=== PATIENT | female | born 1965 | race Caucasian/White ===

== ENCOUNTER 2025-05-15 01:13 | Inpatient (IN) | payer OTHER, SELFPAY ==
--- OUTSIDE RECORDS SUMMARY | 2025-04-23 12:20 | XMS_ITS | Encounter Summary ---
Author Organization [facility] Address [address] [place] [address] [place], [place] [id number] Care Team Providers Care Otologist Name Role Phone Porfirio Nicolas Md Primary Care Provider [phone] Reason for Referral * Specialty (Priority - w/in a Month) - Closed Specialty Diagnoses / Procedures Referred By Brynn hinton Referred To Contact Internal Medicine Diagnoses Smoker Porfirio Nicolas MD [address] [place] [address] Phone: tel: fax: Referral ID Status Reason Start Date Expiration Date V isits Requested Visits Authorized Closed Service not locally available 04/23/2025 04/23/2026 3 3 Scheduling Instructions This referral has been pre-approved for services outside of [facility] as there is no internal expertise. * Imaging (Non Urgent - w/in 3 months) - Auth Not Needed Specialty Diagnoses / Procedures Referred By Brynn hinton Referred To Contact Diagnoses Encounter for screening mammogram for malignant neoplasm of breast Procedures MAMMOGRAM SCREENING BILAT BRIAN BUNDLE Porfirio Nicolas MD [address] [place] [address] Phone: tel: fax: Unspecified Location Referral ID Status Reason Start Date Expiration Date Visits Requested Visits Authorized Auth Not Needed Service not locally available 10/21/2026 1 1 Reason for Visit * Reason Comments New Patient Complete Physical Exam Wears eye glasses for near & farSees eye doctor yearly - [facility] [place] Encounter Details Date Type Department Care Team (Latest Contact Info) Description 04/23/2025 1:20 PM EDT Office Visit [facility] [address] [place] [phone] Porfirio Nicolas MD [address] [place] [phone] Annual physical exam (Primary Dx); Colon cancer screening; Encounter for screening mammogram for malignant neoplasm of breast; Need for COVID-19 vaccine; Need for influenza vaccination; Need for shingles vaccine; Smoker; Type 1 diabetes mellitus with hyperglycemia ([facility]); Seizure disorder ([facility]); Class 2 severe obesity due to excess calories with serious comorbidity and body mass index (BMI) of 35.0 to 35.9 in adult; Bipolar disorder, in partial remission, most recent episode depressed ([facility]); Cervical cancer screening; Bilateral hearing loss, unspecified hearing loss type Social History Tobacco Use Types Packs/Day Years Used Date Smoking Tobacco: Every Day Cigarettes 0.5 5 Passive Smoke Exposure: Never Smokeless Tobacco: Never Alcohol Use Standard Drinks/Week Comments Yes 1 (1 standard drink = 0.6 oz pur e alcohol) One glass of wine at [facility] Vital Sign Answer Date Recorded Worried About [...] What is your housing situation today? Has nanyc coon 04/23/2025 Are you worried about losing [...] 12:56 PM EDT documented in this encounter Ordered Prescriptions Prescription Sig Dispense Quantity Refills Last Filled Start Date End Date nicotine 14 mg/24 hr Patch 24 hrIndications:Smoke r Apply 1 patch daily for 6 weeks; then step down to 7mg patch 42 patch SHINGRIX (PF) 50 MCG/0.5 ML INTRAMUSCULAR SUSPENSION [...] Patient CONSENTS to be recorded by the [employer] system. Subjective Lisa Rosas is a 59 year old patient who presents for a periodic health review. History of Present Illness The patient is a female who presents for a checkup. Physical Examination and Blood Work - Her last physical examination and blood work were nearly a year ago at [facility] in [facility]. - She has not undergone a Pap smear since her hysterectomy in 2010 due to ovarian cancer. - Both ovaries and the uterus were removed, leaving only the cervix intact. Blood Sugar Levels - She experiences fluctuations in her blood sugar levels, generally stable. - She uses a Dexcom monitor and is under regular care of an car sales consultant. - She is on an insulin pump [...] - She is scheduled to see an hand molder soon. Glaucoma - She has glaucoma and [...] Alcohol: Drinks 1 glass of wine on [place]. Tobacco: Smokes about half a pack of [...] vaccine Orders: COVID-19 (PFIZER) VACCINE, 12YRS+, 30MCG/0.3ML ([id number]) Need for influenza vaccination Orders: INFLUENZA VACCINE, 36MOS+, SPLIT VIRUS, SINGLE DOSE SYRINGE (AFLURIA) Need for shingles vaccine Smoker Orders: nicotine 14 mg/24 hr Patch 24 hr; Apply 1 patch daily for 6 weeks; then step down to 7mg patch REFERRAL TO [facility] SMOKING CESSATION PROGRAM Type 1 diabetes mellitus with hyperglycemia ([facility]) Seizure disorder ([facility]) Class 2 severe obesity due to excess calories with serious comorbidity and body mass index (BMI) of35.0 to 35.9 in adult Bipolar disorder, in partial remission, most recent episode depressed ([facility]) Cervical cancer screening Orders: PAP VIAL TESTING; [...] should be continued, and follow-up with the car sales consultant is recommended. 3. Seizure Disorder: There have [...] 2025. The patient is advised to start frkf-gth-wbkobkf baby aspirin daily unless contraindicated due to a history of bleeding ulcers. 5. Hearing Loss: The patient has complete hearing loss in the left ear and partial hearing loss in the right ear. This is managed with hearing aids, and the patient is due to see an hand molder soon. 6. Glaucoma: The patient follows up with the eye doctor annually. No diabetic retinopathy has been reported. 7. History of Bleeding Ulcers: The patient had a bleeding ulcer in 2019, which was treated with surgery. It is [...] step down to 7mg patch REFERRAL TO [facility] SMOKING CESSATION PROGRAM * Assessment & Plan Note - Porfirio Nicolas MD - 04/23/2025 1:20 PM EDTAssociated Problem(s): Type 1 diabetes mellitus with hyperglycemia ([facility]) * Assessment & Plan Note - Porfirio Nicolas MD - 04/23/2025 1:20 PM EDTAssociated Problem(s): Seizure disorder ([facility]) * Assessment & Plan Note - Porfirio Nicolas MD - 04/23/2025 1:20 PM EDTAssociated Problem(s): Class 2 severe obesity due to excess calories with serious comorbidity and body mass index (BMI) of 35.0 to 35.9 in adult * Assessment & Plan Note - Porfirio Nicolas MD - 04/23/2025 1:20 PM EDTAssociated Problem(s): Bipolar disorder, in partial remission, most recent episode depressed ([facility]) * Assessment & Plan Note - Porfirio Nicolas MD - 04/23/2025 1:20 PM EDTAssociated Problem(s): Bilateral hearing loss documented in this encounter Plan of Treatment Upcoming Encounters Date Type Department Care Team (Late st Contact Info) Description 04/28/2026 1:00 PM EDT Office Visit [facility] [address] [place] [phone] Porfirio Nicolas MD [address] [place] [phone] Scheduled Orders Name Type Priority Associated Diagnoses Orde r Schedule COLOGUARD LAB Routine Colon cancer screening Expected: 04/23/2025, Expires: 04/23/2026 MAMMOGRAM SCREENING BILAT BRIAN BUNDLE IMAGING Routine Encounter for screening mammogram for malignant neoplasm of breast Ordered: 04/23/2025 Scheduled Referrals Name Type Priority Associated Diagnoses Orde r Schedule REFERRAL TO [facility] SMOKING CESSATION PROGRAM REFERRAL/FUTURE Routine Smoker Ordered: 04/23/2025 documented as of this encounter Results * PAP VIAL TESTING (04/23/2025 5:10 PM EDT) Interpretation NEGATIVE FOR INTRAEPITHELIAL LESION OR MALIGNANCY 04/29/2025 9:48 AM EDT [facility] DEPARTMENT OF PATHOLOGY AND LAB MEDICINE at 0948 EDT Specimen Adequacy Satisfactory for evaluation. Transformation zone component absent. 04/29/2025 9:48 AM EDT [facility] DEPARTMENT OF PATHOLOGY AND LAB MEDICINE HPV High Risk Negative 04/29/2025 9:48 AM EDT [facility] DEPARTMENT OF PATHOLOGY AND LAB MEDICINE Source Cervical 04/29/2025 9:48 AM EDT [facility] DEPARTMENT OF PATHOLOGY AND LAB MEDICINE Macroscopic Description Vial contains 20cc of colorless fluid. 04/29/2025 9:48 AM EDT [facility] DEPARTMENT OF PATHOLOGY AND LAB MEDICINE Additional Information For further information about terminology found in your pathology report, please visit the My Pathology Report website (not compatible with Internet Explorer). If after speaking to your provider you would like more information about your pathology result, you may message the pathology department directly. 04/29/2025 9:48 AM EDT [facility] DEPARTMENT OF PATHOLOGY AND LAB MEDICINE [...] of this sample. 04/29/2025 9:48 AM EDT [facility] DEPARTMENT OF PATHOLOGY AND LAB MEDICINE Specimen Information Gynecologic Cytology Case: [id number] Collected: 04/23/2025 5:10 PM Received: 04/23/2025 9:40 PM Authorizing Provider: PORFIRIO NICOLAS MD Ordering Location: [facility] Result interpreted by: JALYN JACKSON Result signed on: 04/29/2025 9:48 AM 04/29/2025 9:48 AM EDT [facility] DEPARTMENT OF PATHOLOGY AND LAB MEDICINE PAP Vial (Cervical) Non-blood collection / Unknown 04/23/2025 5:10 PM EDT 04/23/2025 5:10 PM EDT us Porfirio Nicolas LAB PATHOLOGY ORDERABLES Final R esult [facility] DEPARTMENT OF PATHOLOGY AND LAB MEDICINE [address] [place] [address] documented in this encounter Visit Diagnoses Diagnosis [...] disorder Type 1 diabetes mellitus with hyperglycemia ([facility]) Type I (juvenile type) diabetes mellitus without mention of complication, not stated as uncontrolled Seizure disorder ([facility]) Unspecified epilepsy without mention of intractable epilepsy Class 2 severe obesity due to excess calories with serious comorbidity and body mass index (BMI) of 35.0 to 35.9 in adult Bipolar disorder, in partial remission, most recent episode depressed ([facility]) Bipolar I disorder, most recent episode (or [...] Sliding scale: 70-150=0units 151-200=2units 201-250=4units 251-300=6units 301-350=8units(call ) 351-400=10units(call MD) >400=12units(call MD) Dose Adjustment 04/23/2025 [...] Date COVID-19 (PFIZER) VACCINE, 1 2YRS+, 30MCG/0.3ML ([id number]) 1 04/23/2025 INFLUENZA VACCINE, 36MOS+, S PLIT VIRUS, SINGLE DOSE SYRINGE (AFLURIA) 1 04/23/2025 documented in this encounter Care Teams Otologist Relationship Specialty Start Date End Date Porfirio Nicolas MD [address] [place] [phone] PCP - General Internal Medicine 03/31/25 documented as of this encounter
--- OUTSIDE RECORDS SUMMARY | 2025-04-23 12:20 | XMS_ITS | Encounter Summary ---
Author Organization [facility] Address [address] [place] [address] [place], [place] [id number] Care Team Providers Care Net C Developer Name Role Phone Porfirio Nicolas Md Primary Care Provider [phone] Reason for Referral * Specialty (Priority - w/in a Month) - Closed Specialty Diagnoses / Procedures Referred By Brynn hinton Referred To Contact Internal Medicine Diagnoses Smoker Porfirio Nicolas MD [address] [place] [address] Phone: tel: fax: Referral ID Status Reason Start Date Expiration Date V isits Requested Visits Authorized Closed Service not locally available 04/23/2025 04/23/2026 3 3 Scheduling Instructions This referral has been pre-approved for services outside of [facility] as there is no internal expertise. * Imaging (Non Urgent - w/in 3 months) - Auth Not Needed Specialty Diagnoses / Procedures Referred By Brynn hinton Referred To Contact Diagnoses Encounter for screening mammogram for malignant neoplasm of breast Procedures MAMMOGRAM SCREENING BILAT BRIAN BUNDLE Porfirio Nicolas MD [address] [place] [phone] Phone: tel: fax: Unspecified Location Referral ID Status Reason Start Date Expiration Date Visits Requested Visits Authorized Auth Not Needed Service not locally available 10/21/2026 1 1 Reason for Visit * Reason Comments New Patient Complete Physical Exam Wears eye glasses for near & farSees eye doctor yearly - [facility] [place] Encounter Details Date Type Department Care Team (Latest Contact Info) Description 04/23/2025 1:20 PM EDT Office Visit [place] [facility] [address] [place] [phone] Porfirio Nicolas MD [address] [place] [phone] Annual physical exam (Primary Dx); Colon cancer screening; Encounter for screening mammogram for malignant neoplasm of breast; Need for COVID-19 vaccine; Need for influenza vaccination; Need for shingles vaccine; Smoker; Type 1 diabetes mellitus with hyperglycemia ([facility]); Seizure disorder ([facility]); Class 2 severe obesity due to excess calories with serious comorbidity and body mass index (BMI) of 35.0 to 35.9 in adult; Bipolar disorder, in partial remission, most recent episode depressed ([facility]); Cervical cancer screening; Bilateral hearing loss, unspecified hearing loss type Social History Tobacco Use Types Packs/Day Years Used Date Smoking Tobacco: Every Day Cigarettes 0.5 5 Passive Smoke Exposure: Never Smokeless Tobacco: Never Alcohol Use Standard Drinks/Week Comments Yes 1 (1 standard drink = 0.6 oz pur e alcohol) One glass of wine at [facility] Vital Sign Answer Date Recorded Worried About [...] Patient CONSENTS to be recorded by the [facility] system. Subjective Lisa Rosas is a 59 year old patient who presents for a periodic health review. History of Present Illness The patient is a female who presents for a checkup. Physical Examination and Blood Work - Her last physical examination and blood work were nearly a year ago at [facility] in [facility]. - She has not undergone a Pap smear since her hysterectomy in 2010 due to ovarian cancer. - Both ovaries and the uterus were removed, leaving only the cervix intact. Blood Sugar Levels - She experiences fluctuations in her blood sugar levels, generally stable. - She uses a Dexcom monitor and is under regular care of an electronics utility worker. - She is on an insulin pump [...] - She is scheduled to see an locomotive crane engineer soon. Glaucoma - She has glaucoma and [...] vaccine Orders: COVID-19 (PFIZER) VACCINE, 12YRS+, 30MCG/0.3ML ([id number]) Need for influenza vaccination Orders: INFLUENZA VACCINE, 36MOS+, SPLIT VIRUS, SINGLE DOSE SYRINGE (AFLURIA) Need for shingles vaccine Smoker Orders: nicotine 14 mg/24 hr Patch 24 hr; Apply 1 patch daily for 6 weeks; then step down to 7mg patch REFERRAL TO [facility] SMOKING CESSATION PROGRAM Type 1 diabetes mellitus with hyperglycemia ([facility]) Seizure disorder ([facility]) Class 2 severe obesity due to excess calories with serious comorbidity and body mass index (BMI) of35.0 to 35.9 in adult Bipolar disorder, in partial remission, most recent episode depressed ([facility]) Cervical cancer screening Orders: PAP VIAL TESTING; [...] should be continued, and follow-up with the electronics utility worker is recommended. 3. Seizure Disorder: There have [...] 2025. The patient is advised to start [id number]-[id number]-[id number] baby aspirin daily unless contraindicated due to a history of bleeding ulcers. 5. Hearing Loss: The patient has complete hearing loss in the left ear and partial hearing loss in the right ear. This is managed with hearing aids, and the patient is due to see an locomotive crane engineer soon. 6. Glaucoma: The patient follows up [...] Problem(s): Type 1 diabetes mellitus with hyperglycemia ([facility]) * Assessment & Plan Note - Porfirio Nicolas MD - 04/23/2025 1:20 PM EDTAssociated Problem(s): Seizure disorder ([facility]) * Assessment & Plan Note - Porfirio Nicolas MD - 04/23/2025 1:20 PM EDTAssociated Problem(s): Class 2 severe obesity due to excess calories with serious comorbidity and body mass index (BMI) of 35.0 to 35.9 in adult * Assessment & Plan Note - Porfirio Nicolas MD - 04/23/2025 1:20 PM EDTAssociated Problem(s): Bipolar disorder, in partial remission, most recent episode depressed ([facility]) * Assessment & Plan Note - Porfirio Nicolas MD - 04/23/2025 1:20 PM EDTAssociated Problem(s): Bilateral hearing loss documented in this encounter Plan of Treatment Upcoming Encounters Date Type Department Care Team (Late st Contact Info) Description 04/28/2026 1:00 PM EDT Office Visit [facility] [address] [place] [phone] Porfirio Nicolas MD [address] [place] [phone] Scheduled Orders Name Type Priority Associated Diagnoses Orde r Schedule [facility] LAB Routine Colon cancer screening Expected: 04/23/2025, Expires: 04/23/2026 MAMMOGRAM SCREENING BILAT BRIAN BUNDLE IMAGING Routine Encounter for screening mammogram for malignant neoplasm of breast Ordered: 04/23/2025 Scheduled Referrals Name Type Priority Associated Diagnoses Orde r Schedule REFERRAL TO [facility] SMOKING CESSATION PROGRAM REFERRAL/FUTURE Routine Smoker Ordered: 04/23/2025 documented as of this encounter Results * PAP VIAL TESTING (04/23/2025 5:10 PM EDT) Interpretation NEGATIVE FOR INTRAEPITHELIAL LESION OR MALIGNANCY 04/29/2025 9:48 AM EDT [facility] DEPARTMENT OF PATHOLOGY AND LAB MEDICINE at 0948 EDT Specimen Adequacy Satisfactory for evaluation. Transformation zone component absent. 04/29/2025 9:48 AM EDT [facility] DEPARTMENT OF PATHOLOGY AND LAB MEDICINE HPV High Risk Negative 04/29/2025 9:48 AM EDT [facility] DEPARTMENT OF PATHOLOGY AND LAB MEDICINE Source Cervical 04/29/2025 9:48 AM EDT [facility] DEPARTMENT OF PATHOLOGY AND LAB MEDICINE Macroscopic Description Vial contains 20cc of colorless fluid. 04/29/2025 9:48 AM EDT [facility] DEPARTMENT OF PATHOLOGY AND LAB MEDICINE Additional Information For further information about terminology found in your pathology report, please visit the My Pathology Report website (not compatible with Internet Explorer). If after speaking to your provider you would like more information about your pathology result, you may message the pathology department directly. 04/29/2025 9:48 AM EDT [facility] DEPARTMENT OF PATHOLOGY AND LAB MEDICINE Disclaimer [...] of this sample. 04/29/2025 9:48 AM EDT [facility] DEPARTMENT OF PATHOLOGY AND LAB MEDICINE Specimen Information Gynecologic Cytology Case: [id number] Collected: 04/23/2025 5:10 PM Received: 04/23/2025 9:40 PM Authorizing Provider: PORFIRIO NICOLAS MD Ordering Location: [facility] Result interpreted by: JALYN JACKSON Result signed on: 04/29/2025 9:48 AM 04/29/2025 9:48 AM EDT [facility] DEPARTMENT OF PATHOLOGY AND LAB MEDICINE PAP Vial (Cervical) Non-blood collection / Unknown 04/23/2025 5:10 PM EDT 04/23/2025 5:10 PM EDT us Porfirio Nicolas LAB PATHOLOGY ORDERABLES Final R esult [facility] DEPARTMENT OF PATHOLOGY AND LAB MEDICINE [address] [place] [phone] documented in this encounter Visit Diagnoses Diagnosis [...] disorder Type 1 diabetes mellitus with hyperglycemia ([facility]) Type I (juvenile type) diabetes mellitus without mention of complication, not stated as uncontrolled Seizure disorder ([facility]) Unspecified epilepsy without mention of intractable epilepsy Class 2 severe obesity due to excess calories with serious comorbidity and body mass index (BMI) of 35.0 to 35.9 in adult Bipolar disorder, in partial remission, most recent episode depressed ([facility]) Bipolar I disorder, most recent episode (or [...] Date COVID-19 (PFIZER) VACCINE, 1 2YRS+, 30MCG/0.3ML ([id number]) 1 04/23/2025 INFLUENZA VACCINE, 36MOS+, S PLIT VIRUS, SINGLE DOSE SYRINGE (AFLURIA) 1 04/23/2025 documented in this encounter Care Teams Net C Developer Relationship Specialty Start Date End Date Porfirio Nicolas MD [address] [place] [phone] PCP - General Internal Medicine 03/31/25 documented as of this encounter
--- OUTSIDE RECORDS SUMMARY | 2025-05-13 13:40 | XMS_ITS | Encounter Summary ---
Author Organization [facility] Address [address] [place] [address] Care Team Providers Care Maternal Child Nurse Name Role Phone Amy Mills MD Unavailable [phone] Porfirio Carrillo MD Primary Care Provider [phone] Reason for Visit * Reason Comments Behavioral Health * Auth/Cert (Routine) Specialty Diagnoses / Procedures Referred By Contac t Referred To Contact Diagnoses Encounter for behavioral health screening Procedures ED obsv Referral ID Status Reason Start Date Expiration Date Visits Re quested Visits Authorized [id number] 1 1 Encounter Details Date Type Department Care Team (Late st Contact Info) Description 05/13/2025 1:40 PM EST - 05/14/2025 9:47 PM EST Hospital Encounter [facility] Emergency Department [address] [place] [phone] Shiraz Valentine MD [address] [place] [phone] Linette Laughlin MD [address] [place] [address] [place] [address] Rayshawn Melton MD [address] [place] [address] [phone] David Lambert MD [address] [place] [phone] Serg Murphy MD [address] [place] [phone] Severe episode of recurrent major depressive disorder, without psychotic features ([facility]) (Primary Dx) Discharge Disposition: Transfer to Acute Care Hospital [...] any time in the past 12 m [facility], were you homeless or living in a residential (including now)? No 05/13/2025 [facility] Utilities Answer Date Recorded In the [...] No 12/23/2024 9:23 PM Luba Lopes * Are you blind or do you have serious difficulty seeing, even when wearing glasses? Answer Date of Assessment Author No 12/23/2024 9:23 PM Luba Lopes * Do you have serious difficulty walking or climbing stairs? Answer Date of Assessment Author No 12/23/2024 9:23 PM Luba Lopes * Do you have difficulty dressing or bathing? Answer Date of Assessment Author No 12/23/2024 9:23 PM Luba Lopes * Because of a physical, mental, or [...] this encounter Medications at Time of Discharge acetaminophen (TYLENOL) 500 MG tablet Take 2 tablets (1,000 mg total) by mouth every 6 hours as needed for pain. 09/12/2024 aspirin 81 MG EC tablet Take 1 tablet (81 mg total) by mouth daily. 11/11/2024 atorvaSTATin (LIPITOR) 10 MG tablet 10 MG PO DAILY 12/22/2021 benztropine (COGENTIN) 0.5 MG tablet Take 1 tablet (0.5 mg total) by mouth in the morning. At dinner time. benztropine (COGENTIN) 1 MG tablet Take 1 tablet (1 mg total) by mouth at bedtime. 02/13/2023 cloNIDine (CATAPRES) 0.1 MG tablet Take 1 [...] as needed for migraine. 05/07/2024 topiramate (TOPAMAX) 25 MG tablet Take 1 tablet (25 mg total) by mouth every morning. 08/05/2024 topiramate (TOPAMAX) 50 MG tablet 50 MG PO QHS 12/22/2021 documented as of this encounter Progress Notes * Celestino Shelton - 05/14/2025 7:26 PM EST Patient: Lisa Rosas Accepting Facility: [facility] Accepting Facility Address: [address] [place] [address] Accepting MD: Dr. Nam Arrival Time: tonight [...] I have reached out to the patient's vrt mechanic MD Hollis of [facility]. She is advising 14 units Lantus before bed, 3 units Humalog with every meal as well as a regular sliding scale. These orders were placed and the patient is currently being reviewed by [facility]. EKG pending. And out [...] consult outcome/psych medications: None Collateral Contact: Yes (Clincian spoke with Raul Larkin from [facility] ([phone])) Medical/Psychiatric/Substance/Social/Family History: Histories from previous consult note [...] mg/dL EKG: No studies were reviewed. C-SSRS: Armstrong Suicide Severity Rating Scale (C-SSRS) Since Last [...] High Risk (05/14/25 1537 : Radha Schneider) Armstrong Suicide Severity Rating Scale (C-SSRS) Discharge Screener 1) While you were here in the hospital/program, have you wished you were or wished you could go to sleep and not wake up?: Yes If yes, describe: SI with plan to suicide by photostatic copy maker 2) While you were here in the [...] with plan of dying by suicide by photostatic copy maker. Patient reports she has had a lot [...] Duration: Time Spent (min): 60 Case d/w: [facility] Nimesh Aj Signed by: Radha Schneider [...] Date Decline Time Reason If Decline Comment [facility] Accessible 05/13/25 7:37 PM EST [facility] 05/13/25 7:37 PM EST [facility] Accessible 05/13/25 7:38 PM EST [facility] 05/13/25 7:38 PM EST [facility] 05/13/25 7:38 PM EST [facility] 05/13/25 7:38 PM EST [facility] 05/13/25 7:38 PM EST [facility] 05/13/25 7:38 PM EST documented in [...] so that they can kill her. This scenario writer asked about which problem she was [...] history of Anxiety, Bipolar 1 disorder ([facility]), Cataract, Depression, Diabetes mellitus ([facility]), Glaucoma, High cholesterol, Migraines, JONATHAN (obstructive sleep apnea), Repeated falls, and Seizure ([facility]). has a past surgical history that includes Interventional radiology procedure (05/07/2019); Appendectomy; Eye surgery; and Hysterectomy. Psychiatric History: History of psychiatric illness?: Yes History of suicidal ideation?: Yes History of non-suicidal self injury?: No History of interpersonal aggression?: No History of past RADHA?: No Treatment History?: No Current Providers?: Yes Provider Type:: contract graphic designer, Therapist contract graphic designer Name:: Bettye Chaudhary ( [facility]) Therapist Name:: Carley ( [facility]) Collateral Contact: No Home Medications: Prescriptions [...] Social History: The patient lives alone in [place], [place] Socioeconomic History Marital status: Employment Status: Data Unavailable Type of Residence: Private residence Children?: Yes Number of Children: 3 Children's Age(s): Adult age. Education: Other (Comment) Legal Issues (*Add to Legal History Navigator): Other (Comment) History: History [place]cl[place] status: No Personal History: History of trauma/significant [...] 3.2 % Basophil 0.6 % Immature Granulocyte ([place], Myelo, Promyelocyte) 1.0 % Absolute Neutrophil Count 4.38 1.68 - 7.99 K/uL Absolute Immature Granulocyte ([place], Myelo, Promyelocyte) 0.07 0.00 - 0.09 K/uL [...] so that they can kill her. This scenario writer asked about which problem she was [...] Duration: Time Spent (min): 180 Discussed with Roll Up Operator: Yes, Roll Up Operator Name: Marcelle [facility] Discussed with Medical Team: Yes . Meme WHELAN Signed by: Gosia Gordon [1] (Not in a hospital admission) [2] [3] [4] No family history on file. documented in this encounter ED Notes * Saundra Coreas RN - 05/14/2025 9:42 PM EST Patient given most of her nighttime meds except melatonin and clonidine, Spoke with ALINA Moreno, receiving nurse, @ [facility], advised that patient left ED @ 2135 and received her medications @ 2130, also informed of the meds that patient did not receive. Patient's belongings placed on back [facility] to go with patient. Patient understood and [...] MAYTE Paez - 05/13/2025 1:40 PM EST [facility] EM[facility]GENCY DEPARTMENT ED Provider Note Arrival [...] 3.2 % Basophil 0.6 % Immature Granulocyte ([place], Myelo, Promyelocyte) 1.0 % Absolute Neutrophil Count 4.38 1.68 - 7.99 K/uL Absolute Immature Granulocyte ([place], Myelo, Promyelocyte) 0.07 0.00 - 0.09 K/uL [...] Procedure Abnormality Status --------- ------ CBC and Differential[[id number]] Abnormal Final result Please view results for these tests on the individual orders. RAINBOW DRAW Narrative: The following orders were created for panel order [place] Draw. Procedure Abnormality Status --------- ------ Blue Top[[id number]] In process Gold Top[[id number]] In process Please view results for these [...] 7:28 PM Patient has been accepted at [facility] excepted by Dr. Nam, will be sent by ambulance. Clinical Impression None Depression with suicidal ideation My final assessment includes Upon reevaluation, the patient???s condition has not improved and willbe escalated to psychiatric hospitalization. Discharge day management more than 30 minutes?: Yes Serg Murphy MD 05/14/251928 * ED Obs Note - AMYTE Paez - 05/14/2025 7:26 PM EST ED [...] is IP bedsearch. Due to insulin pump, [facility] is unable to accept. [facility] does not currently have beds available. Pt is under review at [facility] adult unit, pending Utox. * Attestation Note - Shiraz Valentine MD - 05/13/2025 1:40 PM EST [facility] EM[facility] ED Attestation Note I personally made/approved the management plan and take responsibility for the patient management. MD Shiraz Vera MD 05/13/25 2200 documented in this encounter Plan of Treatment Pending Results Name Type Priority Associated Diagnoses Date /Time ECG 12 lead, to be obtained, other indication ECG STAT 05/14 5:36 PM EST documented as of this encounter Procedures Procedure Name Priority Date/Time Associated Diagnosis Comments ECG 12-LEAD STAT 05/14/2025 5:36 PM EST Procedure Note - 05/14/2025 5:36 PM ESTThis note is in progress. SINUS RHYTHM BORDERLINE LEFT AXIS DEVIATION [QRS AXIS < -20] RIGHT BUNDLE BRANCH BLOCK [120+ ms QRS DURATION, UPRIGHT V1, 40+ ms S INI/aVL/V4/V5/V6] ABNORMAL ECG Reviewed by POCI GLUCOSE Routine 05/14/2025 11:46 AM EST [...] EST documented in this encounter Results * (ABNORMAL) POCT Glucose (05/14/2025 11:46 AM EST) Glucose, POC 156(H) 75 - 140 mg/dL 05/14/2025 11:48 AM EST [facility] Comment: @Serial Lnzruh=[id number] @General Duty Nurse YH=[id number] Blood 05/14/2025 11:4 6 AM EST 05/14/2025 11:48 AM EST us Rayshwan Melton MD POCT ORDERABLES - DEVICE Final Result Performing Organization Address [facility] Co de Phone Number [facility] [address] [place] [address] * (ABNORMAL) POCT Glucose (05/14/2025 8:36 AM EST) Glucose, POC 144(H) 75 - 140 mg/dL 05/14/2025 8:38 AM EST [facility] Comment: @Serial Bmucvy=[id number] @General Duty Nurse UQ=[id number] Blood 05/14/2025 8:36 AM EST 05/14/2025 8:38 AM EST us Linette Laughlin MD POCT ORDERABLES - DEVICE Final R esult Performing Organization Address [facility] Co de Phone Number [facility] [address] [place] [address] * (HCG), Urine (05/14/2025 6:00 AM EST) HCG, Urine Random Negative Negative 05/14/2025 6:15 AM EST [facility] Urine URINE SPECIMEN / Unknown Collection / Unknown 05/14/2025 6:00 AM EST 05/14/2025 6:03 AM EST us Donald Vargas MD URINE ORDERABLES Final Result [facility] [address] [place] [address], [place] * (ABNORMAL) Drug Screen, Urine (05/14/2025 6:00 AM EST) [facility] Signature Amphetamines Screen, Urine Negative Negative 05/14/2025 6:[address] [facility] Barbiturates Screen, Urine Negative Negative 05/14/2025 6:[address] [facility] Benzodiazepine Screen, Urine Positive(A) Negative 05/14/2025 6:[address] [facility] Buprenorphine Screen, Urine Negative Negative 05/14/2025 6:[address] [facility] Cannabinoids Screen, Urine Negative Negative 05/14/2025 6:[address] [facility] Cocaine Metabolite Screen, Urine Negative Negative 05/14/2025 6:[address] [facility] Fentanyl Screen, Urine Negative Negative 05/14/2025 6:[address] [facility] Methadone Screen, Urine Negative Negative 05/14/2025 6:[address] [facility] Opiates Screen, Urine Negative Negative 05/14/2025 6:[address] [facility] Oxycodone Screen, Urine Negative Negative 05/14/2025 6:[address] [facility] Propoxyphene Screen, Urine Negative Negative 05/14/2025 6:[address] [facility] Tricyclics Screen Negative Negative 025 6:[address] [facility] Comment 05/14/2025 6:[address] [facility] Comment: The cut-off concentration for [...] URINE ORDERABLES Final Result Performing Organization Address [facility] Phone Number [address] [address], [place] * (ABNORMAL) POCT Glucose (05/13/2025 6:13 PM EST) Glucose, POC 157(H) 75 - 140 mg/dL 05/13/2025 6:[address] [facility] Comment: @Serial Ichogv=[id number] @General Duty Nurse KX=[id number] Blood 05/13/2025 6:13 PM EST 05/13/2025 6:27 PM EST Shiraz Valentine MD POCT ORDERABLES - DEVICE Final R esult Performing Organization Address [facility] Phone [facility] [address] [place] [phone], [place] * Gold Top (05/13/2025 2:26 PM EST) Gold Top Tube Received 05/13/2025 4:01 PM EST [facility] Blood PERIPHERAL BLOOD SPECIMEN / Unknown Venipuncture / Unknown 05/13/2025 2:26 PM EST 05/13/2025 2:32 PM EST Donald Vargas MD LAB BLOOD ORDERABLES Final Res ult Performing Organization Address [facility] Phone Number [facility] [address] [place] [address], [place] * Blue Top (05/13/2025 2:26 PM EST) Blue Top Tube Received 05/13/2025 4:01 PM EST [facility] Blood PERIPHERAL BLOOD SPECIMEN / Unknown Venipuncture / Unknown 05/13/2025 2:26 PM EST 05/13/2025 2:32 PM EST us Donald Vargas MD LAB BLOOD ORDERABLES Final Res ult [facility] [address] [place] [address], [place] * (ABNORMAL) CBC and Differential (05/13/2025 2:26 PM EST) WBC 6.82 3.90 - 10.80 K/uL 05/13/2025 2:[address] [facility] RBC 4.49 3.93 - 5.29 M/uL 05/13/2025 2:[address] [facility] Hemoglobin 13.6 12.0 - 15.2 g/dL 05/13/2025 2:[address] [facility] Hematocrit 42.9 34.1 - 44.9 % 05/13/2025 2:[address] [facility] MCH 30.3 25.6 - 32.2 pg 05/13/2025 2:[address] [facility] MCHC 31.7(L) 32.0 - 36.0 g/dL 05/13/2025 2:[address] [facility] MCV 96 81 - 96 fL 05/13/2025 2:[address] [facility] RDW 13.4 11.5 - 14.0 % 05/13/2025 2:[address] [facility] Platelet Count 291 154 - 369 K/uL 05/13/2025 2:[address] [facility] Neutrophil 64.3 % 05/13/2025 2:[address] [facility] Lymphocyte 22.7 % 05/13/2025 2:[address] [facility] Monocyte 8.2 % 05/13/2025 2:[address] [facility] Eosinophil 3.2 % 05/13/2025 2:[address] [facility] Basophil 0.6 % 05/13/2025 2:[address] [facility] Immature Granulocyte ([place], Myelo, Promyelocyte) 1.0 % 05/13/2025 2:[address] [facility] Absolute Neutrophil Count 4.38 1.68 - 7.99 K/uL 05/13/2025 2:[address] [facility] Absolute Immature Granulocyte ([place], Myelo, Promyelocyte) 0.07 0.00 - 0.09 K/uL 05/13/2025 2:[address] [facility] Absolute Lymphocyte Count 1.55 0.66 - 4.75 K/uL 05/13/2025 2:[address] [facility] Absolute Monocyte Count 0.56 0.16 - 1.40 K/uL 05/13/2025 2:[address] [facility] Absolute Eosinophil Count 0.22 0.00 - 0.60 K/uL 05/13/2025 2:[address] [facility] Absolute Basophil Count 0.04 0.00 - 0.32 K/uL 05/13/2025 2:[address] [facility] Blood PERIPHERAL BLOOD SPECIMEN / Unknown Venipuncture / Unknown 05/13/2025 2:26 PM EST 05/13/2025 2:32 PM EST Donald Vargas MD LAB BLOOD ORDERABLES Final Res ult Performing Organization Address [facility] de Phone Number [facility] [address] [place] [address], [place] * (ABNORMAL) Plasma Toxicology Screen (05/13/2025 2:26 PM EST) Acetaminophen Result,Blood <5(L) 10 - 30 ug/mL 05/13/2025 4:[address] [facility] Alcohol <10 <10 mg/dL 05/13/2025 4:[address] [facility] Salicylate Level, Blood <1 <30 mg/dL 05/13/2025 4:[address] [facility] Blood PERIPHERAL BLOOD SPECIMEN / Unknown Venipuncture / Unknown 05/13/2025 2:26 PM EST 05/13/2025 2:32 PM EST us Donald Vargas MD LAB BLOOD ORDERABLES Final Res ult Performing Organization Address [facility] Co de Phone Number [facility] [address] [place] [address], [place] * (ABNORMAL) Basic Metabolic Panel (05/13/2025 2:26 PM EST) Sodium 139 135 - 146 mmol/L 05/13/2025 2:[address] [facility] Potassium 4.6 3.4 - 5.2 mmol/L 05/13/2025 2:[address] [facility] Chloride 101 98 - 110 mmol/L 05/13/2025 2:[address] [facility] Total CO2/Bicarbonat e 27 24 - 32 mmol/L 05/13/2025 2:[address] [facility] Anion Gap 11 2 - 15 mmol/L 05/13/2025 2:[address] [facility] BUN 12 7 - 24 mg/dL 05/13/2025 2:[address] [facility] Creatinine, Blood 1.00 0.50 - 1.10 mg/dL 05/13/2025 2:[address] [facility] Glucose, Blood 119(H) 50 - 100 mg/dL 05/13/2025 2:[address] [facility] Calcium 9.6 8.5 - 10.5 mg/dL 05/13/2025 2:[address] [facility] Estimated GFR(CKD-EPI) 66 mL/min/BSA 05/13/2025 2:[address] [facility] Blood PERIPHERAL BLOOD SPECIMEN / Unknown Venipuncture / Unknown 05/13/2025 2:26 PM EST 05/13/2025 2:32 PM EST us Donald Vargas MD LAB BLOOD ORDERABLES Final Res ult [facility] [address] [place] [address], documented in this encounter Visit Diagnoses Diagnosis Severe episode of recurrent major depressive disorder, without psychotic features (CMS-HCC)- Primary documented in this encounter Administered Medications Inactive Administered Medications - up to 3 most recent administrations Medication Order MAR Action Action Date Dose Rate Site atorvaSTATin (LIPITOR) tablet 10 mg 10 mg, Oral, Daily, First dose on Becca 05/14/25 at 0900, Until Discontinued Given 05/14/2025 8:51 [...] mg, Oral, Every morning, First dose on Becca 05/14/25 at 0900, Until Discontinued Given 05/14/2025 8:50 [...] (Given - Provid er: Yandel Martin RN) benztropine (COGENTIN) tablet 0.5 mg 0.5 mg, Oral, Daily, First dose on Becca 05/14/25 at 0900, Until Discontinued 0845 (Given - Provid er: Yandel Martin RN) benztropine (COGENTIN) tablet 1 mg 1 mg, Oral, At bedtime, First dose on Sun05/13/25 at 2100, Until Discontinued 2002 (Given - Provider: Michael Lan RN) 2122 (Given - Provider: Saundra Coreas RN) cloNIDine (CATAPRES) tablet 0.1 mg 0.1 mg, Oral, 3 times daily, First dose on Sun05/13/25 at 1843, Until Discontinued 2003 (Given - Provider: Michael Lan RN)2007 (Not Given - Provider: Michael Lan RN - Reason: Other - Indicate below - Comment: dose given from 2200) 0848 (Given - Provider: Yandel Martin RN)1800 (Given - Provider: Carrie Granados RN - Comment: [facility] care)2199 (Canceled Entry - Provider: Automatic Discharge Provider - Comment: Automatically canceled at discontinue of medication order) gabapentin (NEURONTIN) capsule 100 mg 100 mg, Oral, At bedtime, First dose on Sun05/13/25 at 2100, Until Discontinued 2003 (Given - Provider: Michael Lan RN) 2124 (Given - Provider: Saundra Coreas RN) insulin glargine 14 Units 14 Units, Subcutaneous, [...] dose on Sun05/14/25 at 1730, Until Discontinued 183 (Given - Provid er: Carrie Granados RN - Comment: scanner not available) lamoTRIgine (LaMICtal) tablet 100 mg 100 mg, Oral, Every morning, First dose on Sun05/14/25 at 0900, Until Discontinued 08 (Given - Provid er: Yandel Martin RN) [...] dose on Sun05/14/25 at 0900, Until Discontinued 0858 (Given - Provid er: Yandel Martin RN) [...] 2003 (Given - Provider: Michael Lan RN) 2123 (Given - Provider: Saundra Coreas RN) PRN Medication Order 05/12/2025 05/13/2025 05/14/2025 acetaminophen (TYLENOL) tablet 1,000 mg 1,000 mg, Oral, Every 6 hours PRN, Starting on Sun05/13/25 at 1840, Until Sun05/14/25 at 2348, mild (1-3) pain dextrose (GLUTOSE) [...] aspiration. documented in this encounter Care Teams Maternal Child Nurse Relationship Specialty Start Date End Date Porfirio Carrillo MD [address] [place] [address] PCP - General Family Practice 05/13/25 Amy Mills MD [address] [place] [address] 12/08/23 documented as of this encounter
--- OUTSIDE RECORDS SUMMARY | 2025-05-13 13:40 | XMS_ITS | Encounter Summary ---
Author Organization [facility] Address [address] [place] [address] Care Team Providers Care Local Az Truck Driver Name Role Phone Amy Mills MD Unavailable Porfirio Carrillo MD Primary Care Provider [phone] Reason for Visit * Reason Comments Behavioral Health * Auth/Cert (Routine) Specialty Diagnoses / Procedures Referred By Contac t Referred To Contact Diagnoses Encounter for behavioral health screening Procedures ED obsv Referral ID Status Reason Start Date Expiration Date Visits Re quested Visits Authorized [id number] 1 1 Encounter Details Date Type Department Care Team (Late st Contact Info) Description 05/13/2025 1:40 PM EST - 05/14/2025 9:47 PM EST Hospital Encounter [facility] Emergency Department [address] [place] [phone] Shiraz Valentine MD [address] [place] [phone] Linette Laughlin MD [address] [place] [address] [place] [address] Rayshawn Melton MD [address] [place] [address] [phone] David Lambert MD [address] [place] [phone] Serg Murphy MD [address] [place] [phone] Severe episode of recurrent major depressive disorder, without psychotic features ([facility]) (Primary Dx); Depression, unspecified depression type Discharge [...] any time in the past 12 m [facility], were you homeless or living in a assisted (including now)? No 05/13/2025 [facility] Utilities Answer Date Recorded In the [...] No 12/23/2024 9:23 PM EDLuba Gillette * Because of a physical, mental, or [...] PM EST Patient: Lisa Rosas Accepting Facility: [facility] Accepting Facility Address: [address] [place] [id number] Accepting MD: Dr. Nam Arrival Time: tonight [...] I have reached out to the patient's senior account director MD Hollis of [facility]. She is advising 14 units Lantus before bed, 3 units Humalog with every meal as well as a regular sliding scale. These orders were placed and the patient is currently being reviewed by [facility]. EKG pending. And out [...] Yes (Clinyoanan spoke with Raul Larkin from [facility] ([phone])) Medical/Psychiatric/Substance/Social/Family History: Histories from previous consult note [...] mg/dL EKG: No studies were reviewed. C-SSRS: Leigh Suicide Severity Rating Scale (C-SSRS) Since Last [...] High Risk (05/14/25 1537 : Radha Schneider) Leigh Suicide Severity Rating Scale (C-SSRS) Discharge Screener 1) While you were here in the hospital/program, have you wished you were or wished you could go to sleep and not wake up?: Yes If yes, describe: SI with plan to suicide by copy worker 2) While you were here in the [...] plan of dying by suicide by copy worker. Patient reports she has had a lot [...] Time Spent (min): 60 Case d/w: [facility] Nimesh Aj Signed by: Radha Schneider [1] [...] Date Decline Time Reason If Decline Comment [facility] Accessible 05/13/25 7:37 PM EST [facility] 05/13/25 7:37 PM EST [facility] Accessible 05/13/25 7:38 PM EST [facility] 05/13/25 7:38 PM EST [facility] 05/13/25 7:38 PM EST [facility] 05/13/25 7:38 PM EST [facility] 05/13/25 7:38 PM EST [facility]) 05/13/25 7:38 PM EST documented in [...] so that they can kill her. This poem writer asked about which problem she was [...] medical history of Anxiety, Bipolar 1 disorder ([facility]), Cataract, Depression, Diabetes mellitus ([facility]), Glaucoma, High cholesterol, Migraines, JONATHAN (obstructive sleep apnea), Repeated falls, and Seizure ([facility]). has a past surgical history that includes Interventional radiology procedure (05/07/2019); Appendectomy; Eye surgery; and Hysterectomy. Psychiatric History: History of psychiatric illness?: Yes History of suicidal ideation?: Yes History of non-suicidal self injury?: No History of interpersonal aggression?: No History of past RADHA?: No Treatment History?: No Current Providers?: Yes Provider Type:: fire tender, Therapist fire tender Name:: Bettye Chaudhary ( [facility]) Therapist Name:: Carley ( [facility]) Collateral Contact: No Home Medications: Prescriptions Prior [...] Social History: The patient lives alone in [place], [place] Socioeconomic History Marital status: Employment Status: [...] 3.2 % Basophil 0.6 % Immature Granulocyte ([place], Myelo, Promyelocyte) 1.0 % Absolute Neutrophil Count 4.38 1.68 - 7.99 K/uL Absolute Immature Granulocyte ([place], Myelo, Promyelocyte) 0.07 0.00 - 0.09 K/uL [...] so that they can kill her. This poem writer asked about which problem she was [...] Duration: Time Spent (min): 180 Discussed with Car Seat Upholsterer: Yes, Car Seat Upholsterer Name: Marcelle SISSY Discussed with Medical Team: Yes . Meme WHELAN Signed by: Gosia Gordon [1] (Not in a hospital admission) [2] [3] [4] No family history on file. documented in this encounter ED Notes * Saundra Coreas RN - 05/14/2025 9:42 PM EST Patient given most of her nighttime meds except melatonin and clonidine, Spoke with ALINA Moreno, receiving nurse, @ [facility], advised that patient left ED @ 2135 and received her medications @ 0, also informed of the meds that patient did not receive. Patient's belongings placed on back [facility] to go with patient. Patient understood and [...] MAYTE Paez - 05/13/2025 1:40 PM EST [facility] EMERGENCY DEPARTMENT ED Provider Note Arrival Date: [...] 3.2 % Basophil 0.6 % Immature Granulocyte ([place], Myelo, Promyelocyte) 1.0 % Absolute Neutrophil Count 4.38 1.68 - 7.99 K/uL Absolute Immature Granulocyte ([place], Myelo, Promyelocyte) 0.07 0.00 - 0.09 K/uL [...] Procedure Abnormality Status --------- ------ CBC and Differential[[id number]] Abnormal Final result Please view results for these tests on the individual orders. RAINBOW DRAW Narrative: The following orders were created for panel order [place] Draw. Procedure Abnormality Status --------- ------ Blue Top[[id number]] In process Gold Top[[id number]] In process Please view results for these [...] 7:28 PM Patient has been accepted at [facility] excepted by Dr. Nam, will be [...] is IP bedsearch. Due to insulin pump, [facility] is unable to accept. [facility] does not currently have beds available. Pt is under review at [facility], pending Utox. * Attestation Note - Shiraz Valentine MD - 05/13/2025 1:40 PM EST [facility] EMERGENCY DEPARTMENT ED Attestation Note I personally [...] V1, 40+ ms S INI/aVL/V4/V5/V6] ABNORMAL ECG POCI GLUCOSE Routine 05/14/2025 11:46 AM EST [...] - 140 mg/dL 05/14/2025 11:48 AM EST [facility] Comment: @Serial Tpifel=[id number] @Supervisor Force Adjustment [place]=[id number] Blood 05/14/2025 11:4 6 AM EST 05/14/2025 11:48 AM EST us Rayshawn Melton MD POCT ORDERABLES - DEVICE Final Result Performing Organization Address [facility] [place] [address], * (ABNORMAL) POCT Glucose (05/14/2025 8:36 AM EST) Glucose, POC 144(H) 75 - 140 mg/dL 05/14/2025 8:38 AM EST [facility] Comment: @Serial Invcox=[id number] @Supervisor Force Adjustment HA=[id number] Blood 05/14/2025 8:36 AM EST 05/14/2025 8:38 AM EST us Linette Laughlin MD POCT ORDERABLES - DEVICE Final R esult Performing Organization Address [facility] de Phone Number [facility] [address] [place] [address], [place] * (HCG), Urine (05/14/2025 6:00 AM EST) HCG, Urine Random Negative Negative 05/14/2025 6:15 AM EST [facility] Urine URINE SPECIMEN / Unknown Collection / Unknown 05/14/2025 6:00 AM EST 05/14/2025 6:03 AM EST us Donald Vargas MD URINE ORDERABLES Final Result Performing Organization Address [facility]/ZIP Co de Phone Number [facility] [address] [place] [address], [place] * (ABNORMAL) Drug Screen, Urine (05/14/2025 6:00 AM EST) [facility] Amphetamines Screen, Urine Negative Negative 05/14/2025 6:46 AM [facility] Barbiturates Screen, Urine Negative Negative 05/14/2025 6:46 AM [facility] Benzodiazepine Screen, Urine Positive(A) Negative 05/14/2025 6:46 AM [facility] Buprenorphine Screen, Urine Negative Negative 05/14/2025 6:46 AM [facility] Cannabinoids Screen, Urine Negative Negative 05/14/2025 6:46 AM [facility] Cocaine Metabolite Screen, Urine Negative Negative 05/14/2025 6:46 AM [facility] Fentanyl Screen, Urine Negative Negative 05/14/2025 6:46 AM [facility] Methadone Screen, Urine Negative Negative 05/14/2025 6:46 AM [facility] Opiates Screen, Urine Negative Negative 05/14/2025 6:46 AM [facility] Oxycodone Screen, Urine Negative Negative 05/14/2025 6:46 AM [facility] Propoxyphene Screen, Urine Negative Negative 05/14/2025 6:46 AM [facility] Tricyclics Screen Negative Negative 025 6:46 AM [facility] Comment 05/14/2025 6:46 AM [facility] Comment: The cut-off concentration for a [...] 6:00 AM EST 05/14/2025 6:03 AM EST Donald Vargas MD URINE ORDERABLES Final Result Performing Organization Address [facility] de Phone Number [facility] [address] [place] [address], [place] * (ABNORMAL) POCT Glucose (05/13/2025 6:13 PM EST) Glucose, POC 157(H) 75 - 140 mg/dL 05/13/2025 6:27 PM EST [facility] Comment: @Serial Wdvsqp=[id number] @Supervisor Force Adjustment LP=[id number] Blood 05/13/2025 6:13 PM EST 05/13/2025 6:27 PM EST us Shiraz Valentine MD POCT ORDERABLES - DEVICE Final R esult Performing Organization Address [facility] Phone Number [facility] [address] [place] [address], [place] * Gold Top (05/13/2025 2:26 PM EST) Gold Top Tube Received 05/13/2025 4:01 PM EST [facility] Blood PERIPHERAL BLOOD SPECIMEN / Unknown Venipuncture / Unknown 05/13/2025 2:26 PM EST 05/13/2025 2:32 PM EST Donald Vargas MD LAB BLOOD ORDERABLES Final Res ult Performing Organization Address [facility] de Phone Number [facility] [address] [place] [address], [place] * Blue Top (05/13/2025 2:26 PM EST) Blue Top Tube Received 05/13/2025 4:01 PM EST [facility] Blood PERIPHERAL BLOOD SPECIMEN / Unknown Venipuncture / Unknown 05/13/2025 2:26 PM EST 05/13/2025 2:32 PM EST Donald Vargas MD LAB BLOOD ORDERABLES Final Res ult [facility] [address] [place] [address], [place] * (ABNORMAL) CBC and Differential (05/13/2025 2:26 PM EST) WBC 6.82 3.90 - 10.80 K/uL 05/13/2025 2:35 PM [facility] RBC 4.49 3.93 - 5.29 M/uL 05/13/2025 2:35 PM [facility] Hemoglobin 13.6 12.0 - 15.2 g/dL 05/13/2025 2:35 PM [facility] Hematocrit 42.9 34.1 - 44.9 % 05/13/2025 2:35 PM [facility] MCH 30.3 25.6 - 32.2 pg 05/13/2025 2:35 PM [facility] MCHC 31.7(L) 32.0 - 36.0 g/dL 05/13/2025 2:35 PM [facility] MCV 96 81 - 96 fL 05/13/2025 2:35 PM [facility] RDW 13.4 11.5 - 14.0 % 05/13/2025 2:35 PM [facility] Platelet Count 291 154 - 369 K/uL 05/13/2025 2:35 PM [facility] Neutrophil 64.3 % 05/13/2025 2:35 PM [facility] Lymphocyte 22.7 % 05/13/2025 2:35 PM [facility] Monocyte 8.2 % 05/13/2025 2:35 PM [facility] Eosinophil 3.2 % 05/13/2025 2:35 PM [facility] Basophil 0.6 % 05/13/2025 2:35 PM [facility] Immature Granulocyte ([place], Myelo, Promyelocyte) 1.0 % 05/13/2025 2:35 PM [facility] Absolute Neutrophil Count 4.38 1.68 - 7.99 K/uL 05/13/2025 2:35 PM [facility] Absolute Immature Granulocyte ([place], Myelo, Promyelocyte) 0.07 0.00 - 0.09 K/uL 05/13/2025 2:35 PM [facility] Absolute Lymphocyte Count 1.55 0.66 - 4.75 K/uL 05/13/2025 2:35 PM [facility] Absolute Monocyte Count 0.56 0.16 - 1.40 K/uL 05/13/2025 2:35 PM [facility] Absolute Eosinophil Count 0.22 0.00 - 0.60 K/uL 05/13/2025 2:35 PM [facility] Absolute Basophil Count 0.04 0.00 - 0.32 K/uL 05/13/2025 2:35 PM [facility] Blood PERIPHERAL BLOOD SPECIMEN / Unknown Venipuncture / Unknown 05/13/2025 2:26 PM EST 05/13/2025 2:32 PM EST Donald Vargas MD LAB BLOOD ORDERABLES Final Res ult Performing Organization Address [facility] Co de Phone Number [facility] [address] [place] [address], [place] * (ABNORMAL) Plasma Toxicology Screen (05/13/2025 2:26 PM EST) [facility] Acetaminophen Result,Blood <5(L) 10 - 30 ug/mL 05/13/2025 4:07 PM [facility] Alcohol <10 <10 mg/dL 05/13/2025 4:07 PM [facility] Salicylate Level, Blood <1 <30 mg/dL 05/13/2025 4:07 PM [facility] Blood PERIPHERAL BLOOD SPECIMEN / Unknown Venipuncture / Unknown 05/13/2025 2:26 PM EST 05/13/2025 2:32 PM EST Donald Vargas MD LAB BLOOD ORDERABLES Final Res ult Performing Organization Address [facility]/ZIP Co de Phone Number [facility] [address] [place] [address], [place] * (ABNORMAL) Basic Metabolic Panel (05/13/2025 2:26 PM EST) [facility] Sodium 139 135 - 146 mmol/L 05/13/2025 2:55 PM [facility] Potassium 4.6 3.4 - 5.2 mmol/L 05/13/2025 2:55 PM [facility] Chloride 101 98 - 110 mmol/L 05/13/2025 2:55 PM [facility] Total CO2/Bicarbonat e 27 24 - 32 mmol/L 05/13/2025 2:55 PM [facility] Anion Gap 11 2 - 15 mmol/L 05/13/2025 2:55 PM [facility] BUN 12 7 - 24 mg/dL 05/13/2025 2:55 PM [facility] Creatinine, Blood 1.00 0.50 - 1.10 mg/dL 05/13/2025 2:55 PM [facility] Glucose, Blood 119(H) 50 - 100 mg/dL 05/13/2025 2:55 PM [facility] Calcium 9.6 8.5 - 10.5 mg/dL 05/13/2025 2:55 PM [facility] Estimated GFR(CKD-EPI) 66 mL/min/BSA 05/13/2025 2:55 PM [facility] Blood PERIPHERAL BLOOD SPECIMEN / Unknown Venipuncture / Unknown 05/13/2025 2:26 PM EST 05/13/2025 2:32 PM EST us Donald Vargas MD LAB BLOOD ORDERABLES Final Res ult Performing Organization Address City/State/[facility] Co de Phone Number [facility] [address] [place] [id number] documented in this encounter Visit Diagnoses Diagnosis [...] needed, Starting on Sun05/14/25 at 1627, Until Becca 05/14/25 at 2348, [...] 05/14/25 at 0900, Until Discontinued Given 05/14/2025 8:58 [...] on Becca 05/14/25 at 0900, Until Discontinued 0851 (Given - [...] - Provider: Carrie Granados RN - Comment: [facility])2200 (Canceled Entry - Provider: Automatic Discharge Provider - Comment: Automatically canceled at discontinue of medication order) gabapentin (NEURONTIN) capsule 100 mg 100 mg, Oral, At bedtime, First dose on Sun05/13/25 at 2100, Until Discontinued 2003 (Given - Provider: Michael Lan RN) 2124 (Given - Provider: Saundra Croeas RN) insulin glargine 14 Units 14 Units, [...] dose on Sun05/14/25 at 0900, Until Discontinued 850 (Given - Provid er: Yandel Martin RN) topiramate (TOPAMAX) tablet 25 mg 25 mg, Oral, Every morning, First dose on Sun05/14/25 at 0900, Until Discontinued 849 (Given - Provid er: Yandel Martin RN) [...] aspiration. documented in this encounter Care Teams Local Az Truck Driver Relationship Specialty Start Date End Date Porfirio Carrillo MD [address] [place], [place] [phone] PCP - General Family Practice 05/13/25 Amy Mills MD [address] [place] [phone] 12/08/23 documented as of this encounter
--- OUTSIDE RECORDS SUMMARY | 2025-05-15 00:01 | XMS_ITS | Clinical Summary ---
[facility] Organization [facility] Address [address] [place] [address] Phone Care Team Providers Care Sign Erector And Repairer Name Role Phone Aym Mills MD Primary Care Provider [phone] Allergies Active Allergy Reactions Criticality Noted Date Comments Bee Venom 03/10/2019 Hernandez 09/03/2018 Clindamycin 03/10/2019 Coconut (Cocos Nucifera) 02/19/2018 Anaphylaxis Iodinated Contrast Media 03/10/2019 Iodine Anaphylaxis High 08/26/2017 Penicillins Anaphylaxis High 08/25/2017 Oxycodone-Acetaminophen Anaphylaxis High 08/25/2017 OK to take Tylenol Fish Oil 02/19/2018 Anaphylaxis Shellfish Allergy 09/03/2018 Medications albuterol HFA (PROVENTIL HFA;VENTOLIN HFA) 108 (90 Base) MCG/ACT inhaler Inhale 2 puffs every 4 (four) hours as needed for wheezing or shortness of breath Active sertraline (ZOLOFT) 100 MG tablet Take 150 mg by mouth every morning Active prazosin (MINIPRESS) 1 MG capsule Take 2 mg by mouth nightly Active insulin lispro (HumaLOG) 100 UNIT/ML injection Inject under the skin 3 (three) times a day before meals Take 8 units in the morning, 6 units in the afternoon and 8 units at night Active insulin lispro (HumaLOG) 100 UNIT/ML injection Inject 0-12 Units under the skin as needed Per Sliding scale: 70-150=0units 151-200=2units 201-250=4units 251-300=6units 301-350=8units( dayne WHELAN) 351-400=10units (dayne WHELAN) >400=12units(loren schofield MD) Active Insulin Glargine (BASAGLAR) 100 UNIT/ML solution pen-injector Inject 22 Units under the skin nightly 9 Active fluticasone (FLONASE) 50 MCG/ACT nasal spray Administer 2 sprays into each nostril 2 (two) times a day 16 g 12 9 Active QUEtiapine (SEROquel) 100 MG tablet Take 100 mg by mouth nightly Active QUEtiapine (SEROquel) 25 MG tablet Take 25 mg by mouth every morning Active traZODone (DESYREL) 50 MG tablet Take 50 mg by mouth nightly Active lamoTRIgine (LaMICtal) 25 MG tablet Take 25 mg by mouth 2 (two) times a day Active multivitamin with minerals (THERA M PLUS) tablet Take 1 tablet by mouth daily Active OXcarbazepine (TRILEPTAL) 300 MG tablet Take 600 mg by mouth 2 (two) times a day Active famotidine (PEPCID) 20 MG tablet Take 1 tablet (20 mg total) by mouth 2 (two) times a day as needed for heartburn 20 tablet 9 Active Active Problems Problem Noted Date Diagnosed Date Acute cystitis without hematuria 09/04/2018 Assessment & Plan (09/05/2018 4:08 PM EST): Possible UTI given pyuria on UA but culture with contamination, no convincing signs/symptoms of true UTI and seizures are non-epileptic. At this point feel UTI RULED OUT. Stop Macrobid. Bipolar 1 disorder 09/04/2018 Assessment & Plan (09/05/2018 4:08 PM EST): Continue sertraline, Seroquel, trazodone, Lamictal and prazosin. Psychiatry consulted to consider medication adjustment in light of ongoing pseudoseizures. Seizure-like activity 09/03/2018 Hyponatremia 09/03/2018 Assessment & Plan (09/05/2018 4:07 PM EST): May be due to medications or polydipsia, sodium is improving with fluid restriction and now near normal. Will relax fluid restriction and continue to monitor sodium. 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 Acute cystitis without hematuria 08/04/2018 Episode of recurrent major depressive disorder 0 08/04/2018 Episodic paroxysmal hemicrania 04/03/2018 Assessment & Plan (04/03/2018 4:12 PM EDT): LP performed in ER, neg acute, neurology consulted await further recommendations Suicidal ideation 04/03/2018 Assessment & Plan (04/03/2018 3:00 PM EDT): Pt placed on suicidal precautions with 07/09 observation, follow and consult psychiatry for further recommendations as well Seizure 04/03/2018 Psychogenic nonepileptic seizure 02/19/2018 Assessment & Plan (09/05/2018 4:07 PM EST): There has been prior high suspicion for psychogenic non-epileptic seizures. She had a captured event while on video EEG monitoring yesterday without any epileptiform activity confirming that there are non-epileptic seizures. Had another episdode today with some warning, patient able to remain safe and avoid injury, no incontinence and fairly short lived without prolonged post ictal state. Patient states she has daily seizures and is well aware of her diagnosis of non-epileptic seizures. Will have psychiatry seen her but given the longstanding nature of this problem suspect she will need intensive outpatient therapy to make any substantial difference. Plan is for her to follow up with [facility] seizure disorder center in specific non-epileptic seizure program and has been referred to Dr. Omer Kelley a neuropsychiatrist who deals with this issue. Subclinical hypothyroidism 08/27/2017 Diarrhea of presumed infectious origin 8 Seizure disorder 08/26/2017 Overview (08/26/2017): Began when diabetes control became more challenging. Seizures tend to occur when hypoglycemic (last episode 02/2017) or markedly hyper glycemic. Assessment & Plan (04/03/2018 4:12 PM EDT): Pt presents with seizure and headache from [facility] evaluated in the ER, given presentation had LP as well for evaluation with no acute findings, neurology consulted and will offer further recs Admit to medicine Seizure precautions Neurology consultation requested appreciate additional recommendations Continue present seizure meds Assessment & Plan (02/22/2018 1:01 PM EDT): 02/19/2018 The pt has been off Keppra for approx 4 wks. Reports breakthrough seizures even while she was taking Keppra. Also has oxcarbazepine on med list, but has not been taking in recent month(s). Reported seizure triggers include hypo and hyperlgycemia. Also reports fever, which may have been a potential trigger. Has received Ativan and Keppra load in ED. - restart home dose of Keppra 750 mg BID - Ativan IV PRN for any breakthrough seizures for now - Neurology consult - Seizure precautions - Glucose control - Tylenol PRN for fevers - Fall precautions. 02/20/18 Per neuro: continuous EEG monitoring for 24 hours starting today.. - can be placed back on Keppra 750 twice daily or even Dilantin based on her financial situation. The lamotrigine may be an ideal option for her, compliance with the slow titration is highly questionable. -1 mg IV Ativan in case of any further breakthrough seizures. - IV thiamine as she may very well have deficiency because of poor nutrition. Also check B12, folic acid - follow-up with her outpatient neurologist regularly. -social work consultation for help with her financial situation and medications 02/21/18 No further seizure activity. Video EEG report pending. Continue supportive care. Will need support to obtain medications and glucometer. States cannot even afford $3 co-payment. Neuro recs: transitioning from Keppra to Trileptal as an outpatient for mood benefit and efficacy (reports a history of breakthrough seizures in the past while compliant with Keppra). Started Keppra 500 mg twice daily and Trileptal 150 mg twice daily today to begin the transition. 02/22/18 EEG consistent with mild bilateral cerebral dysfunction and possible reduced seizure threshold from the left temporal region. No definite clinical or electrographic seizures. Neuro plans to increase Trileptal to 300 BID tomorrow. (? Keppra contributing to anxiety) Type 1 diabetes mellitus with hyperglycemia 08/09 Overview (08/26/2017): Claims diagnosed as type 1 based on blood tests. Tried lantus. Changed to triseba due to inadequate control Assessment & Plan (09/04/2018 11:01 AM EST): Continue home insulin regimen. Monitor BG, utilize lispro sliding scale as needed, diabetic diet. Assessment & Plan (04/04/2018 10:01 AM EDT): Patient with Type 1 DM admitted with status epilepticus. She is on a dose of Lantus 20 units at hs at her [facility] care facility, and she received 8 units of Lantus last night. She is currently nop with good blood sugars. Her usual pranial doses are 6 units for carb coverage and a 2:50.150 coverage scale. Plan: 1. While npo, I would advise just using the coverage of q6 hour blood sugars 2. I will write for a one time NPH dose of 6 units for her basal insulin today(being reduced because of decreased insulin requirement from her seizures). Assessment & Plan (04/03/2018 4:22 PM EDT): Diabetic diet, ISS coverage, follow blood sugars closely poor baseline control with hemoglobin A1C > 10 ISS coverage Check hemoglobin A1C Consult endocrinology as needed Assessment & Plan (02/20/2018 12:50 PM EDT): - continue regimen: Lispro 4 units AC TID with meals, plus small sliding scale. Glargine 20 units hs. 02/20/18 Endocrinology recommendations requested, and needs outpt clerical investigator. Hyperglycemia 08/26/2017 Recurrent major depressive disorder Assessment & Plan (02/20/2018 7:05 AM EDT): - continue sertraline 100 daily. Family History * Patient is adopted Medical History Relation Comments Diabetes Father Coronary artery disease Mother Diabetes Mother Lung disease Mother Relation Status Comments Father Alive Mother Alive Social History Tobacco Use Types Packs/Day Years Used Date Smoking Tobacco: Former Cigarettes Q uit: 05/2017 Smokeless Tobacco: Never Alcohol Use Standard Drinks/Week Comments Never 0 (1 standard drink = 0.6 oz pur e alcohol) AUDIT-C Answer Date Recorded Frequency of Alcohol Consumption Never 09/03/2018 Average Number of Drinks Not on file 019 Frequency of Binge Drinking Not on file 08/10 Comments No Sex and Gender Information Value Date Recorded Sex Assigned at Not on file Legal Sex Female 3:41 PM EST Gender Identity Not on file Sexual Orientation Not on file Last Filed Vital Signs Vital Sign Reading Time Taken Comments Blood Pressure 172/103 03/10/2019 12:45 PM EDT RN aware Pulse 61 03/10/2019 12:45 PM EDT Temperature 36.3 C (97.4 F) 03/10/2019 12:45 PM EDT Respiratory Rate 18 03/10/2019 12:45 PM EDT Oxygen Saturation 98% 03/10/2019 12:45 PM EDT Inhaled Oxygen Concentration - - Weight 89.8 kg (198 lb) 03/10/2019 12:45 PM EDT Height 170.2 cm (5' 7 ) 03/10/2019 12:45 PM EDT Body Mass Index 31.01 03/10/2019 12:45 PM EDT Plan of Treatment Health Maintenance Due Date Last Done Comments [facility] TOPIC SIGMOIDOSCOPY 1967 [facility] Topic HIV Screening 1967 [facility] Topic Hepatitis C Screening 1967 [facility] Diabetic Ophthalmology Exam 1977 [facility] Topic Tdap Vaccine (1 - Tdap) 1986 [facility] TOPIC MAMMOGRAM 2007 [facility] TOPIC FOBT/FIT TEST 2012 [facility] Topic Cologuard 2012 [facility] Topic Colon Cancer Screening 2012 [facility] Topic Colonoscopy 2012 [facility] Topic Lung Cancer Screening 2017 [facility] Topic Pneumococcal Vaccine (HEDIS/Adult) (1 of 1 - PCV) 2017 [facility] Topic Shingrix (1 of 2) 2017 [facility] Topic A1C Diabetes 04/03/20192018, 08/20/2018, 02/21/2018, Additional history exists [facility] Topic Lipid Profile 08/19/2019 08/19/2018 [facility] Topic Microalbumin Urine 10/02/2019 10/01/2018 [facility] Topic Influenza (Flu) Seasonal (#1) 2025 [facility] AMB RSV (under 20 months) Aged Out No longer eligible based on patient's age to complete this topic [facility] Topic HIB Vaccines Aged Out No longer eligible based on patient's age to complete this topic [facility] Topic Pneumococcal/Prevnar Vaccine Aged Out No longer e ligible based on patient's age to complete this topic Procedures Procedure Name Priority Date/Time Associated Diagnosis Comments HEMOGLOBIN A1C Routine 02/21/2018 6:46 AM EDT from Last 3 Months or Most Recently Relevant to Health Maintenance Results * (ABNORMAL) Hemoglobin A1c (02/21/2018 6:46 AM EDT) Hemoglobin A1C 10.5(H) 0.0 - 5.9 % 02/21/2018 9:37 AM EDT [facility] Comment:ADA Diabetic Goal: < 7.0% Mean Plasma Glucose (calculated) 259.7 02/21/2018 9:37 AM EDT [facility] Blood Capillary blood specimen / Unknown Venipuncture / Unknown 02/21/2018 6:46 AM EDT 02/21/2018 6:57 AM EDT Pat Contreras MD LAB BLOOD ORDERABLES Final Re sult [facility] [address] [place] [address], from Last 3 Months or Most Recently Relevant to Health Maintenance Insurance [facility] MEDICARE ADVANTAGE Advance Directives For more information, please contact: [phone] Documents on File Type Date Recorded Patient Bias Machine Operator Expl anation Advance Directives and Living Will 09/04/2018 3:06 PM Health Care Proxy [email or web address] * Full Code (Latest Code Status on File) Date Activated Date Inactivated Comments 09/03/2018 4:39 PM 09/06/2018 4:50 PM * Full Code Date Activated Date Inactivated Comments 08/04/2018 1:33 AM 08/08/2018 12:42 AM * Full Code Date Activated Date Inactivated Comments 04/03/2018 4:54 PM 04/07/2018 3:33 AM * Full Code Date Activated Date Inactivated Comments 02/19/2018 3:44 PM 02/23/2018 8:04 PM * Full Code Date Activated Date Inactivated Comments 08/26/2017 2:35 AM 08/28/2017 11:27 PM Care Teams Sign Erector And Repairer Relationship Specialty Start Date End Date Amy Mills MD PCP - General Family Medicine 02/19/18
--- OUTSIDE RECORDS SUMMARY | 2025-05-15 00:01 | XMS_ITS | Clinical Summary ---
Author Organization [facility] Address [address] [place] [phone] Phone Care Team Providers Care Air Reduction Equipment Operator Name Role Phone Soto Armstrong Johana QUEVEDO Unavailable Kingston Ramirez MD Unavailable Darby Hernandez MD Primary Care Provider + Allergies Active Allergy Reactions Criticality Noted Date Comments Hernandez Anaphylaxis High 08/19/2018 Coconut Oil 02/19/2018 Anaphylaxis Fish Oil 02/19/2018 Anaphylaxis Iodinated Contrast Media Anaphylaxis High 05/03/2022 Iodine Anaphylaxis High 08/26/2017 Lactose Nausea and/or Vomiting 02/12/2020 Oxycodone-Acetaminophen Anaphylaxis High 08/25/2017 Red Dye Rash Low 08/19/2018 Venom-Honey Bee Anaphylaxis High 03/10/2019 Medications sertraline (ZOLOFT) 100 MG tablet Take 100 mg by mouth. tAKE 1 DAILY 08/29/19 18 Active lamoTRIgine (LAMICTAL) 200 MG IMMEDIATE release tablet Take 300 mg by mouth every morning. Active hydrOXYzine (VISTARIL) 50 MG capsule Take 50 mg by mouth as needed. 0 12/19/19 19 Active melatonin 3 mg Tab nightly at bedtime as needed. 0 12/19/19 19 Active prazosin (MINIPRESS) 2 MG capsule Take 2 mg by mouth nightly at bedtime. 09/18/19 20 Active fluticasone propionate (FLONASE) 50 mcg/actuation nasal sprayIndications :Health care maintenance SPRAY 2 SPRAY IN EACH NOSTRIL ONCE A DAY NEEDED 16 g 5 12/04/19 20 Active risperiDONE (RISPERDAL) 1 MG tablet Take 1 mg by mouth daily with breakfast. Active FREESTYLE LITE Strp stripsIndication s:Type 1 diabetes mellitus without complication Test 4-6 times daily dx code E10.9 200 strip 1 03/11/20 20 Active 8 HOUR PAIN RELIEVER 650 mg CR tabletIndication s:Health care maintenance TAKE 1 TABLET BY MOUTH EVERY 8 HOURS NEEDED FOR PAIN (VIALS) 84 tablet 5 03/23/20 21 Active DEXCOM G6 CONSULTING ANALYST MiscIndications: Type 1 diabetes mellitus without complication by Miscellaneous route daily. 1 each 05/19/20 21 Active blood-glucose transmitter (DEXCOM G6 TRANSMITTER) DeviIndications: Type 1 diabetes mellitus without complication 1 each by Miscellaneous route every 3 (three) months. 3 each 3 05/19/20 21 Active blood-glucose sensor (DEXCOM G6 SENSOR) DeviIndications: Type 1 diabetes mellitus without complication Change every 10 days 6 each 3 05/19/20 21 Active PROAIR HFA 90 mcg/actuation inhalerIndicatio ns:Health care maintenance INHALE 2 PUFFS BY MOUTH EVERY 6 HOURS NEEDED 54 g 3 10/01/19 22 Active cloNIDine HCL (CATAPRES) 0.1 MG tablet Take 0.1 mg by mouth daily as needed (anxiety). 03/26/20 22 Active LORazepam (ATIVAN) 0.5 MG tablet Take 1.5 mg by mouth nightly at bedtime. 09/14/19 23 Active EPINEPHrine 0.3 mg/0.3 mL auto-injectorInd ications:Health care maintenance INJECT 0.3ML INTRAMUSCULARLY NEEDED FOR ANAPHYLAXIS ^BULK 2 each 3 11/03/19 23 Active benztropine (COGENTIN) 1 MG tablet 02/14/20 23 Active lamoTRIgine (LAMICTAL) 100 MG IMMEDIATE release tablet Take 100 mg by mouth nightly at bedtime. 02/03/20 23 Active topiramate (TOPAMAX) 25 MG tablet Take 1 tablet (25 mg total) by mouth every morning AND 2 tablets (50 mg total) every evening. 270 tablet 3 11/07/19 24 Active multivit with min-folic acid 0.4 mg Tab Take 1 tablet by mouth daily. Active gabapentin (NEURONTIN) 100 MG capsule TAKE ONE CAPSULE BY MOUTH EVERY EVENING AT BEDTIME (VIAL) 43 capsule 11 05/16/20 24 Active risperiDONE (RISPERDAL) 0.5 MG tablet 0.5 mg. 05/05/20 24 Active LORazepam (ATIVAN) 1 MG tablet 1 mg. 05/05/20 24 Active triamcinolone acetonide 0.5 % cream APPLY TOPICALLY TWO TIMES A DAY (BULK) 30 g 1 07/17/19 25 Active latanoprost (XALATAN) 0.005 % ophthalmic solution Place 1 drop into each eye nightly at bedtime. 7.5 mL 3 08/14/19 25 Active insulin lispro (ADMELOG, HUMALOG) 100 unit/mL injection vialIndications: Type 1 diabetes mellitus without complication INJECT UP TO 50 UNITS via pump daily 60 mL 5 10/04/19 25 Active atorvastatin (LIPITOR) 40 MG tablet Take 40 mg by mouth daily. Active aspirin 81 MG EC tablet Take 81 mg by mouth daily. 11/12/19 25 Active SUMAtriptan (IMITREX) 5 mg/actuation nasal sprayIndications :Intractable migraine without aura and without status migrainosus USE 1 SPRAY BY NASAL ROUTE DAILY NEEDED FOR MIGRAINE (MAY REPEAT AFTER TWO HOURS ONE TIME, NO MORE THAN 2 DOSES IN 24 HOURS) (BULK) 6 each 5 12/19/19 25 Active metFORMIN (GLUCOPHAGE) 500 MG tabletIndication s:Type 1 diabetes mellitus without complication TAKE ONE TABLET BY MOUTH TWICE A DAY WITH MEALS ^1R1,1R3 56 tablet 02/27/20 25 Active Active Problems Patient Care Coordination No te Formatting of this note migh t be different from the original. This patient is enrolled and engaged in the [facility] Community Partners Program for support with health-related social needs (HRSN) and community-based care coordination. Care Plan received on 09/17/24, uploaded to the Media tab of the Chart. [facility] Charles Contact: Dmitri Villanueva Community Partner [facility] Community Partner Systems Consultant: Nata Beckman Community Partner Systems Consultant Contact Information: [phone] For additional information or questions regarding the Community Partners Program, please reach out to the [facility] Charles Contact or the [facility] Community Partners team, Problem Noted Date Diagnosed Date Transient ischemic attack (TIA) 11/26/2024 Malignant neoplasm of left ovary 05/01/2024 Overview (05/01/2024): S/p oopherectomy and hysterectomy in 2009. Cervix remains Tobacco use 05/01/2024 Medicare annual wellness visit, subsequent 10/02 Tremor of right hand 10/02/2022 Chronic diarrhea 10/02/2022 Loss of appetite 10/02/2022 Chronic midline low back pain with left-sided sc iatica 01/10/2022 Insulin pump fitting or adjustment 01/19/2020 Intractable migraine without aura and without status migrainosus 08/24/2019 Bipolar 1 disorder 09/04/2018 Overview (04/15/2024): Last Assessment & Plan: Continue sertraline, Seroquel, trazodone, Lamictal and prazosin. Psychiatry consulted to consider medication adjustment in light of ongoing pseudoseizures. Psychogenic nonepileptic seizure 08/04/2018 Suicidal ideation 04/03/2018 Overview (04/15/2024): Last Assessment & Plan: Pt placed on suicidal precautions with 07/09 observation, follow and consult psychiatry for further recommendations as well Posttraumatic stress disorder 02/28/2018 Overview (02/28/2018): Sees Ashley Henry, counselor Complex Social Issues 02/22/2018 Overview (02/22/2018): Pt has decreased vision and a seizure d/o. Lives with an acquaintance and unable to have some of the services that she would likely benefit from. Subclinical hypothyroidism 08/27/2017 Seizure disorder 08/26/2017 Overview (02/28/2018): Overview: Began when diabetes control became more challenging. Seizures tend to occur when hypoglycemic (last episode 02/2017) or markedly hyper glycemic. Last Assessment & Plan: 02/19/2018 The pt has been off Keppra [...] 1 diabetes mellitus with hyperglycemia 08/09 Overview (04/15/2024): Claims diagnosed as type 1 based on blood tests. Tried lantus. Changed to triseba due to inadequate control Last Assessment & Plan: Continue home insulin regimen. Monitor BG, utilize lispro sliding scale as needed, diabetic diet. 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 Has a therapist and prescriber in place. Encounters Date Type Department Care Team Description 05/14/2025 Telephone [facility] [address] [place] [phone] Lisa Bruce RN questions 04/24/2025 Telephone [facility] [address] [place] [phone] Leslie Hollis MD 04/10/2025 1:30 PM EDT Office Visit [facility] - Endocrinology [address] [place] [address] Leslie Hollis MD Type 1 diabetes mellitus with hyperglycemia (Primary Dx) 03/16/2025 Telephone [facility] [address] [place] [phone] Leslie Hollis MD insulin question 02/26/2025 Refill [facility] [address] [place] [address] Azul Chicas MD Medication Refill 02/16/2025 Telephone [facility] - Primary Care - [address] [place] [address] Darby Hernandez MD fax med list, problem list from Last 3 Months Immunizations Immunization Administration Dates Next Due COVID-19 (Pre-04/30) Pfizer Vaccine, mRNA, PF 10/21/2020,09/30/2020 INFLUENZA, SPLIT VIRUS, TRIVALENT PF 05/16/2019 Influenza Quadrivalent Preservative Free IM 05/10,05/17/2021,04/04/2017 Influenza Quadrivalent w/ Preservative IM 2018 Influenza Recombinant Trival ent Preservative Free IM 04/07/2024 Influenza, Unspecified Formulation 03/16/2020, Pneumococcal conjugate PCV20 10/02/2022 Tdap 05/13/2020,02/24/2019 Family History Medical History Relation Comments Bladder Cancer Father Cancer Father Cardiovascular disease Father Cataracts Father Colon polyps Father Diabetes Father Diabetes type I Father Cardiovascular disease Mother Diabetes type II Mother Glaucoma Mother Diabetes Paternal Aunt Epilepsy Paternal Grandfather Diabetes Paternal Uncle COPD Son 1 Breast cancer Neg Hx Colon cancer Neg Hx Hypertension Neg Hx Stroke Neg Hx Thyroid disease Neg Hx Relation Status Comments Brother 1 Brother 2 Alive Father Alive Mother Alive Paternal Aunt Paternal Grandfather Paternal Uncle Sister 1 Alive Sister 2 Alive Son 1 Alive Son 2 Alive Son 3 Alive Social History Tobacco Use Types Packs/Day Years Used Date Smoking Tobacco: Every Day Cigarettes 0.5 36.7 Started: 07/09/1982; Last attempted to quit: 04/08/2019 Smokeless Tobacco: Never Tobacco Cessation:Ready to Q uit: Not Asked; Counseling Given: Not Answered Alcohol Use Standard Drinks/Week Comments Not Currently 0 (1 standard drink = 0.6 oz pur e alcohol) Child or Family Care Answer Date Record ed Do you have problems with on e of the following making it difficult for you to work, study, or receive health care? No 08/22/2020 Education Answer Date Recorded Are you interested in more education? Not on akash e 11/03/2022 Are you concerned about learning? Not on file 11/03/2022 No 11/03/2022 No 11/03/2022 Food Answer Date Recorded Within the past 6 months we worried whether our food would run out before we got money to buy more. Sometimes True 021 Within the past 6 months the food we bought just didn't last and we didn't have enough money to get more. Sometimes True 08/09 Paying for Meds Answer Date Recorded Do you have trouble paying for medicines? No 08/22/2020 Paying Utility Bills Answer Date Record ed Do you have trouble paying your heating or elect ricity bill? No 08/22/2020 Transportation Answer Date Recorded Has the lack of transportati on kept you from medical appointments or from getting medications? No 08/22/2020 Digital Access Answer Date Recorded No 12/05/2022 No 12/05/2022 Reliable internet access at home? Not on file 12/05/2022 Device with a working camera? Not on file Intimate Partner Violence Answer Date R ecorded Are you denied basic needs s uch as food, clothing, or medical care? No 04/30/2024 In the past 12 months have y ou been in a relationship with a person who hurts, threatens, or tries to control you? No 04/30/2024 Are you denied basic needs s uch as food, clothing, or medical care? No 04/30/2024 In the past 12 months have y ou been in a relationship with a person who hurts, threatens, or tries to control you? No 04/30/2024 Comments No Sex and Gender Information Value Date Recorded Sex Assigned at Female 10/16/2020 9:28 AM EDT Legal Sex Female 3:13 PM EST Gender Identity Female 10/16/2020 9:28 AM EDT Sexual Orientation Asexual 06/05/2023 5: 52 PM EST Occupation Industry Job Start Date Job End Date Disabled Not on file Not on file Not on file Last Filed Vital Signs Vital Sign Reading Time Taken Comments Blood Pressure 136/78 04/10/2025 12:59 PM EDT Pulse 76 04/10/2025 12:59 PM EDT Temperature 36.7 C (98.1 F) 10/30/2023 4:51 PM EDT Respiratory Rate 20 06/06/2023 11:54 AM EST Oxygen Saturation 96% 04/10/2025 12:59 PM EDT Inhaled Oxygen Concentration - - Weight 92.2 kg (203 lb 4.8 oz) 04/10/2025 12:59 PM EDT Height 160 cm (5' 3 ) 05/01/2024 2:02 PM EDT Body Mass Index 36.01 05/01/2024 2:02 PM EDT Plan of Treatment Upcoming Encounters Date Type Department Care Team (Late st Contact Info) Description 11/26/2024 Procedure Pass [facility] [address] [place] [address] 06/16/2025 2:00 PM EST Appointment [facility] [address] [place] [address] Tammy Lau MD [address] [place] [address] [email or web address] 07/15/2025 1:00 PM EST Telemedicine [facility] [address] [place] [address] Carrie Lambert MD [address] [place] [phone] [email or web address] 10/23/2025 1:15 PM EDT Office Visit [facility] - [facility] [place] [address] [facility] [address] Leslie Hollis MD [address] [place] [address] [address] [place] [address] [email or web address] Health Maintenance Due Date Last Done Comments COLOGUARD 2012 FIT TEST 2012 FOBT 2012 SIGMOIDOSCOPY 2012 VIRTUAL COLONOSCOPY 2012 RSV VACCINE (1 - Risk 50-74 years 1-dose series) 2017 MAMMOGRAM 10/06/2022 10/06/2020, 08/19/2018 REPEAT PHQ 11/01/2024 10/01/2024, 10/01/2024 INFLUENZA VACCINE (#1) 2025 , 06/06/2023, 05/17/2021, Additional history exists CREATININE LEVEL 04/15/2025 04/15/2024, , 06/05/2023, Additional history exists URINE MICROALBUMIN/CREATININE RATIO 04/15/2025 04/15/2024, 08/24/2023, 10/13/2022, Additional history exists HEMOGLOBIN A1C 05/12/2025 11/09/2024, 05/0 10/2024, 09/09/2024, Additional history exists DIABETIC EYE EXAM 07/30/2025 07/30/2024, , 07/30/2024, Additional history exists DEPRESSION SCREENING 10/01/2025 10/01/2024, 10/02/19 25 BLOOD PRESSURE 10/09/2025 04/10/2025 SMOKING Hx and SMOKELESS TOBACCO SCREENING 04/10/2026 04/10/2025 COLONOSCOPY 08/19/2028 08/19/2018 COLORECTAL CANCER SCREENING 08/19/2028 Adult Td,Tdap Booster 05/13/2030 05/13/2020, 019 HIV ONE-TIME SCREENING (18-65 YEARS) Completed 08/22/2019 HEPATITIS C SCREENING Completed 08/25/2020 PNEUMOCOCCAL VACCINES (50+ years) Completed 10/02/2022 HEPATITIS A VACCINES Aged Out No long er eligible based on patient's age to complete this topic HIB VACCINES Aged Out No longer eligi ble based on patient's age to complete this topic IPV VACCINES Aged Out No longer eligi ble based on patient's age to complete this topic MENINGOCOCCAL VACCINES (ACWY) Aged Out No longer eligible based on patient's age to complete this topic MENINGOCOCCAL VACCINES (B) Aged Out N o longer eligible based on patient's age to complete this topic Goals Goal Patient Goal Type Associated Problems Recent Progress Patient-Stated? Author Explores Community and Social Support Lifestyle No Luba Corbett LICSW Note: Numerous supports that pt may benefit from. Will discuss further w pt once she returns home from the hospital. Coordinate Care Lifestyle No Corbett, Luba Gemma, EQUIPMENT OPERATOR Note: Assist with coordination of services. Medical Devices Not on file Procedures Procedure Name Priority Date/Time Associated Diagnosis Comments MICROALBUMIN/CREATINI NE RATIO, RANDOM URINE Routine 04/15/2024 3:01 PM EDT Type 1 diabetes mellitus without complication HEMOGLOBIN A1C Routine 04/15/2024 3:01 PM EDT Type 1 diabetes mellitus without complication BASIC METABOLIC PANEL (BMP) Routine 04/15/2024 3:01 PM EDT Type 1 diabetes mellitus without complication BI MAMMOGRAM SCREENING WITH TOMOSYNTHESIS WITH CAD (BILATERAL) Routine 10/06/2020 9:48 AM EDT Health care maintenance HEPATITIS C ANTIBODY, QUALITATIVE Routine 08/25/2020 1:59 PM EST Health care maintenance DIABETES EYE EXAM FOR RESULT ENTRY ONLY Routine 08/09/2019 COLONOSCOPY FOR RESULT ENTRY ONLY Routine 08/19/2018 from Last 3 Months or Most Recently Relevant to Health Maintenance Results * Microalbumin/creatinine ratio, random urine (04/15/2024 3:01 PM EDT) UR CREATININE 132.0 29 - 266 mg/dL [facility] [address] [facility] [address] Comment: MALB/CRE UNABLE TO CALCULATE 0.0 - 30.0 mg/Alb/g Cre [facility] URINE MICROALBUMIN <1.2 0.0 - 2.0 mg/dL [facility] Comment: Urine (Urine) 04/15/2024 3:0 1 PM EDT 04/15/2024 3:14 PM EDT us Leslie Hollis MD LAB URINE ORDERABLES Final Re sult [facility] [address] [place] [address], [facility] [address] [place], [place] [address] [phone] * (ABNORMAL) Hemoglobin A1c (04/15/2024 3:01 PM EDT) Pathologist [facility] HEMOGLOBIN A1C 7.2(H) 4.2 - 5.6 % [facility] [place] [address] Comment:HbA1c levels 5.7-6.4 % represent pre-diabetes, indicating impaired glucose control and an increased risk of developing diabetes. The diagnostic HbA1c level for diabetes is 6.5% or greater. HbA1c levels <4.2% may indicate a hemoglobinopathy or anemia, and an alternative method is recommended to monitor glucose control. CALC MEAN BLD GLUC 162(H) 60 - 121 mg/dL [facility] [place] [address] Comment: The Calculated Mean Blood Glucose (CMBG) represents the estimated average glucose calculated from the measured hemoglobin A1c (HbA1c). There is no established normal range for the CMBG, however a 5.6% HbA1c (upper limit of normal) represents a CMBG of 114 mg/dL. Blood 04/15/2024 3:01 PM EDT 04/15/2024 3:08 PM EDT us Leslie Hollis MD LAB BLOOD BKR ORDERABLES Julieth espinoza Result [facility] [place] [address], [facility] [address] [place], [place] [address] [phone] * (ABNORMAL) Basic metabolic panel (04/15/2024 3:01 PM EDT) Pathologist [facility] SODIUM 143 136 - 145 mmol/L [facility] [place] [address] Comment: POTASSIUM 4.3 3.4 - 5.1 mmol/L [facility] [place] [address] Comment: CHLORIDE 105 98 - 107 mmol/L [facility] Comment: CO2 27 22 - 31 mmol/L [facility] Comment: BUN 8 6 - 23 mg/dL [facility] [place] [address] Comment: CREATININE 0.93 0.50 - 1.20 mg/dL [facility] [place] [address] GLUCOSE 113(H) 70 - 100 mg/dL [facility] [place] [address] Comment: CALCIUM 9.4 8.8 - 10.7 mg/dL [facility] [place] [address] Comment: EGFR 72 >59 mL/min/1.7 3m2 [facility] [place] [address] Comment: Estimated glomerular filtration rate calculated using the CKD-EPI refit equation. ANION GAP 11 7 - 17 mmol/L [facility] [place] [address] Comment: Blood 04/15/2024 3:01 PM EDT 04/15/2024 3:08 PM EDT us Leslie Hollis MD LAB BLOOD BKR ORDERABLES Julieth espinoza Result [facility] [place] [address], [facility] [address] [phone] * BI MAMMOGRAM SCREENING WITH TOMOSYNTHESIS WITH CAD (BILATERAL) (10/06/2020 9:48 AM EDT) Anatomical Region Laterality Modality Breast Left, Breast Right, Breast Bilateral Bila teral Mammography 10/06/2020 10:1 7 AM EDT Impressions 10/06/2020 10:22 AM EDT No mammographic evidence of malignancy. Recommend routine screening. The patient was sent a letter with the results of the exam and follow-up recommendation. OVERALL ASSESSMENT -- BI-RADS 1 NEGATIVE Narrative 10/06/2020 10:22 AM EDT Reason for exam: Screening. No new breast complaints. TECHNIQUE: Digital Mammography and tomosynthesis were used to obtain images. Computer Aided Detection was used to aid in interpretation and volumetric breast density assessment may have been used as an aid in evaluating breast density. COMPARISON: No prior mammograms are available for comparison at the time of dictation. Breast Composition: heterogeneously dense which may obscure small masses. FINDINGS: Bilateral Breasts: No significant masses, suspicious calcifications, or other abnormalities are seen. Procedure Note Pato Marie MD - 10/06/2020 Reason for exam: Screening. No new breast complaints. TECHNIQUE: Digital Mammography and tomosynthesis were used to obtain images. ComputerAided Detection was used to aid in interpretation and volumetric breastdensity assessment may have been used as an aid in evaluating breastdensity. COMPARISON: No prior mammograms are available for comparison at the time of dictation. Breast Composition: heterogeneously dense which may obscure small masses. FINDINGS: Bilateral Breasts: No significant masses, suspicious calcifications, or other abnormalitiesare seen. IMPRESSION: No mammographic evidence of malignancy. Recommend routine screening. The patient was sent a letter with the results of the exam and follow-uprecommendation. OVERALL ASSESSMENT -- BI-RADS 1 NEGATIVE Amy Mills MD IMG MG EXAMS Final Result * Hepatitis C antibody, qualitative (08/25/2020 1:59 PM EST) Hepatitis C (HCV) Antibody(832 0) Nonreactive Nonreactive U/ml [facility] Blood 08/25/2020 1:59 PM EST 08/25/2020 2:07 PM EST Amy Mills MD LAB BLOOD BKR ORDERABLES Final Result Performing Organization Address City/State/[facility] Co de Phone Number [facility] [place] [address], [facility] [phone] * DIABETES EYE EXAM FOR RESULT ENTRY ONLY (08/09/2019) EYE EXAM 08/09/2019 Historical Provider HEALTH MAINTENANCE Final Result * COLONOSCOPY FOR RESULT ENTRY ONLY (08/19/2018) Colonoscopy 08/19/2018 Historical Provider HEALTH MAINTENANCE Final Result from Last 3 Months or Most Recently Relevant to Health Maintenance Insurance MEDICARE PART A & B [facility] MEDICARE REPLACEMENT MEDICARE PART A & B [facility] ONE CARE MEDICARE REPLACEMENT MEDICARE PART A & B MEDICARE PART A & B MEDICARE PART A & B ONE CARE MEDICARE REPLACEMENT [facility] MEDICARE PART A & B MEDICARE PART A & B [facility] ONE CARE MEDICARE REPLACEMENT MEDICARE PART A & B [facility] CARE MEDICARE REPLACEMENT MEDICARE PART A & B [facility] ONE CARE MEDICARE REPLACEMENT MEDICARE PART A & B Advance Directives For more information, please contact: [phone] (9AM - 5PM Zina/[facility], Sunday-Sunday) Documents on File Type Date Recorded Patient Pump Room Operator Expl anation Healthcare Proxy 09/16/2018 1:40 PM * Full Code (Latest Code Status on File) Date Activated Date Inactivated Comments 06/05/2023 4:38 PM Question Answer Comments Code Status Confirmed With: Patient Code Status Communicated To: Other (specify belo w) Code Discussion Comments: LIONEL Care Teams Air Reduction Equipment Operator Relationship Specialty Start Date End Date Darby Hernandez MD [address] [place] [id number] [email or web address] PCP - General Family Medicine 05/27/23 Soto Armstrong OD Referring Physician Optometry 02/18/18 Kingston Ramirez MD [address] [place] [address], [address] [place] [address] [email or web address] Ophthalmology 02/18/18 Additional Source Comments The information contained in this document represents components of the legal health record. It is not the complete legal health record.Formerly [facility]
--- OUTSIDE RECORDS SUMMARY | 2025-05-15 00:01 | XMS_ITS | Clinical Summary ---
Author Organization [facility] Address [address] [place] [id number] Care Team Providers Care Color Blender Name Role Phone Amy Mills MD Unavailable [phone] Porfirio Carrillo MD Primary Care Provider [phone] Allergies Active Allergy Reactions Criticality Noted Date Comments Bee Venom Protein (Honey Bee) Anaphylaxis High 03/10/2019 Clindamycin Unknown 03/10/2019 Coconut Oil Anaphylaxis High 02/19/2018 Anaphylaxis Fish Oil Unknown 02/19/2018 Anaphylaxis Iodinated Contrast Media Other (See Comments) Additional Information: Confirmed with patient; Other Reaction(s): Lightheadedness; Anxiety, shortness of breath without wheezing or throat closing Iodine Anaphylaxis,Itching, U nknown High 03/14/2017 Lactose GI Intolerance 02/12/2020 Morphine Anaphylaxis Oxycodone Shortness of Breath High 04/14/2024 Identified As: From Percocet Oxycodone-Acetaminophe n Anaphylaxis Penicillins Anaphylaxis,Itching High 03/14/2017 Red Dye Rash Low 08/19/2018 Shellfish Containing Products Unknown 09/03/2018 Shellfish Derived Anaphylaxis High 04/14/2024 Medications topiramate (TOPAMAX) 50 MG tablet 50 MG PO QHS 2 Active atorvaSTATin (LIPITOR) 10 MG tablet 10 MG PO DAILY 2 Active melatonin 5 mg Tab 5 MG PO HS 2 Active latanoprost (XALATAN) 0.005 % ophthalmic solution 1 DRP EYE-BOTH QHS 2 Active metFORMIN (GLUCOPHAGE) 500 MG tablet 500 MG PO BID 9 Active prazosin (MINIPRESS) 2 MG capsule 2 MG PO QHS 2 Active benztropine (COGENTIN) 1 MG tablet Take 1 tablet (1 mg total) by mouth at bedtime. 3 Active benztropine (COGENTIN) 0.5 MG tablet Take 1 tablet (0.5 mg total) by mouth in the morning. At dinner time. Active cloNIDine (CATAPRES) 0.1 MG tablet Take 1 tablet (0.1 mg total) by mouth in the morning and 1 tablet (0.1 mg total) in the evening and 1 tablet (0.1 mg total) before bedtime. 2 Active SUMAtriptan (IMITREX) 5 mg/actuation nasal spray 1 spray (5 mg total) into each nostril daily as needed for migraine. 4 Active risperiDONE (RisperDAL) 0.5 MG tablet Take 1 tablet (0.5 mg total) by mouth at bedtime. (Take with HS dose of 1mg for total dose 1.5mg QHS) 5 Active sertraline (ZOLOFT) 25 MG tablet Take 1 tablet (25 mg total) by mouth every morning. (Take with 200mg for total dose 225mg QAM) 5 Active topiramate (TOPAMAX) 25 MG tablet Take 1 tablet (25 mg total) by mouth every morning. 5 Active lamoTRIgine (LaMICtal) 100 MG tablet Take 1 tablet (100 mg total) by mouth every morning. 5 Active risperiDONE (RisperDAL) 1 MG tablet Take 1 tablet (1 mg total) by mouth in the morning and 1 tablet (1 mg total) before bedtime. 5 Active sertraline (ZOLOFT) 100 MG tablet Take 2 tablets (200 mg total) by mouth every morning. (Take with 25mg for total dose 225mg) 5 Active lamoTRIgine (LaMICtal) 100 MG tablet Take 2 tablets (200 mg total) by mouth at bedtime. Active acetaminophen (TYLENOL) 500 MG tablet Take 2 tablets (1,000 mg total) by mouth every 6 hours as needed for pain. 5 Active insulin lispro (HUMALOG) 100 unit/mL injection Use via pump 5 Active aspirin 81 MG EC tablet Take 1 tablet (81 mg total) by mouth daily. 5 Active Additional Information Patient not taking.Reported on 05/13/2025 gabapentin (NEURONTIN) 100 MG capsule Take 1 capsule (100 mg total) by mouth at bedtime for 6 days. 6 capsule Active LORazepam (ATIVAN) 1 MG tablet Take 1 tablet (1 mg total) by mouth at bedtime. (Take with 0.5mg for total dose 1.5mg QHS) 30 tablet 5 Active LORazepam (ATIVAN) 0.5 MG tablet Take 1 tablet (0.5 mg total) by mouth at bedtime. (Take with 1mg for total dose 1.5mg QHS) 30 tablet 5 Active Active Problems Problem Noted Date Diagnosed Date Avulsion fracture of right ankle, sequela 2024 Assessment & Plan (11/23/2024 12:22 PM EDT): She sustained this in a prior fall and remains in surgical boot. She is WBAT. She will need outpatient follow up with ortho. Assessment & Plan (11/18/2024 5:12 PM EDT): She sustained this in a prior fall and remains in surgical boot. She is WBAT. She will need outpatient follow up with ortho. Assessment & Plan (11/18/2024 3:20 PM EDT): She sustained this in a prior fall and remains in surgical boot. She is WBAT. She will need outpatient follow up with ortho. Fall at home, initial encounter 11/09/2024 Acute kidney injury superimposed on chronic kidn ey disease 11/08/2024 Assessment & Plan (11/23/2024 12:22 PM EDT): She had some mild GILES in ED that was treated with IVF. Discharge Cr 1.23. She was 1.2 on admission, and this is baseline. Assessment & Plan (11/18/2024 5:13 PM EDT): She had some mild GILES in ED that was treated with IVF. Discharge Cr 1.23. She was 1.2 on admission, and this is baseline. Assessment & Plan (11/18/2024 3:21 PM EDT): She had some mild GILES in ED that was treated with IVF. Discharge Cr 1.23. She was 1.2 on admission, and this is baseline. We will monitor lytes and renal function, encourage POs. TIA (transient ischemic attack) 11/08/2024 Assessment & Plan (11/23/2024 12:21 PM EDT): The patient had an episode of left-sided weakness and arm spasm that resolved without intervention. Workup was negative. She was diagnosed with TIA and started on ASA and increased dose of lipitor. We monitored for any new or worseniong neurologic s/s, and she had no new sx. She will follow up with Neurology as an outpatient. Assessment & Plan (11/18/2024 5:10 PM EDT): The patient had an episode of left-sided weakness and arm spasm that resolved without intervention. Workup was negative. She was diagnosed with TIA and started on ASA and increased dose of lipitor. We monitored for any new or worseniong neurologic s/s, and she had no new sx. She will follow up with Neurology as an outpatient. Assessment & Plan (11/18/2024 3:18 PM EDT): The patient had an episode of left-sided weakness and arm spasm that resolved without intervention. Workup was negative. She was diagnosed with TIA and started on ASA and increased dose of lipitor. She will follow up with Neurology as an outpatient. We will monitor for any new or worseniong neurologic s/s. HTN (hypertension) 10/02/2024 Assessment & Plan (11/23/2024 12:22 PM EDT): Blood pressures were low on admission, but have been creeping up and will need to be monitored after discharge. April continues clonidine and prazosin. She will see her primary MD for further management. Assessment & Plan (11/18/2024 5:12 PM EDT): Blood pressures were low on admission, but have been creeping up and will need to be monitored after discharge. April continues clonidine and prazosin. She will see her primary MD for further management. Assessment & Plan (11/18/2024 3:19 PM EDT): This is chronic and stable and the patient continues clonidine and prazosin. We will monitor BP, adjust regimen as needed. Assessment & Plan (10/02/2024 4:10 PM EDT): This is chronic and stable and the patient continues clonidine and prazosin. We monitored BPs, and they were well-controlled. Assessment & Plan (10/02/2024 3:53 PM EDT): This is chronic and stable and the patient continues clonidine and prazosin. We will mpnitor Bps, adjust regimen as needed. History of psychogenic nonepileptic seizure 09/07 Assessment & Plan (10/02/2024 4:13 PM EDT): This is chronic and stable and the patient continues lamotrigine Assessment & Plan (10/02/2024 3:54 PM EDT): This is chronic and stable and the patient continues lamotrigine Glaucoma 10/02/2024 Assessment & Plan (10/02/2024 4:11 PM EDT): This is chronic and stable and the patient continues home regimen of drops. Assessment & Plan (10/02/2024 3:57 PM EDT): This is chronic and stable and the patient continues home regimen of drops. Type 2 diabetes mellitus, wi th long-term current use of insulin 09/18/2024 Assessment & Plan (11/23/2024 12:21 PM EDT): She has insulin pump in place and is on metformin. We monitored sugars and they were well-controlled overall. No s/s of hypo/hyperglycemia. Assessment & Plan (11/18/2024 5:11 PM EDT): She has insulin pump in place and is on metformin. We monitored sugars and they were well-controlled overall. No s/s of hypo/hyperglycemia. Assessment & Plan (11/18/2024 3:16 PM EDT): She has insulin pump in place and is on metformin. We will monitor sugars, monitor for s/s of hypo/hyperglycemia. HCC diet. Assessment & Plan (10/02/2024 4:09 PM EDT): She has an implanted insulin pump, but this was empty on admission, and we managed her with SSI and home metformin. Sugars were well-controlled. . She has a new cartridge at home that she will use upon discharge. Assessment & Plan (10/02/2024 3:53 PM EDT): She has an implanted insulin pump, but this is empty. She has a new cartridge at home, but for now, we will use SSI. [facility] diet. We will monitor sugars, adjust regimen as needed. She continues metformin at home dose. Assessment & Plan (09/18/2024 1:01 PM EDT): reviously Using insulin pump. Apparently it ran out 3/3 AM BG in 100s Ct lantus 12 units and lispro ISS - Continue metformin Needs insulin pumb refill Migraine 09/18/2024 Assessment & Plan (09/18/2024 12:59 PM EDT): Stable Ct Topamax for prophylaxis and sumatriptan for treatment. Mixed hyperlipidemia 09/18/2024 Assessment & Plan (11/18/2024 5:14 PM EDT): She continues lipitor for this, and dose was increased to 40mg given TIA. She will need to follow up with Cardiology as an outpatient for ?high-dose statin or rosuvastatin. Assessment & Plan (11/18/2024 3:22 PM EDT): She continues lipitor for this, and dose was increased to 40mg given TIA. She will need to follow up with Cardiology as an outpatient for ?high-dose statin or rsuvastatin. Assessment & Plan (09/18/2024 1:00 PM EDT): Chronic and stable, Ct statin Right ankle sprain 09/07/2024 Assessment & Plan (11/23/2024 12:22 PM EDT): She is WBAT in a walking boot. Pain is controlled with tylenol. She completed course of PT/OT to strengthen, improve gait, safety, endurance, ROM, balance and ADLs. She made good gains and is near functional baseline. Assessment & Plan (10/02/2024 4:11 PM EDT): She is WBAT in a walking boot. Pain is controlled with tylenol. She completed course of PT/OT to strengthen, improve gait, safety, endurance, ROM, balance and ADLs. She made good gains and is near functional baseline. Assessment & Plan (10/02/2024 3:53 PM EDT): She is WBAT in a walking boot. Pain is controlled with tylenol. The patient will have PT/OT to strengthen, improve gait, safety, endurance, ROM, balance and ADLs. Assessment & Plan (09/18/2024 12:40 PM EDT): Unsteady gait, recurrent falls sustained R ankle sprain Wt bearing with boot for comfort Ct pt/ot for gait training, strengthening exercise to improve ADLs Fall precaution Influenza A 09/07/2024 Assessment & Plan (11/23/2024 12:21 PM EDT): This is resolved with supportive care. No s/s of recurrent or superinfection. Assessment & Plan (10/02/2024 4:09 PM EDT): This is resolved with supportive care. No s/s of recurrent or superinfection. Assessment & Plan (10/02/2024 3:52 PM EDT): This is resolving with supportive care. She has some mild residual congestion, but feels well otherwise. Will monitor for s/s of recurrent or superinfection. Assessment & Plan (09/18/2024 12:37 PM EDT): Out of time for tamiflu Resolving Symptoms Monitor for secondary infection Recurrent falls 09/07/2024 Assessment & Plan (11/23/2024 12:23 PM EDT): She has had recurrent falls and The patient completed a course of PT/OT to strengthen, improve gait, safety, endurance, ROM, balance and ADLs,a nd has made functional gains. Assessment & Plan (11/18/2024 5:14 PM EDT): She has had recurrent falls and The patient completed a course of PT/OT to strengthen, improve gait, safety, endurance, ROM, balance and ADLs,a nd has made functional gains. Assessment & Plan (11/18/2024 3:21 PM EDT): She has had recurrent falls and The patient will have PT/OT to strengthen, improve gait, safety, endurance, ROM, balance and ADLs. Assessment & Plan (10/02/2024 3:54 PM EDT): She has had recurrent falls, and these are likely multi-factorial. The patient will have PT/OT to strengthen, improve gait, safety, endurance, ROM, balance and ADLs. 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 We had Psych follow with us for med management. No new or worsening s/s. We did not make any changes in regimen. Assessment & Plan (11/18/2024 5:15 PM EDT): She is on extensive regimen for this including sertraline, lamotrigine, risperidone and benztropine. We had Psych follow with us for med management. No new or worsening s/s. We did not make any changes in regimen. Assessment & Plan (11/18/2024 3:24 PM EDT): She is on extensive regimen for this including sertraline, lamotrigine, risperidone and benztropine. We will have Psych follow with us for med management. Monitor for new or worsening s/s. Assessment & Plan (10/02/2024 4:12 PM EDT): The patient has been more depressed recently due to the loss of her therapy dog. She continues home regimen of lamotrigine, lorazepam, sertraline, gabapentin and risperidone. We monitored for new or worsening s/s, and she was seen by Psych with no new recommendations. She continues benztropine for TD. Assessment & Plan (10/02/2024 3:56 PM EDT): The patient has been more depressed recently due to the loss of her therapy dog. She continues home regimen of lamotrigine, lorazepam, sertraline, gabapentin and risperidone. We will monitor for new or worsening s/s. Psych to follow for med management. She continues benztropine for TD. Assessment & Plan (09/18/2024 12:52 PM EDT): Stable, Euthymic, Ct Sertraline, Risperidone Ct gabapentin, benztropine, lamotrigine, prazosin, Ct ativan at HS Unspecified convulsions 11/29/2018 Anxiety Assessment & Plan (11/18/2024 5:16 PM EDT): She has been on lorazepam at night, and this is being tapered to off. She was admitted on 1.5mg x 6 doses, and has tapered to 1mg. She will decrease to 0.5mg on 11/21 and continue this x 6 doses before discontinuing. She will be discharged with 8 tablets of lorazepam 0.5mg for this taper. Follow up with her primary MD. Resolved Problems Problem Noted Date Diagnosed Date Resolved Date CVA (cerebral vascular accident) 11/08/2024 11/08/2024 Encounters Date Type Department Care Team Description 05/13/2025 1:40 PM EST - 05/14/2025 9:47 PM EST Hospital Encounter [facility] Emergency Department [address] [place] [id number] Shiraz Valentine MD Kim, Claudia, MD Stonely, Wesley, MD Trecartin, Kyle, MD Fairfield, Scott, MD Severe episode of recurrent major depressive disorder, without psychotic features ([facility]) (Primary Dx) Discharge Disposition: Transfer to Acute Care Hospital 05/13/2025 Travel 04/24/2025 Results Follow-Up [facility] Emergency Department [address] [place] [id number] Marleny Byrne RN XR Ribs Left W PA Chest 3 Vws+ 04/23/2025 6:54 PM EDT - 04/23/2025 11:24 PM EDT Emergency [facility] Emergency Department [address] [place] [phone] Tejas Avila MD Schaub, Charles, MD Chest wall pain (Primary Dx); Fall, initial encounter Discharge Disposition: Home or Self Care 04/23/2025 Travel from Last 3 Months Immunizations Immunization Administration Dates Next Due Influenza Vaccine - STANDARD - PF (FLUZONE/FLUARIX/FLULAVAL/AFLURIA) 05/16/2019 Social History Tobacco Use Types Packs/Day Years Used Date Smoking Tobacco: Every Day Cigarettes Smokeless Tobacco: Never Tobacco Cessation:Ready to Q [...] any time in the past [address] [facility], were you homeless or living in a intermediate (including now)? No 05/13/2025 [facility] Utilities Answer Date Recorded In the past 12 months has th e [employer], gas, oil, or water company threatened to [...] AM EST Sexual Orientation Not on file Last Filed [...] Mass Index 34.49 05/14/2025 9:16 AM EST Plan of Treatment Health Maintenance Due Date Last Done Comments Depression Screening 1971 Diabetic Eye Exam 1985 Hepatitis C Screening 1985 CT Colonography 2012 Colonoscopy 2012 Colorectal Cancer Screening 2012 FIT 2012 FOBT 2012 Multitarget Stool DNA (Cologuard) 2012 Sigmoidoscopy 2012 Breast Cancer Screening 10/06/2022 10/06/2020, 10/06 Urine Microalbumin 04/15/2025 04/15/2024 Hemoglobin A1c 05/12/2025 11/09/2024, 0310/2024, 09/07/2024, Additional history exists Zoster Vaccine (2 of 2) 06/18/2025 04/23/2025 Lipid Panel 11/09/2025 11/09/2024, 1002/2024, 08/24/2023, Additional history exists Blood Pressure 05/14/2026 05/14/2025 Pap Smear 04/23/2028 04/23/2025, 04/23/2025 Cervical Cancer Screening 04/23/2030 HPV/Cotest 04/23/2030 04/23/2025 DTaP,Tdap,and Td Vaccines (3 - Td or Tdap) 05/13/2030 05/13/2020, 02/24/2019 Pneumococcal Vaccine: 50+ Years Completed 10/02/2022 COVID-19 Vaccine Completed 04/23/2025, , 09/30/2020 Influenza Vaccine Completed 04/23/2025, , 06/06/2023, Additional history exists Meningococcal B Vaccines Aged Out No longer eligible based on patient's age to complete this topic Meningococcal Vaccines Aged Out No lo nger eligible based on patient's age to complete [...] POCI GLUCOSE Routine 05/14/2025 8:36 AM EST , URINE STAT 05/14/2025 6:00 AM EST DRUG SCREEN, URINE STAT 05/14/2025 6: 00 AM EST POCI GLUCOSE Routine 05/13/2025 6:13 PM EST RAINBOW DRAW STAT 05/13/2025 2:26 PM EST CBC AND DIFFERENTIAL STAT 05/13/2025 2:26 PM EST YELLOW TOP STAT 05/13/2025 2:26 PM EST LIGHT BLUE TOP STAT 05/13/2025 2:26 PM EST CBC AND DIFFERENTIAL STAT 05/13/2025 2:26 PM EST TOXICOLOGY SCREEN, BLOOD STAT 05/13/2025 2:26 PM EST BASIC METABOLIC PANEL STAT 05/13/2025 2:26 PM EST XR RIBS LEFT W PA CHEST 3 VWS+ STAT 04/23/2025 8:15 PM EDT HEMOGLOBIN A1C Routine 11/09/2024 11:24 AM EDT LIPID PANEL Routine 11/09/2024 11:24 AM EDT from Last 3 Months or Most Recently Relevant to Health Maintenance Results * (ABNORMAL) POCT Glucose (05/14/2025 11:46 AM EST) Only the most recent of3 resultswithin the time period is included. Glucose, POC 156(H) 75 - 140 mg/dL 05/14/2025 11:48 AM EST [facility] Comment: @Serial Tazpzs=[id number] @Industrial Health Engineer EK=[id number] Blood 05/14/2025 11:4 6 AM EST 05/14/2025 11:48 AM EST us Rayshawn Melton MD POCT ORDERABLES - DEVICE Final Result [facility] [address] [place] [address], [place] * (ABNORMAL) Drug Screen, Urine (05/14/2025 6:00 AM EST) [facility] Signature Amphetamines Screen, Urine Negative Negative 05/14/2025 6:46 AM [facility] Barbiturates Screen, Urine Negative Negative 05/14/2025 6:46 AM [facility] Benzodiazepine Screen, Urine Positive(A) Negative 05/14/2025 6:46 AM [facility] Buprenorphine Screen, Urine Negative Negative 05/14/2025 6:46 AM [facility] Cannabinoids Screen, Urine Negative Negative 05/14/2025 6:46 AM [facility] Cocaine Metabolite Screen, Urine Negative Negative 05/14/2025 6:46 AM [facility] Fentanyl Screen, Urine Negative Negative 05/14/2025 6:46 AM [facility] Methadone Screen, Urine Negative Negative 05/14/2025 6:46 AM [facility] Opiates Screen, Urine Negative Negative 05/14/2025 6:46 AM [facility] Oxycodone Screen, Urine Negative Negative 05/14/2025 6:46 AM [facility] Propoxyphene Screen, Urine Negative Negative 05/14/2025 6:46 AM [facility] Tricyclics Screen Negative Negative 6:46 AM [facility] Comment 05/14/2025 6:46 AM [facility] Comment: The cut-off concentration [...] Donald Vargas MD URINE ORDERABLES Final Result [facility] [address] [place] [address], [place] * (HCG), Urine (05/14/2025 6:00 AM EST) HCG, Urine Random Negative Negative 05/14/2025 6:15 AM [facility] Urine URINE SPECIMEN / Unknown Collection / Unknown 05/14/2025 6:00 AM EST 05/14/2025 6:03 AM EST Donald Vargas MD URINE ORDERABLES Final Result Performing Organization Address [facility] Co de Phone Number [facility] [address] [place] [id number], [place] * (ABNORMAL) CBC and Differential (05/13/2025 2:26 PM EST) WBC 6.82 3.90 - 10.80 K/uL 05/13/2025 2:35 PM [facility] RBC 4.49 3.93 - 5.29 M/uL 05/13/2025 2:35 PM [facility] Hemoglobin 13.6 12.0 - 15.2 g/dL 05/13/2025 2:35 PM [facility] Hematocrit 42.9 34.1 - 44.9 % 05/13/2025 2:35 PM [facility] MCH 30.3 25.6 - 32.2 pg 05/13/2025 2:35 PM [facility] MCHC 31.7(L) 32.0 - 36.0 g/dL 05/13/2025 2:35 PM [facility] MCV 96 81 - 96 fL 05/13/2025 2:35 PM [facility] RDW 13.4 11.5 - 14.0 % 05/13/2025 2:35 PM [facility] Platelet Count 291 154 - 369 K/uL 05/13/2025 2:35 PM [facility] Neutrophil 64.3 % 05/13/2025 2:35 PM [facility] Lymphocyte 22.7 % 05/13/2025 2:35 PM [facility] Monocyte 8.2 % 05/13/2025 2:35 PM [facility] Eosinophil 3.2 % 05/13/2025 2:35 PM [facility] Basophil 0.6 % 05/13/2025 2:35 PM [facility] Immature Granulocyte ([place], Myelo, Promyelocyte) 1.0 % 05/13/2025 2:35 PM [facility] Absolute Neutrophil Count 4.38 1.68 - 7.99 K/uL 05/13/2025 2:35 PM [facility] Absolute Immature Granulocyte ([place], Myelo, Promyelocyte) 0.07 0.00 - 0.09 K/uL 05/13/2025 2:35 PM [facility] Absolute Lymphocyte Count 1.55 0.66 - 4.75 K/uL 05/13/2025 2:35 PM [facility] Absolute Monocyte Count 0.56 0.16 - 1.40 K/uL 05/13/2025 2:35 PM [facility] Absolute Eosinophil Count 0.22 0.00 - 0.60 K/uL 05/13/2025 2:35 PM [facility] Absolute Basophil Count 0.04 0.00 - 0.32 K/uL 05/13/2025 2:35 PM [facility] Blood PERIPHERAL BLOOD SPECIMEN / Unknown Venipuncture / Unknown 05/13/2025 2:26 PM EST 05/13/2025 2:32 PM EST us Donald Vargas MD LAB BLOOD ORDERABLES Final Res ult [facility] [address] [place] [phone], * (ABNORMAL) Plasma Toxicology Screen (05/13/2025 2:26 PM EST) Acetaminophen Result,Blood <5(L) 10 - 30 ug/mL 05/13/2025 4:07 PM [facility] Alcohol <10 <10 mg/dL 05/13/2025 4:07 PM EST [facility] Salicylate Level, Blood <1 <30 mg/dL 05/13/2025 4:07 PM EST [facility] Blood PERIPHERAL BLOOD SPECIMEN / Unknown Venipuncture / Unknown 05/13/2025 2:26 PM EST 05/13/2025 2:32 PM EST Donald Vargas MD LAB BLOOD ORDERABLES Final Res ult Performing Organization Address City/[facility]/ZIP Co de Phone Number [facility] [address] [place] [id number], [place] * Gold Top (05/13/2025 2:26 PM EST) Gold Top Tube Received 05/13/2025 4:01 PM EST [facility] Blood PERIPHERAL BLOOD SPECIMEN / Unknown Venipuncture / Unknown 05/13/2025 2:26 PM EST 05/13/2025 2:32 PM EST Donald Vargas MD LAB BLOOD ORDERABLES Final Res ult Performing Organization Address [facility] Co de Phone Number [facility] [address] [place] [address], [place] * Blue Top (05/13/2025 2:26 PM EST) Blue Top Tube Received 05/13/2025 4:01 PM EST [facility] Blood PERIPHERAL BLOOD SPECIMEN / Unknown Venipuncture / Unknown 05/13/2025 2:26 PM EST 05/13/2025 2:32 PM EST Donald Vargas MD LAB BLOOD ORDERABLES Final Res ult Performing Organization Address [facility] Co de Phone Number [facility] [address] [place] [address], [place] * (ABNORMAL) Basic Metabolic Panel (05/13/2025 2:26 PM EST) Sodium 139 135 - 146 mmol/L 05/13/2025 2:55 PM [facility] Potassium 4.6 3.4 - 5.2 mmol/L 05/13/2025 2:55 PM [facility] Chloride 101 98 - 110 mmol/L 05/13/2025 2:55 PM [facility] Total CO2/Bicarbonat e 27 24 - 32 mmol/L 05/13/2025 2:55 PM [facility] Anion Gap 11 2 - 15 mmol/L 05/13/2025 2:55 PM [facility] BUN 12 7 - 24 mg/dL 05/13/2025 2:55 PM [facility] Creatinine, Blood 1.00 0.50 - 1.10 mg/dL 05/13/2025 2:55 PM [facility] Glucose, Blood 119(H) 50 - 100 mg/dL 05/13/2025 2:55 PM [facility] Calcium 9.6 8.5 - 10.5 mg/dL 05/13/2025 2:55 PM [facility] Estimated GFR(CKD-EPI) 66 mL/min/BSA 05/13/2025 2:55 PM [facility] Blood PERIPHERAL BLOOD SPECIMEN / Unknown Venipuncture / Unknown 05/13/2025 2:26 PM EST 05/13/2025 2:32 PM EST us Donald Vargas MD LAB BLOOD ORDERABLES Final Res ult [facility] [address] [place] [address], [place] * XR Ribs Left W PA Chest 3 Vws+ (04/23/2025 8:15 PM EDT) Anatomical Region Laterality Modality Chest Left Digital Radiogra phy 04/24/2025 10:0 0 AM EDT Impressions 04/24/2025 10:02 AM EDT 1. No displaced rib fracture. 2. Streaky linear opacities in the right lung base may reflect atelectasis, however developing pneumonia cannot be excluded. Signed By: Raymond Meyers on 04/24/2025 10:02 AM on VERNA Narrative 04/24/2025 10:02 AM EDT LEFT RIBS WITH SINGLE VIEW CHEST HISTORY: left anterior lower rib pain s/p fall VIEWS: 5 of the LEFT ribs and a PA view of the chest. COMPARISON: Chest radiograph dated 11/26/2018.. FINDINGS: RIBS: Unremarkable Pleura: No pleural effusion or pneumothorax. Lungs: Tiny opacities in the right lung base may reflect atelectasis, however developing pneumonia cannot be entirely excluded. Left lung is clear. No pulmonary edema.. Heart and Mediastinum: The cardiac and mediastinal contours are normal. ADDITIONAL FINDINGS: None. Procedure Note Raymond Meyers MD - 04/24/2025 LEFT RIBS WITH SINGLE VIEW CHEST HISTORY: left anterior lower rib pain s/p fall VIEWS: 5 of the LEFT ribs and a PA view of the chest. COMPARISON: Chest radiograph dated 11/26/2018.. FINDINGS: RIBS: Unremarkable Pleura: No pleural effusion or pneumothorax. Lungs: Tiny opacities in the right lung base may reflect atelectasis, however developing pneumonia cannot be entirely excluded. Left lung is clear. No pulmonary edema.. Heart and Mediastinum: The cardiac and mediastinal contours are normal. ADDITIONAL FINDINGS: None. IMPRESSION: 1.No displaced rib fracture. 2.Streaky linear opacities in the right lung base may reflect atelectasis, however developing pneumonia cannot be excluded. Signed By: Raymond Meyers on 04/24/2025 10:02 AM on [id number] us Tejas Avila MD IMG DIAGNOSTIC IMAGING ORDERABLE S Final Result * (ABNORMAL) Hemoglobin A1C (11/09/2024 11:24 AM EDT) Hemoglobin A1C 7.4(H) 4.2 - 5.8 % 11/10/2024 7:34 AM EDT [facility] Estimated Average Glucose 166 mg/dL 11/10/2024 7:34 AM EDT [facility] Blood PERIPHERAL BLOOD SPECIMEN / Unknown Venipuncture / Unknown 11/09/2024 11:24 AM EDT 11/09/2024 11:57 AM EDT us Mike Rodrigez MD LAB BLOOD ORDERABLES Julieth l Result [facility] [address] [place] [address], * (ABNORMAL) Lipid Panel (11/09/2024 11:24 AM EDT) Cholesterol 214(H) <=200 mg/dL 11/09/2024 12:43 PM EDT [facility] Triglycerides 71 <150 mg/dL 11/09/2024 12:43 PM EDT [facility] HDL Cholesterol 68(H) 40 - 60 mg/dL 11/09/2024 12:43 PM EDT [facility] Comment: HDL Cardiovascular Risk <40 mg/dL High Risk >60 mg/dL Low Risk LDL Cholesterol 132(H) <=130 mg/dL 11/09/2024 12:43 PM [facility] Comment: Reference Range for > 20 years of age: Acceptable: <130 mg/dL Borderline: 130-159 mg/dL High: >159 mg/dL National Cholesterol Education Program Guidelines Blood PERIPHERAL BLOOD SPECIMEN / Unknown Venipuncture / Unknown 11/09/2024 11:24 AM EDT 11/09/2024 11:57 AM EDT us Mike Rodrigez MD LAB BLOOD ORDERABLES Julieth l Result Performing Organization Address [facility] Co de Phone Number [facility] [address] [place], [place] [address] from Last 3 Months or Most Recently Relevant to Health Maintenance Insurance [facility] SENIOR [facility] SENIOR SENIOR [facility] SENIOR ALLIANCE SENIOR [facility] SENIOR Advance Directives Documents on File Type Date Recorded 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 Expl anatcommunity health Health Care Proxy 03/21/2024 10:14 AM [facility] Care Proxy * Full Code (Latest Code Status on File) Date Activated Date Inactivated Comments 11/08/2024 10:18 PM 11/23/2024 12:26 AM Question Answer Comments Discussed with/per: Patient * Full Code Date Activated Date Inactivated Comments 09/12/2024 12:40 PM 10/16/2024 4:37 PM Question Answer Comments Discussed with/per: Patient Care Teams Color Blender Relationship Specialty Start Date End Date Porfirio Carrillo MD [address] [place] [address] PCP - General Family Practice 05/13/25 Amy Mills MD [address] [place] [address] 12/08/23
--- OUTSIDE RECORDS SUMMARY | 2025-05-15 00:01 | XMS_ITS | Encounter Summary ---
Author Organization [facility] Address [address] [facility] [address] [place] [address] Phone Care Team Providers Care Masonry Contractor Administrator Name Role Phone ArmstrongSoto Johana QUEVEDO Unavailable [phone] Kingston Ramirez MD Unavailable Darby Hernandez MD Primary Care Provider + Reason for Visit * Reason Onset Date Comments questions 05/14/2025 Encounter Details Date Type Department Care Team (Late st Contact Info) Description 05/14/2025 Telephone [facility] Medical Endocrine [address] [address] Lisa Bruce RN [address] [place] [address] [email or web address], [email or web address] questions Social History Tobacco Use Types Packs/Day Years Used Date Smoking Tobacco: Every Day Cigarettes 0.5 36.7 Started: 07/09/1982; Last attempted to quit: 04/08/2019 Smokeless Tobacco: Never Alcohol Use Standard Drinks/Week [...] file Not on file Not on file documented as of this encounter Progress Notes * Lisa Bruce RN - 05/14/2025 4:26 PM EST Images from the original note were not included. Spoke to Clara HU at [facility] and advised if pt off insulin pump insulin orders = Leslie Hollis MD You If not on pump Lantus 14 units Humalog 3 units TID with meals + HISS (150-200 1 units, 201-250 2 units, 251-300 3 units etc) * Lisa Bruce, RN - 05/14/2025 3:28 PM EST Spoke to [facility] Pt needs to go to [facility] and will be off pump asking for your recommended insulin orders While off pump She was seen 04/10 adjust settings as below 6AM 0.55/45/8 * Lisa Bruce, RN - 05/14/2025 12:46 PM EST Msg from call center pt at [facility] ER Dr has questions for [phone] Called back, Dr grajeda will call back documented in this encounter Plan of Treatment Upcoming Encounters Date Type Department Care Team (Late st Contact Info) Description 11/26/2024 Procedure Pass [facility] Cardiology [address] [place] [address] 06/16/2025 2:00 PM EST Appointment [facility] [address] [place] [address] Tammy Lau MD [address] [place], [place] [address] [place] [address] [email or web address] 07/15/2025 1:00 PM EST Telemedicine [facility] [address] [place] [address] Carrie Lambert MD [address] [place] [address] [email or web address] 10/23/2025 1:15 PM EDT Office Visit [facility] - Endocrinology - [address] [place] [address] Leslie Hollis MD [address] [place] [address] [email or web address] documented as of this encounter Goals Goal Patient Goal Type Associated Problems Recent Progress Patient-Stated? Author Explores Community and Social Support Lifestyle No Luba Corbett LICSW Note: Numerous supports that pt may benefit from. Will discuss further w pt once she returns home from the hospital. Coordinate Care Lifestyle No Luba Corbett LICSW Note: Assist with coordination of services. documented as of this encounter Visit Diagnoses Not on filedocumented in this encounter Additional Health Concerns Assessment Noted Time PHQ-9 Depression Total Score: 22 025 1:38 PM EDT PHQ-2 Depression Total Score: 5 10/02/19 25 1:38 PM EDT documented as of this encounter Care Teams Masonry Contractor Administrator Relationship Specialty Start Date End Date Darby Hernandez MD [address] [place] [address] [email or web address] PCP - General Family Medicine 05/27/23 Soto Armstrong OD Referring Physician Optometry 02/18/18 Kingston Ramirez MD [address] [place] [address], [address] [place] [address] Ophthalmology 02/18/18 documented as of this encounter Additional Source Comments The information contained in this document represents components of the legal health record. It is not the complete legal health record.[facility]
--- OUTSIDE RECORDS SUMMARY | 2025-05-15 00:01 | XMS_ITS | Encounter Summary ---
Author Organization [facility] Address [address] [facility] [address] [place] [address] Phone Care Team Providers Care Church Organist Name Role Phone Amy Mills MD Primary Care Provider Soto Armstrong OD Unavailable [phone] Kingston Ramirez MD Unavailable Darby Hernandez MD Primary Care Provider + Encounter Details Date Type Department Care Team (Late st Contact Info) Description 03/14/2023 Procedure Pass [facility] Medical Endoscopy [address] Floor [place], [place] [id number] Social History Tobacco Use Types Packs/Day Years Used Date Smoking Tobacco: Some Days Cigarettes 0.5 36.7 Started: 07/09/1982; Last attempted to quit: 04/08/2019 Smokeless Tobacco: Never Child or Family Care Answer Date Record [...] with a working camera? Not on file Comments No Sex and Gender Information Value Date Recorded Sex Assigned at Female 10/16/2020 9:28 AM EDT Legal Sex Female 3:13 PM EST Gender Identity Female 10/16/2020 9:28 AM EDT Sexual Orientation Asexual 06/05/2023 5: 52 PM EST Occupation Industry Job Start Date Job End Date Disabled Not on file Not on file Not on file documented as of this encounter Plan of Treatment Upcoming Encounters Date Type Department Care Team (Late st Contact Info) Description 11/26/2024 Procedure Pass [facility] Cardiology [address] [address] 06/16/2025 2:00 PM EST Appointment [facility]iology [address] [facility] [address] [place] [address] Tammy Lau MD [address] [place] [address] [email or web address] 07/15/2025 1:00 PM EST Telemedicine [facility] [address] [facility] [address] [place] [address] Carrie Lambert MD [address] [place] [address] [email or web address] 10/23/2025 1:15 PM EDT Office Visit [facility] - Endocrinology - [place] [address] [facility] [address] [place] [address] Leslie Hollis MD [address] [place] [address] [email or web address] documented as of this encounter Goals [...] filedocumented in this encounter Additional Health Concerns Infection Onset Date Last Indicated Resolved Time COVID-19 06/28/2024 06/28/2024 07/19/2024 1:21 AM EST Assessment Noted Time PHQ-9 Depression Total Score: 13 019 2:36 PM EDT PHQ-2 Depression Total Score: 0 10/03/19 23 11:17 AM EDT documented as of this encounter Care Teams Church Organist Relationship Specialty Start Date End Date Amy Mills MD Diane [facility] [place] [address] [email or web address] PCP - General Family Medicine 02/07/18 3 Darby Hernandez MD [address] [place] [address] [place] [address] [email or web address] PCP - General Family Medicine 05/27/23 Soto Armstrong OD [address] [place] [address] Referring Physician Optometry 02/18/18 Kingston Ramirez MD [address] [place] [address], [address] [place] [address] [email or web address] Ophthalmology 02/18/18 documented as of this encounter Additional Source Comments The information contained in this document represents components of the legal health record. It is not the complete legal health record.[facility]
--- OUTSIDE RECORDS SUMMARY | 2025-05-15 00:01 | XMS_ITS | Encounter Summary ---
Author Organization [facility] Address [address] [address] Phone Care Team Providers Care Acetylene Operator Name Role Phone Nathaniel Soto Johana QUEVEDO Unavailable Kingston Ramirez MD Unavailable Darby Hernandez MD Primary Care Provider + Encounter Details Date Type Department Care Team (Late st Contact Info) Description 04/24/2025 Telephone [facility] Medical Endocrine [address] [facility] [address] [place] [address] Leslie Hollis MD [address] [facility] [address] [place] [address] [email or web address] Social History Tobacco Use Types Packs/Day Years [...] st Contact Info) Description 11/26/2024 Procedure Pass [facility] Medical Cardiology [address] [place] [address] 06/16/2025 2:00 PM EST Appointment [facility] Medical Cardiology [address] [place] [address] Tammy Lau MD [address] [place] [address] [email or web address] 07/15/2025 1:00 PM EST Telemedicine [facility] [address] [place] [address] Carrie Lambert MD [address] [place] [address] [email or web address] 10/23/2025 1:15 PM EDT Office Visit [facility] - Endocrinology - [address] [place] [address] Leslie Hollis MD [address] [facility] [address] [place] [address] [email or web address] documented as of this encounter Goals Goal Patient Goal Type Associated Problems Recent Progress Patient-Stated? Author Explores Community and Social Support Lifestyle No Luba Corbett LICSW Note: Numerous supports that pt may benefit from. Will discuss further w pt once she returns home from the hospital. Coordinate Care Lifestyle Luba Dolan LICSW Note: Assist with coordination of services. documented as of this encounter Visit Diagnoses Not on filedocumented in this encounter Additional Health Concerns Assessment Noted Time PHQ-9 Depression Total Score: 22 025 1:38 PM EDT PHQ-2 Depression Total Score: 5 10/02/19 25 1:38 PM EDT documented as of this encounter Care Teams Acetylene Operator Relationship Specialty Start Date End Date Darby Hernandez MD [address] [place] [address] [email or web address] PCP - General Family Medicine 05/27/23 Soto Armstrong OD Referring Physician Optometry 02/18/18 Kingston Ramirez MD [address] [place] [address], [address] [place] [address] [email or web address] Ophthalmology 02/18/18 documented as of this encounter Additional Source Comments The information contained in this document represents components of the legal health record. It is not the complete legal health record.[facility]
--- OUTSIDE RECORDS SUMMARY | 2025-05-15 00:01 | XMS_ITS | Encounter Summary ---
Author Organization [facility] Address [address] [place] [address] Care Team Providers Care Battery Tester And Repairer Name Role Phone Amy Mills MD Unavailable [phone] Porfirio Carrillo MD Primary Care Provider [phone] Encounter Details Date Type Department Care Team (Latest Contact Info) Description 05/13/2025 Travel Social History Tobacco Use Types Packs/Day Years [...] any time in the past 12 m [facility], were you homeless or living in a [facility] (including now)? No 05/13/2025 [facility] Utilities Answer Date Recorded In the past [...] on file documented as of this encounter Functional Status * Are you deaf or do you have serious difficulty hearing? Answer Date of Assessment Author No 12/23/2024 9:23 PM EDT Luba Allen * Are you blind or do you have serious difficulty seeing, even when wearing glasses? Answer Date of Assessment Author No 12/23/2024 9:23 PM EDT Luba Allen * Do you have serious difficulty walking or climbing stairs? Answer Date of Assessment Author No 12/23/2024 9:23 PM EDT Luba Allen * Do you have difficulty dressing or [...] PM Luba Lopes documented in this encounter Plan of Treatment Not on file documented as of this encounter Visit Diagnoses Not on filedocumented in this encounter Care Teams Battery Tester And Repairer Relationship Specialty Start Date End Date Porfirio Carrillo MD [address] [place] [address] PCP - General Family Practice 05/13/25 Amy Mills MD [address] [place] [address] 12/08/23 documented as of this encounter
--- OUTSIDE RECORDS SUMMARY | 2025-05-15 00:01 | XMS_ITS | Encounter Summary ---
Author Organization [facility] Address [address] [place] [address] Phone Care Team Providers Care Predictive Maintenance Specialist Name Role Phone Amy Mills MD Primary Care Provider [phone] Encounter Details Date Type Department Care Team ([facility] st Contact Info) Description 12/23/2024 Scanned Document [facility] - Health Information Department [address] [place] [address] Scan, No Provider Available [address] [place] [address] [place] [address] <No scans attached> Social History Tobacco Use Types Packs/Day Years [...] on file Sexual Orientation Not on file documented as of this encounter Plan of Treatment Not on file documented as of this encounter Visit Diagnoses Not on filedocumented in this encounter Care Teams Predictive Maintenance Specialist Relationship Specialty Start Date End Date Amy Mills MD PCP - General Family Medicine 02/19/18 documented as of this encounter
--- OUTSIDE RECORDS SUMMARY | 2025-05-15 00:01 | XMS_ITS | Encounter Summary ---
Author Organization [facility] Address [address] [place] [address] Phone Care Team Providers Care Highway Painter Helper Name Role Phone Amy Mills MD Primary Care Provider [phone] Encounter Details Date Type Department Care Team ([facility] st Contact Info) Description 11/10/2024 Scanned Document [facility] - Health Information Department [address] [place] [address] Scan, No Provider Available [address] [place] [address] [facility] [place] [address] <No scans attached> Social History Tobacco Use [...] on filedocumented in this encounter Care Teams Highway Painter Helper Relationship Specialty Start Date End Date Amy Mills MD PCP - General Family Medicine 02/19/18 documented as of this encounter
--- OUTSIDE RECORDS SUMMARY | 2025-05-15 00:01 | XMS_ITS | Encounter Summary ---
Author Organization [facility] Address [address] [place] [address] Care Team Providers Care Manager Community Development Name Role Phone Amy Mills MD Unavailable [phone] Darby Hernandez MD Primary Care Provider + Porfirio Carrillo MD Primary Care Provider [phone] Encounter Details Date Type Department Care Team ([facility] st Contact Info) Description 04/24/2025 Results Follow-Up [facility] Emergency Department [address] [place] [address] Marleny Byrne, ALINA XR Ribs Left W PA Chest 3 Vws+ Social History Tobacco Use Types Packs/Day Years Used Date Smoking Tobacco: Every Day Cigarettes Smokeless Tobacco: Never Alcohol Use Standard Drinks/Week Comments Not Currently 0 (1 standard drink = 0.6 oz pur e alcohol) [facility] Utilities Answer Date Recorded In the past 12 months has e [employer] gas, oil, or water Curbside threatened to shut off services in your home? No 11/09/2024 Humiliation, Afraid, Rape, and Kick questionnair e Answer Date Recorded Within the last year, have y ou been afraid of your partner or ex-partner? No 11/09/2024 Emotionally Abused Not on file 11/09/2024 Physically Abused Not on file 11/09/2024 Sexually Abused Not on file 11/09/2024 Overall Financial Resource Strain (CARDIA) Answe r Date Recorded How hard is it for you to pa y for the very basics like food, housing, medical care, and heating? Not hard at all 11/09/2024 Hunger Vital Sign Answer Date Recorded Within the past 12 months, y ou worried that your food would run out before you got the money to buy more. Never true 11/10/19 25 Ran Out of Food in the Last Year Not on file 11/09/2024 PRAPARE - Transportation Answer Date Re corded In the past 12 months, has l ack of transportation kept you from medical appointments or from getting medications? No 10/2024 In the past 12 months, has l ack of transportation kept you from meetings, work, or from getting things needed for daily living? No 11/09/2024 Housing Stability Vital Sign Answer Kaerem e Recorded In the last 12 months, was t here a time when you were not able to pay the mortgage or rent on time? No 11/09/2024 Number of Times Moved in the Last Year Not on fi le 11/09/2024 At any time in the past 12 [facility], were you homeless or living in a correction (including now)? No 11/09/2024 Food Insecurity Answer Date Recorded Within the past 12 months, y ou worried that your food would run out before you got the money to buy more. Never true 11/10/19 25 Ran Out of Food in the Last Year Not on file 11/09/2024 Intimate Partner Violence Answer Date R ecorded Emotionally Abused Not on file 11/09/2024 Within the last year, have y ou been afraid of your partner or ex-partner? No 11/09/2024 Physically Abused Not on file 11/09/2024 Sexually Abused Not on file 11/09/2024 Housing Stability Answer Date Recorded Unstable Housing in the Last Year Not on file 11/09/2024 In the last 12 months, was t here a time when you were not able to pay the mortgage or rent on time? No 11/09/2024 [address] Lived in the Last Year Not on f ile 11/09/2024 AUDIT C Answer Date Recorded How often [...] Author No 12/23/2024 9:23 PM EDLuba Gillette documented as of this encounter Mental Status * Because of a physical, mental, or emotional condition, do you have serious difficulty concentrating, remembering, or making decisions? Answer Entry Date Author No 12/23/2024 9:23 PM Luba Lopes documented in this encounter Plan of Treatment Not on file documented as of this encounter Visit Diagnoses Not on filedocumented in this encounter Care Teams Manager Community Development Relationship Specialty Start Date End Date Darby Hernandez MD [address] [place] [address] PCP - General Family Practice 09/05/24 05/12/25 Porfirio Carrillo MD [address] [place] [address] PCP - General Family Practice 05/13/25 Amy Mills MD [address] [place] [address] 12/08/23 documented as of this encounter
--- OUTSIDE RECORDS SUMMARY | 2025-05-15 00:02 | XMS_ITS | Encounter Summary ---
Author Organization [facility] Address [address] [place] [address] [place], [place] [id number] Care Team Providers Care Venetian Blind Mechanic Name Role Phone Porfirio Carrillo Md Primary Care Provider [phone] Encounter Details Date Type Department Care Team ([facility] Contact Info) Description 04/15/2025 Email Encounter [facility] Campaign, Provider USED CAMPAIGNS FOR SYSTEM DEFINITIONS NON-PROVIDERS NON-PROVIDERS Schedule your annual Well Visit Social History Tobacco Use Types Packs/Day Years Used Date Smoking Tobacco: Never Assessed Comments Unknown Sex and Gender Information Value Date Recorded Sex Assigned at Female 01/15/2025 1:21 PM EDT Legal Sex Female 1:18 PM EDT Gender Identity Female 01/15/2025 1:21 PM EDT Sexual Orientation A Sexual 04/23/2025 7: 42 AM EDT documented as of this encounter Plan of Treatment Upcoming Encounters Date Type Department Care Team ([facility] Contact Info) Description 04/28/2026 1:00 PM EDT Office Visit [facility] [address] [place] [phone] Porfirio Carrillo MD [address] [place] [address] documented as of this encounter Visit Diagnoses Not on filedocumented in this encounter Care Teams Venetian Blind Mechanic Relationship Specialty Start Date End Date Porfirio Carrillo MD [address] [place] [address] PCP - General Internal Medicine 03/31/25 documented as of this encounter
--- OUTSIDE RECORDS SUMMARY | 2025-05-15 00:02 | XMS_ITS | Encounter Summary ---
Author Organization [facility] Address [address] [place] [address] Phone Care Team Providers Care Appellate Court Clerk Name Role Phone Amy Mills MD Primary Care Provider [phone] Encounter Details Date Type Department Care Team ([facility] st Contact Info) Description 07/27/2023 Procedure Pass [facility]oscopy [address] [place] [address] Social History Tobacco Use Types Packs/Day Years [...] on filedocumented in this encounter Care Teams Appellate Court Clerk Relationship Specialty Start Date End Date Aym Mills MD PCP - General Family Medicine 02/19/18 documented as of this encounter
--- OUTSIDE RECORDS SUMMARY | 2025-05-15 00:02 | XMS_ITS | Encounter Summary ---
Author Organization [facility] Address [address] [place] [address] [place] [address] Care Team Providers Care Patient Care Manager Name Role Phone Porfirio Carrillo Md Primary Care Provider [phone] Encounter Details Date Type Department Care Team ([facility] Contact Info) Description 05/06/2025 Results Follow-Up [facility] [address] [place] [phone] Porfirio Carrillo MD [address] [place] [address] PAP VIAL TESTING, HPV HIGH RISK PCR MRNA THINPREP VIAL Social History Tobacco Use Types Packs/Day Years [...] is your housing situation today? Has nancy cono 04/23/2025 Are you worried about losing your [...] 04/23/2025 Urgent Assistance Needed Not on file 025 Social Isolation Answer Date Recorded How often [...] AM EDT documented as of this encounter Miscellaneous Notes * Result Encounter Note - Marcelle Wong - 05/06/2025 1:57 PM EDT Patient advised documented in this encounter Plan of Treatment Upcoming Encounters Date Type Department Care Team (Late st Contact Info) Description 04/28/2026 1:00 PM EDT Office Visit [facility] [address] [place] [phone] Porfirio Carrillo MD [address] [place] [address] documented as of this encounter Visit Diagnoses Not on filedocumented in this encounter Care Teams Patient Care Manager Relationship Specialty Start Date End Date Porfirio Carrillo MD [address] [place] [address] PCP - General Internal Medicine 03/31/25 documented as of this encounter
--- OUTSIDE RECORDS SUMMARY | 2025-05-15 00:02 | XMS_ITS | Encounter Summary ---
Author Organization [facility] Address [address] [place] [address] Phone Care Team Providers Care Credit Checker Name Role Phone Amy Mills MD Primary Care Provider [phone] Encounter Details Date Type Department Care Team ([facility] st Contact Info) Description 09/12/2024 Scanned Document [facility] - Health Information Department [address] [place] [address] Scan, No Provider Available [address] [place] [address] [place] [address] <No scans attached> Social History Tobacco Use [...] on filedocumented in this encounter Care Teams Credit Checker Relationship Specialty Start Date End Date Amy Mills MD PCP - General Family Medicine 02/19/18 documented as of this encounter
--- OUTSIDE RECORDS SUMMARY | 2025-05-15 00:02 | XMS_ITS | Encounter Summary ---
Author Organization [facility] Address [address] [place] [address] Phone Care Team Providers Care Account Executive Trainee Name Role Phone Amy Mills MD Primary Care Provider [phone] Reason for Referral * Neurology - Closed Specialty Diagnoses / Procedures Referred By Contac t Referred To Contact Neurology Diagnoses Seizures ([facility]) Procedures Ambulatory EEG Mahendra Fitzpatrick MD Phone: tel: fax: Referral ID Status Reason Start Date Expiration Date Visits Re quested Visits Authorized [id number] Closed 01/04/2018 01/05/2019 1 1 Encounter Details Date Type Department Care Team ([facility] Contact Info) Description 01/04/2018 Ancillary Orders [facility] - Neuro Diagnostics [address] [place] [address] Mahendra Fitzpatrick MD [address] [place] [address] Seizures ([facility]/HCC) Social History Tobacco Use Types Packs/Day Years Used Date Smoking Tobacco: Some Days Cigarettes Smokeless Tobacco: Never Alcohol Use Standard Drinks/Week Comments Yes 0 (1 standard drink = 0.6 oz pur e alcohol) Rarely Comments No Sex and Gender Information Value Date Recorded Sex Assigned at Not on file Legal Sex Female 3:41 PM EST Gender Identity Not on file Sexual Orientation Not on file documented as of this encounter Plan of Treatment Scheduled Orders Name Type Priority Associated Diagnoses Orde r Schedule Ambulatory EEG Neurology Routine Seizures (CMS/HCC) 1 Occurrences starting 01/04/2018 until 01/04/2019 documented as of this encounter Visit Diagnoses Diagnosis Seizures (CMS/HCC) Other convulsions documented in this encounter Care Teams Account Executive Trainee Relationship Specialty Start Date End Date Amy Mills MD PCP - General Family Medicine 02/19/18 documented as of this encounter
--- OUTSIDE RECORDS SUMMARY | 2025-05-15 00:02 | XMS_ITS | Encounter Summary ---
Author Organization [facility] Address [address] [facility] [address] [place] [address] Phone Care Team Providers Care Design Coordinator Name Role Phone Amy Mills MD Primary Care Provider Soto Armstrong OD Unavailable [phone] Kingston Ramirez MD Unavailable Amy Mills MD Unavailable [phone] Darby Hernandez MD Primary Care Provider + Encounter Details Date Type Department Care Team (Late st Contact Info) Description 03/01/[address] [facility] [address] [facility] Cancer Center [address] [facility] [address] [place] [address] Social History Tobacco Use Types Packs/Day Years Used Date Smoking Tobacco: Former Cigarettes 0.5 36.7 0 07/09/1982 - 04/08/2019 Smokeless Tobacco: Never Child or Family Care Answer Date Record ed Do you have problems with on e of the following making it difficult for you to work, study, or receive health care? No 08/22/2019 Education Answer Date Recorded Are you interested in help w ith more adult education (for example, completing high school, GED, job training, learning the Sami language, technical skills, or developing parenting skills)? Yes 08/22/2019 Are you concerned about learning? Not on file 08/22/2019 Not on file 08/22/2019 Not on file 08/22/2019 Food Answer Date Recorded Within the past 6 months we worried whether our food would run out before we got money to buy more. Sometimes True 020 Within the past 6 months the food we bought just didn't last and we didn't have enough money to get more. Sometimes True 08/09 Paying for Meds Answer Date Recorded Do you have trouble paying for medicines? Yes 08/22/2019 Paying Utility Bills Answer Date Record ed Do you have trouble paying your heating or elect ricity bill? Yes 08/22/2019 Transportation Answer Date Recorded Has the lack of transportati on kept you from medical appointments or from getting medications? Yes 08/22/2019 Comments Unknown Sex and Gender Information Value [...] 11/26/2024 Procedure Pass [facility] [address] [facility] [address] [place] [address] 06/16/2025 2:00 PM EST Appointment [facility] [address] [facility] [address] [place] [address] Tammy Lau MD [address] [place] [address] [email or web address] 07/15/2025 1:00 PM EST Telemedicine [facility] [address] [facility] [address] [place] [address] Carrie Lambert MD [address] [place] [address] [email or web address] 10/23/2025 1:15 PM EDT Office Visit [facility] - Endocrinology - [place] [address] [place] [address] Leslie [place] MD [address] [place] [address] [email or web address] documented as of this encounter Goals Goal [...] PM EDT PHQ-2 Depression Total Score: 0 08/22/19 20 3:06 PM EST documented as of this encounter Care Teams Design Coordinator Relationship Specialty Start Date End Date Amy Mills MD Diane [facility] [place] [email or web address] PCP - General Family Medicine 02/07/18 05/26/23 Darby Hernandez MD [address] [place] [address] [place] [address] [email or web address] PCP - General Family Medicine 05/27/23 Soto Armstrong OD [address] [place] [address] [place] [address] Referring Physician Optometry 02/18/18 Kingston Ramirez MD [address] [place] [address], [address] [place] [address] [email or web address] Ophthalmology 02/18/18 Amy Mills MD [address] [place] [address] [email or web address] Insurance Assigned Provider 04/13/18 07/17/20 documented as of this encounter Additional Source Comments The information contained in this document represents components of the legal health record. It is not the complete legal health record.[facility]
--- OUTSIDE RECORDS SUMMARY | 2025-05-15 00:02 | XMS_ITS | Encounter Summary ---
Author Organization [facility] Address [address] [place] [address] Phone Care Team Providers Care Coal Pipeline Operator Name Role Phone Amy Mills MD Primary Care Provider [phone] Encounter Details Date Type Department Care Team ([facility] st Contact Info) Description 10/16/2024 Scanned Document [facility] - Health Information Department [address] [place] [address] Scan, No Provider Available [address] [place] [address] [facility] [place] [address] <No scans attached> Social History Tobacco Use [...] on filedocumented in this encounter Care Teams Coal Pipeline Operator Relationship Specialty Start Date End Date Amy Mills MD PCP - General Family Medicine 02/19/18 documented as of this encounter
--- OUTSIDE RECORDS SUMMARY | 2025-05-15 00:02 | XMS_ITS | Encounter Summary ---
Author Organization [facility] Address [address] [facility] [address] [place] [address] Phone Care Team Providers Care Logistics Project Manager Name Role Phone Soto Armstrong OD Unavailable [phone] Kingston Ramirez MD Unavailable Darby Hernandez MD Primary Care Provider + Encounter Details Date Type Department Care Team (Late st Contact Info) Description 10/01/2024 Procedure Pass [facility] [address] [facility] [address] [place] [address] Social History Tobacco Use Types Packs/Day Years [...] st Contact Info) Description 11/26/2024 Procedure Pass [facility] [address] [facility] [address] [place] [address] 06/16/2025 2:00 PM EST Appointment [facility] [address] [facility] [address] [place] [address] Tammy Lau MD [address] [place] [address] [email or web address] 07/15/2025 1:00 PM EST Telemedicine [facility] [address] [facility] [address] [place] [address] Carrie Lambert MD [address] [place] [address] [email or web address] 10/23/2025 1:15 PM EDT Office Visit [facility] - Endocrinology - [address] [place] [address] Leslie [place] MD [address] [facility] [address] [place] [address] [email or web address] documented as of this encounter Goals Goal [...] documented as of this encounter Care Teams Logistics Project Manager Relationship Specialty Start Date End Date Darby Hernandez MD [address] [place] [address] [email or web address] PCP - General Family Medicine 05/27/23 Soto Armstrong OD Referring Physician Optometry 02/18/18 Kingston Ramirez MD [address] [place] [address], [address] [place] [phone] [email or web address] Ophthalmology 02/18/18 documented as of this encounter Additional Source Comments The information contained in this document represents components of the legal health record. It is not the complete legal health record.[facility]
--- OUTSIDE RECORDS SUMMARY | 2025-05-15 00:02 | XMS_ITS | Encounter Summary ---
Author Organization [facility] Address [address] [place] [address] Phone Care Team Providers Care News Specialist Name Role Phone Amy Mills MD Primary Care Provider [phone] Encounter Details Date Type Department Care Team ([facility] st Contact Info) Description 09/06/2024 Scanned Document [facility] - Health Information Department [address] [place] [address] Scan, No Provider Available [address] [place] [address] [facility] [place] [address] <No scans attached> Social History Tobacco Use [...] on filedocumented in this encounter Care Teams News Specialist Relationship Specialty Start Date End Date Amy Mills MD PCP - General Family Medicine 02/19/18 documented as of this encounter
--- OUTSIDE RECORDS SUMMARY | 2025-05-15 00:02 | XMS_ITS | Encounter Summary ---
Author Organization [facility] Address [address] [place] [address] Phone Care Team Providers Care Diorama Model Maker Name Role Phone Amy Mills MD Primary Care Provider [phone] Encounter Details Date Type Department Care Team ([facility] Contact Info) Description 04/16/2024 Orders Only [facility] - Health Information Department [address] [place] [address] Scan, No Provider Available [address] [place] [address] [place] [address] Social History Tobacco Use Types Packs/Day Years [...] Priority Date/Time Associated Diagnosis Comments ECG 12-LEAD Today 04/14/2024 3:35 PM EDT documented in this encounter Results * ECG (04/14/2024 3:35 PM EDT) us No Provider Available Scan ECG ORDERABLES Final Result documented in this encounter Visit Diagnoses Not on filedocumented in this encounter Care Teams Diorama Model Maker Relationship Specialty Start Date End Date Amy Mills MD PCP - General Family Medicine 02/19/18 documented as of this encounter
--- OUTSIDE RECORDS SUMMARY | 2025-05-15 00:02 | XMS_ITS | Encounter Summary ---
Author Organization [facility] Address [address] [place] [address] Phone Care Team Providers Care Portfolio Management Marketing Name Role Phone Amy Mills MD Primary Care Provider [phone] Encounter Details Date Type Department Care Team ([facility] [place] st Contact Info) Description 04/14/2024 Scanned Document [facility] - Health Information Department [address] [place] [address] Scan, No Provider Available [address] [place] [address] [facility] [place] [address] <No scans attached> Social History Tobacco Use [...] on filedocumented in this encounter Care Teams Portfolio Management Marketing Relationship Specialty Start Date End Date Amy Mills MD PCP - General Family Medicine 02/19/18 documented as of this encounter
--- OUTSIDE RECORDS SUMMARY | 2025-05-15 00:02 | XMS_ITS | Encounter Summary ---
Author Organization [facility] Address [address] [place] [address] Phone Care Team Providers Care Boom Operator Name Role Phone Amy Mills MD Primary Care Provider [phone] Encounter Details Date Type Department Care Team ([facility] st Contact Info) Description 11/08/2024 Scanned Document [facility] - Health Information Department [address] [place] [address] Scan, No Provider Available [address] [place] [address] [place] [address] <No scans attached> Social History Tobacco Use [...] on filedocumented in this encounter Care Teams Boom Operator Relationship Specialty Start Date End Date Amy Mills MD PCP - General Family Medicine 02/19/18 documented as of this encounter
--- OUTSIDE RECORDS SUMMARY | 2025-05-15 00:02 | XMS_ITS | Encounter Summary ---
Author Organization [facility] Address [address] [facility] [place] [address] Phone Care Team Providers Care Applications Packager Name Role Phone Amy Mills MD Primary Care Provider [phone] Encounter Details Date Type Department Care Team ([facility] st Contact Info) Description 04/15/2024 Orders Only [facility] - Health Information Department [address] [place] [address] Scan, No Provider Available [address] [place] [address] [place] [address] Social History Tobacco Use Types Packs/Day Years [...] Procedure Name Priority Date/Time Associated Diagnosis Comments MR EDNA DE LA TORRE Routine 04/14/2024 1:[address] CERVICAL SPINE WO CONTRAST Routine 04/14/2024 12:[address] HEAD WO CONTRAST Routine 04/14/2024 12:09 PM EDT documented in this encounter Results * MR Edna de la torre (04/14/2024 1:14 PM EDT) us No Provider Available Scan LAB BLOOD ORDERABLES Final Result * CT cervical spine without contrast (04/14/2024 12:14 PM EDT) Anatomical Region Laterality Modality Spine, C-spine Computed Tomogra phy us No Provider Available Scan IMG CT PROCEDURES Fin al Result * CT head without contrast (04/14/2024 12:09 PM EDT) Anatomical Region Laterality Modality Head and Neck Computed Tomogra phy us No Provider Available Scan IMG CT PROCEDURES Fin al Result documented in this encounter Visit Diagnoses Not on filedocumented in this encounter Care Teams Applications Packager Relationship Specialty Start Date End Date Amy Mills MD PCP - General Family Medicine 02/19/18 documented as of this encounter
--- OUTSIDE RECORDS SUMMARY | 2025-05-15 00:02 | XMS_ITS | Encounter Summary ---
Author Organization [facility]stem Address [address] [place] [address] Phone Care Team Providers Care Secondary Social Studies Teacher Name Role Phone Amy Mills MD Primary Care Provider [phone] Encounter Details Date Type Department Care Team ([facility] st Contact Info) Description 04/03/2018 Procedure Pass [facility] - MR Imaging [address] [place] [address] Social History Tobacco Use Types Packs/Day Years Used Date Smoking Tobacco: Former Cigarettes Smokeless Tobacco: Never Comments:Quit in 05/2017 Alcohol Use Standard Drinks/Week Comments Yes 0 (1 standard drink = 0.6 oz pure alcohol) 1 glass of wine per month on average Comments No Sex and Gender Information Value Date Recorded Sex Assigned at Not on file Legal Sex Female 3:41 PM EST Gender Identity Not on file Sexual Orientation Not on file documented as of this encounter Functional Status * How often do you have a drink containing alcohol? Answer Date of Assessment Author 0 04/03/2018 7:38 PM EDT Lissette Rosen i, RN * How many standard drinks containing alcohol do you have on a typical day? Answer Date of Assessment Author 0 04/03/2018 7:38 PM Lissette Mancia i, RN * How often do you have six or more drinks on one occasion? Answer Date of Assessment Author 0 04/03/2018 7:38 PM EDT Lissette Rosen i, RN * Audit-C Score Answer Date of Assessment Author 0 04/03/2018 7:38 PM EDT Lissette Rosen i, RN documented as of this encounter Plan of Treatment Not on file documented as of this encounter Visit Diagnoses Not on filedocumented in this encounter Care Teams Secondary Social Studies Teacher Relationship Specialty Start Date End Date Amy Mills MD PCP - General Family Medicine 02/19/18 documented as of this encounter
--- OUTSIDE RECORDS SUMMARY | 2025-05-15 00:02 | XMS_ITS | Encounter Summary ---
Author Organization [facility] Address [address] [place] [address] Phone Care Team Providers Care Corrugator Name Role Phone Amy Mills MD Primary Care Provider [phone] Encounter Details Date Type Department Care Team ([facility] st Contact Info) Description 09/11/2018 Procedure Pass [facility] [address] [place] [address] Social History Tobacco Use Types [...] on filedocumented in this encounter Care Teams Corrugator Relationship Specialty Start Date End Date Amy Mills MD PCP - General Family Medicine 02/19/18 documented as of this encounter
--- OUTSIDE RECORDS SUMMARY | 2025-05-15 00:02 | XMS_ITS | Encounter Summary ---
Author Organization [facility] Address [address] [facility] [address] [place] [id number] Phone Care Team Providers Care Grants Analyst Name Role Phone Soto Armstrong OD Unavailable [phone] Kingston Ramirez MD Unavailable Darby Hernandez MD Primary Care Provider + Encounter Details Date Type Department Care Team (Late st Contact Info) Description 11/26/2024 Procedure Pass [facility] [address] [facility] [facility] [address] [place] [address] Social History Tobacco Use Types Packs/Day Years [...] st Contact Info) Description 11/26/2024 Procedure Pass [facility] [address] [facility] [address] [place] [address] 06/16/2025 2:00 PM EST Appointment [facility] Cardiology [address] [facility] [address] [place] [address] Tammy Lau MD [address] [place] [phone] [email or web address] 07/15/2025 1:00 PM EST Telemedicine [facility] [address] [facility] [address] [place] [address] Carrie Lambert MD [address] [place] [phone] [email or web address] 10/23/2025 1:15 PM EDT Office Visit [facility] - Endocrinology - [address] [place] [address] Leslie Hollis MD [address] [facility] [address] [place] [address] [email or web address] documented as of this encounter Goals [...] documented as of this encounter Care Teams Grants Analyst Relationship Specialty Start Date End Date Darby Hernandez MD [address] [place] [phone] [email or web address] PCP - General Family Medicine 05/27/23 Soto Armstrong OD Referring Physician Optometry 02/18/18 Kingston Ramirez MD [address] [place] [address], [address] [place] [id number] [email or web address] Ophthalmology 02/18/18 documented as of this encounter Additional Source Comments The information contained in this document represents components of the legal health record. It is not the complete legal health record.[facility]
--- OUTSIDE RECORDS SUMMARY | 2025-05-15 00:02 | XMS_ITS | Clinical Summary ---
Author Organization [facility] Address [address] [place] [address] [place] [address] Care Team Providers Care Lead Technical Architect Name Role Phone Shara Nicolas Md Primary Care Provider [phone] Allergies Active Allergy Reactions Criticality Noted Date Comments Bee Venom Protein (Honey Bee) Anaphylaxis High 03/10/2019 Hernandez Anaphylaxis High 08/19/2018 Clindamycin 03/10/2019 Other Reaction(s): Unknown Coconut Oil Anaphylaxis High 02/19/2018 Anaphylaxis Fish Oil 02/19/2018 Other Reaction(s): Unknown Anaphylaxis Iodine Anaphylaxis,Itching High 03/14/2017 Other Reaction(s): Unknown Iv Dye, Iodine Containing Contrast Media Anaphylaxis High 05/03/2022 Lactose GI Intolerance 02/12/2020 Morphine Anaphylaxis High 04/01/2025 Oxycodone-Acetaminophen Anaphylaxis,Itching High 12/2016 OK to take Tylenol Penicillins Anaphylaxis,Itching High 03/14/2017 Red Dye Rash Low 08/19/2018 Shellfish Anaphylaxis High 09/03/2018 Other Reaction(s): Unknown Medications acetaminophen 500 mg tablet Take 1,000 mg by mouth every 6 hours as needed for pain 025 Active albuterol HFA 90 mcg/actuation HFA Aerosol Inhaler Inhale 2 puffs every 4 hours as needed for wheezing or shortness of breath Active aspirin 81 mg tablet,delayed release (DR/EC) Take 81 mg by mouth daily 025 Active atorvastatin 40 mg tablet Take 40 mg by mouth daily Active benztropine 1 mg tablet 025 Active benztropine 0.5 mg tablet Take 0.5 mg by mouth Active carBAMazepine 100 mg tablet extended release 12 hr SR 12 Hr Take 300 mg by mouth Active carBAMazepine 200 mg tablet extended release 12 hr SR 12 Hr Take 600 mg by mouth Active cloNIDine 0.1 mg tablet Take 0.1 mg by mouth once daily as needed Active gabapentin 100 mg capsule TAKE ONE CAPSULE BY MOUTH EVERY EVENING AT BEDTIME (VIAL) Active lamoTRIgine 100 mg tablet Take 100 mg by mouth every morning Active lamoTRIgine 200 mg tablet Take 200 mg by mouth every evening Active insulin lispro 100 unit/mL Solution INJECT UP TO 50 UNITS via pump daily Active latanoprost 0.005 % Drops Instill 1 drop in both eyes at bedtime Active LORazepam 0.5 mg tablet Take 0.5 mg by mouth fredy 1 tablet (0.5 mg total) by mouth at bedtime. (Take with 1mg for total dose 1.5mg QHS) Active metFORMIN 500 mg tablet TAKE ONE TABLET BY MOUTH TWICE A DAY WITH MEALS ^1R1,1R3 Active OXcarbazepine 300 mg tablet Take 600 mg by mouth twice daily Active prazosin 2 mg capsule Take 2 mg by mouth at bedtime Active QUEtiapine (SEROQUEL) 100 mg tablet Take 100 mg by mouth Active QUEtiapine (SEROQUEL) 25 mg tablet Take 25 mg by mouth Active sertraline 100 mg tablet Take 200 mg by mouth Active sertraline 25 mg tablet Take 25 mg by mouth Active SUMAtriptan 5 mg/actuation Only, Non-Aerosol Use 1 spray in each nostril once daily as needed for migraine May repeat in 2 hours if needed, max 2 sprays in 24 hours Active topiramate 25 mg tablet Take 25 mg by mouth daily Active traZODone 50 mg tablet Take 50 mg by mouth Active triamcinolone 0.5 % Cream APPLY TOPICALLY TWO TIMES A DAY (BULK) Active fluticasone propionate (FLONASE ALLERGY RELIEF NASL) Apply 50 mcg in each nostril twice daily Active famotidine (PEPCID) 20 mg tablet Take 20 mg by mouth twice daily Active hydrOXYzine 50 mg capsule Take 50 mg by mouth once daily as needed (unknown) Active melatonin (MELATIN ORAL) Take 3 mg by mouth at bedtime Active risperiDONE 1 mg tablet,disintegr ating Take 1 mg by mouth daily With breakfast Active EPINEPHrine 0.3 mg/0.3 mL Auto-Injector 2-Pack Inject 0.3 mg intramuscularly as needed for anaphylaxis Active Blood-Glucose Meter,Continuous (DEXCOM G7 CONSUMER SAFETY OFFICER) Misc 1 Units by Miscellaneous_ route daily Active multivit-min/elenita vance fumarate (MULTI VITAMIN ORAL) Take by mouth daily Active nicotine 14 mg/24 hr Patch 24 hrIndications:Sm darnell Apply 1 patch daily for 6 weeks; then step down to 7mg patch 42 patch Active INSULIN LISPRO SUBQ Administer 0-12 Units subcutaneously Inject 0-12 Units under the skin as needed Per Sliding scale: 70-150=0units 151-200=2units 201-250=4units 251-300=6units 301-350=8units(ca ll MD) 351-400=10units(c all MD) >400=12units(call MD) 2024 Discontinued( Dose Adjustment) lamoTRIgine 25 mg tablet Take 25 mg by mouth 2024 Discontinued( Dose Adjustment) LORazepam 1 mg tablet 1 mg 2024 Discontinued( Medication No Longer Necessary) Vit B Comp & C-Vit E-FA-Kristen-Zn 0.4 mg tablet Take 1 tablet by mouth daily 2024 Discontinued( Medication No Longer Necessary) prazosin 1 mg capsule Take 2 mg by mouth 2024 Discontinued( Dose Adjustment) risperiDONE 0.5 mg tablet 0.5 mg 024 2024 Discontinued( Dose Adjustment) risperiDONE 1 mg tablet Take 1 mg by mouth 025 2024 Discontinued( Dose Adjustment) insulin glargine,hum.rec .anlog (INSULIN GLARGINE SUBQ) Administer 100 Units/mL subcutaneously at bedtime Inject 22units under the skin nightly 2024 Discontinued( Change to Alternate Therapy) FREESTYLE LITE STRIPS Strip 4 strips by Miscellaneous_ route daily 2024 Discontinued( Medication No Longer Necessary) varicella-zoster gE-AS01B, PF, (SHINGRIX, PF,) 50 mcg/0.5 mL Suspension for Reconstitution Inject 0.5 mL intramuscularly once for 1 dose today; second dose to be given in 2-6 months 1 each 1 025 2024 Discontinued SHINGRIX (PF) 50 MCG/0.5 ML INTRAMUSCULAR SUSPENSION (VARICELLA-ZOSTE R GE/AS01B/PF) Inject 0.5 mL intramuscularly once for 1 dose today; second dose to be given in 2-6 months 1 each 1 025 2024 Active Problems Problem Noted Date Diagnosed Date Bilateral hearing loss 05/13/2025 Assessment & Plan (05/13/2025 6:42 AM EST): Class 2 severe obesity due t o excess calories with serious comorbidity and body mass index (BMI) of 35.0 to 35.9 in adult 05/13/2025 Assessment & Plan (05/13/2025 6:42 AM EST): Smoker 04/23/2025 Assessment & Plan (05/13/2025 6:42 AM EST): Orders: nicotine 14 mg/24 hr Patch 24 hr; Apply 1 patch daily for 6 weeks; then step down to 7mg patch REFERRAL TO [employer]ITWORKS SMOKING CESSATION PROGRAM Anxiety 04/01/2025 Transient ischemic attack 11/08/2024 HTN (hypertension) 10/02/2024 Glaucoma 10/02/2024 Migraine 09/18/2024 Mixed hyperlipidemia 09/18/2024 Recurrent falls 09/07/2024 Chronic diarrhea 10/02/2022 Tremor of right hand 10/02/2022 Chronic midline low back pain with left-sided sc iatica 01/10/2022 Bipolar disorder, in partial remission, most recent episode depressed 09/04/2018 Overview (04/01/2025): Last Assessment & Plan: Continue sertraline, Seroquel, trazodone, Lamictal and prazosin. Psychiatry consulted to consider medication adjustment in light of ongoing pseudoseizures. Assessment & Plan (05/13/2025 6:42 AM EST): Psychogenic nonepileptic seizure 08/04/2018 Overview (04/01/2025): Replacing inactive diagnoses from 10/07/22 update. Episodic paroxysmal hemicrania 04/03/2018 Post-traumatic stress disorder, unspecified 02/07 Overview (04/01/2025): Sees Ashley Henry, counselor Conversion disorder with seizures or convulsions 02/19/2018 Subclinical hypothyroidism 08/27/2017 Seizure disorder 08/26/2017 Overview (04/01/2025): Began when diabetes control became more challenging. [...] BID tomorrow. (? Keppra contributing to anxiety) Assessment & Plan (05/13/2025 6:42 AM EST): Type 1 diabetes mellitus with hyperglycemia 08/09 Overview (04/01/2025): Claims diagnosed as type 1 based on blood tests. Tried lantus. Changed to triseba due to inadequate control Last Assessment & Plan: Continue home insulin regimen. Monitor BG, utilize lispro sliding scale as needed, diabetic diet. Assessment & Plan (05/13/2025 6:42 AM EST): Resolved Problems Problem Noted Date Diagnosed Date Resolved Date Avulsion fracture of right ankle, sequela 11/18/2024 04/23/2025 Fall at home, initial encounter 11/09/2024 04/23/2025 Acute kidney injury superimp osed on chronic kidney disease ([facility]) 11/08/2024 04/23/2025 Influenza A 09/07/2024 04/23/2025 Right ankle sprain 09/07/2024 Malignant neoplasm of left ovary 05/01/2024 04/23/2025 Overview (04/01/2025): S/p oopherectomy and hysterectomy in 2009. Cervix remains Loss of appetite 10/02/2022 04/23/2025 Intractable migraine without aura and without status migrainosus 08/24/2019 04/23/2025 Seizure-like activity 09/03/20182024 Hyponatremia 09/03/2018 04/23/2025 Acute cystitis without hematuria 08/04/2018 04/23/2025 Episode of recurrent major d epressive disorder 08/04/2018 04/23/2025 Suicidal ideation 04/03/2018 04/23/2025 Overview (04/01/2025): Last Assessment & Plan: Pt placed on suicidal precautions with 07/09 observation, follow and consult psychiatry for further recommendations as well Diarrhea of presumed infectious origin 08/27/2017 04/23/2025 Encounters Date Type Department Care Team Description 05/06/2025 Results Follow-Up [facility] [address] [place] [phone] Shara Nicolas MD PAP VIAL TESTING, HPV HIGH RISK PCR MRNA THINPREP VIAL 04/28/2025 10:30 AM EDT Office Visit [place] [address] [address] [place] [phone] Michelle Aj PA Contusion of chest wall, unspecified laterality, initial encounter (Primary Dx); Type 1 diabetes mellitus with hyperglycemia (CMS-HCC); Obesity, class 3 (CMS-HCC); Body mass index (BMI) 35.0-35.9, adult; Mixed hyperlipidemia; Bipolar disorder, in partial remission, most recent episode depressed (CMS-HCC); Seizure disorder (CMS-HCC) 04/24/[address], [facility] [place] [address] [facility], / POST-ED DISCHARGE CALL 04/23/2025 1:20 PM EDT Office Visit [facility] [address] [place] [phone] Shara Nicolas MD Annual physical exam (Primary Dx); Colon cancer screening; Encounter for screening mammogram for malignant neoplasm of breast; Need for COVID-19 vaccine; Need for influenza vaccination; Need for shingles vaccine; Smoker; Type 1 diabetes mellitus with hyperglycemia (CMS-HCC); Seizure disorder (CMS-HCC); Class 2 severe obesity due to excess calories with serious comorbidity and body mass index (BMI) of 35.0 to 35.9 in adult; Bipolar disorder, in partial remission, most recent episode depressed (CMS-HCC); Cervical cancer screening; Bilateral hearing loss, unspecified hearing loss type 04/23/2025 Travel 04/15/2025 Letter (Out) [facility] [address] [place] [phone] Shara Nicolas MD 04/15/2025 Email Encounter [facility], Provider Schedule your annual Well Visit 04/01/2025 Patient Outreach [facility] [address] [place] [phone] Saarh Albright LPN Onboarding; New Patient 03/10/2025 Letter (Out) [facility] [address] [place] [address] Campaign, Provider from Last 3 Months Immunizations Immunization Administration Dates Next Due COVID-19 (PFIZER) Vaccine, 12YRS+, 30mcg/0.3mL 1 COVID-19 (PFIZER) Vaccine, 3 0mcg/0.3mL, 12YRS+, Diluent Reconstituted, IM 10/21/2020,09/30/2020 Influenza Vaccine (Unspecified Formulation) 02/2020,05/16/2019 Influenza Vaccine Recomb, Tr ivalent, Preserv & Egg Free, 0.5 mL, >/=18 YRS (FLUBLOK) 04/07/2024 Influenza Vaccine, 36MOS+, S plit Virus, Single Dose Syringe (AFLURIA) 04/23/2025 Pneumococcal Conjugate (PCV20) 10/02/2022 TdaP 05/13/2020,02/24/2019 Zoster Subunit (Shingles) Vaccine (HZ/Pedersen), Shing felix 04/23/2025 Surgical History Surgery Date Site/Laterality Comments HYSTERECTOMY - TOTAL ABDOMINAL LAPAROSCOPY - SALPINGECTOMY, BILAT APPENDECTOMY TONSILLECTOMY OTHER SURGICAL HISTORY strabismus CHOLECYSTECTOMY TYMPANOSTOMY (W/ V TUBE) ,GENERAL ANES SECT CLEANING HANDYMAN SECT CLEANING HANDYMAN Medical History Medical History Date Comments Seizure ([facility]) Type 1 diabetes mellitus PTSD (post-traumatic stress disorder) Depression Anxiety Ovarian cancer ([facility]) Memory impairment Bipolar 1 disorder ([facility]) Chronic bronchitis ([facility]) Hearing loss Asthma TIA (transient ischemic attack) Tremor of right hand Tobacco use Intractable migraine Suicidal ideation Subclinical hypothyroidism High cholesterol Depression, unspecified depr ession type Allergies Seizure disorder ([facility]) Diabetes mellitus Cancer ([facility]) Hypertension Malignant neoplasm of left o vary ([facility]) 05/01/2024 S/p oopherectomy and hystere ctomy in 2009. Cervix remains Acute kidney injury superimp osed on chronic kidney disease ([facility]) ([facility]) 11/08/2024 Acute cystitis without hematuria 08/04/2018 Seizure-like activity ([facility]) 09/03/2018 Hyponatremia 09/03/2018 Episode of recurrent major d epressive disorder ([facility]) 08/04/2018 Fall at home, initial encounter 11/09/2024 Influenza A 09/07/2024 Intractable migraine without aura and without status migrainosus 08/24/2019 Loss of appetite 10/02/2022 Avulsion fracture of right a nkle, sequela 11/18/2024 Right ankle sprain 09/07/2024 Family History Medical History Relation Comments CAD/PVD Father Colon polyp Father Diabetes - type I Father both legs ampu tated bladder cancer Father cataract Father CAD/PVD Mother Diabetes - type II Mother Glaucoma Mother Stroke Mother CAD/PVD Son 1 CAD/PVD Son 2 CAD/PVD Son 3 Relation Status Comments Father Mother Alive Son 1 Alive Son 2 Alive Son 3 Alive Social History Tobacco Use Types Packs/Day Years Used Date Smoking Tobacco: Every Day Cigarettes 0.5 5 Passive Smoke Exposure: Never Smokeless Tobacco: Never Tobacco Cessation:Ready to Q uit: Not Asked; Counseling Given: Not Answered Alcohol Use Standard Drinks/Week Comments Yes 1 (1 standard drink = 0.6 oz pur e alcohol) One glass of wine at [facility] Vital Sign Answer Date Recorded Worried About [...] A Sexual 04/23/2025 7: 42 AM EDT Obstetrics History Last Filed Vital Signs Vital Sign Reading Time Taken Comments Blood Pressure 124/88 04/28/2025 10:02 AM EDT Pulse 67 04/28/2025 10:02 AM EDT Temperature 36.2 C (97.1 F) 04/28/2025 10:02 AM EDT Respiratory Rate 16 04/28/2025 10:02 AM EDT Oxygen Saturation 97% 04/28/2025 10:02 AM EDT Inhaled Oxygen Concentration - - Weight 95.3 kg (210 lb) 04/28/2025 10:02 AM EDT Height 163.8 cm (5' 4.5 ) 04/23/2025 12:56 PM ED T Body Mass Index 35.49 04/23/2025 12:56 PM EDT Plan of Treatment Upcoming Encounters Date Type Department Care Team (Late st Contact Info) Description 04/28/2026 1:00 PM EDT Office Visit [facility] [address] [place] [phone] Shara Nicolas MD [address] [place] [phone] Health Maintenance Due Date Last Done Comments * DIABETIC EYE EXAM 1983 * LIPID PROFILE 1983 HEP B INITIAL SCREENING 1985 HIV SCREENING 1985 HEPATITIS B VACCINE (1 of 3 - 19+ 3-dose series) 1986 HEP C SCREENING 2003 BONE DENSITY 2007 MAMMOGRAPHY: 1 YR 2007 COLORECTAL SCREENING: COLOGUARD 2012 * MICROALBUMIN 04/15/2025 04/15/2024, 08/09, 10/13/2022, Additional history exists * HEMOGLOBIN A1C (DM) 05/12/2025 11/09/2024 , 09/09/2024, 09/07/2024, Additional history exists ZOSTER VACCINE (2 of 2) 06/18/2025 04/23/2025 * KIDNEY DISEASE SCREEN-(CREATININE) 12/23/2025 05/13/2025, 12/23/2024, 11/10/2024, Additional history exists PERIODIC HEALTH REVIEW 04/23/2026 04/23/2025 HPV SCREENIN YR 04/23/2030 04/23/2025 PAP LOW RISK: 5 YR 04/23/2030 04/23/2025 DTAP/TDAP/TD VACCINE (3 - Td or Tdap) 05/13/2030 05/13/2020, 02/24/2019 PNEUMOCOCCAL VACCINE(S) 50+ Completed 10/02/2022 COVID-19 Vaccine Completed 04/23/2025, 08/2020, 10/21/2020, Additional history exists FLU SEASONAL Completed 04/23/2025, 03/11, 06/06/2023, Additional history exists HAEMOPHILUS INFLUENZA VACCINE Aged Out No longer eligible based on patient's age to complete this topic HEPATITIS A VACCINE Aged Out No longe r eligible based on patient's age to complete this topic POLIO VACCINE Aged Out No longer elig ible based on patient's age to complete this topic RSV Vaccine Infant//toddler Aged Out No longer eligible based on patient's age to complete this topic Procedures Procedure Name Priority Date/Time Associated Diagnosis Comments PAP VIAL TESTING Routine 04/23/2025 5:10 PM EDT Cervical cancer screening HPV HIGH RISK PCR MRNA THINPREP VIAL Routine 04/23/2025 5:10 PM EDT Cervical cancer screening from Last 3 Months Results * PAP VIAL TESTING (04/23/2025 5:10 PM EDT) Interpretation NEGATIVE FOR INTRAEPITHELIAL LESION OR MALIGNANCY 04/29/2025 9:48 AM EDT [facility] DEPARTMENT OF PATHOLOGY AND LAB MEDICINE at 0948 EDT Specimen Adequacy Satisfactory for evaluation. Transformation zone component absent. 04/29/2025 9:48 AM EDT [facility] DEPARTMENT OF PATHOLOGY AND LAB MEDICINE HPV High Risk Negative 04/29/2025 9:48 AM EDT [facility] DEPARTMENT OF PATHOLOGY AND LAB MEDICINE Source Cervical 04/29/2025 9:48 AM EDT [facility] DEPARTMENT OF PATHOLOGY AND LAB MEDICINE Macroscopic Description Vial contains 20cc of colorless fluid. 04/29/2025 9:48 AM EDT [facility] DEPARTMENT OF PATHOLOGY AND LAB MEDICINE Additional Information For further information about terminology found in your pathology report, please visit the My Pathology Report website (not compatible with Internet Explorer). If after speaking to your provider you would like more information about your pathology result, you may message the pathology department directly. 04/29/2025 9:48 AM EDT [facility] DEPARTMENT OF PATHOLOGY AND LAB [...] of this sample. 04/29/2025 9:48 AM EDT [facility] DEPARTMENT OF PATHOLOGY AND LAB MEDICINE Specimen Information Gynecologic Cytology Case: [id number] Collected: 04/23/2025 5:10 PM Received: 04/23/2025 9:40 PM Authorizing Provider: SHARA NICOLAS MD Ordering Location: [facility] Result interpreted by: JALYN JACKSON Result signed on: 04/29/2025 9:48 AM 04/29/2025 9:48 AM EDT [facility] DEPARTMENT OF PATHOLOGY AND LAB MEDICINE PAP Vial (Cervical) Non-blood collection / Unknown 04/23/2025 5:10 PM EDT 04/23/2025 5:10 PM EDT us Shara Nicolas LAB PATHOLOGY ORDERABLES Final R esult Performing Organization Address City/[facility]/ZIP Co de Phone Number [facility] OF PATHOLOGY AND LAB MEDICINE [address] [place] [address] * HPV HIGH RISK PCR MRNA THINPREP VIAL (04/23/2025 5:10 PM EDT) HPV HIGH RISK mRNA Negative Negative 04/29/2025 9:48 AM EDT [facility] DEPARTMENT OF PATHOLOGY AND LAB MEDICINE SOURCE Cervical 04/29/2025 9:48 AM EDT [facility] DEPARTMENT OF PATHOLOGY AND LAB MEDICINE PAP Vial (Cervical) Non-blood collection / Unknown 04/23/2025 5:10 PM EDT 04/23/2025 9:40 PM EDT us Shara Nicolas MICROBIOLOGY LAB Final Result Performing Organization Address City/[facility]/ZIP Co de Phone Number [facility] OF PATHOLOGY AND LAB MEDICINE [address] [place] [address] from Last 3 Months Insurance [employer] Care Teams Lead Technical Architect Relationship Specialty Start Date End Date Shara Nicolas MD [address] [place] [phone] PCP - General Internal Medicine 03/31/25
--- OUTSIDE RECORDS SUMMARY | 2025-05-15 00:02 | XMS_ITS | Encounter Summary ---
Author Organization [facility] Address [address] [facility] [place] [address] Phone Care Team Providers Care Metal Bed Assembler Name Role Phone Amy Mills MD Primary Care Provider Soto Armstrong OD Unavailable [phone] Kingston Ramirez MD Unavailable Luba Corbett OIL AND GAS SUPERINTENDENT Unavailable micha Amy Mills MD Unavailable [phone] Darby Hernandez MD Primary Care Provider + Encounter Details Date Type Department Care Team (Late st Contact Info) Description 09/11/2018 Procedure Pass [facility] [address] [address] Social History Tobacco Use Types Packs/Day Years Used Date Smoking Tobacco: Former Cigarettes Q uit: 05/09/2017 Smokeless Tobacco: Never Comments Unknown Sex and Gender Information Value [...] [facility] [address] [place] [address] 06/16/2025 2:00 PM EST Appointment [facility] [address] [place] [address] Tammy Lau MD [address] [place] [address] [email or web address] 07/15/2025 1:00 PM EST Telemedicine [facility] [address] [place] [address] Carrie Lambert MD [address] [place] [phone] [email or web address] 10/23/2025 1:15 PM EDT Office Visit [facility] [place] [address] [facility] [place] [address] Leslie Hollis MD [address] [place] [address] [email or web address] documented as of this encounter [...] Assessment Noted Time PHQ-9 Depression Total Score: 018 11:22 AM EDT PHQ-2 Depression Total Score: 02/23/20 18 11:31 AM EDT documented as of this encounter Care Teams Metal Bed Assembler Relationship Specialty Start Date End Date Amy Mills MD [address] [place] [address] [email or web address] PCP - General Family Medicine 02/07/18 05/26/23 Darby Hernandez MD [address] [place] [address] [email or web address] PCP - General Family Medicine 05/27/23 Soto Armstrong OD [address] [place] [address] Referring Physician Optometry 02/18/18 Kingston Ramirez MD [address] [place] [address], [address] [address] Ophthalmology 02/18/18 Luba Corbett LICSW [address] [place] [address], [address] [address] [email or web address] Writer 02/25/18 07/29/19 Amy Mills MD [address] [place] [address] [email or web address] Insurance Assigned Provider 04/13/18 07/17/20 documented as of this encounter Additional Source Comments The information contained in this document represents components of the legal health record. It is not the complete legal health record.[facility]
--- OUTSIDE RECORDS SUMMARY | 2025-05-15 00:02 | XMS_ITS | Encounter Summary ---
Author Organization [facility] Address [address] [place] [address] Phone Care Team Providers Care Psychologist Research Assistant Name Role Phone Amy Mills MD Primary Care Provider [phone] Encounter Details Date Type Department Care Team ([facility] st Contact Info) Description 11/23/2024 Scanned Document [facility] - Health Information Department [address] [place] [address] Scan, No Provider Available [address] [place] [address] [place] [address] <No scans attached> Social History Tobacco Use [...] on filedocumented in this encounter Care Teams Psychologist Research Assistant Relationship Specialty Start Date End Date Amy Mills MD PCP - General Family Medicine 02/19/18 documented as of this encounter
--- OUTSIDE RECORDS SUMMARY | 2025-05-15 00:02 | XMS_ITS | Encounter Summary ---
Author Organization [facility] ystem Address [address] [place] [address] Phone Care Team Providers Care Degreaser Operator Name Role Phone Amy Mills MD Primary Care Provider [phone] Encounter Details Date Type Department Care Team ([facility] Contact Info) Description 04/03/2018 Procedure Pass [facility] - MR Imaging [address] [place] [address] Social History Tobacco Use Types [...] Sign Reading Time Taken Comments Blood Pressure - - Pulse - - Temperature - - Respiratory Rate - - Oxygen Saturation - - Inhaled Oxygen Concentration - - Weight 86.2 kg (190 lb) 04/04/2018 5:08 AM EDT Height 165.1 cm (5' 5 ) 04/04/2018 5:08 AM EDT Body Mass Index 31.62 04/04/2018 5:08 AM EDT documented in this encounter Functional Status * How often do you have a drink containing alcohol? Answer Date of Assessment Author 0 04/03/2018 7:38 PM EDT Lissette Rosen i, RN * How many standard drinks containing alcohol do you have on a typical day? Answer Date of Assessment Author 0 04/03/2018 7:38 PM EDT Lissette Rosen i, RN * How often do you [...] on filedocumented in this encounter Care Teams Degreaser Operator Relationship Specialty Start Date End Date Amy Mills MD PCP - General Family Medicine 02/19/18 documented as of this encounter
--- OUTSIDE RECORDS SUMMARY | 2025-05-15 00:02 | XMS_ITS | Encounter Summary ---
Author Organization [facility] Address [address] [facility] [address] [place] [address] Phone Care Team Providers Care Spice Fumigator Name Role Phone Amy Mills MD Primary Care Provider [phone] Soto Armstrong OD Unavailable Kingston Ramirez MD Unavailable Darby Hernandez MD Primary Care Provider + Encounter Details Date Type Department Care Team (Late st Contact Info) Description 08/25/2020 Procedure Pass [facility], [address] [place] [address] Social History Tobacco Use Types Packs/Day Years [...] high school, GED, job training, learning the [place] language, technical skills, or developing parenting skills)? No 08/22/2020 Are you concerned about learning? Not on file 08/22/2020 Not on file 08/22/2020 Not on file 08/22/2020 Food Answer Date Recorded Within the past [...] appointments or from getting medications? No 08/22/2020 Comments No Sex and Gender Information Value [...] st Contact Info) Description 11/26/2024 Procedure Pass [facility] Cardiology [address] [facility] [address] [place] [address] 06/16/2025 2:00 PM EST Appointment [facility] Cardiology [address] [facility] [address] [place] [address] Tammy Lau MD [address] [place] [address] [email or web address] 07/15/2025 1:00 PM EST Telemedicine [facility] [address] [facility] [address] [place] [address] Carrie Lambert MD [address] [place] [id number] [email or web address] 10/23/2025 1:15 PM EDT Office Visit [facility] - Endocrinology - [place] [address] [facility] [address] [place] [address] Leslie Hollis MD [address] [place] [address] [email or web address] documented as of this encounter [...] 2:36 PM EDT PHQ-2 Depression Total Score: 2 08/22/19 21 10:23 AM EST documented as of this encounter Care Teams Spice Fumigator Relationship Specialty Start Date End Date Amy Mills MD [facility] [place] [address] @[email or web address] PCP - General Family Medicine 02/07/18 3 Darby Hernandez MD [address] [place] [address] [place] [address] [email or web address] PCP - General Family Medicine 05/27/23 Soto Armstrong OD [address] [place] [address] Referring Physician Optometry 02/18/18 Kingston Ramirez MD [address] [place] [address], [address] [place] [address] [email or web address] Ophthalmology 02/18/18 documented as of this encounter Additional Source Comments The information contained in this document represents components of the legal health record. It is not the complete legal health record.[facility]
--- OUTSIDE RECORDS SUMMARY | 2025-05-15 00:02 | XMS_ITS | Encounter Summary ---
Author Organization [facility] ystem Address [address] [place] [address] Phone Care Team Providers Care Nurse Informatics Educator Name Role Phone Amy Mills MD Primary Care Provider [phone] Encounter Details Date Type Department Care Team ([facility] st Contact Info) Description 04/03/2018 Procedure Pass [facility] - MR Imaging [address] [place] [address] Social History Tobacco Use Types [...] on filedocumented in this encounter Care Teams Nurse Informatics Educator Relationship Specialty Start Date End Date Amy Mills MD PCP - General Family Medicine 02/19/18 documented as of this encounter
--- OUTSIDE RECORDS SUMMARY | 2025-05-15 00:03 | XMS_ITS | Encounter Summary ---
Author Organization [facility] Address [address] [facility] [address] [place] [address] Phone Care Team Providers Care Refinery Superintendent Name Role Phone Amy Mills MD Primary Care Provider Soto Armstrong OD Unavailable Kingston Ramirez MD Unavailable [phone] Darby Hernandez MD Primary Care Provider + Encounter Details Date Type Department Care Team (Late st Contact Info) Description 03/16/2022 Procedure Pass [facility] Medical Radiology [address] [facility] [address] [place] [address] Social History Tobacco Use Types Packs/Day Years [...] high school, GED, job training, learning the Brazilian language, technical skills, or developing parenting skills)? [...] st Contact Info) Description 11/26/2024 Procedure Pass [facility] Cardiology [address] [facility] [address] [place] [address] 06/16/2025 2:00 PM EST Appointment [facility] Cardiology [address] [place] [address] Tammy Lau MD [address] [place] [address] [email or web address] 07/15/2025 1:00 PM EST Telemedicine [facility] [address] [place] [address] Carrie Lambert MD [address] [place] [address] [email or web address] 10/23/2025 1:15 PM EDT Office Visit [facility] - Endocrinology - [place] [address] [facility] [place] [address] Leslie Hollis MD [address] [place] [address] [email or web address] documented as of this encounter Goals Goal Patient Goal Type Associated Problems Recent Progress Patient-Stated? Author Explores Community and Social Support Lifestyle Luba Dolan LICSW Note: Numerous supports that pt may [...] PM EDT PHQ-2 Depression Total Score: 0 09/29/19 22 10:27 AM EDT documented as of this encounter Care Teams Refinery Superintendent Relationship Specialty Start Date End Date Amy Mills MD [address] [facility] [place] [address] [email or web address] PCP - General Family Medicine 02/07/18 3 Darby Hernandez MD [address] [place] [address] [email or web address] PCP - General Family Medicine 05/27/23 Soto Armstrong OD [address] [place] [address] Referring Physician Optometry 02/18/18 Kingston Ramirez MD [address] [place] [address], [address] [place] [address] [email or web address] Ophthalmology 02/18/18 documented as of this encounter Additional Source Comments The information contained in this document represents components of the legal health record. It is not the complete legal health record.[facility]
[2025-05-15 00:28] VITALS: BP 117/64; PULSE 77; RESP 16; TEMP 36.4; O2SAT 93
[2025-05-15 00:59] VITALS: BMI 32.8
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
[2025-05-15 07:56] LABS: Glucose, Whole Blood 223 mg/dL (60-115)
[2025-05-15 08:00] VITALS: BP 138/69; PULSE 68; RESP 16; TEMP 36.2; O2SAT 93
--- NOTE | 2025-05-15 08:12 | HO.PM.IMCN ---
History of Present Illness Data of Consult Service Date: 05/15/25 Primary Care Provider: Unknown Physician HPI Reason for consult: Medical consult 59-year-old female with past medical history of bipolar 1 disorder, anxiety, PTSD, CKD, depression, Type 1 diabetes, glaucoma, hyperlipidemia, migraines, JONATHAN, seizure and a history of repeated falls presented to [facility] emergency department with increased depression and suicidal ideation. Her initial workup revealed no electrolyte imbalances, no evidence of kidney or renal disease, no alcohol, no anemia or leukocytosis. On exam she has no medical complaints. Review of Systems Review of Systems: Denies any shortness of breath, chest pain, headaches, dysuria, abdominal pain or discomfort, nausea, vomiting or diarrhea. Denies fever or chills. PMFSH Social History Household Members: None Housing: Apartment Do you presently have visiting nurse or other home services: No Patient Tobacco Use Status: Current everyday Tobacco user Tobacco use type: Cigarette Cigarette Packs Per Day: 0.5 Cigarettes Per Day: 10.0 Smoked in Last 30 Days: Yes e-Cigarette/Vaping Use: Never Used Patient Interested in Nicotine Replacement: Yes Patient Given Instructions on How to Stop Smoking: Yes Date Education Initiated: 05/15/25 Second Hand Smoke Exposure: No Have you been hit, kicked, punched, or otherwise hurt by someone within the past year? If so, by whom?: No Do you feel safe in your current relationship?: No Current Relationship Is there a partner from a previous relationship who is making you feel unsafe now?: No Are you made to feel afraid or neglected: No Advance Directives: No Advance Directives Information Provided: Yes Do you have a plan to hurt others: No Plan Recently lost weight without trying: No How much weight loss: Not applicable Eating poorly because of decreased appetite: No Nutrition screen score: 0 Nutrition Risks: No Nutritional Risk Patient : No : No service: No Sexual orientation: Straight/Heterosexual Meds Allergies Allergy/AdvReac Type Severity Reaction Status Date / Time mccarthy (cherries) Allergy Severe Anaphylaxis Verified 05/15/25 01:42 coconut Allergy Severe Anaphylaxis Verified 05/15/25 01:44 iodine Allergy Severe Anaphylaxis Verified 05/15/25 01:44 morphine Allergy Severe Anaphylaxis Verified 05/15/25 01:46 oxycodone Allergy Severe Anaphylaxis Verified 05/15/25 01:46 Penicillins Allergy Severe Anaphylaxis Verified 05/15/25 01:46 red dye Allergy Severe Swelling Verified 05/15/25 01:46 bee pollen (bees) Allergy Intermediate Hives Verified 05/15/25 01:47 clindamycin Allergy Intermediate Rash Verified 05/15/25 01:43 shellfish derived (shellfish) Allergy Unknown Verified 05/15/25 00:06 Active Medications: Current Medications Acetaminophen (Acetaminophen 325 Mg Tablet) 650 mg PO Q6H PRN PRN Reason: Headache/Pain, Scale 1-10 Al Hydroxide/Mg Hydroxide (Magnesium Hydrox/Alum Hydrox 30 Ml Oral.Susp) 30 ml PO Q6H PRN PRN Reason: Heartburn/Nausea Atorvastatin Calcium (Atorvastatin Calcium 40 Mg Tablet) 40 mg PO DAILY [facility] Benztropine Mesylate (Benztropine Mesylate 1 Mg Tablet) 1 mg PO DAILY [facility] Gabapentin (Gabapentin 100 Mg Capsule) 100 mg PO DAILY [facility] Hydroxyzine HCl (Hydroxyzine Hcl 25 Mg Tablet) 25 mg PO Q6H PRN PRN Reason: mild anxiety Insulin Glargine (Insulin Glargine,Hum.Rec.Anlog 100 Unit/Ml 10 Ml Vial) 14 unit SUBCUT BEDTIME [facility] Insulin Human Lispro (Insulin Lispro 100 Unit/Ml 3 Ml Vial) 3 unit SUBCUT TIDAC [facility] Insulin Human Lispro (Insulin Lispro 100 Unit/Ml 3 Ml Vial) 0 unit SUBCUT QIDACHS [facility]; Protocol Lamotrigine (Lamotrigine 100 Mg Tablet) 400 mg PO DIRECTED [facility] Latanoprost (Latanoprost 0.005 % Ophth Linda 2.5 Ml Drops) 1 drop EYE-BOTH BEDTIME [facility] Lorazepam (Lorazepam 0.5 Mg Tablet) 0.5 mg PO DAILY [facility] Magnesium Hydroxide (Milk Of Magnesia 30 Ml Oral.Susp) 30 ml PO DAILY PRN PRN Reason: Constipation Melatonin (Melatonin 3 Mg Tablet) 6 mg PO BEDTIME [facility] Metformin HCl (Metformin Hcl 500 Mg Tablet) 500 mg PO BID [facility] Nicotine Polacrilex (Nicotine Polacrilex 2 Mg Gum) 2 mg BUCCAL Q2H PRN PRN Reason: Nicotine Cravings Non-Formulary Medication (Sumatriptan) 5 mg NOSTRIL-B DIRECTED PRN PRN Reason: Migraine Headache Prazosin HCl (Prazosin Hcl 1 Mg Capsule) 2 mg PO BEDTIME [facility]; Protocol Risperidone (Risperidone 1 Mg Tablet) 1 mg PO BID [facility] Sertraline HCl (Sertraline Hcl 100 Mg Tablet) 100 mg PO BID [facility] Trazodone HCl (Trazodone Hcl 50 Mg Tablet) 50 mg PO BEDTIME MRX1 PRN PRN Reason: Insomnia Home Medications ?Medication ?Instructions ?Recorded ?Confirmed ?Last Taken ?Type atorvastatin 40 mg tablet 40 mg PO DAILY 05/15/25 05/15/25 Unknown History benztropine 1 mg tablet 1 mg PO DAILY 05/15/25 05/15/25 Unknown History clonidine HCl 0.1 mg tablet 0.1 mg PO TID 05/15/25 05/15/25 Unknown History gabapentin 100 mg capsule 100 mg PO DAILY 05/15/25 05/15/25 Unknown History lamotrigine 100 mg tablet 100 mg PO DAILY 05/15/25 05/15/25 Unknown History lamotrigine 100 mg tablet 200 mg PO BEDTIME 05/15/25 05/15/25 Unknown History latanoprost 0.005 % eye drops 1 drp ophthalmic (eye) BEDTIME 05/15/25 05/15/25 Unknown History lorazepam 0.5 mg tablet 0.5 mg PO DAILY 05/15/25 05/15/25 Unknown History melatonin 5 mg tablet 5 mg PO BEDTIME 05/15/25 05/15/25 Unknown History metformin 500 mg tablet 500 mg PO BID 05/15/25 05/15/25 Unknown History prazosin 2 mg capsule 2 mg PO BEDTIME 05/15/25 05/15/25 Unknown History risperidone 1 mg tablet 1 mg PO BID 05/15/25 05/15/25 Unknown History sertraline 100 mg tablet 100 mg PO BID 05/15/25 05/15/25 Unknown History sumatriptan 5 mg/actuation nasal 5 mg intranasal DIRECTED PRN 05/15/25 05/15/25 Unknown History spray Migraine Headache Physical Exam Vital Signs and Narrative: Vital Signs: Last Vital Signs Temp 97.1 F 05/15/25 08:00 Pulse 68 05/15/25 08:00 Resp 16 05/15/25 08:00 BP 138/69 05/15/25 08:00 Pulse Ox 93 05/15/25 08:00 O2 Del Method Room Air 05/15/25 08:00 BMI result Body Mass Index 32.8 Alert and oriented X3, calm and cooperative. Answers questions. Neuro: CN II-X11 intact, no deficits, visual acuity intact EYES: PERRLA, EOM intact ENT: Hearing intact, MMM Cardiac: S1 S2 RRR, No ectopy Pulmonary: lungs clear to auscultation, No increased WOB. Abdominal: BS active in all 4 quadrants, no guarding or tenderness MSK: Strength 5/5 upper and lower extremities : Deferred Extremities: No edema in lower extremities Psych: Mood stable, Quiet and cooperative. Skin: Warm and dry, Intact Results Labs 05/15/25 07:57 Labs: Laboratory Results - last 24 hr 05/15/25 07:49 POC Glucose 223 H Assessment and Plan (1) Type 1 diabetes: Status: Acute Plan 59-year-old female with a past medical history listed below presented to the emergency room for reports of increased depression with suicidal ideation. She is now admitted here for further stabilization in the inpatient psychiatric unit. Bipolar 1 disorder/anxiety/PTSD/depression Treatment per psychiatric team Type 1 diabetes with diabetic nephropathy-3a Previously were an insulin pump Orders for 14 units of Lantus, 3 units of preprandial insulin with a sliding scale. Continue metformin Oyster Preparer is Dr. 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 Will follow with you, please notify medical provider with any changes in condition or concerns.
--- NOTE | 2025-05-15 08:24 | HE.PHANOTE ---
RE: LAMOTRIGINE HOME DOSE Per nurse Del...patient told him she takes lamotrigine 100 mg in the morning and 200 mg at night.
[2025-05-15 08:27] LABS: Creatinine Clr Calc Pharmacy 59.0; Estimated Glomerular Filt Rate 50
--- OUTSIDE RECORDS SUMMARY | 2025-05-15 08:30 | XMS_ITS | Clinical Summary ---
Author Organization [facility] Address [address] [place] [address] Phone Care Team Providers Care Java Security Engineer Name Role Phone Amy Mills MD Primary Care Provider [phone] Allergies Active Allergy Reactions Criticality Noted Date [...] is for her to follow up with [facility] seizure disorder center in specific non-epileptic [...] Pt presents with seizure and headache from [facility] evaluated in the ER, given presentation [...] Lantus 20 units at hs at [facility], and she received 8 units [...] 02/20/18 Endocrinology recommendations requested, and needs outpt physical plant manager. Hyperglycemia 08/26/2017 Recurrent major depressive disorder Assessment [...] Health Maintenance Due Date Last Done Comments [facility] TOPIC SIGMOIDOSCOPY 1967 [facility] Topic HIV Screening 1967 [facility] Topic Hepatitis C Screening 1967 [facility] Diabetic Ophthalmology Exam 1977 [facility] Topic Tdap Vaccine (1 - Tdap) 1986 [facility] TOPIC MAMMOGRAM 2007 [facility] TOPIC FOBT/FIT TEST 2012 [facility] Topic Cologuard 2012 [facility] Topic Colon Cancer Screening 2012 [facility] Topic Colonoscopy 2012 [facility] Topic Lung Cancer Screening 2017 [facility] Topic Pneumococcal Vaccine (HEDIS/Adult) (1 of 1 - PCV) 2017 [facility] Topic Shingrix (1 of 2) 2017 [facility] Topic A1C Diabetes 04/03/20192018, 08/20/2018, 02/21/2018, Additional history exists [facility] Topic Lipid Profile 08/19/2019 08/19/2018 [facility] Topic Microalbumin Urine 10/02/2019 10/01/2018 [facility] Topic Influenza (Flu) Seasonal (#1) 2025 [facility] AMB RSV (under 20 months) Aged Out No longer eligible based on patient's age to complete this topic [facility] Topic HIB Vaccines Aged Out No longer eligible based on patient's age to complete this topic [facility] Topic Pneumococcal/Prevnar Vaccine Aged Out No longer e ligible based on patient's age to complete this topic Procedures Procedure Name Priority Date/Time Associated Diagnosis Comments HEMOGLOBIN A1C Routine 02/21/2018 6:46 AM EDT from Last 3 Months or Most Recently Relevant to Health Maintenance Results * (ABNORMAL) Hemoglobin A1c (02/21/2018 6:46 AM EDT) Hemoglobin A1C 10.5(H) 0.0 - 5.9 % 02/21/2018 9:37 AM EDT [facility] Comment:ADA Diabetic Goal: < 7.0% Mean Plasma Glucose (calculated) 259.7 02/21/2018 9:37 AM EDT [facility] Blood Capillary blood specimen / Unknown Venipuncture / Unknown 02/21/2018 6:46 AM EDT 02/21/2018 6:57 AM EDT Pat Contreras MD LAB BLOOD ORDERABLES Final Re sult [facility] [address] [place] [address], from Last 3 Months or Most Recently Relevant to Health Maintenance Insurance [facility] MEDICARE ADVANTAGE Advance Directives For more information, please contact: [phone] Documents on File Type Date Recorded Patient Television Engineering Teacher Expl anation Advance Directives and Living Will [...] 2:35 AM 08/28/2017 11:27 PM Care Teams Java Security Engineer Relationship Specialty Start Date End Date Amy Mills MD PCP - General Family Medicine 02/19/18
--- OUTSIDE RECORDS SUMMARY | 2025-05-15 08:30 | XMS_ITS | Clinical Summary ---
Author Organization [facility] Address [address] [place] [address] Care Team Providers Care Cow Rider Name Role Phone Amy Mills MD Unavailable [phone] Porfirio Carrillo MD Primary Care Provider [phone] Allergies Active Allergy Reactions Criticality Noted Date [...] but for now, we will use SSI. [facility] diet. We will monitor sugars, adjust regimen [...] - 05/14/2025 9:47 PM EST Hospital Encounter [facility] [address] [place] [phone] Shiraz Valentine MD Kim, Claudia, MD Stonely, Wesley, MD Trecartin, Kyle, MD Fairfield, Scott, MD Severe episode of recurrent major depressive disorder, without psychotic features ([facility]) (Primary Dx); Depression, unspecified depression type Discharge Disposition: Transfer to Acute Care Hospital 05/13/2025 Travel 04/24/2025 Results Follow-Up [facility] [address] [place] [address] Marleny Byrne, ALINA XR Ribs Left W PA Chest 3 Vws+ 04/23/2025 6:54 PM EDT - 04/23/2025 11:24 PM EDT Emergency [facility] [address] [place] [address] Tejas Avila MD Schaub, Charles, MD Chest [...] any time in the past [address] [facility], were you homeless or living in a assisted (including now)? No 05/13/2025 [facility] Utilities Answer Date Recorded In the past 12 months has th e [employer], gas, oil, or water [employer] threatened to shut off services in your [...] Microalbumin 04/15/2025 04/15/2024 Hemoglobin A1c 05/12/2025 11/09/2024, 030 10/2024, 09/07/2024, Additional history exists Zoster Vaccine (2 [...] of3 resultswithin the time period is included. [facility] Signature Glucose, POC 156(H) 75 - 140 mg/dL 05/14/2025 11:48 AM EST [facility] Comment: @Serial Yxlagi=[id number] @[employer] [id number] Blood 05/14/2025 11:4 6 AM EST 05/14/2025 11:48 AM EST us Rayshawn Melton MD POCT ORDERABLES - DEVICE Final Result [facility] [address] [place] [phone], * (ABNORMAL) Drug Screen, Urine (05/14/2025 6:00 AM [facility] Amphetamines Screen, Urine Negative Negative 05/14/2025 6:46 AM [facility] Barbiturates Screen, Urine Negative Negative 05/14/2025 6:46 AM [facility] Benzodiazepine Screen, Urine Positive(A) Negative 05/14/2025 6:46 AM [facility] Buprenorphine Screen, Urine Negative Negative 05/14/2025 6:46 AM [facility] Cannabinoids Screen, Urine Negative Negative 05/14/2025 6:46 AM [facility] Cocaine Metabolite Screen, Urine Negative Negative 05/14/2025 6:46 AM [facility] Fentanyl Screen, Urine Negative Negative 05/14/2025 6:46 AM [facility] Methadone Screen, Urine Negative Negative 05/14/2025 6:46 AM [facility] Opiates Screen, Urine Negative Negative 05/14/2025 6:46 AM [facility] Oxycodone Screen, Urine Negative Negative 05/14/2025 6:46 AM [facility] Propoxyphene Screen, Urine Negative Negative 05/14/2025 6:46 AM [facility] Tricyclics Screen Negative Negative 025 6:46 AM [facility] Comment 05/14/2025 6:46 AM [facility] Comment: The cut-off concentration for a [...] Donald Vargas MD URINE ORDERABLES Final Result [facility] [address] [place] [address], [place] * (HCG), Urine (05/14/2025 6:00 AM EST) HCG, Urine Random Negative Negative 05/14/2025 6:15 AM [facility] Urine URINE SPECIMEN / Unknown Collection / Unknown 05/14/2025 6:00 AM EST 05/14/2025 6:03 AM EST Donald Vargas MD URINE ORDERABLES Final Result Performing Organization Address City/[facility]/ZIP Co de Phone Number [facility] [address] [place] [phone], [place] * (ABNORMAL) CBC and Differential (05/13/2025 2:26 PM EST) WBC 6.82 3.90 - 10.80 K/uL 05/13/2025 2:35 PM [facility] RBC 4.49 3.93 - 5.29 M/uL 05/13/2025 2:35 PM [facility] Hemoglobin 13.6 12.0 - 15.2 g/dL 05/13/2025 2:35 PM [facility] Hematocrit 42.9 34.1 - 44.9 % 05/13/2025 2:35 PM [facility] MCH 30.3 25.6 - 32.2 pg 05/13/2025 2:35 PM [facility] MCHC 31.7(L) 32.0 - 36.0 g/dL 05/13/2025 2:35 PM [facility] MCV 96 81 - 96 fL 05/13/2025 2:35 PM [facility] RDW 13.4 11.5 - 14.0 % 05/13/2025 2:35 PM [facility] Platelet Count 291 154 - 369 K/uL 05/13/2025 2:35 PM [facility] Neutrophil 64.3 % 05/13/2025 2:35 PM [facility] Lymphocyte 22.7 % 05/13/2025 2:35 PM [facility] Monocyte 8.2 % 05/13/2025 2:35 PM [facility] Eosinophil 3.2 % 05/13/2025 2:35 PM [facility] Basophil 0.6 % 05/13/2025 2:35 PM [facility] Immature Granulocyte (Phoenix, Myelo, Promyelocyte) 1.0 % 05/13/2025 2:35 PM [facility] Absolute Neutrophil Count 4.38 1.68 - 7.99 K/uL 05/13/2025 2:35 PM [facility] Absolute Immature Granulocyte (Phoenix, Myelo, Promyelocyte) 0.07 0.00 - 0.09 K/uL 05/13/2025 2:35 PM [facility] Absolute Lymphocyte Count 1.55 0.66 - 4.75 K/uL 05/13/2025 2:35 PM [facility] Absolute Monocyte Count 0.56 0.16 - 1.40 K/uL 05/13/2025 2:35 PM [facility] Absolute Eosinophil Count 0.22 0.00 - 0.60 K/uL 05/13/2025 2:35 PM [facility] Absolute Basophil Count 0.04 0.00 - 0.32 K/uL 05/13/2025 2:35 PM [facility] Blood PERIPHERAL BLOOD SPECIMEN / Unknown Venipuncture / Unknown 05/13/2025 2:26 PM EST 05/13/2025 2:32 PM EST us Donald Vargas MD LAB BLOOD ORDERABLES Final Res ult [facility] [address] [place] [address], * (ABNORMAL) Plasma Toxicology Screen (05/13/2025 2:26 PM EST) Acetaminophen Result,Blood <5(L) 10 - 30 ug/mL 05/13/2025 4:07 PM [facility] Alcohol <10 <10 mg/dL 05/13/2025 4:07 PM [facility] Salicylate Level, Blood <1 <30 mg/dL 05/13/2025 4:07 PM [facility] Blood PERIPHERAL BLOOD SPECIMEN / Unknown Venipuncture / Unknown 05/13/2025 2:26 PM EST 05/13/2025 2:32 PM EST Donald Vargas MD LAB BLOOD ORDERABLES Final Res ult Performing Organization Address City/[facility]/ZIP Co de Phone Number [facility] [address] [place] [phone], [place] * Gold Top (05/13/2025 2:26 PM EST) Gold Top Tube Received 05/13/2025 4:01 PM [facility] Blood PERIPHERAL BLOOD SPECIMEN / Unknown Venipuncture / Unknown 05/13/2025 2:26 PM EST 05/13/2025 2:32 PM EST Donald Vargas MD LAB BLOOD ORDERABLES Final Res ult Performing Organization Address [facility] Co de Phone Number [facility] [address] [place] [phone], [place] * Blue Top (05/13/2025 2:26 PM EST) Blue Top Tube Received 05/13/2025 4:01 PM [facility] Blood PERIPHERAL BLOOD SPECIMEN / Unknown Venipuncture / Unknown 05/13/2025 2:26 PM EST 05/13/2025 2:32 PM EST Donald Vargas MD LAB BLOOD ORDERABLES Final Res ult Performing Organization Address City/[facility] Co de Phone Number [facility] [address] [place] [address], [place] * (ABNORMAL) Basic Metabolic Panel (05/13/2025 2:26 PM EST) Sodium 139 135 - 146 mmol/L 05/13/2025 2:55 PM [facility] Potassium 4.6 3.4 - 5.2 mmol/L 05/13/2025 2:55 PM [facility] Chloride 101 98 - 110 mmol/L 05/13/2025 2:55 PM [facility] Total CO2/Bicarbonat e 27 24 - 32 mmol/L 05/13/2025 2:55 PM [facility] Anion Gap 11 2 - 15 mmol/L 05/13/2025 2:55 PM [facility] BUN 12 7 - 24 mg/dL 05/13/2025 2:55 PM [facility] Creatinine, Blood 1.00 0.50 - 1.10 mg/dL 05/13/2025 2:55 PM [facility] Glucose, Blood 119(H) 50 - 100 mg/dL 05/13/2025 2:55 PM [facility] Calcium 9.6 8.5 - 10.5 mg/dL 05/13/2025 2:55 PM [facility] Estimated GFR(CKD-EPI) 66 mL/min/BSA 05/13/2025 2:55 PM [facility] Blood PERIPHERAL BLOOD SPECIMEN / Unknown Venipuncture / Unknown 05/13/2025 2:26 PM EST 05/13/2025 2:32 PM EST us Donald Vargas MD LAB BLOOD ORDERABLES Final Res ult [facility] [address] [place] [phone], [place] * XR Ribs Left W PA [...] Raymond Meyers on 04/24/2025 10:02 AM on [id number] Narrative 04/24/2025 10:02 AM EDT LEFT RIBS [...] Raymond Meyers on 04/24/2025 10:02 AM on [id number] us Tejas Avila MD [facility] ORDERABLE S Final Result * (ABNORMAL) Hemoglobin A1C (11/09/2024 11:24 AM EDT) Hemoglobin A1C 7.4(H) 4.2 - 5.8 % 11/10/2024 7:34 AM EDT [facility] Estimated Average Glucose 166 mg/dL 11/10/2024 7:34 AM EDT [facility] Blood PERIPHERAL BLOOD SPECIMEN / Unknown Venipuncture / Unknown 11/09/2024 11:24 AM EDT 11/09/2024 11:57 AM EDT us Mike Rodrigez MD LAB BLOOD ORDERABLES Julieth l Result Performing Organization Address [facility] Co de Phone Number [facility] [address] [place] [address], * (ABNORMAL) Lipid Panel (11/09/2024 11:24 AM EDT) Cholesterol 214(H) <=200 mg/dL 11/09/2024 12:43 PM EDT [facility] Triglycerides 71 <150 mg/dL 11/09/2024 12:43 PM EDT [facility] HDL Cholesterol 68(H) 40 - 60 mg/dL 11/09/2024 12:43 PM EDT [facility] Comment: HDL Cardiovascular Risk <40 mg/dL High Risk >60 mg/dL Low Risk LDL Cholesterol 132(H) <=130 mg/dL 11/09/2024 12:43 PM T [facility] Comment: Reference Range for > 20 years of age: Acceptable: <130 mg/dL Borderline: 130-159 mg/dL High: >159 mg/dL National Cholesterol Education Program Guidelines Blood PERIPHERAL BLOOD SPECIMEN / Unknown Venipuncture / Unknown 11/09/2024 11:24 AM EDT 11/09/2024 11:57 AM EDT us Mike Rodrigez MD LAB BLOOD ORDERABLES Julieth l Result Performing Organization Address [facility] de Phone Number [facility] [address] [place] [address] from Last 3 Months or Most Recently Relevant to Health Maintenance Insurance [employer] [id number] [facility] SENIOR [facility] SENIOR [facility] SENIOR [facility] SENIOR Advance Directives Documents on File Type Date Recorded 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 [email or web address] Proxy 03/21/2024 10:14 AM [facility] Care Proxy * Full Code (Latest Code Status on File) Date Activated Date Inactivated Comments 11/08/2024 10:18 PM 11/23/2024 12:26 AM Question Answer Comments Discussed with/per: Patient * Full Code Date Activated Date Inactivated Comments 09/12/2024 12:40 PM 10/16/2024 4:37 PM Question Answer Comments Discussed with/per: Patient Care Teams Cow Rider Relationship Specialty Start Date End Date Porfirio Carrillo MD [address] [place] [address] PCP - General Family Practice 05/13/25 Amy Mills MD [address] [place] [address] 12/08/23
--- OUTSIDE RECORDS SUMMARY | 2025-05-15 08:30 | XMS_ITS | Encounter Summary ---
Author Organization [facility] Address [address] [facility] [address] [place] [phone] Phone Care Team Providers Care Community Service Officer Name Role Phone Amy Mills MD Primary Care Provider [phone] Soto Armstrong OD Unavailable [phone] Kingston Ramirez MD Unavailable Darby Hernandez MD Primary Care Provider + Encounter Details Date Type Department Care Team (Late st Contact Info) Description 03/14/2023 Procedure Pass [facility] Medical Endoscopy [address] Floor [place], [place] [id number] Social History Tobacco Use Types Packs/Day Years [...] st Contact Info) Description 11/26/2024 Procedure Pass [facility] Cardiology [address] [address] 06/16/2025 2:00 PM EST Appointment [facility] Cardiology [address] [facility] [address] [place] [address] Tammy Lau MD [address] [place] [id number] [email or web address] 07/15/2025 1:00 PM EST Telemedicine [facility] [address] [facility] [address] [place] [address] Carrie Lambert MD [address] [place] [id number] [email or web address] 10/23/2025 1:15 PM EDT Office Visit [facility] - Endocrinology - Moe [address] [facility] [address] [place] [address] Leslie Hollis MD [address] [place] [phone] [email or web address] documented as of this encounter Goals [...] documented as of this encounter Care Teams Community Service Officer Relationship Specialty Start Date End Date Amy Mills MD [facility] [address] [email or web address] PCP - General Family Medicine 02/07/18 3 Darby Hernandez MD [address] [place] [address] [place] [address] [email or web address] PCP - General Family Medicine 05/27/23 Soto Armstrong OD [address] [place] [address] Referring Physician Optometry 02/18/18 Kingston Ramirez MD [address] [place] [address], [address] [place] [address] [email or web address] Ophthalmology 02/18/18 documented as of this encounter Additional Source Comments The information contained in this document represents components of the legal health record. It is not the complete legal health record.[facility]
--- OUTSIDE RECORDS SUMMARY | 2025-05-15 08:30 | XMS_ITS | Clinical Summary ---
Author Organization [facility] Address [address] [place] [address] Phone Care Team Providers Care Air Crew Member Name Role Phone Soto Armstrong Johana QUEVEDO Unavailable [phone] Kingston Ramirez MD Unavailable Darby Hernandez [...] tablet 5 03/23/20 21 Active DEXCOM G6 PUBLIC HEALTH POLICY ANALYST MiscIndications: Type 1 diabetes mellitus without [...] patient is enrolled and engaged in the [employer] Medicaid [facility] Community Partners Program for support with health-related social needs (HRSN) and community-based care coordination. Care Plan received on 09/17/24, uploaded to the Media tab of the Chart. [facility] Contact: Dmitri Villanueva Community Partner Agency: [facility] Community Partner Yarn Preparation Supervisor: Nata Beckman Community Partner Yarn Preparation Supervisor Contact Information: [phone] For additional information or questions regarding the Community Partners Program, please reach out to the [facility] Contact or the [facility] Community Partners team, Problem Noted Date [...] Type Department Care Team Description 05/14/2025 Telephone [facility] Endocrine [address] [place] [address] Lisa Bruce RN questions 04/24/2025 Telephone [facility] Endocrine [address] [place] [address] Leslie Hollis MD 04/10/2025 1:30 PM EDT Office Visit [facility] - Endocrinology [address] [place] [address] Leslie Hollis MD Type 1 diabetes mellitus with hyperglycemia (Primary Dx) 03/16/2025 Telephone [facility] Endocrine [address] [place] [address] Leslie Hollis MD insulin question 02/26/2025 Refill [facility] Endocrine [address] [place] [address] Azul Chicas MD Medication Refill 02/16/2025 Telephone [facility] - Primary Care - [address] [place] [address] Darby Hernandez MD fax med list, problem [...] st Contact Info) Description 11/26/2024 Procedure Pass [facility] Cardiology [address] [place] [address] 06/16/2025 2:00 PM EST Appointment [facility] Cardiology [address] [place] [address] Tammy Lau MD [address] [place] [address] [email or web address] 07/15/2025 1:00 PM EST Telemedicine [facility] [address] [place] [address] Carrie Lambert MD [address] [place] [address] [email or web address] 10/23/2025 1:15 PM EDT Office Visit [facility] - Endocrinology - [place] [address] [facility] [place] [address] Leslie Hollis MD [address] [place] [address] 210 [place] [address] [email or web address] Health Maintenance Due Date Last Done Comments [...] Coordinate Care Lifestyle No Corbett, Luba Gemma, INSOLVENCY CONSULTANT Note: Assist with coordination of services. Medical [...] - 266 mg/dL [facility] [facility] Comment: MALB/CRE UNABLE TO CALCULATE 0.0 - 30.0 mg/Alb/g Cre [facility] URINE MICROALBUMIN <1.2 0.0 - 2.0 mg/dL [facility] Comment: Urine (Urine) 04/15/2024 3:0 1 PM EDT 04/15/2024 3:14 PM EDT us Leslie Hollis MD LAB URINE ORDERABLES Final Re sult [facility] [facility] [address] [place] [address], [facility] [address] [place], [place] [address] [phone] * (ABNORMAL) Hemoglobin A1c (04/15/2024 3:01 PM EDT) Pathologist [facility] HEMOGLOBIN A1C 7.2(H) 4.2 - 5.6 % [facility] [place] [address] Comment:HbA1c levels 5.7-6.4 % represent pre-diabetes, indicating impaired glucose control and an increased risk of developing diabetes. The diagnostic HbA1c level for diabetes is 6.5% or greater. HbA1c levels <4.2% may indicate a hemoglobinopathy or anemia, and an alternative method is recommended to monitor glucose control. CALC MEAN BLD GLUC 162(H) 60 - 121 mg/dL [facility] [place] [address] Comment: The Calculated Mean Blood Glucose (CMBG) represents the estimated average glucose calculated from the measured hemoglobin A1c (HbA1c). There is no established normal range for the CMBG, however a 5.6% HbA1c (upper limit of normal) represents a CMBG of 114 mg/dL. Blood 04/15/2024 3:0 1 PM EDT 04/15/2024 3:08 PM EDT us Leslie Hollis MD LAB BLOOD BKR ORDERABLES Julieth espinoza Result [facility] [place] [address], [facility] [address] [place], [place] [address] [phone] * (ABNORMAL) Basic metabolic panel (04/15/2024 3:01 PM EDT) [facility] SODIUM 143 136 - 145 mmol/L [facility] Comment: POTASSIUM 4.3 3.4 - 5.1 mmol/L [facility] [place] [address] Comment: CHLORIDE 105 98 - 107 mmol/L [facility] Comment: CO2 27 22 - 31 mmol/L [facility] Comment: BUN 8 6 - 23 mg/dL [facility] [place] [address] Comment: CREATININE 0.93 0.50 - 1.20 mg/dL [facility] [place] [address] GLUCOSE 113(H) 70 - 100 mg/dL [facility] [place] [address] Comment: CALCIUM 9.4 8.8 - 10.7 mg/dL [facility] [place] [address] Comment: EGFR 72 >59 mL/min/1.7 3m2 [facility] [place] [address] Comment: Estimated glomerular filtration rate calculated using the CKD-EPI refit equation. ANION GAP 11 7 - 17 mmol/L [facility] [place] [address] Comment: Blood 04/15/2024 3:01 PM EDT 04/15/2024 3:08 PM EDT us Leslie Hollis MD LAB BLOOD BKR ORDERABLES Julieth espinoza Result [facility] [place] [address], [facility] [address] [phone] * BI MAMMOGRAM SCREENING WITH TOMOSYNTHESIS WITH [...] Nonreactive Nonreactive U/ml [facility]54 [address] [facility] Blood 08/25/2020 1:59 PM EST 08/25/2020 2:07 PM EST Amy Mills MD LAB BLOOD BKR ORDERABLES Final Result [facility]-[address] [place] [address], [facility] [phone] * DIABETES EYE EXAM FOR RESULT ENTRY ONLY (08/09/2019) EYE EXAM 08/09/2019 Historical Provider HEALTH MAINTENANCE Final Result * COLONOSCOPY FOR RESULT ENTRY ONLY (08/19/2018) Colonoscopy 08/19/2018 Historical Provider HEALTH MAINTENANCE Final Result from Last 3 Months or Most Recently Relevant to Health Maintenance Insurance MEDICARE PART A & B [facility] ONE CARE MEDICARE REPLACEMENT Oct 07 [place] [address] MEDICARE PART A & B [facility] ONE CARE MEDICARE REPLACEMENT MEDICARE PART A & B MEDICARE PART A & B MEDICARE PART A & [place] [address] [place] [address] ONE CARE MEDICARE REPLACEMENT [facility] MEDICARE PART A & B MEDICARE PART A & B [facility] ONE CARE MEDICARE REPLACEMENT MEDICARE PART A & B 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 Healthcare Proxy 09/16/2018 1:40 PM * Full Code (Latest Code Status on File) Date Activated Date Inactivated Comments 06/05/2023 4:38 PM Question Answer Comments Code Status Confirmed With: Patient Code Status Communicated To: Other (specify belo w) Code Discussion Comments: LIONEL Care Teams Air Crew Member Relationship Specialty Start Date End Date Darby Hernandez MD [address] [place] [address] [email or web address] PCP - General Family Medicine 05/27/23 Soto Armstrong OD Referring Physician Optometry 02/18/18 Kingston Ramirez MD [address] [place] [address], [address] [place] [address] [email or web address] Ophthalmology 02/18/18 Additional Source Comments The information contained in this document represents components of the legal health record. It is not the complete legal health record.[facility]
--- OUTSIDE RECORDS SUMMARY | 2025-05-15 08:30 | XMS_ITS | Encounter Summary ---
Author Organization [facility] Address [address] [facility] [address] [place] [address] Phone Care Team Providers Care Textile Coating Machine Operator Name Role Phone ArmstrongSoto Johana QUEVEDO Unavailable [phone] Kingston Ramirez MD Unavailable Darby Hernandez MD Primary Care Provider + Reason for Visit * Reason Onset Date Comments questions 05/14/2025 Encounter Details Date Type Department Care Team (Late st Contact Info) Description 05/14/2025 Telephone [facility] [address] [address] Lisa Bruce RN 541 [place] [address] [email or web address] questions Social History Tobacco Use Types Packs/Day [...] not included. Spoke to Clara HU at [facility] and advised if pt off insulin pump insulin orders = Leslie Hollis MD You If not on pump Lantus 14 units Humalog 3 units TID with meals + HISS (150-200 1 units, 201-250 2 units, 251-300 3 units etc) * Lisa Bruce, RN - 05/14/2025 3:28 PM EST Spoke to [facility] Pt [facility] and will be off pump asking for your recommended insulin orders While off pump She was seen 04/10 adjust settings as below 6AM 0.55/45/8 * Lisa Bruce, RN - 05/14/2025 12:46 PM EST Msg from call center pt at [facility] ER Dr has questions for [phone] Called back, Dr grajeda will call back documented in this encounter Plan of Treatment Upcoming Encounters Date Type Department Care Team (Late st Contact Info) Description 11/26/2024 Procedure Pass [facility] Cardiology [address] [place] [address] 06/16/2025 2:00 PM EST Appointment [facility] [address] [place] [address] Tammy Lau MD [address] [place], [place] [address] [address] [email or web address] 07/15/2025 1:00 PM EST Telemedicine [facility] [address] [place] [address] Carrie Lambert MD [address] [place] [address] [email or web address] 10/23/2025 1:15 PM EDT Office [facility]ology - [address] [place] [address] Leslie Hollis MD [address] [place] [address] [email or web address] as of this encounter Goals [...] documented as of this encounter Care Teams Textile Coating Machine Operator Relationship Specialty Start Date End Date Darby Hernandez MD [address] [place] [address] [email or web address] PCP - General Family Medicine 05/27/23 Soto Armstrong OD Referring Physician Optometry 02/18/18 Kingston Ramirez MD [address] [place] [address], [address] [place] [address] Ophthalmology 02/18/18 documented as of this encounter Additional Source Comments The information contained in this document represents components of the legal health record. It is not the complete legal health record.[facility]
--- OUTSIDE RECORDS SUMMARY | 2025-05-15 08:30 | XMS_ITS | Encounter Summary ---
Author Organization [facility] ystem Address [address] [place] [address] Phone Care Team Providers Care Farm Operations Technical Director Name Role Phone Amy Mills MD Primary Care Provider [phone] Encounter Details Date Type Department Care Team ([facility] st Contact Info) Description 12/23/2024 Scanned Document [facility] - Health Information Department [address] [place] [address] Scan, No Provider Available [address] [place] [address] [place] [address] <No scans attached> Social History Tobacco Use [...] on filedocumented in this encounter Care Teams Farm Operations Technical Director Relationship Specialty Start Date End Date Amy Mills MD PCP - General Family Medicine 02/19/18 documented as of this encounter
--- OUTSIDE RECORDS SUMMARY | 2025-05-15 08:30 | XMS_ITS | Encounter Summary ---
Author Organization [facility] Address [address] [place] [address] Care Team Providers Care Certified Cytotechnologist Name Role Phone Amy Mills MD Unavailable [phone] Porfirio Carrillo MD Primary Care Provider [phone] Encounter Details Date Type Department Care Team [...] any time in the past 12 m [facility], were you homeless or living in a usp (including now)? No 05/13/2025 [facility] Utilities Answer Date Recorded In the [...] on filedocumented in this encounter Care Teams Certified Cytotechnologist Relationship Specialty Start Date End Date Porfirio Carrillo MD [address] [place] [address] PCP - General Family Practice 05/13/25 Amy Mills MD [address] [place] [address] 12/08/23 documented as of this encounter
--- OUTSIDE RECORDS SUMMARY | 2025-05-15 08:30 | XMS_ITS | Encounter Summary ---
Author Organization [facility] Address [address] [place] [address] Care Team Providers Care Trackmobile Operator Name Role Phone Amy Mills MD Unavailable [phone] Darby Hernandez MD Primary Care Provider + Porfirio Carrillo MD Primary Care Provider [phone] Encounter Details Date Type Department Care Team ([facility] st Contact Info) Description 04/24/2025 Results Follow-Up [facility] Emergency Department [address] [place] [address] Marleny Byrne, ALINA XR Ribs Left W PA Chest 3 Vws+ Social History Tobacco Use Types Packs/Day Years Used Date Smoking Tobacco: Every Day Cigarettes Smokeless Tobacco: Never Alcohol Use Standard Drinks/Week Comments Not Currently 0 (1 standard drink = 0.6 oz pur e alcohol) [facility] Utilities Answer Date Recorded In the past 12 months has e [employer], gas, oil, or water [employer] threatened to shut off services in your [...] No 11/09/2024 Housing Stability Vital Sign Answer Kareem e Recorded In the last 12 months, was t here a time when you were not able to pay the mortgage or rent on time? No 11/09/2024 Number of Times Moved in the Last Year Not on fi le 11/09/2024 At any time in the past 12 m [facility], were you homeless or living in a snf (including now)? No 11/09/2024 Food Insecurity Answer [...] on filedocumented in this encounter Care Teams Trackmobile Operator Relationship Specialty Start Date End Date Darby Hernandez MD [address] [place] [address] PCP - General Family Practice 09/05/24 05/12/25 Porfirio Carrillo MD [address] [place] [address] PCP - General Family Practice 05/13/25 Amy Mills MD [address] [place] [address] 12/08/23 documented as of this encounter
--- OUTSIDE RECORDS SUMMARY | 2025-05-15 08:30 | XMS_ITS | Encounter Summary ---
Author Organization [facility] Address [address] [address] Phone Care Team Providers Care Applications Manager Name Role Phone Nathaniel Soto Johana QUEVEDO Unavailable Kingston Ramirez MD Unavailable [phone] Darby Hernandez MD Primary Care Provider + Encounter Details Date Type Department Care Team (Late st Contact Info) Description 04/24/2025 Telephone [facility] [address] [facility] [address] [place] [address] Leslie Hollis MD [address] [facility] [address] [place] [address] [email or web address] Social History Tobacco Use Types Packs/Day [...] st Contact Info) Description 11/26/2024 Procedure Pass [facility] [address] [place] [address] 06/16/2025 2:00 PM EST Appointment [facility] [address] [place] [address] Tammy Lau MD [address] [place] [address] [email or web address] 07/15/2025 1:00 PM EST Telemedicine [facility] [address] [place] [address] Carrie Lambert MD [address] [place] [address] [email or web address] 10/23/2025 1:15 PM EDT Office Visit [facility] - Endocrinology - [address] [place] [address] Leslie Hollis MD [address] [facility] [address] [place] [address] [email or web address] documented as of this encounter Goals [...] documented as of this encounter Care Teams Applications Manager Relationship Specialty Start Date End Date Darby Hernandez MD [address] [place] [address] [email or web address] PCP - General Family Medicine 05/27/23 Soto Armstrong OD Referring Physician Optometry 02/18/18 Kingston Ramirez MD [address] [place] [address], [address] [place] [address] [email or web address] Ophthalmology 02/18/18 documented as of this encounter Additional Source Comments The information contained in this document represents components of the legal health record. It is not the complete legal health record.[facility]
--- OUTSIDE RECORDS SUMMARY | 2025-05-15 08:31 | XMS_ITS | Encounter Summary ---
Author Organization [facility] ystem Address [address] [place] [address] Phone Care Team Providers Care Bisque Tile Burner Name Role Phone Amy Mills MD Primary Care Provider [phone] Encounter Details Date Type Department Care Team ([facility] st Contact Info) Description 09/12/[address] [facility] - Health Information Department [address] [place] [address] Scan, No Provider Available [address] [place] [address] [place] [address] <No scans attached> Social History Tobacco Use [...] on filedocumented in this encounter Care Teams Bisque Tile Burner Relationship Specialty Start Date End Date Amy Mills MD PCP - General Family Medicine 02/19/18 documented as of this encounter
--- OUTSIDE RECORDS SUMMARY | 2025-05-15 08:31 | XMS_ITS | Encounter Summary ---
Author Organization [facility] ystem Address [address] [place] [address] Phone Care Team Providers Care Lease Administration Supervisor Name Role Phone Amy Mills MD Primary Care Provider [phone] Encounter Details Date Type Department Care Team ([facility] st Contact Info) Description 10/16/2024 Scanned Document [facility] - Health Information Department [address] [place] [address] Scan, No Provider Available [address] [place] [address] [place] [address] <No scans attached> Social History Tobacco Use [...] on filedocumented in this encounter Care Teams Lease Administration Supervisor Relationship Specialty Start Date End Date Amy Mills MD PCP - General Family Medicine 02/19/18 documented as of this encounter
--- OUTSIDE RECORDS SUMMARY | 2025-05-15 08:31 | XMS_ITS | Encounter Summary ---
Author Organization [facility]stem Address [address] [place] [address] Phone Care Team Providers Care Technical Solution Architect Name Role Phone Amy Mills MD Primary Care Provider [phone] Encounter Details Date Type Department Care Team ([facility] st Contact Info) Description 11/08/2024 Scanned Document [facility] - Health Information Department [address] [place] [address] Scan, No Provider Available [address] [place] [address] [place] [address] <No scans attached> Social History Tobacco Use [...] on filedocumented in this encounter Care Teams Technical Solution Architect Relationship Specialty Start Date End Date Amy Mills MD PCP - General Family Medicine 02/19/18 documented as of this encounter
--- OUTSIDE RECORDS SUMMARY | 2025-05-15 08:31 | XMS_ITS | Encounter Summary ---
Author Organization [facility] ystem Address [address] [place] [address] Phone Care Team Providers Care Manager Of Photography Name Role Phone Amy Mills MD Primary Care Provider [phone] Encounter Details Date Type Department Care Team ([facility] st Contact Info) Description 04/14/2024 Scanned Document [facility] - Health Information Department [address] [place] [address] Scan, No Provider Available [address] [place] [address] [facility] [place] [place] [address] <No scans attached> Social History Tobacco Use [...] filedocumented in this encounter Care Teams Manager Of Photography Relationship Specialty Start Date End Date Amy Mills MD PCP - General Family Medicine 02/19/18 documented as of this encounter
--- OUTSIDE RECORDS SUMMARY | 2025-05-15 08:31 | XMS_ITS | Encounter Summary ---
Author Organization [facility] ystem Address [address] [place] [address] Phone Care Team Providers Care Master Sheet Clerk Name Role Phone Amy Mills MD Primary Care Provider [phone] Encounter Details Date Type Department Care Team ([facility] st Contact Info) Description 11/23/2024 Scanned Document [facility] - Health Information Department [address] [place] [address] Scan, No Provider Available [address] [place] [address] [place] [address] <No scans attached> Social History Tobacco Use [...] on filedocumented in this encounter Care Teams Master Sheet Clerk Relationship Specialty Start Date End Date Amy Mills MD PCP - General Family Medicine 02/19/18 documented as of this encounter
--- OUTSIDE RECORDS SUMMARY | 2025-05-15 08:31 | XMS_ITS | Encounter Summary ---
Author Organization [facility] ystem Address [address] [place] [address] Phone Care Team Providers Care Polisher Sand Name Role Phone Amy Mills MD Primary Care Provider [phone] Encounter Details Date Type Department Care Team ([facility] st Contact Info) Description 09/06/2024 Scanned Document [facility] - Health Information Department [address] [place] [address] Scan, No Provider Available [address] [place] [address] [facility] [address] <No scans attached> Social History Tobacco Use [...] on filedocumented in this encounter Care Teams Polisher Sand Relationship Specialty Start Date End Date Amy Mills MD PCP - General Family Medicine 02/19/18 documented as of this encounter
--- OUTSIDE RECORDS SUMMARY | 2025-05-15 08:31 | XMS_ITS | Encounter Summary ---
Author Organization [facility] ystem Address [address] [place] [address] Phone Care Team Providers Care Drafting Detailer Name Role Phone Amy Mills MD Primary Care Provider [phone] Encounter Details Date Type Department Care Team ([facility] Contact Info) Description 04/16/2024 Orders Only [facility] - Health Information Department [address] [place] [address] Scan, No Provider Available [address] [place] [address] [facility] [place] [address] Social History Tobacco Use Types Packs/Day Years [...] on filedocumented in this encounter Care Teams Drafting Detailer Relationship Specialty Start Date End Date Amy Mills MD PCP - General Family Medicine 02/19/18 documented as of this encounter
--- OUTSIDE RECORDS SUMMARY | 2025-05-15 08:31 | XMS_ITS | Encounter Summary ---
Author Organization [facility] ystem Address [address] [place] [address] Phone Care Team Providers Care Loan Coordinator Name Role Phone Amy Mills MD Primary Care Provider [phone] Encounter Details Date Type Department Care Team ([facility] st Contact Info) Description 11/10/2024 Scanned Document [facility] - Health Information Department [address] [place] [address] Scan, No Provider Available [address] [place] [address] [facility] [place] [address] <No scans attached> Social History Tobacco Use [...] on filedocumented in this encounter Care Teams Loan Coordinator Relationship Specialty Start Date End Date Amy Mills MD PCP - General Family Medicine 02/19/18 documented as of this encounter
--- OUTSIDE RECORDS SUMMARY | 2025-05-15 08:31 | XMS_ITS | Encounter Summary ---
Author Organization [facility] ystem Address [address] [place] [address] Phone Care Team Providers Care Key Bed Installer Name Role Phone Amy Mills MD Primary Care Provider [phone] Encounter Details Date Type Department Care Team ([facility] st Contact Info) Description 04/15/2024 Orders Only [facility] - Health Information Department [address] [place] [address] Scan, No Provider Available [address] [place] [address] [place] [address] Social History Tobacco Use Types Packs/Day Years [...] on filedocumented in this encounter Care Teams Key Bed Installer Relationship Specialty Start Date End Date Amy Mills MD PCP - General Family Medicine 02/19/18 documented as of this encounter
--- OUTSIDE RECORDS SUMMARY | 2025-05-15 08:32 | XMS_ITS | Encounter Summary ---
Author Organization [facility] ystem Address [address] [place] [address] Phone Care Team Providers Care Rotating Equipment Engineer Name Role Phone Amy Mills MD Primary Care Provider [phone] Encounter Details Date Type Department Care Team ([facility] st Contact Info) Description 09/11/2018 Procedure Pass [facility] Endoscopy [address] [place] [address] Social History Tobacco Use Types [...] on filedocumented in this encounter Care Teams Rotating Equipment Engineer Relationship Specialty Start Date End Date Amy Mills MD PCP - General Family Medicine 02/19/18 documented as of this encounter
--- OUTSIDE RECORDS SUMMARY | 2025-05-15 08:32 | XMS_ITS | Encounter Summary ---
Author Organization [facility] ystem Address [address] [place] [address] Phone Care Team Providers Care Chiropractor Sole Practitioner Name Role Phone Amy Mills MD Primary Care Provider [phone] Encounter Details Date Type Department Care Team ([facility] st Contact Info) Description 07/27/2023 Procedure Pass [facility] Endoscopy [address] [place] [address] Social History Tobacco Use Types [...] on filedocumented in this encounter Care Teams Chiropractor Sole Practitioner Relationship Specialty Start Date End Date Amy Mills MD PCP - General Family Medicine 02/19/18 documented as of this encounter
--- OUTSIDE RECORDS SUMMARY | 2025-05-15 08:32 | XMS_ITS | Encounter Summary ---
Author Organization [facility] ystem Address [address] [place] [address] Phone Care Team Providers Care Operating Room Surgical Technologist Name Role Phone Amy Mills MD Primary Care Provider [phone] Encounter Details Date Type Department Care Team ([facility] Contact Info) Description 04/03/2018 Procedure Pass [facility] - MR Imaging [address] [place] [address] Social History Tobacco Use Types [...] on filedocumented in this encounter Care Teams Operating Room Surgical Technologist Relationship Specialty Start Date End Date Amy Mills MD PCP - General Family Medicine 02/19/18 documented as of this encounter
--- OUTSIDE RECORDS SUMMARY | 2025-05-15 08:32 | XMS_ITS | Encounter Summary ---
Author Organization [facility] ystem Address [address] [place] [address] Phone Care Team Providers Care Gasket Inspector Name Role Phone Amy Mills MD Primary Care Provider [phone] Encounter Details Date Type Department Care Team ([facility] Contact Info) Description 04/03/2018 Procedure Pass [facility] - MR Imaging [address] [place] [address] Social History Tobacco Use Types [...] on filedocumented in this encounter Care Teams Gasket Inspector Relationship Specialty Start Date End Date Amy Mills MD PCP - General Family Medicine 02/19/18 documented as of this encounter
--- OUTSIDE RECORDS SUMMARY | 2025-05-15 08:32 | XMS_ITS | Encounter Summary ---
Author Organization [facility] Address [address] [facility] [address] [place] [address] Phone Care Team Providers Care Environmental Remediation Engineer Name Role Phone Amy Mills MD Primary Care Provider Soto Armstrong OD Unavailable [place] Ramirez MD Unavailable Darby Hernandez MD Primary Care Provider + Encounter Details Date Type Department Care Team (Late st Contact Info) Description 08/25/2020 Procedure Pass [facility], [address] [place] [address] Social History Tobacco Use Types Packs/Day [...] st Contact Info) Description 11/26/2024 Procedure Pass [facility] Cardiology [address] [facility] [address] [place] [address] 06/16/2025 2:00 PM EST Appointment [facility] Cardiology [address] [facility] [address] [place] [address] Tammy Lau MD [address] [place] [address] [email or web address] 07/15/2025 1:00 PM EST Telemedicine [facility] [address] [facility] 11 [place] [address] Carrie Lambert MD [address] [place] [address] [email or web address] 10/23/2025 1:15 PM EDT Office Visit [facility] - Endocrinology - [place] [address] [facility] [address] [place] [address] Leslie Hollis MD [address] [place] [address] [email or web address] documented as of this encounter [...] documented as of this encounter Care Teams Environmental Remediation Engineer Relationship Specialty Start Date End Date Amy [place] MD 15 [facility] [place] [address] @[email or web address] PCP - General Family Medicine 02/07/18 3 Darby Hernandez MD [address] [place] [address] [place] [address] [email or web address] PCP - General Family Medicine 05/27/23 Soto Armstrong OD [address] [facility] [place] [address] Referring Physician Optometry 02/18/18 [place] Ramirez MD [address] [place] [address], [address] [place] [address] [email or web address] Ophthalmology 02/18/18 documented as of this encounter Additional Source Comments The information contained in this document represents components of the legal health record. It is not the complete legal health record.[facility]
--- OUTSIDE RECORDS SUMMARY | 2025-05-15 08:32 | XMS_ITS | Encounter Summary ---
Author Organization [facility] ystem Address [address] [place] [address] Phone Care Team Providers Care Otr Flatbed Driver Name Role Phone Amy Mills MD Primary Care Provider [phone] Reason for Referral * Neurology - Closed Specialty Diagnoses / Procedures Referred By Contac t Referred To Contact Neurology Diagnoses Seizures ([facility]) Procedures Ambulatory EEG Mahendra Fitzpatrick MD Phone: tel: fax: Referral ID Status Reason Start Date Expiration Date Visits Re quested Visits Authorized [id number] Closed 01/04/2018 01/05/2019 1 1 Encounter Details Date Type Department Care Team ([facility] Contact Info) Description 01/04/2018 Ancillary Orders [facility] - Neuro Diagnostics [address] [place] [address] Mahendra Fitzpatrick MD [address] [place] [address] Seizures ([facility]) Social History Tobacco Use Types Packs/Day Years [...] convulsions documented in this encounter Care Teams Otr Flatbed Driver Relationship Specialty Start Date End Date Amy Mills MD PCP - General Family Medicine 02/19/18 documented as of this encounter
--- OUTSIDE RECORDS SUMMARY | 2025-05-15 08:32 | XMS_ITS | Encounter Summary ---
Author Organization [facility] ystem Address [address] [place] [address] Phone Care Team Providers Care Laborer Yard Name Role Phone Amy Mills MD Primary Care Provider [phone] Encounter Details Date Type Department Care Team ([facility] st Contact Info) Description 04/03/2018 Procedure Pass [facility] - MR Imaging [address] [place] [address] Social History Tobacco Use Types [...] on filedocumented in this encounter Care Teams Laborer Yard Relationship Specialty Start Date End Date Amy Mills MD PCP - General Family Medicine 02/19/18 documented as of this encounter
--- OUTSIDE RECORDS SUMMARY | 2025-05-15 08:33 | XMS_ITS | Encounter Summary ---
Author Organization [facility] Address [address] [facility] [address] [place] [address] Phone Care Team Providers Care Blueprint Trimmer Name Role Phone Amy Mills MD Primary Care Provider Soto Armstrong OD Unavailable [place] Ramirez MD Unavailable Darby Hernandez MD Primary Care Provider + Encounter Details Date Type Department Care Team (Late st Contact Info) Description 03/16/2022 Procedure Pass [facility] [address] [facility] [address] [place] [address] Social History Tobacco Use Types Packs/Day Years [...] high school, GED, job training, learning the [place] language, technical skills, or developing parenting skills)? [...] st Contact Info) Description 11/26/2024 Procedure Pass [facility] Cardiology [address] [facility] 410 [place] [address] 06/16/2025 2:00 PM EST Appointment [facility] Cardiology [address] [place] [address] Tammy Lau MD [address] [place] [address] [email or web address] 07/15/2025 1:00 PM EST Telemedicine [facility] [address] [place] [address] Carrie Lambert MD [address] [place] [address] [email or web address] 10/23/2025 1:15 PM EDT Office Visit [facility] - Endocrinology - [place] [address] [facility] [place] [address] Leslie Hollis MD [address] [place] [address] [email or web address] documented as of this encounter Goals [...] documented as of this encounter Care Teams Blueprint Trimmer Relationship Specialty Start Date End Date Amy [place] MD [address] [place] [address] [email or web address] PCP - General Family Medicine 02/07/18 3 Darby Hernandez MD 15 [place] [address] [email or web address] PCP - General Family Medicine 05/27/23 Soto Armstrong OD 15 [place] [address] Referring Physician Optometry 02/18/18 [place] Ramirez MD [address] [place] [address], [address] [place] [address] [email or web address] Ophthalmology 02/18/18 documented as of this encounter Additional Source Comments The information contained in this document represents components of the legal health record. It is not the complete legal health record.[facility]
--- OUTSIDE RECORDS SUMMARY | 2025-05-15 08:33 | XMS_ITS | Encounter Summary ---
Author Organization [facility] Address [address] [facility] [address] [place] [address] Phone Care Team Providers Care Marine Service Operator Name Role Phone Amy Mills MD Primary Care Provider [phone] Soto Armstrong OD Unavailable [phone] [place] Ramirez MD Unavailable Luba Corbett WHEEL PRESS OPERATOR Unavailable micha Amy Mills MD Unavailable [phone] Darby Hernandez MD Primary Care Provider + Encounter Details Date Type Department Care Team (Late st Contact Info) Description 09/11/2018 Procedure Pass [facility] [address] [address] Social History Tobacco Use Types Packs/Day Years [...] st Contact Info) Description 11/26/2024 Procedure Pass [facility] Cardiology [address] [place] [address] 06/16/2025 2:00 PM EST Appointment [facility]iology [address] [place] [address] Tammy Lau MD 15 [place] [address] [email or web address] 07/15/2025 1:00 PM EST Telemedicine [facility] [address] [place] [address] Carrie Lambert MD [address] [place] [address] [email or web address] 10/23/2025 1:15 PM EDT Office Visit [facility] - Endocrinology - [place] 15 [facility] [place] [address] Leslie Hollis MD [address] [facility] [address] [place] [address] [email or web address] documented as of this encounter Goals [...] documented as of this encounter Care Teams Marine Service Operator Relationship Specialty Start Date End Date Amy [place] MD 15 [place] [address] [email or web address] PCP - General Family Medicine 02/07/18 05/26/23 Darby Hernandez MD 15 [place] [address] [email or web address] PCP - General Family Medicine 05/27/23 Soto Armstrong OD [address] [place] [address] Referring Physician Optometry 02/18/18 [place] Ramirez MD [address] [place] [address], [address] [address] Ophthalmology 02/18/18 Luba Corbett LICSW [address] [place] [address], [address] [address] [email or web address] PHCM Water Resources Technical Officer 02/25/18 07/29/19 Amy [place] MD 15 [place] [address] [email or web address] Insurance Assigned Provider 04/13/18 07/17/20 documented as of this encounter Additional Source Comments The information contained in this document represents components of the legal health record. It is not the complete legal health record.[facility]
--- OUTSIDE RECORDS SUMMARY | 2025-05-15 08:33 | XMS_ITS | Encounter Summary ---
Author Organization [facility] Address [address] [facility] [address] [place] [address] Phone Care Team Providers Care Mechanical Spreader Operator Name Role Phone Soto Armstrong OD Unavailable [place] Ramirez MD Unavailable Darby Hernandez MD Primary Care Provider + Encounter Details Date Type Department Care Team (Late st Contact Info) Description 10/01/2024 Procedure Pass [facility] Medical Radiology [address] [facility] [address] [place] [address] Social History Tobacco Use Types Packs/Day Years [...] Info) Description 11/26/2024 Procedure Pass [facility] Cardiology 541 [facility] 410 [place] [address] 06/16/2025 2:00 PM EST Appointment [facility] Cardiology [address] [facility] 410 [place] [address] Tammy Lau MD [address] [place] [address] [email or web address] 07/15/2025 1:00 PM EST Telemedicine [facility] [address] [facility] [address] [place] [address] Carrie Lambert MD [address] [place] [address] [email or web address] 10/23/2025 1:15 PM EDT Office Visit [facility] - Endocrinology - [address] [place] [address] Leslie Hollis MD 541 [facility] 210 [place] [address] [email or web address] documented as of this encounter Goals [...] documented as of this encounter Care Teams Mechanical Spreader Operator Relationship Specialty Start Date End Date Darby Hernandez MD [address] [place] [address] [email or web address] PCP - General Family Medicine 05/27/23 Soto Armstrong OD Referring Physician Optometry 02/18/18 [place] Ramirez MD [address] [place] [address], [address] [place] [id number] [email or web address] Ophthalmology 02/18/18 documented as of this encounter Additional Source Comments The information contained in this document represents components of the legal health record. It is not the complete legal health record.[facility]
--- OUTSIDE RECORDS SUMMARY | 2025-05-15 08:33 | XMS_ITS | Encounter Summary ---
Author Organization [facility] Address [address] [place] [address] [place], [place] [address] Care Team Providers Care Lawn Mower Mechanic Name Role Phone Porfirio Carrillo Md Primary Care Provider [phone] Encounter Details Date Type Department Care Team ([facility] Contact Info) Description 04/15/2025 Email Encounter [...] Upcoming Encounters Date Type Department Care Team ([facility] Contact Info) Description 04/28/2026 1:00 PM EDT Office Visit [facility] [address] [place] [phone] Porfirio Carrillo MD [address] [place] [address] documented as of this encounter Visit Diagnoses Not on filedocumented in this encounter Care Teams Lawn Mower Mechanic Relationship Specialty Start Date End Date Porfirio Carrillo MD [address] [place] [address] PCP - General Internal Medicine 03/31/25 documented as of this encounter
--- OUTSIDE RECORDS SUMMARY | 2025-05-15 08:33 | XMS_ITS | Encounter Summary ---
Author Organization [facility] Address [address] [facility] [address] [place] [address] Phone Care Team Providers Care Administrative Office Specialist Name Role Phone Soto Armstrong OD Unavailable [place] Ramirez MD Unavailable Darby Hernandez MD Primary Care Provider + Encounter Details Date Type Department Care Team (Late st Contact Info) Description 11/26/2024 Procedure Pass [facility] Medical Cardiology [address] [facility] [address] [place] [address] Social History Tobacco Use Types Packs/Day Years [...] st Contact Info) Description 11/26/2024 Procedure Pass [facility] Cardiology 541 [facility] 410 [place] [address] 06/16/2025 2:00 PM EST Appointment [facility] Cardiology 541 [facility] 410 [place] [address] Tammy Lau MD [address] [place] [address] [email or web address] 07/15/2025 1:00 PM EST Telemedicine [facility] [address] [facility] [address] [place] [address] Carrie Lambert MD [address] [place] [address] [email or web address] 10/23/2025 1:15 PM EDT [facility] - Endocrinology - [address] [place] [address] Leslie Hollis MD 541 [facility] 210 [place] [address] [email or web address] documented as of this encounter [...] documented as of this encounter Care Teams Administrative Office Specialist Relationship Specialty Start Date End Date Darby Hernandez MD [address] [place] [address] [email or web address] PCP - General Family Medicine 05/27/23 Soto Armstrong OD Referring Physician Optometry 02/18/18 [place] Ramirez MD [address] [place] [address], [address] [place] [phone] [email or web address] Ophthalmology 02/18/18 documented as of this encounter Additional Source Comments The information contained in this document represents components of the legal health record. It is not the complete legal health record.[facility]
--- OUTSIDE RECORDS SUMMARY | 2025-05-15 08:33 | XMS_ITS | Encounter Summary ---
Author Organization [facility] Address [address] [place] [address] [place] [address] Care Team Providers Care Telecommunications Administrator Name Role Phone Porfirio Carrillo Md Primary Care Provider [phone] Encounter Details Date Type Department Care Team ([facility] Contact Info) Description 05/06/2025 Results Follow-Up [facility] [address] [place] [phone] Porfirio Carrillo MD [address] [place] [address] PAP VIAL TESTING, HPV HIGH RISK PCR MRNA THINPREP VIAL Social History Tobacco Use Types Packs/Day Years Used Date Smoking Tobacco: Every Day Cigarettes 0.5 5 Passive Smoke Exposure: Never Smokeless Tobacco: Never Alcohol Use Standard Drinks/Week Comments Yes 1 (1 standard drink = 0.6 oz pur e alcohol) One glass of wine at [facility] Vital Sign Answer Date Recorded Worried About [...] Description 04/28/2026 1:00 PM EDT Office Visit [facility] [address] [place] [phone] Porfirio Carrillo MD [address] [place] [address] documented as of this encounter Visit Diagnoses Not on filedocumented in this encounter Care Teams Telecommunications Administrator Relationship Specialty Start Date End Date Porfirio Carrillo MD [address] [place] [address] PCP - General Internal Medicine 03/31/25 documented as of this encounter
--- OUTSIDE RECORDS SUMMARY | 2025-05-15 08:33 | XMS_ITS | Encounter Summary ---
Author Organization [facility] Address [address] [place] [address] Phone Care Team Providers Care Hospital Food Service Worker Name Role Phone Amy Mills MD Primary Care Provider Soto Armstrong OD Unavailable [phone] Kingston Ramirez MD Unavailable [phone] Amy Mills MD Unavailable [phone] Darby Hernandez MD Primary Care Provider + Encounter Details Date Type Department Care Team (Late st Contact Info) Description 03/01/2020 [facility] [address] [place] [address] Social History Tobacco Use Types [...] high school, GED, job training, learning the Urdu language, technical skills, or developing parenting skills)? [...] st Contact Info) Description 11/26/2024 Procedure Pass [facility]iology [address] [place] [address] 06/16/2025 2:00 PM EST Appointment [facility] Cardiology [address] [place] [address] Tammy Lau MD [address] [place] [address] [email or web address] 07/15/2025 1:00 PM EST Telemedicine [facility] [address] [place] [address] Carrie Lambert MD [address] [place] [phone] [email or web address] 10/23/2025 1:15 PM EDT Office Visit [facility] - Endocrinology - [place] [address] [place] [address] Leslie Hollis MD [address] [place] [phone] [email or web address] documented as of this encounter Goals Goal [...] documented as of this encounter Care Teams Hospital Food Service Worker Relationship Specialty Start Date End Date Amy Mills MD [facility] [place] [address] [email or web address] PCP - General Family Medicine 02/07/18 05/26/23 Darby Hernandez MD [address] [place] [address] [place] [address] [email or web address] PCP - General Family Medicine 05/27/23 Soto Armstrong OD [address] [place] [address] [place] [address] Referring Physician Optometry 02/18/18 Kingstno Ramirez MD [address] [place] [address], [address] [place] [address] [email or web address] Ophthalmology 02/18/18 Amy Mills MD [address] [place] [id number] [email or web address] Insurance Assigned Provider 04/13/18 07/17/20 documented as of this encounter Additional Source Comments The information contained in this document represents components of the legal health record. It is not the complete legal health record.[facility]
--- OUTSIDE RECORDS SUMMARY | 2025-05-15 08:33 | XMS_ITS | Clinical Summary ---
Author Organization [facility] Address [address] [place] [address] [place] [address] Care Team Providers Care Garbage Collector Supervisor Name Role Phone Shara Nicolas Md Primary Care Provider Allergies Active Allergy Reactions Criticality Noted Date [...] mg by mouth Active SUMAtriptan 5 mg/actuation [place], Non-Aerosol Use 1 spray in each nostril [...] for anaphylaxis Active Blood-Glucose Meter,Continuous (DEXCOM G7 ANIMAL PATHOLOGIST) Misc 1 Units by Miscellaneous_ route daily [...] injury superimp osed on chronic kidney disease ([facility]) 11/08/2024 04/23/2025 Influenza A 09/07/2024 04/23/2025 [...] Department Care Team Description 05/06/2025 Results Follow-Up [facility] [address] [place] [phone] Shara Nicolas MD PAP VIAL TESTING, HPV HIGH RISK PCR MRNA THINPREP VIAL 04/28/2025 10:30 AM EDT Office Visit [place] [address] [address] [place] [phone] Michelle Aj PA Contusion of chest wall, unspecified laterality, initial encounter (Primary Dx); Type 1 diabetes mellitus with hyperglycemia (CMS-HCC); Obesity, class 3 (CMS-HCC); Body mass index (BMI) 35.0-35.9, adult; Mixed hyperlipidemia; Bipolar disorder, in partial remission, most recent episode depressed (CMS-HCC); Seizure disorder (CMS-HCC) 04/24/[address], [facility] [place] [address] [facility], / POST-ED DISCHARGE CALL 04/23/2025 1:20 PM EDT Office Visit [facility] [address] [place] [phone] Shara Nicolas MD Annual physical exam (Primary [...] type 04/23/2025 Travel 04/15/2025 Letter (Out) [facility] [address] [place] [phone] Shara Nicolas MD 04/15/2025 Email Encounter [facility], Provider Schedule your annual Well Visit 04/01/2025 Patient Outreach [facility] [address] [place] [phone] Sarah Albright LPN Onboarding; New Patient 03/10/2025 Letter (Out) [employer] [place] [facility] [employer] [address] [place] [address] Campaign, Provider from Last 3 [...] TYMPANOSTOMY (W/ V TUBE) ,GENERAL ANES SECT HYDROMETEOROLOGIST SECT HYDROMETEOROLOGIST Medical History Medical History Date Comments Seizure ([facility]) Type 1 diabetes mellitus PTSD (post-traumatic stress disorder) Depression Anxiety Ovarian cancer ([facility]) Memory impairment Bipolar 1 disorder ([facility]) Chronic bronchitis ([facility]) Hearing loss Asthma TIA (transient ischemic attack) Tremor of right hand Tobacco use Intractable migraine Suicidal ideation Subclinical hypothyroidism High cholesterol Depression, unspecified depr ession type Allergies Seizure disorder ([facility]) Diabetes mellitus Cancer ([facility]) Hypertension Malignant neoplasm of left o vary ([facility]) 05/01/2024 S/p oopherectomy and hystere ctomy in 2009. Cervix remains Acute kidney injury superimp osed on chronic kidney disease ([facility]) ([facility]) 11/08/2024 Acute cystitis without hematuria 08/04/2018 Seizure-like activity ([facility]) 09/03/2018 Hyponatremia 09/03/2018 Episode of recurrent major d epressive disorder ([facility]) 08/04/2018 Fall at home, initial encounter 11/09/2024 [...] Description 04/28/2026 1:00 PM EDT Office Visit [facility] [address] [place] [phone] Shara Nicolas MD [address] [place] [phone] Health Maintenance Due Date Last Done Comments [...] ZOSTER VACCINE (2 of 2) 06/18/2025 04/23/2025 PERIODIC HEALTH REVIEW 04/23/2026 04/23/2025 * KIDNEY DISEASE SCREEN-(CREATININE) 05/13/2026 05/13/2025, 12/23/2024, 11/10/2024, Additional history exists HPV SCREENIN YR 04/23/2030 04/23/2025 PAP LOW [...] LESION OR MALIGNANCY 04/29/2025 9:[address] [facility] DEPARTMENT OF PATHOLOGY AND LAB MEDICINE at 0948 EDT Specimen Adequacy Satisfactory for evaluation. Transformation zone component absent. 04/29/2025 9:[address] [facility] DEPARTMENT OF PATHOLOGY AND LAB MEDICINE HPV High Risk Negative 04/29/2025 9:[address] [facility] DEPARTMENT OF PATHOLOGY AND LAB MEDICINE Source Cervical 04/29/2025 9:[address] [facility] DEPARTMENT OF PATHOLOGY AND LAB MEDICINE Macroscopic Description Vial contains 20cc of colorless fluid. 04/29/2025 9:[address] [facility] DEPARTMENT OF PATHOLOGY AND LAB MEDICINE Additional Information For further information about terminology found in your pathology report, please visit the My Pathology Report website (not compatible with Internet Explorer). If after speaking to your provider you would like more information about your pathology result, you may message the pathology department directly. 04/29/2025 9:[address] [facility] DEPARTMENT OF PATHOLOGY AND [...] of this sample. 04/29/2025 9:[address] [facility] DEPARTMENT OF PATHOLOGY AND LAB MEDICINE Specimen Information Gynecologic Cytology Case: [id number] Collected: 04/23/2025 5:10 PM Received: 04/23/2025 9:40 PM Authorizing Provider: SHARA NICOLAS MD Ordering Location: [facility] Result interpreted by: JALYN JACKSON Result signed on: 04/29/2025 9:48 AM 04/29/2025 9:[address] [facility] DEPARTMENT OF PATHOLOGY AND LAB MEDICINE PAP Vial (Cervical) Non-blood collection / Unknown 04/23/2025 5:10 PM EDT 04/23/2025 5:10 PM EDT us Shara Nicolas LAB PATHOLOGY ORDERABLES Final R esult Performing Organization Address City/[facility]/ZIP Co de Phone Number [facility] OF PATHOLOGY AND LAB MEDICINE [address] [place] [address] * HPV HIGH RISK PCR MRNA THINPREP VIAL (04/23/2025 5:10 PM EDT) HPV HIGH RISK mRNA Negative Negative 04/29/2025 9:[address] [facility] DEPARTMENT OF PATHOLOGY AND LAB MEDICINE SOURCE Cervical 04/29/2025 9:[address] [facility] DEPARTMENT OF PATHOLOGY AND LAB MEDICINE PAP Vial (Cervical) Non-blood collection / Unknown 04/23/2025 5:10 PM EDT 04/23/2025 9:40 PM EDT us Shara Nicolas MICROBIOLOGY LAB Final Result Performing Organization Address City/[facility]/ZIP Co de Phone Number [facility] OF PATHOLOGY AND LAB MEDICINE [address] [place] [address] from Last 3 Months Insurance [employer] Care Teams Garbage Collector Supervisor Relationship Specialty Start Date End Date Shara Nicolas MD [address] [place] [phone] PCP - General Internal Medicine 03/31/25
--- NOTE | 2025-05-15 09:26 | HO.PSYADMNOT ---
HPI Date of Service: 05/15/25 Chief Complaint: unspecified depression Sources of Information: patient interviewed, chart reviewed and crisis/core team assessment reviewed HPI Subjective Notes: Conditional Voluntary Narrative: Ms. Rosas is a 59 yo F with h/o bipolar I d/o, PTSD, anxiety, type I DM (uses insulin pump at home), seizures, h/o falls 2/2 weak knees and migraines who was BIBA to the [facility] ED due to SI with a plan. She was transferred to [facility] for tx of depression and SI. Pt had been asleep in her room but was easily rousable and met with t/w, SW and SHEET [employer] S[employer] student in the sensory room. She endorses a chronic h/o depression, which starts to get worse in the summer and has been exacerbated by the approaching 8 yr anniversary of her 's , upcoming holidays, the of her service dog (who was trained to wake her up w/ low blood sugar) and missing her 3 adult children who live out of state. She recently moved to an apartment in [place], which she thought would be good for her mood since she can walk downtown; however it makes her more. She endorses decreased pleasure/motivation, poor sleep x 1 wk, chronic issues with low self esteem, and SI x 2 wks. She reports that she considered getting a gun to blow my brains out or suicide by copyman . She denies having access to weapons. She uses an insulin pump at home (removed on the unit) but her blood sugar has been more labile x past 2 wks. She feels more depressed w/ the highs and she's had multiple readings in the 400s. She denied any plan to overdose on her insulin Psychiatric ROS: Nahomy- Pt reports that she's gotten 'super hyped , cleaning the whole house and rearranging furniture, feeling grandiose and starting new projects without finishing them. She wonders if bipolar d/o is an accurate dx and states that her son is dx'd with ADHD and has similar sx. ADHD- endorses chronic issues w/ focus, task completion. Needs to work at her own pace. She left at age 18 but advocated to be placed in special education classes and graduated w/ honors after she returned. She is an only child and was under a lot of pressure from her parents to 'strive for perfection'. Denies h/o psychosis Denies h/o violence or violent ideation Dx'd with PTSD- did not screen today Past Psychiatric History: Outpatient psychiatrist: Dr. Chatman at [facility] Outpatient therapist: Yris at [facility] h/o ~25 inpatient psychiatric admissions since childhood. Most recently at [facility] ~3 mos ago after a suicide attempt by overdosing on some pills . She informed her therapeutic case manager. h/o multiple suicide attempts Past reports trying multiple meds in the past but can't recall what they were. Only recalls lithium since it required blood monitoring. Medical Evaluation Reviewed: Hospitalist Allyal Pending [facility] Medical History (Updated 05/16/25 @ 08:25 by La Nam MD) Tremor of right hand (10/02/22) Subclinical hypothyroidism (08/27/17) Smoker (04/23/25) Seizure-like activity (09/03/18) Right ankle sprain (09/07/24) Intractable migraine without aura and without status migrainosus (08/24/19) Influenza A (09/07/24) Hyperglycemia (08/26/17) Hyperglycemia (08/26/17) Transient ischemic attack (TIA) (11/26/24) Malignant neoplasm of left ovary (05/01/24) Hyponatremia (09/03/18) Acute kidney injury superimposed on chronic kidney disease (11/08/24) Acute cystitis without hematuria (08/04/18) Family History: Son has ADHD Cousins- h/o depression/anxiety Social History: Lives alone . Has 3 adult children (2 in [place], 1 in [place]) Only child. 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 Did not discuss trauma hx today Diagnostics Vital Signs (24Hr): Vital Signs - 24 hr 05/15/25 00:28 05/15/25 08:00 Temperature 97.5 F 97.1 F Pulse Rate 77 68 Respiratory Rate 16 16 Blood Pressure 117/64 138/69 Pulse Oximetry 93 93 Oxygen Delivery Method Room Air Room Air BMI result Body Mass Index 32.8 Labs 05/15/25 07:57 Labs: Laboratory Results - last 48 hr 05/15/25 05/15/25 07:49 07:57 Creatinine 1.12 Estim Creat Clear Calc 59.0 Estimated GFR 50 POC Glucose 223 H Meds/Allergies Meds Home Medications ?Medication ?Instructions ?Recorded ?Confirmed ?Type atorvastatin 40 mg tablet 40 mg PO DAILY 05/15/25 05/15/25 History benztropine 1 mg tablet 1 mg PO DAILY 05/15/25 05/15/25 History clonidine HCl 0.1 mg tablet 0.1 mg PO TID 05/15/25 05/15/25 History gabapentin 100 mg capsule 100 mg PO DAILY 05/15/25 05/15/25 History lamotrigine 100 mg tablet 100 mg PO DAILY 05/15/25 05/15/25 History lamotrigine 100 mg tablet 200 mg PO BEDTIME 05/15/25 05/15/25 History latanoprost 0.005 % eye drops 1 drp ophthalmic (eye) BEDTIME 05/15/25 05/15/25 History lorazepam 0.5 mg tablet 0.5 mg PO DAILY 05/15/25 05/15/25 History melatonin 5 mg tablet 5 mg PO BEDTIME 05/15/25 05/15/25 History metformin 500 mg tablet 500 mg PO BID 05/15/25 05/15/25 History prazosin 2 mg capsule 2 mg PO BEDTIME 05/15/25 05/15/25 History risperidone 1 mg tablet 1 mg PO BID 05/15/25 05/15/25 History sertraline 100 mg tablet 100 mg PO BID 05/15/25 05/15/25 History sumatriptan 5 mg/actuation nasal 5 mg intranasal DIRECTED PRN 05/15/25 05/15/25 History spray Migraine Headache Allergies Allergies Allergy/AdvReac Type Severity Reaction Status Date / Time mccarthy (cherries) Allergy Severe Anaphylaxis Verified 05/15/25 01:42 coconut Allergy Severe Anaphylaxis Verified 05/15/25 01:44 iodine Allergy Severe Anaphylaxis Verified 05/15/25 01:44 morphine Allergy Severe Anaphylaxis Verified 05/15/25 01:46 oxycodone Allergy Severe Anaphylaxis Verified 05/15/25 01:46 Penicillins Allergy Severe Anaphylaxis Verified 05/15/25 01:46 red dye Allergy Severe Swelling Verified 05/15/25 01:46 bee pollen (bees) Allergy Intermediate Hives Verified 05/15/25 01:47 clindamycin Allergy Intermediate Rash Verified 05/15/25 01:43 shellfish derived (shellfish) Allergy Unknown Verified 05/15/25 00:06 Mental Status Exam Mental Status Exam Narrative: Appearance: Dressed in hospital jameel, somewhat disheveled. missing some lower teeth. Good eye contact Attitude:Cooperative Speech: Fluent and wnl in regard to volume, tone, prosody Motor activity: Calm. Steady gait Mood: depressed and anxious Affect: appropriate, reactive, tearful at times. brightens up appropriately Thought process: circumstantial, logical Thought content: endorses SI. Denies violent ideation. Anxious ruminations, excessive feelings of guilt Perception: Denies AH/VH and does not appear to respond to internal stimuli Alert/oriented in all spheres Cognition grossly intact Insight: intact Judgment: intact Assessment & Plan Assessment & Plan (1) Other bipolar disorder: Status: Acute Code(s): F31.89 - Other bipolar disorder (2) Posttraumatic stress disorder: Status: Acute Code(s): F43.10 - Post-traumatic stress disorder, unspecified (3) Type 1 diabetes mellitus with hyperglycemia: Status: Acute Code(s): E10.65 - Type 1 diabetes mellitus with hyperglycemia Plan Ms. Rosas is a 59 yo F with h/o bipolar I d/o, PTSD, anxiety, type I DM (uses insulin pump at home), functional neuro d/o, h/o falls 2/2 weak knees and migraines who was BIBA to the [facility] ED due to SI with a plan. She was transferred [place] [facility] for tx of depression and SI. Will keep bipolar dx for now but presentation could be more c/w PTSD, ADHD + MDD. Will assess further next wk and try to obtain collateral from her outpatient provider. Pt denies current plan to harm herself on the unit. Her insulin pump was removed and her line ordering clinician provided instructions for her insulin regimen. Plan: Admitted to for safety and stabilization Legal status- CV 15 min safety checks Milieu therapy Vital signs per unit standard Continue home psychotropic med regimen for now: Lamotrigine 100 mg qam/200 mg qhs lorazepam 0.5 mg qd melatonin 5 mg qhs prazosin 2 mg qhs risperidone 1 mg bid sertraline 100 mg bid (unclear why it's rx'd bid) Medical admission H&P completed by hospitalist and reviewed by t/w. Input appreciated Type 1 diabetes with diabetic nephropathy-3a Previously were an insulin pump Orders for 14 units of Lantus, 3 units of preprandial insulin with a sliding scale. Continue metformin Psychologist [employer] is Dr. 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 No changes have occurred unless specified. If the History and Physical was not performed prior to admission, the Hospitalist's service will be consulted for completing the admission physical. Time Spent With Patient Time: Total time managing care of this patient today _60___ minutes.
[2025-05-15 11:43] LABS: Glucose, Whole Blood 178 mg/dL (60-115)
[2025-05-15 16:36] LABS: Glucose, Whole Blood 147 mg/dL (60-115)
[2025-05-15 20:18] VITALS: PULSE 14; RESP 140; TEMP 36.3; O2SAT 93
[2025-05-15 21:34] LABS: Glucose, Whole Blood 201 mg/dL (60-115)
[2025-05-15] MEDS: Insulin Glargine,Hum.rec.anlog 100 UNIT/ML 10 ML VIAL 14 UNIT SUBCUT (21:51)
[2025-05-15] MEDS: Latanoprost 0.005 % Ophth Sol 2.5 ML DROPS 1 DROP EYE-BOTH (21:52)
[2025-05-15 21:55] VITALS: BP 144/70
[2025-05-16 08:12] LABS: Glucose, Whole Blood 167 mg/dL (60-115)
[2025-05-16 08:20] VITALS: BP 142/73; PULSE 81; RESP 16; TEMP 36.7; O2SAT 96
[2025-05-16 09:14] VITALS: BP 111/67; PULSE 80; RESP 16; TEMP 36.1; O2SAT 97
[2025-05-16 09:15] LABS: Glucose, Whole Blood 202 mg/dL (60-115)
[2025-05-16 09:35] VITALS: BP 111/67; PULSE 80
[2025-05-16 09:36] LABS: Hematocrit 42.1 % (37.0-47.0); Hemoglobin 13.7 g/dl (12.0-16.0); Mean Corpuscular HGB Conc 32.5 g/dl (31.0-35.0); Mean Corpuscular Hemoglobin 30.1 pg (27.0-33.0); Mean Corpuscular Volume 92.5 fL (80.0-98.0); NRBC Abs Auto 0.000 X10*3/uL (0.0-0.012); NRBC Pct Auto 0.0 /100WBC (0.0-0.2); Platelet Count 246 X10*3/uL (160-400); Red Blood Count 4.55 X10*6/uL (4.20-5.50); White Blood Count 6.5 X10*3/uL (4.8-10.8)
[2025-05-16 09:38] LABS: Alanine Aminotransferase 25 U/L (0-31); Albumin Level 4.4 g/dL (3.5-5.0); Alkaline Phosphatase 185 U/L (39-117); Anion Gap 17 (12-20); Aspartate Amino Transferase 23 U/L (5-31); Blood Urea Nitrogen 22 mg/dL (9-16); Calcium 9.7 mg/dL (8.4-10.2); Carbon Dioxide 27 mmol/L (22-29); Chloride 103 mmol/L (96-108); Cholesterol 282 mg/dL (<200); Creatinine Clr Calc Pharmacy 55.1; Estimated Glomerular Filt Rate 46; HDL Cholesterol 51 mg/dL (>40); Potassium 4.7 mmol/L (3.3-5.1); Sodium 142 mmol/L (135-145); Total Protein 6.8 g/dL (6.5-8.0); Triglycerides 189 mg/dL (<150)
--- NOTE | 2025-05-16 09:46 | PM.EVENT ---
Event Note Date of Service: 05/16/25 Event Note: Rapid response called for pt who had an episode of unresponsiveness while in the common area. Vital signs were stable BP mildly elevated at 150 2/69, heart rate 92, satting at 98% on RA. POC 2 O2. Patient's soon revived without any apparent postictal state. 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 Will obtain EKG and check lactic acid, CPK, CBC, and orthostatics. Continue lamotrigine. Currently no indication to bring pt to the medical floor. Will follow up with lab results. Time Spent With Patient Time: Total time managing care of this patient today ____ minutes.
[2025-05-16 09:54] LABS: Thyroid Stimulating Hormone 2.40 uIU/mL (0.32-4.0)
[2025-05-16 10:05] LABS: Hemoglobin A1C 124.2978 umol/L; Total Hemoglobin (HGBA1C) 2448.0489 umol/L
[2025-05-16 10:07] LABS: Folate 4.1 ng/mL (> or = 4.0); Vitamin B12 375 pg/mL (200-900)
[2025-05-16] MEDS: Lactated Ringers 1,000 ML 100 ML IVCONT (11:08)
[2025-05-16 11:31] LABS: Reflex Lactate? Lactic Acid Added
[2025-05-16 11:51] LABS: Glucose, Whole Blood 119 mg/dL (60-115)
[2025-05-16 12:10] LABS: ~Lactic Acid-LAB USE ONLY 1.5 mmol/L (0.5-2.0)
[2025-05-16 16:57] LABS: Glucose, Whole Blood 158 mg/dL (60-115)
--- NOTE | 2025-05-16 17:28 | PC.NURSE ---
0905 Staff alerted to community kitchen area by a male pt yelling for help for this pt. This pt found lying in community kitchen chair with full body tremors, eyes closed, unresponsive. Nurse supported pt in position and attempted to engage with verbal/tactile stimulation. No respiratory distress noted. Rapid response called. Tremors lasted approximately 1 minute. Eyes open, responding to staff prior to Rapid Response team arriving. Transferred to stretcher, POC 202, initial VS 152/69 P 92, O2 sat 98% rm air. Labs drawn: CBCD, CPK, Lactic Acid. Repeat VS 97.0-80/16 O2 Sat 97% rm air. Transferred to room via stretcher at 0935. Orthostatic VS done per order. VS right arm lyin.0-80-16 111/67 O2 sat 97% rm air right arm sitting pulse 87, BP 146/80 O2 sat 95% room air, right arm standin/74, pulse 93, O2 sat 96% room air. Reported she has Dx; Functional Neurological Disorder. Stated last seizure was 3 months ago. Reported headache #10 on scale 1-10(10 worse). Received Tylenol 650 mg po at 0955 with report of pain decreasing to #5 when reassessed. Reported stiffness bilateral arms and legs. Critical lactic acid level received at 0959, 3.3. Hospitalists: Dr Ness, Dr Street, Carmelina Parkinson notified of critical lab result and orthostatic VS. IV Lactated Ringers ordered, nursing tracer bullet section supervisor notified. IV access obtained by Akbar Lincoln EXCHANGE OPERATOR with 22 gauge in right anterior forearm. Lactated Ringers 1000ml 100ml/hr IV started at 1108. Placed on 1:1 observation for safety. Repeat Lactic acid drawn, result 1.5. Hospitalist, Baljit Parkinson, on unit to evaluate pt at 1325. IV rate changed to bolus, completed at 1415. Tolerated all procedures/fluids well. Safety checks changed to 5 min unlocked bathroom.
[2025-05-16 20:07] VITALS: BP 164/74; PULSE 79; RESP 18; TEMP 36.1; O2SAT 96
[2025-05-16 20:25] LABS: Glucose, Whole Blood 187 mg/dL (60-115)
[2025-05-16] MEDS: Latanoprost 0.005 % Ophth Sol 2.5 ML DROPS 1 DROP EYE-BOTH (20:55)
[2025-05-16] MEDS: Insulin Glargine,Hum.rec.anlog 100 UNIT/ML 10 ML VIAL 14 UNIT SUBCUT (20:56)
--- NOTE | 2025-05-16 23:28 | P.PNPSI_ITS ---
Subjective Subjective Date of Service: 05/16/25 Reason For Visit: unspecified depression Subjective Notes: Conditional Voluntary Healthcare Proxy: No Guardianship: No Medical Problems Affecting Mental Status: Yes Interim History: Medical record and nursing notes reviewed; case discussed during rounds with team/nursing staff, and met with patient for supportive therapy/psychoeducation, as well as medication management. Per Hospitalist note regarding event that happended this morning Rapid response called for pt who had an episode of unresponsiveness while in the common area. Vital signs were stable BP mildly elevated at 150 2/69, heart rate 92, satting at 98% on RA. POC 2 O2. Patient's soon revived without any apparent postictal state. 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 Will obtain EKG and check lactic acid, CPK, CBC, and orthostatics. Continue lamotrigine. Currently no indication to bring pt to the medical floor. Will follow up with lab results . CBC unremarkable, but lactic acid elevated at 3.3, likely in the setting of pseudo-seizure. Acute lactic acidosis resolved to 1.5 after 1L IVF. CPK WNL. Pt was seen and evaluated where she was resting comfortably in bed and had no acute medical complaints. Pt likely experienced pseudo-seizure, and would benefit most from continued psychiatric care on M3 Patient is knowledgeable about pseudoseizures episode that happened this morning. Reported that she was feeling so anxious this morning as a little boy who was banging, kicking noise, and came in to her room trying to do something with the IV pole. At first this provider thing is was one of the peers on the unit got irritable agitated this morning that scared her. However, it is reports by her that boy is not a real person. Patient experience hallucination, and reported that she also saw the same little boy when her about 7-8years ago. Denies pain. Denies SI/SIB/HI but report AVH. Very pleasant, and cooperative upon approach. Patient was placed on want to want during the IV running. Currently on 5 minute checks for safety. Medication Compliance: Yes Side effects from medications: No Attending Groups: No Review of Systems Acute medical concerns: No Medical Review of Systems: unchanged Review of Systems Review of Systems Denies any shortness of breath, chest pain, headaches, dysuria, abdominal pain or discomfort, nausea, vomiting or diarrhea. Denies fever or chills. Yes all other systems are reviewed and are negative Mental Status Exam Mental Status Exam Narrative: Appearance: Dressed in hospital jameel, somewhat disheveled. missing some lower teeth. Good eye contact Attitude:Cooperative Speech: Fluent and wnl in regard to volume, tone, prosody Motor activity: Calm. Steady gait Mood: depressed and anxious Affect: appropriate, reactive, tearful at times. brightens up appropriately Thought process: circumstantial, logical Thought content: endorses SI. Denies violent ideation. Anxious ruminations, excessive feelings of guilt Perception: Report seeing a little boy who making noise that Scared her this morning. Alert/oriented in all spheres Cognition grossly intact Insight: intact Judgment: intact Diagnostics Vital Signs (24Hr): Vital Signs - 24 hr 05/16/25 08:20 05/16/25 09:14 05/16/25 09:35 Temperature 98.1 F 97.0 F Pulse Rate 81 80 80 Respiratory Rate 16 16 Blood Pressure 142/73 H 111/67 111/67 Pulse Oximetry 96 97 Oxygen Delivery Method Room Air Room Air 05/16/25 20:07 Temperature 97.0 F Pulse Rate 79 Respiratory Rate 18 Blood Pressure 164/74 H Pulse Oximetry 96 Oxygen Delivery Method Room Air BMI result Body Mass Index 32.8 Labs 05/16/25 09:28 05/16/25 08:09 Labs: Laboratory Results - last 48 hr 05/15/25 05/15/25 05/15/25 07:49 07:57 11:35 WBC RBC Hgb Hct MCV MCH MCHC RDW Plt Count MPV Absolute Nucleated RBC Nucleated RBC % (auto) Sodium Potassium Chloride Carbon Dioxide Anion Gap BUN Creatinine 1.12 Estim Creat Clear Calc 59.0 Estimated GFR 50 POC Glucose 223 H 178 H Random Glucose Estimat Average Glucose Hemoglobin A1c % Lactic Acid Lactic Acid F/U @ 2Hr Calcium Total Bilirubin AST ALT Alkaline Phosphatase Total Creatine Kinase Total Protein Albumin Triglycerides Cholesterol LDL Cholesterol, Calc HDL Cholesterol Vitamin B12 Folate TSH 05/15/25 05/15/25 05/16/25 16:29 21:16 08:01 WBC RBC Hgb Hct MCV MCH MCHC RDW Plt Count MPV Absolute Nucleated RBC Nucleated RBC % (auto) Sodium Potassium Chloride Carbon Dioxide Anion Gap BUN Creatinine Estim Creat Clear Calc Estimated GFR POC Glucose 147 H 201 H 167 H Random Glucose Estimat Average Glucose Hemoglobin A1c % Lactic Acid Lactic Acid F/U @ 2Hr Calcium Total Bilirubin AST ALT Alkaline Phosphatase Total Creatine Kinase Total Protein Albumin Triglycerides Cholesterol LDL Cholesterol, Calc HDL Cholesterol Vitamin B12 Folate TSH 05/16/25 05/16/25 05/16/25 08:09 09:10 09:28 WBC 6.5 RBC 4.55 Hgb 13.7 Hct 42.1 MCV 92.5 MCH 30.1 MCHC 32.5 RDW 13.2 Plt Count 246 MPV 9.2 L Absolute Nucleated RBC 0.000 Nucleated RBC % (auto) 0.0 Sodium 142 Potassium 4.7 Chloride 103 Carbon Dioxide 27 Anion Gap 17 BUN 22 H Creatinine 1.20 Estim Creat Clear Calc 55.1 Estimated GFR 46 POC Glucose 202 H Random Glucose 148 H Estimat Average Glucose 148 Hemoglobin A1c % 6.8 H Lactic Acid 3.3 H* Lactic Acid F/U @ 2Hr Calcium 9.7 Total Bilirubin 0.3 AST 23 ALT 25 Alkaline Phosphatase 185 H Total Creatine Kinase 125 Total Protein 6.8 Albumin 4.4 Triglycerides 189 H Cholesterol 282 H LDL Cholesterol, Calc 194 H HDL Cholesterol 51 Vitamin B12 375 Folate 4.1 TSH 2.40 05/16/25 05/16/25 05/16/25 11:44 11:46 16:49 WBC RBC Hgb Hct MCV MCH MCHC RDW Plt Count MPV Absolute Nucleated RBC Nucleated RBC % (auto) Sodium Potassium Chloride Carbon Dioxide Anion Gap BUN Creatinine Estim Creat Clear Calc Estimated GFR POC Glucose 119 H 158 H Random Glucose Estimat Average Glucose Hemoglobin A1c % Lactic Acid Lactic Acid F/U @ 2Hr 1.5 Calcium Total Bilirubin AST ALT Alkaline Phosphatase Total Creatine Kinase Total Protein Albumin Triglycerides Cholesterol LDL Cholesterol, Calc HDL Cholesterol Vitamin B12 Folate TSH 05/16/25 20:15 WBC RBC Hgb Hct MCV MCH MCHC RDW Plt Count MPV Absolute Nucleated RBC Nucleated RBC % (auto) Sodium Potassium Chloride Carbon Dioxide Anion Gap BUN Creatinine Estim Creat Clear Calc Estimated GFR POC Glucose 187 H Random Glucose Estimat Average Glucose Hemoglobin A1c % Lactic Acid Lactic Acid F/U @ 2Hr Calcium Total Bilirubin AST ALT Alkaline Phosphatase Total Creatine Kinase Total Protein Albumin Triglycerides Cholesterol LDL Cholesterol, Calc HDL Cholesterol Vitamin B12 Folate TSH Medications Medications Current Medications Acetaminophen (Acetaminophen 325 Mg Tablet) 650 mg PO Q6H PRN PRN Reason: Headache/Pain, Scale 1-10 Last Admin: 05/16/25 09:55 Dose: 650 mg Al Hydroxide/Mg Hydroxide (Magnesium Hydrox/Alum Hydrox 30 Ml Oral.Susp) 30 ml PO Q6H PRN PRN Reason: Heartburn/Nausea Atorvastatin Calcium (Atorvastatin Calcium 40 Mg Tablet) 40 mg PO DAILY [facility] Last Admin: 05/16/25 08:26 Dose: 40 mg Benztropine Mesylate (Benztropine Mesylate 1 Mg Tablet) 1 mg PO DAILY [facility] Last Admin: 05/16/25 08:26 Dose: 1 mg Gabapentin (Gabapentin 100 Mg Capsule) 100 mg PO DAILY [facility] Last Admin: 05/16/25 08:24 Dose: 100 mg Hydroxyzine HCl (Hydroxyzine Hcl 25 Mg Tablet) 25 mg PO Q6H PRN PRN Reason: mild anxiety Insulin Glargine (Insulin Glargine,Hum.Rec.Anlog 100 Unit/Ml 10 Ml Vial) 14 unit SUBCUT BEDTIME [facility] Last Admin: 05/16/25 20:56 Dose: 14 unit Insulin Human Lispro (Insulin Lispro 100 Unit/Ml 3 Ml Vial) 3 unit SUBCUT TIDAC [facility] Last Admin: 05/16/25 22:19 Dose: 3 unit Insulin Human Lispro (Insulin Lispro 100 Unit/Ml 3 Ml Vial) 0 unit SUBCUT QIDACHS [facility]; Protocol Last Admin: 05/16/25 22:48 Dose: 2 unit Lamotrigine (Lamotrigine 100 Mg Tablet) 100 mg PO DAILY [facility] Last Admin: 05/16/25 08:25 Dose: 100 mg Lamotrigine (Lamotrigine 100 Mg Tablet) 200 mg PO BEDTIME [facility] Last Admin: 05/16/25 20:58 Dose: 200 mg Latanoprost (Latanoprost 0.005 % Ophth Linda 2.5 Ml Drops) 1 drop EYE-BOTH BEDTIME [facility] Last Admin: 05/16/25 20:55 Dose: 1 drop Lorazepam (Lorazepam 0.5 Mg Tablet) 0.5 mg PO DAILY [facility] Last Admin: 05/16/25 08:25 Dose: 0.5 mg Magnesium Hydroxide (Milk Of Magnesia 30 Ml Oral.Susp) 30 ml PO DAILY PRN PRN Reason: Constipation Melatonin (Melatonin 3 Mg Tablet) 6 mg PO BEDTIME [facility] Last Admin: 05/16/25 20:58 Dose: 6 mg Metformin HCl (Metformin Hcl 500 Mg Tablet) 500 mg PO BID [facility] Last Admin: 05/16/25 20:57 Dose: 500 mg Nicotine Polacrilex (Nicotine Polacrilex 2 Mg Gum) 2 mg BUCCAL Q2H PRN PRN Reason: Nicotine Cravings Prazosin HCl (Prazosin Hcl 1 Mg Capsule) 2 mg PO BEDTIME [facility]; Protocol Last Admin: 05/16/25 20:57 Dose: 2 mg Risperidone (Risperidone 1 Mg Tablet) 1 mg PO BID [facility] Last Admin: 05/16/25 20:57 Dose: 1 mg Sertraline HCl (Sertraline Hcl 100 Mg Tablet) 100 mg PO BID [facility] Last Admin: 05/16/25 20:58 Dose: 100 mg Sumatriptan Succinate (Sumatriptan Succinate 25 Mg Tablet) 25 mg PO DAILY MRX1 PRN PRN Reason: Migraine Headache Trazodone HCl (Trazodone Hcl 50 Mg Tablet) 50 mg PO BEDTIME MRX1 PRN PRN Reason: Insomnia Allergies Allergies Allergy/AdvReac Type Severity Reaction Status Date / Time mccarthy (cherries) Allergy Severe Anaphylaxis Verified 05/15/25 01:42 coconut Allergy Severe Anaphylaxis Verified 05/15/25 01:44 iodine Allergy Severe Anaphylaxis Verified 05/15/25 01:44 morphine Allergy Severe Anaphylaxis Verified 05/15/25 01:46 oxycodone Allergy Severe Anaphylaxis Verified 05/15/25 01:46 Penicillins Allergy Severe Anaphylaxis Verified 05/15/25 01:46 red dye Allergy Severe Swelling Verified 05/15/25 01:46 bee pollen (bees) Allergy Intermediate Hives Verified 05/15/25 01:47 clindamycin Allergy Intermediate Rash Verified 05/15/25 01:43 shellfish derived (shellfish) Allergy Unknown Verified 05/15/25 00:06 Assessment & Plan Assessment & Plan (1) Other bipolar disorder: Status: Acute Code(s): F31.89 - Other bipolar disorder (2) Posttraumatic stress disorder: Status: Acute Code(s): F43.10 - Post-traumatic stress disorder, unspecified (3) Type 1 diabetes mellitus with hyperglycemia: Status: Acute Code(s): E10.65 - Type 1 diabetes mellitus with hyperglycemia Plan Ms. Rosas is a 59 yo F with h/o bipolar I d/o, PTSD, anxiety, type I DM (uses insulin pump at home), functional neuro d/o, h/o falls 2/2 weak knees and migraines who was BIBA to the [facility] ED due to SI with a plan. She was transferred to [facility]3 for tx of depression and SI. Will keep bipolar dx for now but presentation could be more c/w PTSD, ADHD + MDD. Will assess further next wk and try to obtain collateral from her outpatient provider. Pt denies current plan to harm herself on the unit. Her insulin pump was removed and her generation technologist provided instructions for her insulin regimen. Hospital course: 05/16/25: Per Hospitalist note regarding event that happened this morning Rapid response called for pt who had an episode of unresponsiveness while in the common area. Vital signs were stable BP mildly elevated at 150 2/69, heart rate 92, satting at 98% on RA. POC 2 O2. Patient's soon revived without any apparent postictal state. 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 Will obtain EKG and check lactic acid, CPK, CBC, and orthostatics. Continue lamotrigine. Currently no indication to bring pt to the medical floor. Will follow up with lab results . CBC unremarkable, but lactic acid elevated at 3.3, likely in the setting of pseudo-seizure. Acute lactic acidosis resolved to 1.5 after 1L IVF. CPK WNL. Pt was seen and evaluated where she was resting comfortably in bed and had no acute medical complaints. Pt likely experienced pseudo-seizure, and would benefit most from continued psychiatric care on M3 Patient is knowledgeable about pseudoseizures episode that happened this morning. Reported that she was feeling so anxious this morning as a little boy who was banging, kicking noise, and came in to her room trying to do something with the IV pole. At first this provider thing is was one of the peers on the unit got irritable agitated this morning that scared her. However, it is reports by her that boy is not a real person. Patient experience hallucination, and reported that she also saw the same little boy when her about 7-8years ago. Denies pain. Denies SI/SIB/HI but report AVH. Very pleasant, and cooperative upon approach. Patient was placed on want to want during the IV running. Currently on 5 minute checks for safety. Plan: Admitted to for safety and stabilization Legal status- CV 5 min safety checks Milieu therapy Vital signs per unit standard Continue home psychotropic med regimen for now: Lamotrigine 100 mg qam/200 mg qhs lorazepam 0.5 mg qd melatonin 5 mg qhs prazosin 2 mg qhs risperidone 1 mg bid sertraline 100 mg bid (unclear why it's rx'd bid) Medical admission H&P completed by hospitalist and reviewed by t/w. Input appreciated Type 1 diabetes with diabetic nephropathy-3a Previously were an insulin pump Orders for 14 units of Lantus, 3 units of preprandial insulin with a sliding scale. 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
[2025-05-17 07:30] VITALS: BP 156/70; PULSE 80; RESP 14; TEMP 36.3; O2SAT 96
[2025-05-17 08:00] VITALS: BP 156/70; PULSE 80; RESP 14; TEMP 36.3; O2SAT 96
[2025-05-17 08:02] LABS: Glucose, Whole Blood 185 mg/dL (60-115)
[2025-05-17 09:18] LABS: Glucose, Whole Blood 198 mg/dL (60-115)
[2025-05-17] MEDS: diazePAM 10 MG/2 ML CARTRIDGE 5 MG IM (09:23)
--- NOTE | 2025-05-17 09:53 | PC.NURSE ---
Patient was seen around the unit walking to put her tray back after eating breakfast at 09:07 Am today, called the nurse to explained how sad she is, his kids did not care about her anymore and she wants to kill herself but did not have a plan yet , while talking to the nurse, she said I am not feeling good and hold the nurse , fell on the floor. Patient started seizing at 09:09 AM, stopped at 09:11, restarted again at 09:13 to 09:14. Rapid response was called at that time, blood sugar was 198, B/P 181/64, Pls:84, O2: 96. After evaluation of the rapid response team, 5 mg Valium IM was given and patient was transferred to the medical floor for better management and follow up.
--- NOTE | 2025-05-17 10:39 | PM.PSYDC ---
DS: Providers Provider Date of Service: 05/17/25 Date of admission: 05/15/25 01:13 Date of discharge: 05/17/25 Primary care physician: Unknown Physician Attending physician on admission: La Nam Consults: 05/15/25 01:13 Consult to Hospitalist Routine Comment: Consulting Provider: [facility] Hospitalists Reason For Exam: admission physical Attending physician on discharge: Sugar Frias DS: Diagnosis Discharge Diagnosis (1) Other bipolar disorder: Status: Acute (2) Posttraumatic stress disorder: Status: Acute (3) Type 1 diabetes mellitus with hyperglycemia: Status: Acute DS: Medications Discharge Medications Home Medications: Home Medications ?Medication ?Instructions ?Recorded ?Confirmed atorvastatin 40 mg tablet 40 mg PO DAILY 05/15/25 05/15/25 benztropine 1 mg tablet 1 mg PO DAILY 05/15/25 05/15/25 clonidine HCl 0.1 mg tablet 0.1 mg PO TID 05/15/25 05/15/25 gabapentin 100 mg capsule 100 mg PO DAILY 05/15/25 05/15/25 lamotrigine 100 mg tablet 100 mg PO DAILY 05/15/25 05/15/25 lamotrigine 100 mg tablet 200 mg PO BEDTIME 05/15/25 05/15/25 latanoprost 0.005 % eye drops 1 drp ophthalmic (eye) BEDTIME 05/15/25 05/15/25 lorazepam 0.5 mg tablet 0.5 mg PO DAILY 05/15/25 05/15/25 melatonin 5 mg tablet 5 mg PO BEDTIME 05/15/25 05/15/25 metformin 500 mg tablet 500 mg PO BID 05/15/25 05/15/25 prazosin 2 mg capsule 2 mg PO BEDTIME 05/15/25 05/15/25 risperidone 1 mg tablet 1 mg PO BID 05/15/25 05/15/25 sertraline 100 mg tablet 100 mg PO BID 05/15/25 05/15/25 sumatriptan 5 mg/actuation nasal 5 mg intranasal DIRECTED PRN 05/15/25 05/15/25 spray Migraine Headache Mental Status Exam Mental Status Exam Narrative: Patient had two seizure episodes, Was assessed by hospitalist and discharged to medical floor [place] [address] for further workup. Data Data Completed and Pending Completed studies during hospitalization [Text1]: 05/15/25 05/15/25 05/15/25 07:49 07:57 11:35 WBC RBC Hgb Hct MCV MCH MCHC RDW Plt Count MPV Absolute Nucleated RBC Nucleated RBC % (auto) Sodium Potassium Chloride Carbon Dioxide Anion Gap BUN Creatinine 1.12 Estim Creat Clear Calc 59.0 Estimated GFR 50 POC Glucose 223 H 178 H Random Glucose Estimat Average Glucose Hemoglobin A1c % Lactic Acid Lactic Acid F/U @ 2Hr Calcium Total Bilirubin AST ALT Alkaline Phosphatase Total Creatine Kinase Total Protein Albumin Triglycerides Cholesterol LDL Cholesterol, Calc HDL Cholesterol Vitamin B12 Folate [facility] 05/15/25 05/15/25 05/16/25 16:29 21:16 08:01 WBC RBC Hgb Hct MCV MCH MCHC RDW Plt Count MPV Absolute Nucleated RBC Nucleated RBC % (auto) Sodium Potassium Chloride Carbon Dioxide Anion Gap BUN Creatinine Estim Creat Clear Calc Estimated GFR POC Glucose 147 H 201 H 167 H Random Glucose Estimat Average Glucose Hemoglobin A1c % Lactic Acid Lactic Acid F/U @ 2Hr Calcium Total Bilirubin AST ALT Alkaline Phosphatase Total Creatine Kinase Total Protein Albumin Triglycerides Cholesterol LDL Cholesterol, Calc HDL Cholesterol Vitamin B12 Folate [facility] 05/16/25 05/16/25 05/16/25 08:09 09:10 09:28 WBC 6.5 RBC 4.55 Hgb 13.7 Hct 42.1 MCV 92.5 MCH 30.1 MCHC 32.5 RDW 13.2 Plt Count 246 MPV 9.2 L Absolute Nucleated RBC 0.000 Nucleated RBC % (auto) 0.0 Sodium 142 Potassium 4.7 Chloride 103 Carbon Dioxide 27 Anion Gap 17 BUN 22 H Creatinine 1.20 Estim Creat Clear Calc 55.1 Estimated GFR 46 POC Glucose 202 H Random Glucose 148 H Estimat Average Glucose 148 Hemoglobin A1c % 6.8 H Lactic Acid 3.3 H* Lactic Acid F/U @ 2Hr Calcium 9.7 Total Bilirubin 0.3 AST 23 ALT 25 Alkaline Phosphatase 185 H Total Creatine Kinase 125 Total Protein 6.8 Albumin 4.4 Triglycerides 189 H Cholesterol 282 H LDL Cholesterol, Calc 194 H HDL Cholesterol 51 Vitamin B12 375 Folate 4.1 TSH 2.40 05/16/25 05/16/25 05/16/25 11:44 11:46 16:49 WBC RBC Hgb Hct MCV MCH MCHC RDW Plt Count MPV Absolute Nucleated RBC Nucleated RBC % (auto) Sodium Potassium Chloride Carbon Dioxide Anion Gap BUN Creatinine Estim Creat Clear Calc Estimated GFR POC Glucose 119 H 158 H Random Glucose Estimat Average Glucose Hemoglobin A1c % Lactic Acid Lactic Acid F/U @ 2Hr 1.5 Calcium Total Bilirubin AST ALT Alkaline Phosphatase Total Creatine Kinase Total Protein Albumin Triglycerides Cholesterol LDL Cholesterol, Calc HDL Cholesterol Vitamin B12 Folate TSH 05/16/25 05/17/25 05/17/25 20:15 07:57 09:13 WBC RBC Hgb Hct MCV MCH MCHC RDW Plt Count MPV Absolute Nucleated RBC Nucleated RBC % (auto) Sodium Potassium Chloride Carbon Dioxide Anion Gap BUN Creatinine Estim Creat Clear Calc Estimated GFR POC Glucose 187 H 185 H 198 H Random Glucose Estimat Average Glucose Hemoglobin A1c % Lactic Acid Lactic Acid F/U @ 2Hr Calcium Total Bilirubin AST ALT Alkaline Phosphatase Total Creatine Kinase Total Protein Albumin Triglycerides Cholesterol LDL Cholesterol, Calc HDL Cholesterol Vitamin B12 Folate TSH DS: Summary Hospital Course Hospital Course: HPI: Ms. Rosas is a 59 yo F with h/o bipolar I d/o, PTSD, anxiety, type I DM (uses insulin pump at home), functional neuro d/o, h/o falls 2/2 weak knees and migraines who was BIBA to the [facility] ED due to SI with a plan. She was transferred to [facility] M3 for tx of depression and SI. Will keep bipolar dx for now but presentation could be more c/w PTSD, ADHD + MDD. Will assess further next week and try to obtain collateral from her outpatient provider. Pt denies current plan to harm herself on the unit. Her insulin pump was removed and her extension service agent provided instructions for her insulin regimen. Hospital course: 05/16/25: Per Hospitalist note regarding event that happened this morning Rapid response called for pt who had an episode of unresponsiveness while in the common area. Vital signs were stable BP mildly elevated at 150 2/69, heart rate 92, satting at 98% on RA. POC 2 O2. Patient's soon revived without any apparent postictal state. 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 Will obtain EKG and check lactic acid, CPK, CBC, and orthostatics. Continue lamotrigine. Currently no indication to bring pt to the medical floor. Will follow up with lab results . CBC unremarkable, but lactic acid elevated at 3.3, likely in the setting of pseudo-seizure. Acute lactic acidosis resolved to 1.5 after 1L IVF. CPK WNL. Pt was seen and evaluated where she was resting comfortably in bed and had no acute medical complaints. Pt likely experienced pseudo-seizure, and would benefit most from continued psychiatric care on M3 Patient is knowledgeable about pseudoseizures episode that happened this morning. Reported that she was feeling so anxious this morning as a little boy who was banging, kicking noise, and came in to her room trying to do something with the IV pole. At first this provider thing is was one of the peers on the unit got irritable agitated this morning that scared her. However, it is reports by her that boy is not a real person. Patient experience hallucination, and reported that she also saw the same little boy when her about 7-8years ago. Denies pain. Denies SI/SIB/HI but report AVH. Very pleasant, and cooperative upon approach. Patient was placed on 1-1 during the IV running. Currently on 5 minute checks for safety. 05/17/25: Per nursing note this morning Patient was seen around the unit walking to put her tray back after eating breakfast at 09:07 Am today, called the nurse to explained how sad she is, his kids did not care about her anymore and she wants to kill herself but did not have a plan yet , while talking to the nurse, she said I am not feeling good and hold the nurse , fell on the floor. Patient started seizing at 09:09 AM, stopped at 09:11, restarted again at 09:13 to 09:14. Rapid response was called at that time, blood sugar was 198, B/P 181/64, Pls:84, O2: 96. After evaluation of the rapid response team, 5 mg Valium IM was given and patient was transferred to the medical floor for better management and follow up . Patient was discharged to [place] [address] before this provider started the day. Therefore, not able to assess patient. Patient to continues taking medication as prescribed. Plan: Admitted to [place] [address] for better managemetn and FLU regarding seizure episodes. Should patient continue with home meds. Lamotrigine 100 mg qam/200 mg qhs lorazepam 0.5 mg qd melatonin 5 mg qhs prazosin 2 mg qhs risperidone 1 mg bid sertraline 100 mg bid (unclear why it's rx'd bid) Medical admission H&P completed by hospitalist and reviewed by t/w. Input appreciated Type 1 diabetes with diabetic nephropathy-3a Previously were an insulin pump Orders for 14 units of Lantus, 3 units of preprandial insulin with a sliding scale. Continue metformin [employer] is Dr. 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 Patient was discharged to [place] [address]. ) Status at Discharge Cognitive/behavioral status at discharge: Patient was discharged to [place] [address] for medical workup regarding seizure episodes that has been happened yesterday and today. Functional status at discharge: independent ambulation Overall status at discharge: patient is not back to baseline Time Spent with Patient Time attestation: Total time managing care of this patient today ____ minutes. Time spent: Greater than 30 minutes Discharge Plan Discharge Anticipated Discharge Date/Time: 05/17/25 10:09 Patient Disposition: Critical Access Hospital Hospital Discharge Diagnosis: Diabetes I, PTSD, bipolar Referrals: Physician,Unknown J [Primary Care Provider, Medical] - 1 Week Discharge Medications: Continued latanoprost 0.005 % drops 1 drp ophthalmic (eye) BEDTIME Rx Instructions: 1 DROP PER EYE AT HS. atorvastatin 40 mg tablet 40 mg PO DAILY Rx Instructions: Take 40 mg by mouth daily metformin 500 mg tablet 500 mg PO BID clonidine HCl 0.1 mg tablet 0.1 mg PO TID sertraline 100 mg tablet 100 mg PO BID lorazepam 0.5 mg tablet 0.5 mg PO DAILY benztropine 1 mg tablet 1 mg PO DAILY gabapentin 100 mg capsule 100 mg PO DAILY risperidone 1 mg tablet 1 mg PO BID lamotrigine 100 mg tablet 100 mg PO DAILY prazosin 2 mg capsule 2 mg PO BEDTIME melatonin 5 mg tablet 5 mg PO BEDTIME sumatriptan 5 mg/actuation spray,non-aerosol 5 mg INTRANASAL DIRECTED PRN (Reason: Migraine Headache) Rx Instructions: 1 spray (5 mg total) into each nostril daily as needed for migraine. lamotrigine 100 mg Tablet 200 mg PO BEDTIME Discharge Orders: Discharge Order (Routine); Ordered 05/17/25 Ordered By: Baljit Parkinosn Activity on Discharge: As tolerated Stand Alone Forms: Patient Portal Discharge page, Community Support Print Language: Czech Care Plan Goals: Patient admitted to medical floor for further work up due to seizure. Health Concerns: Patient admitted to medical floor for further work up due to seizure. Plan of Treatment: Follow up with your PCP, psychiatric provider and other outpatient providers regarding above concerns Take medications as prescribed Assessment: Patient admitted to medical floor for further work up due to seizure. Discharge Date/Time: 05/17/25 09:40
== END 2025-05-17 09:40 | disposition short-term general hospital (02) | DRG 885 ==
PROVIDERS: Social Worker; Student in an Organized Health Care Education/Training Program; Admitting Provider Psychiatry & Neurology Psychiatry; Visit Provider Psychiatry & Neurology Psychiatry
DX: F31.9 Bipolar disorder, unspecified (principal); E87.21 Acute metabolic acidosis; E10.65 Type 1 diabetes mellitus with hyperglycemia; F43.10 Post-traumatic stress disorder, unspecified; R56.9 Unspecified convulsions; E78.5 Hyperlipidemia, unspecified; G47.33 Obstructive sleep apnea (adult) (pediatric); R55 Syncope and collapse; N18.31 Chronic kidney disease, stage 3a; E10.22 Type 1 diabetes mellitus with diabetic chronic kidney disease; H40.9 Unspecified glaucoma; Z79.84 Long term (current) use of oral hypoglycemic drugs; Z79.899 Other long term (current) drug therapy
CPT/HCPCS: 36415; 80053; 80061; 82550; 82565; 82607; 82746; 82947; 83036; 83605; 84443; 85027; J3360; J7120

== ENCOUNTER → 2025-05-15 01:13 | Outpatient (BNV) | payer OTHER, SELFPAY | PROVIDERS: Admitting Provider Psychiatry & Neurology Psychiatry; Visit Provider Psychiatry & Neurology Psychiatry | DX: F31.89 Other bipolar disorder (principal); F43.10 Post-traumatic stress disorder, unspecified; E10.65 Type 1 diabetes mellitus with hyperglycemia | CPT/HCPCS: 99232 ==

== ENCOUNTER → 2025-05-15 01:13 | Outpatient (BNV) | payer OTHER, SELFPAY | PROVIDERS: Admitting Provider Psychiatry & Neurology Psychiatry; Visit Provider Nurse Practitioner Family | DX: E10.9 Type 1 diabetes mellitus without complications (principal) | CPT/HCPCS: 99221; 99499 ==

== ENCOUNTER 2025-05-17 10:48 | Inpatient (IN) | payer OTHER, SELFPAY ==
--- OUTSIDE RECORDS SUMMARY | 2025-04-23 12:20 | XMS_ITS | Encounter Summary ---
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 Role Phone Porfirio Nicolas Md Primary Care Provider [phone] Reason for Referral * Specialty (Priority - w/in a Month) - Closed Specialty Diagnoses / Procedures Referred By Brynn hinton Referred To Contact Internal Medicine Diagnoses Smoker Porfirio Nicolas MD [address] [place] [address] Phone: tel: fax: Referral ID Status Reason Start Date Expiration Date V isits Requested Visits Authorized Closed Service not locally available 04/23/2025 04/23/2026 3 3 Scheduling Instructions This referral has been pre-approved for services outside of [facility] as there is no internal expertise. * Imaging (Non Urgent - w/in 3 months) - Auth Not Needed Specialty Diagnoses / Procedures Referred By Brynn hinton Referred To Contact Diagnoses Encounter for screening mammogram for malignant neoplasm of breast Procedures MAMMOGRAM SCREENING BILAT BRIAN BUNDLE Porfirio Nicolas MD [address] [place] [id number] Phone: tel: fax: Unspecified Location Referral ID Status Reason Start Date Expiration Date Visits Requested Visits Authorized Auth Not Needed Service not locally available 10/21/2026 1 1 Reason for Visit * Reason Comments New Patient Complete Physical Exam Wears eye glasses for near & farSees eye doctor yearly - [facility] [place] Encounter Details Date Type Department Care Team (Latest Contact Info) Description 04/23/2025 1:20 PM EDT Office Visit [place] [facility] [address] [place] [phone] Porfirio Nicolas MD [address] [place] [phone] Annual physical exam (Primary Dx); Colon cancer screening; Encounter for screening mammogram for malignant neoplasm of breast; Need for COVID-19 vaccine; Need for influenza vaccination; Need for shingles vaccine; Smoker; Type 1 diabetes mellitus with hyperglycemia ([facility]); Seizure disorder ([facility]); Class 2 severe obesity due to excess calories with serious comorbidity and body mass index (BMI) of 35.0 to 35.9 in adult; Bipolar disorder, in partial remission, most recent episode depressed ([facility]); Cervical cancer screening; Bilateral hearing loss, unspecified hearing loss type Social History Tobacco Use Types Packs/Day Years Used Date Smoking Tobacco: Every Day Cigarettes 0.5 5 Passive Smoke Exposure: Never Smokeless Tobacco: Never Alcohol Use Standard Drinks/Week Comments Yes 1 (1 standard drink = 0.6 oz pur e alcohol) One glass of wine at [facility] [place] Vital Sign Answer Date Recorded Worried About Running Out of Food in the Last Ye ar Not on file 04/23/2025 Within the past 12 months, t he food you bought just didn't last and you didn't have money to get more. Never true 04/23/2025 PRAPARE - Transportation Answer Date Re corded In the past 12 months, has l ack of transportation kept you from medical appointments or from getting medications? No 04/23/2025 Lack of Transportation (Non-Medical) Not on file 04/23/2025 Depression Answer Date Recorded Last PHQ-2 2 04/23/2025 Last PHQ-9 10 04/23/2025 Suicidal Ideation/Self Harm Risk 0 - not at all 04/23/2025 Housing Stability Answer Date Recorded What is your housing situation today? Has nancy coon 04/23/2025 Are you worried about losing your housing? No 04/23/[address] you li ve. Do you have problem with any of the following? (Choose all that apply) None of the Above Request Assistance Answer Date Recorded Would you like to discuss an y of the needs you identified in this survey with a member of your care team? Not applicable 04/23/2025 Urgent Assistance Needed Not on file Social Isolation Answer Date Recorded How often do you feel lonely or isolated from th ose around you? Rarely 04/23/2025 Family Needs Answer Date Recorded In the past year, have you o r any family members that you live with been unable to get resources (utilities such as power, water, or phone service; clothing; childcare; medicine or other healthcare; employment; etc) when they were really needed? No needs 04/23/2025 Other Needs Not on file 04/23/2025 Safety Answer Date Recorded Do you feel physically and e motionally safe where you currently live? Yes 04/23/2025 Self-Management Confidence Answer Date Recorded How confident are you that y ou can control and manage most of your health problems? Please provide numerical response between 0 -10. 0 = Not at all confident, 10= Completely confident. 5 04/23/2025 Comments No Sex and Gender Information Value Date Recorded Sex Assigned at Female 01/15/2025 1:21 PM EDT Legal Sex Female 1:18 PM EDT Gender Identity Female 01/15/2025 1:21 PM EDT Sexual Orientation A Sexual 04/23/2025 7: 42 AM EDT documented as of this encounter Last Filed Vital Signs Vital Sign Reading Time Taken Comments Blood Pressure 128/72 04/23/2025 12:56 PM EDT Pulse 62 04/23/2025 12:56 PM EDT Temperature - - Respiratory Rate - - Oxygen Saturation 97% 04/23/2025 12:56 PM EDT Inhaled Oxygen Concentration - - Weight 94.8 kg (209 lb) 04/23/2025 12:56 PM EDT Height 163.8 cm (5' 4.5 ) 04/23/2025 12:56 PM ED T Body Mass Index 35.32 04/23/2025 12:56 PM EDT documented in this encounter Functional Status * BP Answer Date of Assessment Author 124/88 04/28/2025 10:02 AM EDT Nascimen to, Airam * Temp Answer Date of Assessment Author 97.1 04/28/2025 10:02 AM EDT Nascimen to, Airam * Temp src Answer Date of Assessment Author Temporal Artery 04/28/2025 10:02 AM EDT Nascimen to, Airam * Pulse Answer Date of Assessment Author 67 04/28/2025 10:02 AM EDT Nascimen to, Airam * Resp Answer Date of Assessment Author 16 04/28/2025 10:02 AM EDT Nascimen to, Airam * SpO2 Answer Date of Assessment Author 97 04/28/2025 10:02 AM EDT Nascimen to, Airam documented as of this encounter Ordered Prescriptions Prescription Sig Dispense Quantity Refills Last Filled Start Date End Date nicotine 14 mg/24 hr Patch 24 hrIndications:Smoke r Apply 1 patch daily for 6 weeks; then step down to 7mg patch 42 patch 5 SHINGRIX (PF) 50 MCG/0.5 ML INTRAMUSCULAR SUSPENSION (VARICELLA-ZOSTER GE/AS01B/PF) Inject 0.5 mL intramuscularly once for 1 dose today; second dose to be given in 2-6 months 1 each 1 5 04/23/20 25 varicella-zoster gE-AS01B, PF, (SHINGRIX, PF,) 50 mcg/0.5 mL Suspension for Reconstitution Inject 0.5 mL intramuscularly once for 1 dose today; second dose to be given in 2-6 months 1 each 1 5 04/23/20 25 documented in this encounter Progress Notes * Porfirio Nicolas MD - 04/23/2025 1:20 PM EDT AI Scribe Use Patient Consent: Patient CONSENTS to be recorded by the [employer] system. Subjective Lisa Rosas is a 59 year old patient who presents for a periodic health review. History of Present Illness The patient is a female who presents for a checkup. Physical Examination and Blood Work - Her last physical examination and blood work were nearly a year ago at [facility]. - She has not undergone a Pap smear since her hysterectomy in 2010 due to ovarian cancer. - Both ovaries and the uterus were removed, leaving only the cervix intact. Blood Sugar Levels - She experiences fluctuations in her blood sugar levels, generally stable. - She uses a Dexcom monitor and is under regular care of an rehabilitation psychologist. - She is on an insulin pump with lispro for bolus based on carbohydrate counting at meals and takesmetformin twice daily. Seizures - She has been seizure-free for 4 months and continues her medication regimen without recent changes. - She is on lamotrigine 200 mg in the evening and 100 mg in the morning. Transient Ischemic Attack (TIA) - She experienced a transient ischemic attack (TIA) a few months ago, resulting in left-sided weakness for several days. - She was hospitalized and then transferred to a rehabilitation facility, where she made a good recovery. - She has an appointment with her neurologist scheduled for 07/2025. - Her TIA was likely due to hypertension. - She does not take baby aspirin daily. Hearing Loss - She has hearing loss in her left ear due to a pyrotechnics incident causing a ruptured eardrum. - Despite surgical intervention, she continues to experience hearing loss. - She also has some hearing loss in her right ear and uses hearing aids, although not consistently due to a lack of batteries. - She is scheduled to see an high school computer science teacher soon. Glaucoma - She has glaucoma and undergoes annual eye examinations. - She does not believe she has diabetic retinopathy. - Her ophthalmologists are Dr. Ramirez and another physician whose name she cannot recall. Bleeding Ulcers - She has a history of bleeding ulcers, surgically treated in 2019. - She was taking Motrin at that time and believes another medication given in the hospital may havecaused the ulcer to bleed. - She is unsure if she was treated for H. pylori. Anxiety Attacks - She takes clonidine as needed for anxiety attacks. - She no longer takes lorazepam. - She is on prazosin 2 mg nightly and risperidone 1 mg, which is being gradually reduced due to tardive dyskinesia. Migraines - Her migraines have improved since starting topiramate 25 mg once daily. - She takes sumatriptan as needed. Sinus Infection - She recently recovered from a sinus infection. Alcohol: Drinks 1 glass of wine on [place]. Tobacco: Smokes about half a pack of cigarettes a day. Recreational Drugs: No use of marijuana or other drugs. PAST SURGICAL HISTORY: - Hysterectomy in 2010 due to ovarian cancer - Surgical intervention for ruptured eardrum - Surgical treatment for bleeding ulcers in 2019 FAMILY HISTORY - Both parents had heart attacks and underwent bypass surgery The problem list, medication list, social history and family history were reviewed and updated as appropriate. Objective BP 128/72 (Site: Right Arm, Positioning: Sitting, Cuff Size: Regular) Pulse 62 Ht 5' 4.5 (1.638 m) Wt 209 lb (94.8 kg) SpO2 97% BMI 35.32 kg/m?? Physical Exam Ears: Left ear with hearing loss, history of tympanic membrane rupture and repair. Right ear with partial hearing loss, uses hearing aids. Mouth/Throat: Oropharynx examined, no abnormalities. Respiratory: Clear to auscultation, no wheezing, rales, or rhonchi. Cardiovascular: Regular rate and rhythm, no murmurs, rubs, or gallops. Gastrointestinal: Soft, no tenderness, distention, or masses. Results Assessment & Plan Annual physical exam Reviewed healthy diet and exercise recommendations. Colon cancer screening Orders: COLOGUARD; Future Encounter for screening mammogram for malignant neoplasm of breast Orders: MAMMOGRAM SCREENING BILAT BRIAN BUNDLE Need for COVID-19 vaccine Orders: COVID-19 (PFIZER) VACCINE, 12YRS+, 30MCG/0.3ML ([id number]) Need for influenza vaccination Orders: INFLUENZA VACCINE, 36MOS+, SPLIT VIRUS, SINGLE DOSE SYRINGE (AFLURIA) Need for shingles vaccine Smoker Orders: nicotine 14 mg/24 hr Patch 24 hr; Apply 1 patch daily for 6 weeks; then step down to 7mg patch [facility]FERRAL TO [facility] SMOKING CESSATION PROGRAM Type 1 diabetes mellitus with hyperglycemia [place]) Seizure disorder [place]) Class 2 severe obesity due to excess calories with serious comorbidity and body mass index (BMI) of35.0 to 35.9 in adult Bipolar disorder, in partial remission, most recent episode depressed ([facility]) Cervical cancer screening Orders: PAP VIAL TESTING; Future Bilateral hearing loss, unspecified hearing loss type 1. Health maintenance: Pap smear was done today. The patient is advised to schedule a mammogram. Shingles, influenza, and COVID-19 vaccines were administered today. A Cologuard test was ordered as an alternative to colonoscopy. 2. Diabetes Mellitus: Blood sugar levels are generally steady with occasional highs and lows. The patient uses a Dexcom monitor and an insulin pump with lispro. The current regimen should be continued, and follow-up with the rehabilitation psychologist is recommended. 3. Seizure Disorder: There have been no changes since the last seizure 4 months ago. The patient is on lamotrigine 200 mg in the evenings and 100 mg in the mornings. 4. Transient Ischemic Attack (TIA): The patient experienced a TIA a few months ago, which was managed with hospitalization and rehab. There is an upcoming neurologist appointment in July 2025. The patient is advised to start mkbb-sxg-[id number] baby aspirin daily unless contraindicated due to a history of bleeding ulcers. 5. Hearing Loss: The patient has complete hearing loss in the left ear and partial hearing loss in the right ear. This is managed with hearing aids, and the patient is due to see an high school computer science teacher soon. 6. Glaucoma: The patient follows up with the eye doctor annually. No diabetic retinopathy has been reported. 7. History of Bleeding Ulcers: The patient had a bleeding ulcer in 2018, which was treated with surgery. It is important to monitor for signs of gastrointestinal bleeding, especially if starting baby aspirin. 8. Anxiety: The patient takes clonidine as needed for anxiety attacks and is being weaned off risperidone due to tardive dyskinesia. 9. Migraines: Migraines have improved with topiramate 25 mg once a day. The patient should continue the medication and use sumatriptan as needed for acute attacks. 10. Smoking Cessation: The patient smokes about half a pack a day. It is recommended to use a 14 mg nicotine patch. The patient is advised to pick a quit date and start using the patch on that day. FOLLOW UP: Next Family Practice Visit with PORFIRIO NICOLAS MD: 04/28/2026 at 1:00 PM documented in this encounter Nursing Notes * Flor Chapa LPN - 04/23/2025 1:20 PM EDT Patient Name: Lisa Rosas : 1965 Verified by Flor Chapa LPN 04/23/2025 2:27 PM See imm record to view details of Administration. Reviewed indications and side effects with patient, VIS given documented in this encounter Miscellaneous Notes * Assessment & Plan Note - Porfirio Nicolsa MD - 04/23/2025 1:20 PM EDTAssociated Problem(s): Smoker Orders: nicotine 14 mg/24 hr Patch 24 hr; Apply 1 patch daily for 6 weeks; then step down to 7mg patch REFERRAL TO [facility] SMOKING CESSATION PROGRAM * Assessment & Plan Note - Porfirio Nicolas MD - 04/23/2025 1:20 PM EDTAssociated Problem(s): Type 1 diabetes mellitus with hyperglycemia ([facility]) * Assessment & Plan Note - Porfirio Nicolas MD - 04/23/2025 1:20 PM EDTAssociated Problem(s): Seizure disorder ([facility]) * Assessment & Plan Note - Porfirio Nicolas MD - 04/23/2025 1:20 PM EDTAssociated Problem(s): Class 2 severe obesity due to excess calories with serious comorbidity and body mass index (BMI) of 35.0 to 35.9 in adult * Assessment & Plan Note - Porfirio Nicolas MD - 04/23/2025 1:20 PM EDTAssociated Problem(s): Bipolar disorder, in partial remission, most recent episode depressed ([facility]) * Assessment & Plan Note - Porfirio Nicolas MD - 04/23/2025 1:20 PM EDTAssociated Problem(s): Bilateral hearing loss documented in this encounter Plan of Treatment Upcoming Encounters Date Type Department Care Team (Late st Contact Info) Description 04/28/2026 1:00 PM EDT Office Visit [facility] [address] [place] [phone] Porfirio Nicolas MD [address] [place] [phone] Scheduled Orders Name Type Priority Associated Diagnoses Orde r Schedule COLOGUARD LAB Routine Colon cancer screening Expected: 04/23/2025, Expires: 04/23/2026 MAMMOGRAM SCREENING BILAT BRIAN BUNDLE IMAGING Routine Encounter for screening mammogram for malignant neoplasm of breast Ordered: 04/23/2025 Scheduled Referrals Name Type Priority Associated Diagnoses Orde r Schedule REFERRAL TO [place] SMOKING CESSATION PROGRAM REFERRAL/FUTURE Routine Smoker Ordered: 04/23/2025 documented as of this encounter Results * PAP VIAL TESTING (04/23/2025 5:10 PM EDT) Interpretation NEGATIVE FOR INTRAEPITHELIAL LESION OR MALIGNANCY 04/29/2025 9:48 AM EDT [facility] DEPARTMENT OF PATHOLOGY AND LAB MEDICINE at 0948 EDT Specimen Adequacy Satisfactory for evaluation. Transformation zone component absent. 04/29/2025 9:48 AM EDT [facility] DEPARTMENT OF PATHOLOGY AND LAB MEDICINE HPV High Risk Negative 04/29/2025 9:48 AM EDT [facility] DEPARTMENT OF PATHOLOGY AND LAB MEDICINE Source Cervical 04/29/2025 9:48 AM EDT [facility] DEPARTMENT OF PATHOLOGY AND LAB MEDICINE Macroscopic Description Vial contains 20cc of colorless fluid. 04/29/2025 9:48 AM EDT [facility] DEPARTMENT OF PATHOLOGY AND LAB MEDICINE Additional Information For further information about terminology found in your pathology report, please visit the My Pathology Report website (not compatible with Internet Explorer). If after speaking to your provider you would like more information about your pathology result, you may message the pathology department directly. 04/29/2025 9:48 AM EDT [facility] DEPARTMENT OF PATHOLOGY AND LAB MEDICINE Disclaimer The Pap test is not a diagnostic procedure and should not be used as the sole means to detect cervical cancer. It is only a screening procedure to aid in the detection of cervical cancer and its precursors. Both false negative and false positive results have been experienced. An automated screening device was used to aid in the review of this sample. 04/29/2025 9:48 AM EDT [facility] DEPARTMENT OF PATHOLOGY AND LAB MEDICINE Specimen Information Gynecologic Cytology Case: [id number] Collected: 04/23/2025 5:10 PM Received: 04/23/2025 9:40 PM Authorizing Provider: PORFIRIO NICOLAS MD Ordering Location: [facility] Result interpreted by: JALYN JACKSON Result signed on: 04/29/2025 9:48 AM 04/29/2025 9:48 AM EDT [facility] DEPARTMENT OF PATHOLOGY AND LAB MEDICINE PAP Vial (Cervical) Non-blood collection / Unknown 04/23/2025 5:10 PM EDT 04/23/2025 5:10 PM EDT us Porfirio Nicolas LAB PATHOLOGY ORDERABLES Final R esult [facility] DEPARTMENT OF PATHOLOGY AND LAB MEDICINE [address] [place] [phone] documented in this encounter Visit Diagnoses Diagnosis Annual physical exam- Primary Routine general medical examination at a health care facility Colon cancer screening Special screening for malignant neoplasms, colon Encounter for screening mammogram for malignant neoplasm of breast Other screening mammogram Need for COVID-19 vaccine Need for influenza vaccination Need for prophylactic vaccination and inoculation against influenza Need for shingles vaccine Need for prophylactic vaccination and inoculation against other viral diseases Smoker Tobacco use disorder Type 1 diabetes mellitus with hyperglycemia ([facility]) Type I (juvenile type) diabetes mellitus without mention of complication, not stated as uncontrolled Seizure disorder ([facility]) Unspecified epilepsy without mention of intractable epilepsy Class 2 severe obesity due to excess calories with serious comorbidity and body mass index (BMI) of 35.0 to 35.9 in adult Bipolar disorder, in partial remission, most recent episode depressed ([facility]) Bipolar I disorder, most recent episode (or current) depressed, in partial or unspecified remission Cervical cancer screening Screening for malignant neoplasm of the cervix Bilateral hearing loss, unspecified hearing loss type documented in this encounter Discontinued Medications Medication Sig Discontinue Reason Start Date End Da te FREESTYLE LITE STRIPS Strip 4 strips by Miscellaneous_ route daily Medication No Longer Necessary 04/23/2025 insulin glargine,hum.rec.anlog (INSULIN GLARGINE SUBQ) Administer 100 Units/mL subcutaneously at bedtime Inject 22units under the skin nightly Change to Alternate Therapy 04/23/2025 INSULIN LISPRO SUBQ Administer 0-12 Units subcutaneously Inject 0-12 Units under the skin as needed Per Sliding scale: 70-150=0units 151-200=2units 201-250=4units 251-300=6units 301-350=8units(call MD) 351-400=10units(call MD) >400=12units(call MD) Dose Adjustment 04/23/2025 lamoTRIgine 25 mg tablet Take 25 mg by mouth Dose Adjustment 04/23/2025 LORazepam 1 mg tablet 1 mg Medication No Longer Necessary 05/05/2024 04/23/2025 prazosin 1 mg capsule Take 2 mg by mouth Dose Adjustment 025 risperiDONE 1 mg tablet Take 1 mg by mouth Dose Adjustment 08/05/2024 04/23/2025 risperiDONE 0.5 mg tablet 0.5 mg Dose Adjustment 05/05/2024 04/23/2025 Vit B Comp & C-Vit E-FA-Kristen-Zn 0.4 mg tablet Take 1 tablet by mouth daily Medication No Longer Necessary 04/23/2025 varicella-zoster gE-AS01B, PF, (SHINGRIX, PF,) 50 mcg/0.5 mL Suspension for Reconstitution Inject 0.5 mL intramuscularly once for 1 dose today; second dose to be given in 2-6 months 04/23/2025 04/23/2025 documented as of this encounter Historical Medications * This list may reflect changes made after this encounter. multivit-min/jodi us fumarate (MULTI VITAMIN ORAL) Take by mouth daily added in this encounter Orders IMMUNIZATIONS/INJECTION Count Last Ordered Date First Ordered Date COVID-19 (PFIZER) VACCINE, 1 2YRS+, 30MCG/0.3ML ([id number]) 1 04/23/2025 INFLUENZA VACCINE, 36MOS+, S PLIT VIRUS, SINGLE DOSE SYRINGE (AFLURIA) 1 04/23/2025 documented in this encounter Care Teams Bead Worker Sewing Relationship Specialty Start Date End Date Porfirio Nicolas MD [address] [place] [phone] PCP - General Internal Medicine 03/31/25 documented as of this encounter
--- OUTSIDE RECORDS SUMMARY | 2025-05-13 13:40 | XMS_ITS | Encounter Summary ---
Author Organization [place] Dominick Geovany [facility] Address [address] [place] [address] Care Team Providers Care Early Childhood Services Coordinator Name Role Phone Amy Mills MD Unavailable [phone] Porfirio Carrillo MD Primary Care Provider [phone] Reason for Visit * Reason Comments Behavioral Health * Auth/Cert (Routine) Specialty Diagnoses / Procedures Referred By Contac t Referred To Contact Diagnoses Encounter for behavioral health screening Procedures ED obsv Referral ID Status Reason Start Date Expiration Date Visits Re quested Visits Authorized [id number] 1 1 Encounter Details Date Type Department Care Team (Late st Contact Info) Description 05/13/2025 1:40 PM EST - 05/14/2025 9:47 PM EST Hospital Encounter [facility] Emergency Department [address] [place] [phone] Shiraz Valentine MD [address] [place] [address] Linette Laughlin MD [address] [place] [address] [place] [address] Rayshawn Melton MD [address] [place] [address] [phone] David Lambert MD [address] [place] [phone] Serg Murphy MD [address] [place] [phone] Severe episode of recurrent major depressive disorder, without psychotic features ([facility] (Primary Dx); Depression, unspecified depression type Discharge [...] any time in the past 12 m [facility], were you homeless or living in a penitentiary (including now)? No 05/13/2025 [facility] Utilities Answer Date Recorded In the past [...] PM EST Patient: Lisa Rosas Accepting Facility: [facility] Accepting Facility Address: [address] [place] [address] Accepting MD: Dr. Nam Arrival Time: tonight [...] I have reached out to the patient's email operations manager MD Hollis of [facility]. She is advising 14 units Lantus before bed, 3 units Humalog with every meal as well as a regular sliding scale. These orders were placed and the patient is currently being reviewed by [facility]. EKG pending. And out [...] Yes (Clinyoanan spoke with Raul Larkin from [facility] ([phone])) Medical/Psychiatric/Substance/Social/Family History: Histories from previous consult note [...] mg/dL EKG: No studies were reviewed. C-SSRS: [place] Suicide Severity Rating Scale (C-SSRS) Since Last [...] High Risk (05/14/25 1537 : Radha Schneider) [place] Suicide Severity Rating Scale (C-SSRS) Discharge Screener 1) While you were here in the hospital/program, have you wished you were or wished you could go to sleep and not wake up?: Yes If yes, describe: SI with plan to suicide by copy editor 2) While you were here in the [...] plan of dying by suicide by copy editor. Patient reports she has had a lot [...] Time Spent (min): 60 Case d/w: [facility] Nimesh Aj Signed by: Radha Schneider [...] Date Decline Time Reason If Decline Comment [facility] Accessible 05/13/25 7:37 PM EST [facility] 05/13/25 7:37 PM EST [facility] Accessible 05/13/25 7:38 PM EST [facility] 05/13/25 7:38 PM EST [facility] 05/13/25 7:38 PM EST [facility] 05/13/25 7:38 PM EST [facility] 05/13/25 7:38 PM EST [facility] ([facility]) 05/13/25 7:38 PM [...] so that they can kill her. This filing writer asked about which problem she was thinking [...] medical history of Anxiety, Bipolar 1 disorder ([facility]), Cataract, Depression, Diabetes mellitus ([facility]), Glaucoma, High cholesterol, Migraines, JONATHAN (obstructive sleep apnea), Repeated falls, and Seizure ([facility]). has a past surgical history that includes Interventional radiology procedure (05/07/2019); Appendectomy; Eye surgery; and Hysterectomy. Psychiatric History: History of psychiatric illness?: Yes History of suicidal ideation?: Yes History of non-suicidal self injury?: No History of interpersonal aggression?: No History of past RADHA?: No Treatment History?: No Current Providers?: Yes Provider Type:: sourcing analyst, Therapist sourcing analyst Name:: Bettye Chaudhary ( [facility]) Therapist Name:: Carley ( [facility]) Collateral Contact: No Home Medications: Prescriptions Prior [...] Social History: The patient lives alone in [place], [place] Socioeconomic History Marital status: Employment Status: Data Unavailable Type of Residence: Private residence Children?: Yes Number of Children: 3 Children's Age(s): Adult age. Education: Other (Comment) Legal Issues (*Add to Legal History Navigator): Other (Comment) History: History status: No Personal History: History of trauma/significant [...] 3.2 % Basophil 0.6 % Immature Granulocyte (Elbert, Myelo, Promyelocyte) 1.0 % Absolute Neutrophil Count 4.38 1.68 - 7.99 K/uL Absolute Immature Granulocyte (Elbert, Myelo, Promyelocyte) 0.07 0.00 - 0.09 K/uL [...] so that they can kill her. This filing writer asked about which problem she was thinking [...] Duration: Time Spent (min): 180 Discussed with Outside Sales Inspector: Yes, Outside Sales Inspector Name: Marcelle SISSY Discussed with Medical Team: Yes . Meme WHELAN Signed by: Gosia Gordon [1] (Not in a hospital admission) [2] [3] [4] No family history on file. documented in this encounter ED Notes * Saundra Coreas RN - 05/14/2025 9:42 PM EST Patient given most of her nighttime meds except melatonin and clonidine, Spoke with ALINA Moreno, receiving nurse, @ [facility], advised that patient left ED @ 2135 and received her medications @ 0, also informed of the meds that patient did not receive. Patient's belongings placed on back [facility] to go with patient. Patient understood [...] MAYTE Paez - 05/13/2025 1:40 PM EST [facility] ED Provider Note Arrival [...] 3.2 % Basophil 0.6 % Immature Granulocyte (Elbert, Myelo, Promyelocyte) 1.0 % Absolute Neutrophil Count 4.38 1.68 - 7.99 K/uL Absolute Immature Granulocyte (Elbert, Myelo, Promyelocyte) 0.07 0.00 - 0.09 K/uL [...] Procedure Abnormality Status --------- ------ CBC and Differential[[id number]] Abnormal Final result Please view results for these tests on the individual orders. RAINBOW DRAW Narrative: The following orders were created for panel order Nixon Draw. Procedure Abnormality Status --------- ------ Blue Top[[id number]] In process Gold Top[[id number]] In process Please view results for these [...] 7:28 PM Patient has been accepted at [facility] excepted by Dr. Nam, will be [...] IP bedsearch. Due to insulin pump, [facility] is unable to accept. [facility] does not currently have beds available. Pt is under review at [facility], pending Utox. * Attestation Note - Shiraz Valentine MD - 05/13/2025 1:40 PM EST [facility] ED Attestation Note I [...] Heart Rate 74 BPM EKG BUR MUSE OK Interval 195 ms EKG B[facility] MUSE QRSD Interval 126 ms EKG BUR MUSE QT Interval 416 ms EKG B[facility] MUSE QTC Interval 462 ms EKG B[facility] MUSE P Sterling 19 degrees EKG BUR MUSE R Sterling -22 degrees EKG BUR MUSE T Wave Sterling 13 degrees EKG BUR MUSE 05/14/2025 5:34 [...] on 05/16/2025 9:23:43 PM us Rut Palmer SPORTS MEDICINE MASSEUR ECG ORDERABLES Final Result Performing Organization Address City/[facility]/ZIP Co de Phone Number EKG BUR MUSE [address] [place] [address] * (ABNORMAL) POCT Glucose (05/14/2025 11:46 AM EST) [facility] Signature Glucose, POC 156(H) 75 - 140 mg/dL 05/14/2025 11:48 AM EST [facility] Comment: @Serial [id number]=[id number] @Tab Card Press Operator [id number] Blood 05/14/2025 11:4 6 AM EST 05/14/2025 11:48 AM EST Rayshawn Melton MD POCT ORDERABLES - DEVICE Final Result [facility] [address] [place] [address], * (ABNORMAL) POCT Glucose (05/14/2025 8:36 AM EST) [facility] Glucose, POC 144(H) 75 - 140 mg/dL 05/14/2025 8:38 AM [facility] Comment: @Serial Iqhoxm=[id number] @Tab Card Press Operator [id number] Blood 05/14/2025 8:36 AM EST 05/14/2025 8:38 AM EST us Linette Laughlin MD POCT ORDERABLES - DEVICE Final R esult Performing Organization Address City/[facility]/[place] [address], [place] * (HCG), Urine (05/14/2025 6:00 AM EST) [facility] HCG, Urine Random Negative Negative 05/14/2025 6:15 AM [facility] Urine URINE SPECIMEN / Unknown Collection / Unknown 05/14/2025 6:00 AM EST 05/14/2025 6:03 AM EST us Donald Vargas MD URINE ORDERABLES Final Result Performing Organization Address [facility] [place] [address], [place] * (ABNORMAL) Drug Screen, Urine (05/14/2025 6:00 AM EST) [facility] Amphetamines Screen, Urine Negative Negative 05/14/2025 6:46 AM [facility] Barbiturates Screen, Urine Negative Negative 05/14/2025 6:46 AM [facility] Benzodiazepine Screen, Urine Positive(A) Negative 05/14/2025 6:46 AM [facility] Buprenorphine Screen, Urine Negative Negative 05/14/2025 6:46 AM [facility] Cannabinoids Screen, Urine Negative Negative 05/14/2025 6:46 AM [facility] Cocaine Metabolite Screen, Urine Negative Negative 05/14/2025 6:46 AM [facility] Fentanyl Screen, Urine Negative Negative 05/14/2025 6:46 AM [facility] Methadone Screen, Urine Negative Negative 05/14/2025 6:46 AM [facility] Opiates Screen, Urine Negative Negative 05/14/2025 6:46 AM [facility] Oxycodone Screen, Urine Negative Negative 05/14/2025 6:46 AM [facility] Propoxyphene Screen, Urine Negative Negative 05/14/2025 6:46 AM [facility] Tricyclics Screen Negative Negative 025 6:46 AM [facility] Comment 05/14/2025 6:46 AM [facility] Comment: The cut-off concentration for a [...] URINE ORDERABLES Final Result Performing Organization Address [facility] [place] [address], * (ABNORMAL) POCT Glucose (05/13/2025 6:13 PM EST) Glucose, POC 157(H) 75 - 140 mg/dL 05/13/2025 6:27 PM [facility] Comment: @Serial Cipgzd=[id number] @Tab Card Press Operator [id number] Blood 05/13/2025 6:13 PM EST 05/13/2025 6:27 PM EST Shiraz Valentine MD POCT ORDERABLES - DEVICE Final R esult Performing Organization Address [facility] [place] [address], [place] * Gold Top (05/13/2025 2:26 PM EST) Gold Top Tube Received 05/13/2025 4:01 PM [facility] Blood PERIPHERAL BLOOD SPECIMEN / Unknown Venipuncture / Unknown 05/13/2025 2:26 PM EST 05/13/2025 2:32 PM EST Donald Vargas MD LAB BLOOD ORDERABLES Final Res ult [facility] [address] [place] [address], [place] * Blue Top (05/13/2025 2:26 PM EST) Blue Top Tube Received 05/13/2025 4:01 PM [facility] Blood PERIPHERAL BLOOD SPECIMEN / Unknown Venipuncture / Unknown 05/13/2025 2:26 PM EST 05/13/2025 2:32 PM EST Donald Vargas MD LAB BLOOD ORDERABLES Final Res ult [address] [address], [place] * (ABNORMAL) CBC and Differential (05/13/2025 2:26 PM EST) WBC 6.82 3.90 - 10.80 K/uL 05/13/2025 2:35 PM [facility] RBC 4.49 3.93 - 5.29 M/uL 05/13/2025 2:35 PM [facility] Hemoglobin 13.6 12.0 - 15.2 g/dL 05/13/2025 2:35 PM [facility] Hematocrit 42.9 34.1 - 44.9 % 05/13/2025 2:35 PM [facility] MCH 30.3 25.6 - 32.2 pg 05/13/2025 2:35 PM [facility] MCHC 31.7(L) 32.0 - 36.0 g/dL 05/13/2025 2:35 PM [facility] MCV 96 81 - 96 fL 05/13/2025 2:35 PM [facility] RDW 13.4 11.5 - 14.0 % 05/13/2025 2:35 PM [facility] Platelet Count 291 154 - 369 K/uL 05/13/2025 2:35 PM [facility] Neutrophil 64.3 % 05/13/2025 2:35 PM [facility] Lymphocyte 22.7 % 05/13/2025 2:35 PM [facility] Monocyte 8.2 % 05/13/2025 2:35 PM [facility] Eosinophil 3.2 % 05/13/2025 2:35 PM [facility] Basophil 0.6 % 05/13/2025 2:35 PM [facility] Immature Granulocyte (Elbert, Myelo, Promyelocyte) 1.0 % 05/13/2025 2:35 PM [facility] Absolute Neutrophil Count 4.38 1.68 - 7.99 K/uL 05/13/2025 2:35 PM [facility] Absolute Immature Granulocyte (Elbert, Myelo, Promyelocyte) 0.07 0.00 - 0.09 K/uL 05/13/2025 2:35 PM [facility] Absolute Lymphocyte Count 1.55 0.66 - 4.75 K/uL 05/13/2025 2:35 PM [facility] Absolute Monocyte Count 0.56 0.16 - 1.40 K/uL 05/13/2025 2:35 PM [facility] Absolute Eosinophil Count 0.22 0.00 - 0.60 K/uL 05/13/2025 2:35 PM [facility] Absolute Basophil Count 0.04 0.00 - 0.32 K/uL 05/13/2025 2:35 PM [facility] Blood PERIPHERAL BLOOD SPECIMEN / Unknown Venipuncture / Unknown 05/13/2025 2:26 PM EST 05/13/2025 2:32 PM EST us Donald Vargsa MD LAB BLOOD ORDERABLES Final Res ult Performing Organization Address City/[facility] Co de Phone Number [facility] [address] [place] [address], [place] * (ABNORMAL) Plasma Toxicology Screen (05/13/2025 2:26 PM EST) Acetaminophen Result,Blood <5(L) 10 - 30 ug/mL 05/13/2025 4:07 PM [facility] Alcohol <10 <10 mg/dL 05/13/2025 4:07 PM [facility] Salicylate Level, Blood <1 <30 mg/dL 05/13/2025 4:07 PM [facility] Blood PERIPHERAL BLOOD SPECIMEN / Unknown Venipuncture / Unknown 05/13/2025 2:26 PM EST 05/13/2025 2:32 PM EST us Donald Vargas MD LAB BLOOD ORDERABLES Final Res ult Performing Organization Address [facility] de Phone Number [facility] [address] [place] [phone], [place] * (ABNORMAL) Basic Metabolic Panel (05/13/2025 2:26 PM EST) Pathologist [facility] Sodium 139 135 - 146 mmol/L 05/13/2025 2:55 PM [facility] Potassium 4.6 3.4 - 5.2 mmol/L 05/13/2025 2:55 PM [facility] Chloride 101 98 - 110 mmol/L 05/13/2025 2:55 PM [facility] Total CO2/Bicarbonat e 27 24 - 32 mmol/L 05/13/2025 2:55 PM [facility] Anion Gap 11 2 - 15 mmol/L 05/13/2025 2:55 PM [facility] BUN 12 7 - 24 mg/dL 05/13/2025 2:55 PM [facility] Creatinine, Blood 1.00 0.50 - 1.10 mg/dL 05/13/2025 2:55 PM [facility] Glucose, Blood 119(H) 50 - 100 mg/dL 05/13/2025 2:55 PM [facility] Calcium 9.6 8.5 - 10.5 mg/dL 05/13/2025 2:55 PM EST [facility] Estimated GFR(CKD-EPI) 66 mL/min/BSA 05/13/2025 2:55 PM EST [facility] Blood PERIPHERAL BLOOD SPECIMEN / Unknown Venipuncture / Unknown 05/13/2025 2:26 PM EST 05/13/2025 2:32 PM EST us Donald Vargas MD LAB BLOOD ORDERABLES Final Res ult [facility] [address] [place] [address], documented in this encounter Visit Diagnoses Diagnosis [...] - Provider: Carrie Granados RN - Comment: [facility])2200 (Canceled Entry - Provider: Automatic Discharge [...] Until Discontinued 1737 (Not Given - Provider: aCrrie Granados RN - Reason: Order parameters not [...] aspiration. documented in this encounter Care Teams Early Childhood Services Coordinator Relationship Specialty Start Date End Date Porfirio Carrillo MD [address] [place] [address] PCP - General Family Practice 05/13/25 Amy iMlls MD [address] [place] [address] 12/08/23 documented as of this encounter
--- OUTSIDE RECORDS SUMMARY | 2025-05-17 10:52 | XMS_ITS | Encounter Summary ---
Author Organization [facility] Address [address] [facility] [address] [place] [address] Phone Care Team Providers Care Vice President Of Talent Acquisition Name Role Phone Amy Mills MD Primary Care Provider Soto Armstrong OD Unavailable [phone] Kingston Ramirez MD Unavailable Darby Hernandez MD Primary Care Provider + Encounter Details Date Type Department Care Team (Late st Contact Info) Description 03/14/2023 Procedure Pass [facility] Medical Endoscopy [address] Floor [place], [place] [id number] Social History Tobacco Use Types Packs/Day Years [...] st Contact Info) Description 11/26/2024 Procedure Pass [facility] Cardiology [address] [address] 06/16/2025 2:00 PM EST Appointment [facility] Cardiology [address] [facility] [address] [place] [address] Tammy Lau MD [address] [place] [id number] [email or web address] 07/15/2025 1:00 PM EST Telemedicine [facility] [address] [facility] 11 [place] [address] Carrie Lambert MD [address] [place] [id number] [email or web address] 10/23/2025 1:15 PM EDT Office Visit [facility] - Endocrinology - Moe [address] [facility] [address] Rosa [place] [address] Leslie Hollis MD [address] [place] [phone] [email or web address] documented as of this encounter [...] documented as of this encounter Care Teams Vice President Of Talent Acquisition Relationship Specialty Start Date End Date Amy Mills MD Diane [facility] [place] [id number] [email or web address] PCP - General Family Medicine 02/07/18 3 Darby Hernandez MD [address] [place] [address] [place] [address] [email or web address] PCP - General Family Medicine 05/27/23 Soto Armstrong OD 15 [place] [address] Referring Physician Optometry 02/18/18 Kingston Ramirez MD [address] [place] [address], [address] [place] [address] [email or web address] Ophthalmology 02/18/18 documented as of this encounter Additional Source Comments The information contained in this document represents components of the legal health record. It is not the complete legal health record.[facility]
--- OUTSIDE RECORDS SUMMARY | 2025-05-17 10:52 | XMS_ITS | Encounter Summary ---
Author Organization [facility] Address [address] [address] Phone Care Team Providers Care Nut Processing Supervisor Name Role Phone Nathaniel Soto Johana QUEVEDO Unavailable [phone] Kingston Ramirez MD Unavailable Darby Hernandez MD Primary Care Provider + Encounter Details Date Type Department Care Team (Late st Contact Info) Description 04/24/2025 Telephone [facility] Medical Endocrine [address] [facility] [address] [place] [address] Leslie Hollis MD [address] [facility] [address] [place] [address] [email or web address] Social History Tobacco Use Types Packs/Day [...] st Contact Info) Description 11/26/2024 Procedure Pass [facility] Medical Cardiology [address] [place] [address] 06/16/2025 2:00 PM EST Appointment [facility] Medical Cardiology [address] [place] [address] Tammy Lau MD 15 [place] [address] [email or web address] 07/15/2025 1:00 PM EST Telemedicine [facility] [address] [place] [address] Carrie Lambert MD [address] [place] [phone] [email or web address] 10/23/2025 1:15 PM EDT Office Visit [facility] - Endocrinology - [address] [place] [address] Leslie Hollis MD [address] [facility] [address] [place] [address] [email or web address] documented as of this encounter [...] documented as of this encounter Care Teams Nut Processing Supervisor Relationship Specialty Start Date End Date Darby Hernandez MD [address] [place] [address] [email or web address] PCP - General Family Medicine 05/27/23 Soto Armstrong OD Referring Physician Optometry 02/18/18 Kingston Ramirez MD [address] [place] [address], [address] [place] [address] [email or web address] Ophthalmology 02/18/18 documented as of this encounter Additional Source Comments The information contained in this document represents components of the legal health record. It is not the complete legal health record.[facility]
--- OUTSIDE RECORDS SUMMARY | 2025-05-17 10:52 | XMS_ITS | Clinical Summary ---
Author Organization [facility] Address [address] [place] [address] Phone Care Team Providers Care Brim Stiffener Name Role Phone Amy Mills MD Primary Care Provider [phone] Allergies Active Allergy Reactions Criticality Noted Date [...] is for her to follow up with [facility] seizure disorder center in specific non-epileptic seizure [...] Pt presents with seizure and headache from [facility] evaluated in the ER, given presentation [...] Lantus 20 units at hs at [facility], and she received 8 units [...] 02/20/18 Endocrinology recommendations requested, and needs outpt change control coordinator. Hyperglycemia 08/26/2017 Recurrent major depressive disorder Assessment & Plan (02/20/2018 7:05 AM EDT): - continue sertraline 100 daily. Family History * Patient is adopted Medical History Relation Comments Diabetes Father Coronary artery disease Mother Diabetes Mother Lung disease Mother Relation Status Comments Father Alive Mother Alive Social History Tobacco Use Types Packs/Day Years Used Date Smoking Tobacco: Former Cigarettes 0 Q uit: 05/2017 Smokeless Tobacco: Never Alcohol [...] Health Maintenance Due Date Last Done Comments [facility] TOPIC SIGMOIDOSCOPY 1967 [facility] Topic HIV Screening 1967 [facility] Topic Hepatitis C Screening 1967 [facility] Diabetic Ophthalmology Exam 1977 [facility] Topic Tdap Vaccine (1 - Tdap) 1986 [facility] TOPIC MAMMOGRAM 2007 [facility] TOPIC FOBT/FIT TEST 2012 [facility] Topic Cologuard 2012 [facility] Topic Colon Cancer Screening 2012 [facility] Topic Colonoscopy 2012 [facility] Topic Pneumococcal Vaccine (HEDIS/Adult) (1 of 1 - PCV) 2017 [facility] Topic Shingrix (1 of 2) 2017 [facility] Topic A1C Diabetes 04/03/20192018, 08/20/2018, 02/21/2018, Additional history exists [facility] Topic Lipid Profile 08/19/2019 08/19/2018 [facility] Topic Microalbumin Urine 10/02/2019 10/01/2018 [facility] Topic Influenza (Flu) Seasonal (#1) 2025 [facility] AMB RSV (under 20 months) Aged Out No longer eligible based on patient's age to complete this topic [facility] HM Topic HIB Vaccines Aged Out No longer eligible based on patient's age to complete this topic [facility] Topic Pneumococcal/Prevnar Vaccine Aged Out No [...] - 5.9 % 02/21/2018 9:37 AM EDT [facility] Comment:ADA Diabetic Goal: < 7.0% Mean Plasma Glucose (calculated) 259.7 02/21/2018 9:37 AM EDT [facility] Blood Capillary blood specimen / Unknown Venipuncture / Unknown 02/21/2018 6:46 AM EDT 02/21/2018 6:57 AM EDT us Pat Contreras MD LAB BLOOD ORDERABLES Final Re sult [facility] [address] [place] [address], from Last 3 Months or Most Recently Relevant to Health Maintenance [facility] MEDIC[facility] ADVANTAGE Advance Directives For more information, please contact: [phone] Documents on File Type Date Recorded Patient Wood Barrel Reconditioner Expl anation Advance Directives and Living Will 09/04/2018 3:06 PM Health Care Proxy 09.04.19 * Full Code (Latest Code Status on [...] 2:35 AM 08/28/2017 11:27 PM Care Teams Brim Stiffener Relationship Specialty Start Date End Date Amy Mills MD PCP - General Family Medicine 02/19/18
--- OUTSIDE RECORDS SUMMARY | 2025-05-17 10:52 | XMS_ITS | Encounter Summary ---
Author Organization [facility] Address [address] [place] [address] Phone Care Team Providers Care Personal Coach Name Role Phone Amy Mills MD Primary Care Provider [phone] Encounter Details Date Type Department Care Team ([facility] st Contact Info) Description 09/06/2024 Scanned Document [facility] - Health Information Department [address] [place] [address] Scan, No Provider Available [address] [place] [address] [place] [address] <No scans attached> Social History Tobacco Use [...] on filedocumented in this encounter Care Teams Personal Coach Relationship Specialty Start Date End Date Amy Mills MD PCP - General Family Medicine 02/19/18 documented as of this encounter
--- OUTSIDE RECORDS SUMMARY | 2025-05-17 10:52 | XMS_ITS | Encounter Summary ---
Author Organization [facility] Address [address] [place] [address] Phone Care Team Providers Care Rag Collector Name Role Phone Amy Mills MD Primary Care Provider [phone] Encounter Details Date Type Department Care Team ([facility] st Contact Info) Description 04/14/2024 Scanned Document [facility] - Health Information Department [address] [place] [address] Scan, No Provider Available [address] [place] [address] [place] [address] <No scans attached> Social History Tobacco Use [...] on filedocumented in this encounter Care Teams Rag Collector Relationship Specialty Start Date End Date Amy Mills MD PCP - General Family Medicine 02/19/18 documented as of this encounter
--- OUTSIDE RECORDS SUMMARY | 2025-05-17 10:52 | XMS_ITS | Encounter Summary ---
Author Organization [facility] Address [address] [place] [address] Phone Care Team Providers Care Hat Blocker Name Role Phone Amy Mills MD Primary Care Provider [phone] Encounter Details Date Type Department Care Team ([facility] st Contact Info) Description 11/10/2024 Scanned Document [facility] - Health Information Department [address] [place] [address] Scan, No Provider Available [address] [place] [address] [facility] [place] [address] <No scans attached> Social History Tobacco Use [...] on filedocumented in this encounter Care Teams Hat Blocker Relationship Specialty Start Date End Date Amy Mills MD PCP - General Family Medicine 02/19/18 documented as of this encounter
--- OUTSIDE RECORDS SUMMARY | 2025-05-17 10:52 | XMS_ITS | Encounter Summary ---
Author Organization [facility] Address [address] [place] [address] Phone Care Team Providers Care Concrete Pipe Making Machine Operator Name Role Phone Amy Mills MD Primary Care Provider [phone] Encounter Details Date Type Department Care Team ([facility] st Contact Info) Description 12/23/2024 Scanned Document [facility] - Health Information Department [address] [place] [address] Scan, No Provider Available [address] [place] [address] [facility] [place] [address] <No scans attached> Social History Tobacco Use [...] on filedocumented in this encounter Care Teams Concrete Pipe Making Machine Operator Relationship Specialty Start Date End Date Amy Mills MD PCP - General Family Medicine 02/19/18 documented as of this encounter
--- OUTSIDE RECORDS SUMMARY | 2025-05-17 10:52 | XMS_ITS | Encounter Summary ---
Author Organization [facility] ystem Address [address] [place] [address] Phone Care Team Providers Care Clerk Cashier Name Role Phone Amy Mills MD Primary Care Provider [phone] Encounter Details Date Type Department Care Team ([facility] st Contact Info) Description 04/15/2024 Orders Only [facility] - Health Information Department [address] [place] [address] Scan, No Provider Available [address] [place] [address] [place] [address] Social History Tobacco Use Types Packs/Day Years [...] on filedocumented in this encounter Care Teams Clerk Cashier Relationship Specialty Start Date End Date Amy Mills MD PCP - General Family Medicine 02/19/18 documented as of this encounter
--- OUTSIDE RECORDS SUMMARY | 2025-05-17 10:52 | XMS_ITS | Encounter Summary ---
Author Organization [facility] ystem Address [address] [place] [address] Phone Care Team Providers Care Sampler Ovens Name Role Phone Amy Mills MD Primary Care Provider [phone] Reason for Referral * Neurology - Closed Specialty Diagnoses / Procedures Referred By Contac t Referred To Contact Neurology Diagnoses Seizures ([facility]) Procedures Ambulatory EEG Mahendra Fitzpatrick MD Phone: tel: fax: Referral ID Status Reason Start Date Expiration Date Visits Re quested Visits Authorized [id number] Closed 01/04/2018 01/05/2019 1 1 Encounter Details Date Type Department Care Team ([facility] Contact Info) Description 01/04/2018 Ancillary Orders [facility] - Neuro Diagnostics [address] [place] [address] Mahendra Fitzpatrick MD [address] [place] [address] Seizures ([facility]) Social History Tobacco Use Types Packs/Day [...] convulsions documented in this encounter Care Teams Sampler Ovens Relationship Specialty Start Date End Date Amy Mills MD PCP - General Family Medicine 02/19/18 documented as of this encounter
--- OUTSIDE RECORDS SUMMARY | 2025-05-17 10:52 | XMS_ITS | Clinical Summary ---
Author Organization [facility] Address [address] [place] [address] Phone Care Team Providers Care Coordinator Volunteer Services Name Role Phone Soto Armstrong Johana QUEVEDO Unavailable Kingston Ramirez MD Unavailable [phone] Darby Hernandez MD Primary Care Provider + [...] tablet 5 03/23/20 21 Active DEXCOM G6 MEDICAL CUSTOMER SERVICE REPRESENTATIVE MiscIndications: Type 1 diabetes mellitus without complication [...] patient is enrolled and engaged in the [facility] Medicaid [facility] Community Partners Program for support with health-related social needs (HRSN) and community-based care coordination. Care Plan received on 09/17/24, uploaded to the Media tab of the Chart. [facility] Charles Contact: Dmitri Villanueva Community Partner Agency: [facility] Community Partner Church Warden: Nata Beckman Community Partner Church Warden Contact Information: [phone] For additional information or questions regarding the Community Partners Program, please reach out to the [facility] Charles Contact or the [facility] Community Partners team, Problem Noted Date Diagnosed [...] Type Department Care Team Description 05/14/2025 Telephone [facility] [address] [place] [address] Lisa Bruce RN questions 04/24/2025 Telephone [facility] [address] [place] [address] Leslie Hollis MD 04/10/2025 1:30 PM EDT Office Visit [facility] - Endocrinology [address] [place] [address] Leslie Hollis MD Type 1 diabetes mellitus with hyperglycemia (Primary Dx) 03/16/2025 Telephone [facility] [address] [place] [address] Leslie Hollis MD insulin question 02/26/2025 Refill [facility] [address] [place] [address] Azul Chicas MD Medication Refill 02/16/2025 Telephone [facility] - Primary Care - [address] [place] [address] Darby Hernandez MD fax med list, problem [...] st Contact Info) Description 11/26/2024 Procedure Pass [facility] [address] [place] [address] 06/16/2025 2:00 PM EST Appointment [facility] [address] [place] [address] Tammy Lau MD [address] [place] [address] [email or web address] 07/15/2025 1:00 PM EST Telemedicine [facility] [address] [place] [address] Carrie Lambert MD [address] [place] [address] [email or web address] 10/23/2025 1:15 PM EDT Office Visit [facility] - Endocrinology - [place] [address] [facility] [place] [address] Leslie Hollis MD [address] [place] [address] [address] [place] [address] [email or web address] Health Maintenance Due Date Last Done Comments [...] from the hospital. Coordinate Care Lifestyle No Crobett, Luba Gemma, COMPUTER HELP DESK REPRESENTATIVE Note: Assist with coordination of services. Medical [...] - 266 mg/dL [facility] [facility] [address] Comment: MALB/CRE UNABLE TO CALCULATE 0.0 - 30.0 mg/Alb/g Cre [facility] URINE MICROALBUMIN <1.2 0.0 - 2.0 mg/dL [facility] Comment: Urine (Urine) 04/15/2024 3:0 1 PM EDT 04/15/2024 3:14 PM EDT us Leslie Hollis MD LAB URINE ORDERABLES Final Re sult [facility] [facility] [address] [place] [address], [facility] [address] [place], [place] [address] [phone] * (ABNORMAL) Hemoglobin A1c (04/15/2024 3:01 PM EDT) Pathologist [facility] HEMOGLOBIN A1C 7.2(H) 4.2 - 5.6 % [facility] [place] [address] Comment:HbA1c levels 5.7-6.4 % represent pre-diabetes, indicating impaired glucose control and an increased risk of developing diabetes. The diagnostic HbA1c level for diabetes is 6.5% or greater. HbA1c levels <4.2% may indicate a hemoglobinopathy or anemia, and an alternative method is recommended to monitor glucose control. CALC MEAN BLD GLUC 162(H) 60 - 121 mg/dL [facility] [place] [address] Comment: The Calculated Mean Blood Glucose (CMBG) [...] BKR ORDERABLES Julieth espinoza Result [facility] [place] [address], [facility] [address] [place], [place] [address] [phone] * (ABNORMAL) Basic metabolic panel (04/15/2024 3:01 PM EDT) [facility] SODIUM 143 136 - 145 mmol/L [facility] Comment: POTASSIUM 4.3 3.4 - 5.1 mmol/L [facility] [place] [address] Comment: CHLORIDE 105 98 - 107 mmol/L [facility] Comment: CO2 27 22 - 31 mmol/L [facility] Comment: BUN 8 6 - 23 mg/dL [facility] [place] [address] Comment: CREATININE 0.93 0.50 - 1.20 mg/dL [facility] [place] [address] GLUCOSE 113(H) 70 - 100 mg/dL [facility] [place] [address] Comment: CALCIUM 9.4 8.8 - 10.7 mg/dL [facility] [place] [address] Comment: EGFR 72 >59 mL/min/1.7 3m2 [facility] [place] [address] Comment: Estimated glomerular filtration rate calculated using the CKD-EPI refit equation. ANION GAP 11 7 - 17 mmol/L [facility] [place] [address] Comment: Blood 04/15/2024 3:01 PM EDT 04/15/2024 3:08 PM EDT us Leslie Hollis MD LAB BLOOD BKR ORDERABLES Julieth espinoza Result [facility] [place] [address], [facility] [address] [phone] * BI MAMMOGRAM SCREENING WITH TOMOSYNTHESIS WITH [...] Nonreactive Nonreactive U/ml [facility] [facility] Blood 08/25/2020 1:59 PM EST 08/25/2020 2:07 PM EST Amy Mills MD LAB BLOOD BKR ORDERABLES Final Result [facility] [place] [address], [facility] [phone] * DIABETES EYE EXAM FOR RESULT ENTRY ONLY (08/09/2019) EYE EXAM 08/09/2019 Historical Provider HEALTH MAINTENANCE Final Result * COLONOSCOPY FOR RESULT ENTRY ONLY (08/19/2018) Colonoscopy 08/19/2018 Historical Provider HEALTH MAINTENANCE Final Result from Last 3 Months or Most Recently Relevant to Health Maintenance Insurance MEDICARE PART A & B [facility] ONE CARE MEDICARE REPLACEMENT Oct [address] [place] [address] MEDICARE PART A & B [facility] ONE CARE MEDICARE REPLACEMENT MEDICARE PART A & B MEDICARE PART A & B MEDICARE PART A & [place] [address] [place] [address] ONE CARE MEDICARE REPLACEMENT [facility] MEDICARE PART A & B MEDICARE PART A & B [facility] ONE CARE MEDICARE REPLACEMENT MEDICARE PART A & B [facility] CARE MEDICARE REPLACEMENT MEDICARE PART A & B [facility] ONE CARE MEDICARE REPLACEMENT MEDICARE PART A & B Advance Directives For more information, please contact: [phone] (9AM - 5PM [facility], Sunday-Sunday) Documents on File Type Date Recorded Patient Records Management Director Expl anation Healthcare Proxy 09/16/2018 1:40 PM * Full Code (Latest Code Status on File) Date Activated Date Inactivated Comments 06/05/2023 4:38 PM Question Answer Comments Code Status Confirmed With: Patient Code Status Communicated To: Other (specify belo w) Code Discussion Comments: LIONEL Care Teams Coordinator Volunteer Services Relationship Specialty Start Date End Date Darby Hernandez MD [address] [place] [address] [email or web address] PCP - General Family Medicine 05/27/23 Soto Armstrong OD Referring Physician Optometry 02/18/18 Kingston Ramirez MD [address] [place] [address], [address] [place] [address] [email or web address] Ophthalmology 02/18/18 Additional Source Comments The information contained in this document represents components of the legal health record. It is not the complete legal health record.[facility]
--- OUTSIDE RECORDS SUMMARY | 2025-05-17 10:52 | XMS_ITS | Encounter Summary ---
Author Organization [facility] ystem Address [address] [place] [address] Phone Care Team Providers Care Brake Operator Sheet Metal Name Role Phone Amy Mills MD Primary Care Provider [phone] Encounter Details Date Type Department Care Team ([facility] Contact Info) Description 04/03/2018 Procedure Pass [facility] - MR Imaging [address] [place] [address] Social History Tobacco Use Types [...] on filedocumented in this encounter Care Teams Brake Operator Sheet Metal Relationship Specialty Start Date End Date Amy Mills MD PCP - General Family Medicine 02/19/18 documented as of this encounter
--- OUTSIDE RECORDS SUMMARY | 2025-05-17 10:52 | XMS_ITS | Encounter Summary ---
Author Organization [facility] Address [address] [place] [address] Care Team Providers Care Forms Designer Name Role Phone Amy Mills MD Unavailable [phone] Darby Hernandez MD Primary Care Provider + Porfirio Carrillo MD Primary Care Provider [phone] Encounter Details Date Type Department Care Team ([facility] st Contact Info) Description 04/24/2025 Results Follow-Up [facility] Emergency Department [address] [place] [address] Marleny Byrne, ALINA XR Ribs Left W PA Chest 3 Vws+ Social History Tobacco Use Types Packs/Day Years Used Date Smoking Tobacco: Every Day Cigarettes Smokeless Tobacco: Never Alcohol Use Standard Drinks/Week Comments Not Currently 0 (1 standard drink = 0.6 oz pur e alcohol) [facility] Utilities Answer Date Recorded In the past 12 months has e [employer], gas, oil, or water [employer] threatened to shut off services in your [...] any time in the past [address] [facility] [place], were you homeless or living in a penitentiary (including now)? No 11/09/2024 Food Insecurity Answer [...] on filedocumented in this encounter Care Teams Forms Designer Relationship Specialty Start Date End Date Darby Hernandez MD [address] [place] [address] PCP - General Family Practice 09/05/24 05/12/25 Porfirio Carrillo MD [address] [place] [address] PCP - General Family Practice 05/13/25 Amy Mills MD [address] [place] [address] 12/08/23 documented as of this encounter
--- OUTSIDE RECORDS SUMMARY | 2025-05-17 10:52 | XMS_ITS | Encounter Summary ---
Author Organization [facility] ystem Address [address] [place] [address] Phone Care Team Providers Care Railroad Car Truck Builder Name Role Phone Amy Mills MD Primary Care Provider [phone] Encounter Details Date Type Department Care Team ([facility] st Contact Info) Description 11/23/2024 Scanned Document [facility] - Health Information Department [address] [place] [address] Scan, No Provider Available [address] [place] [address] [facility] [place] [address] <No scans attached> Social History Tobacco Use [...] on filedocumented in this encounter Care Teams Railroad Car Truck Builder Relationship Specialty Start Date End Date Aym Mills MD PCP - General Family Medicine 02/19/18 documented as of this encounter
--- OUTSIDE RECORDS SUMMARY | 2025-05-17 10:52 | XMS_ITS | Encounter Summary ---
Author Organization [facility] ystem Address [address] [place] [address] Phone Care Team Providers Care Coater Name Role Phone Amy Mills MD Primary Care Provider [phone] Encounter Details Date Type Department Care Team ([facility] st Contact Info) Description 09/11/2018 Procedure Pass [facility] Endoscopy [address] [place] [address] Social History Tobacco Use Types [...] on filedocumented in this encounter Care Teams Coater Relationship Specialty Start Date End Date Amy Mills MD PCP - General Family Medicine 02/19/18 documented as of this encounter
--- OUTSIDE RECORDS SUMMARY | 2025-05-17 10:52 | XMS_ITS | Clinical Summary ---
Author Organization [facility] Address [address] [place] [address] [place] [address] Care Team Providers Care Grill Cook Name Role Phone Shara Nicolas Md Primary Care Provider [phone] Allergies Active Allergy Reactions Criticality Noted Date [...] mg by mouth Active SUMAtriptan 5 mg/actuation [place], Non-Aerosol Use 1 spray in each nostril [...] for anaphylaxis Active Blood-Glucose Meter,Continuous (DEXCOM G7 RETURNED ITEM CLERK) Misc 1 Units by Miscellaneous_ route daily [...] injury superimp osed on chronic kidney disease ([facility]) 11/08/2024 04/23/2025 Influenza A 09/07/2024 04/23/2025 Right [...] Department Care Team Description 05/06/2025 Results Follow-Up [facility] [address] [place] [phone] Shara Nicolas MD PAP VIAL TESTING, HPV HIGH RISK PCR MRNA THINPREP VIAL 04/28/2025 10:30 AM EDT Office Visit [place] [address] [address] [place] [phone] Michelle Aj PA Contusion of chest wall, unspecified laterality, initial encounter (Primary Dx); Type 1 diabetes mellitus with hyperglycemia (CMS-HCC); Obesity, class 3 (CMS-HCC); Body mass index (BMI) 35.0-35.9, adult; Mixed hyperlipidemia; Bipolar disorder, in partial remission, most recent episode depressed (CMS-HCC); Seizure disorder (CMS-HCC) 04/24/[address], [facility] [address] [facility], / POST-ED DISCHARGE CALL 04/23/2025 1:20 PM EDT Office Visit [facility] [address] [place] [phone] Shara Nicolas MD Annual physical exam (Primary [...] loss type 04/23/2025 Travel 04/15/2025 Letter (Out) [facility] [address] [place] [address] Shara Nicolas MD 04/15/2025 Email Encounter [facility] Campaign, Provider Schedule your annual Well Visit 04/01/2025 Patient Outreach [facility] [address] [place] [phone] Sarah Albright LPN Onboarding; New Patient 03/10/2025 Letter (Out) [facility] [place] [address] [place] [address] Campaign, Provider from Last 3 [...] TYMPANOSTOMY (W/ V TUBE) ,GENERAL ANES SECT PERSONAL SUPPORT WORKER SECT PERSONAL SUPPORT WORKER Medical History Medical History Date Comments Seizure ([facility]) Type 1 diabetes mellitus PTSD (post-traumatic stress disorder) Depression Anxiety Ovarian cancer ([facility]) Memory impairment Bipolar 1 disorder ([facility]) Chronic bronchitis ([facility]) Hearing loss Asthma TIA (transient ischemic attack) Tremor of right hand Tobacco use Intractable migraine Suicidal ideation Subclinical hypothyroidism High cholesterol Depression, unspecified depr ession type Allergies Seizure disorder ([facility]) Diabetes mellitus Cancer ([facility]) Hypertension Malignant neoplasm of left o vary ([facility]) 05/01/2024 S/p oopherectomy and hystere ctomy in 2009. Cervix remains Acute kidney injury superimp osed on chronic kidney disease ([facility]) ([facility]) 11/08/2024 Acute cystitis without hematuria 08/04/2018 Seizure-like activity ([facility]) 09/03/2018 Hyponatremia 09/03/2018 Episode of recurrent major d epressive disorder ([facility]) 08/04/2018 Fall at home, initial encounter 11/09/2024 [...] A Sexual 04/23/2025 7: 42 AM EDT Last Filed Vital Signs Vital Sign Reading [...] Description 04/28/2026 1:00 PM EDT Office Visit [facility] [address] [place] [phone] Shara Nicolas MD [address] [place] [address] Health Maintenance Due Date Last Done Comments [...] LESION OR MALIGNANCY 04/29/2025 9:48 AM EDT [facility] DEPARTMENT OF PATHOLOGY AND LAB MEDICINE at 0948 EDT Specimen Adequacy Satisfactory for evaluation. Transformation zone component absent. 04/29/2025 9:48 AM EDT [facility] DEPARTMENT OF PATHOLOGY AND LAB MEDICINE HPV High Risk Negative 04/29/2025 9:48 AM EDT [facility] DEPARTMENT OF PATHOLOGY AND LAB MEDICINE Source Cervical 04/29/2025 9:48 AM EDT [facility] DEPARTMENT OF PATHOLOGY AND LAB MEDICINE Macroscopic Description Vial contains 20cc of colorless fluid. 04/29/2025 9:48 AM EDT [facility] DEPARTMENT OF PATHOLOGY AND LAB MEDICINE Additional Information For further information about terminology found in your pathology report, please visit the My Pathology Report website (not compatible with Internet Explorer). If after speaking to your provider you would like more information about your pathology result, you may message the pathology department directly. 04/29/2025 9:48 AM EDT [facility] DEPARTMENT OF PATHOLOGY AND LAB MEDICINE Disclaimer [...] of this sample. 04/29/2025 9:48 AM EDT [facility] DEPARTMENT OF PATHOLOGY AND LAB MEDICINE Specimen Information Gynecologic Cytology Case: [id number] Collected: 04/23/2025 5:10 PM Received: 04/23/2025 9:40 PM Authorizing Provider: SHARA NICOLAS MD Ordering Location: [facility] Result interpreted by: JALYN JACKSON Result signed on: 04/29/2025 9:48 AM 04/29/2025 9:48 AM EDT [facility] DEPARTMENT OF PATHOLOGY AND LAB MEDICINE PAP Vial (Cervical) Non-blood collection / Unknown 04/23/2025 5:10 PM EDT 04/23/2025 5:10 PM EDT us Shara Nicolas LAB PATHOLOGY ORDERABLES Final R esult Performing Organization Address City/[facility]/ZIP Co de Phone Number [facility] DEPARTMENT OF PATHOLOGY AND LAB MEDICINE [address] [place] [address] * HPV HIGH RISK PCR MRNA THINPREP VIAL (04/23/2025 5:10 PM EDT) HPV HIGH RISK mRNA Negative Negative 04/29/2025 9:48 AM EDT [facility] DEPARTMENT OF PATHOLOGY AND LAB MEDICINE SOURCE Cervical 04/29/2025 9:48 AM EDT [facility] DEPARTMENT OF PATHOLOGY AND LAB MEDICINE PAP Vial (Cervical) Non-blood collection / Unknown 04/23/2025 5:10 PM EDT 04/23/2025 9:40 PM EDT us Shara Nicolas MICROBIOLOGY LAB Final Result Performing Organization Address City/[facility]/ZIP Co de Phone Number [facility] OF PATHOLOGY AND LAB MEDICINE [address] [place] [address] from Last 3 Months Insurance [employer] Care Teams Grill Cook Relationship Specialty Start Date End Date Shara Nicolas MD [address] [place] [address] PCP - General Internal Medicine 03/31/25
--- OUTSIDE RECORDS SUMMARY | 2025-05-17 10:52 | XMS_ITS | Encounter Summary ---
Author Organization [facility] ystem Address [address] [place] [address] Phone Care Team Providers Care Special Tester Name Role Phone Amy Mills MD Primary Care Provider [phone] Encounter Details Date Type Department Care Team ([facility] st Contact Info) Description 04/03/2018 Procedure Pass [facility] - MR Imaging [address] [place] [address] Social History Tobacco Use Types [...] Assessment Author 0 04/03/2018 7:38 PM EDT Lisstete Rosen i, RN * Audit-C Score Answer Date of Assessment Author 0 04/03/2018 7:38 PM EDT Lissette Rosen i, RN documented as of this encounter Plan of Treatment Not on file documented as of this encounter Visit Diagnoses Not on filedocumented in this encounter Care Teams Special Tester Relationship Specialty Start Date End Date Amy Mills MD PCP - General Family Medicine 02/19/18 documented as of this encounter
--- OUTSIDE RECORDS SUMMARY | 2025-05-17 10:52 | XMS_ITS | Encounter Summary ---
Author Organization [facility] ystem Address [address] [place] [address] Phone Care Team Providers Care [place] Tribunal Member Name Role Phone Amy Mills MD Primary Care Provider [phone] Encounter Details Date Type Department Care Team ([facility] st Contact Info) Description 04/03/2018 Procedure Pass [facility] - MR Imaging [address] [place] [address] Social History Tobacco Use Types [...] on filedocumented in this encounter Care Teams [place] Tribunal Member Relationship Specialty Start Date End Date Amy Mills MD PCP - General Family Medicine 02/19/18 documented as of this encounter
--- OUTSIDE RECORDS SUMMARY | 2025-05-17 10:52 | XMS_ITS | Encounter Summary ---
Author Organization [facility] ystem Address [address] [place] [address] Phone Care Team Providers Care House Player Name Role Phone Amy Mills MD Primary Care Provider [phone] Encounter Details Date Type Department Care Team ([facility] st Contact Info) Description 09/12/2024 Scanned Document [facility] - Health Information Department [address] [place] [address] Scan, No Provider Available [address] [place] [address] [place] [address] <No scans attached> Social History Tobacco Use [...] on filedocumented in this encounter Care Teams House Player Relationship Specialty Start Date End Date Amy Mills MD PCP - General Family Medicine 02/19/18 documented as of this encounter
--- OUTSIDE RECORDS SUMMARY | 2025-05-17 10:52 | XMS_ITS | Encounter Summary ---
Author Organization [facility] ystem Address [address] [place] [address] Phone Care Team Providers Care Bin Piler Name Role Phone Amy Mills MD Primary Care Provider [phone] Encounter Details Date Type Department Care Team ([facility] st Contact Info) Description 07/27/2023 Procedure Pass [facility] Endoscopy [address] [place] [address] Social History Tobacco Use Types [...] on filedocumented in this encounter Care Teams Bin Piler Relationship Specialty Start Date End Date Amy Mills MD PCP - General Family Medicine 02/19/18 documented as of this encounter
--- OUTSIDE RECORDS SUMMARY | 2025-05-17 10:52 | XMS_ITS | Encounter Summary ---
Author Organization [facility] Address [address] [place] [address] Care Team Providers Care Automatic Beam Warper Tender Name Role Phone Amy Mills MD Unavailable [phone] Porfirio Carrillo MD Primary Care Provider [phone] Encounter Details Date Type Department Care Team [...] any time in the past 12 [facility], were you homeless or living in a senior living (including now)? No 05/13/2025 [facility] Utilities Answer Date Recorded In [...] on filedocumented in this encounter Care Teams Automatic Beam Warper Tender Relationship Specialty Start Date End Date Porfirio Carrillo MD [address] [place] [address] PCP - General Family Practice 05/13/25 Amy Mills MD [address] [place] [address] 12/08/23 documented as of this encounter
--- OUTSIDE RECORDS SUMMARY | 2025-05-17 10:52 | XMS_ITS | Encounter Summary ---
Author Organization [facility] ystem Address [address] [place] [address] Phone Care Team Providers Care Is Manager Name Role Phone Amy Mills MD Primary Care Provider [phone] Encounter Details Date Type Department Care Team ([facility] st Contact Info) Description 11/08/2024 Scanned Document [facility] - Health Information Department [address] [place] [address] Scan, No Provider Available [address] [place] [address] [place] [address] <No scans attached> Social History Tobacco Use [...] on filedocumented in this encounter Care Teams Is Manager Relationship Specialty Start Date End Date Amy Mills MD PCP - General Family Medicine 02/19/18 documented as of this encounter
--- OUTSIDE RECORDS SUMMARY | 2025-05-17 10:52 | XMS_ITS | Encounter Summary ---
Author Organization [facility] ystem Address [address] [place] [address] Phone Care Team Providers Care Stacker Operator Name Role Phone Amy Mills MD Primary Care Provider [phone] Encounter Details Date Type Department Care Team ([facility] st Contact Info) Description 10/16/2024 Scanned Document [facility] - Health Information Department [address] [place] [address] Scan, No Provider Available [address] [place] [address] [place] [address] <No scans attached> Social History Tobacco Use [...] on filedocumented in this encounter Care Teams Stacker Operator Relationship Specialty Start Date End Date Amy Mills MD PCP - General Family Medicine 02/19/18 documented as of this encounter
--- OUTSIDE RECORDS SUMMARY | 2025-05-17 10:52 | XMS_ITS | Encounter Summary ---
Author Organization [facility] ystem Address [address] [place] [address] Phone Care Team Providers Care Avaya Engineer Name Role Phone Amy Mills MD Primary Care Provider [phone] Encounter Details Date Type Department Care Team ([facility] Contact Info) Description 04/16/2024 Orders Only [facility] - Health Information Department [address] [place] [address] Scan, No Provider Available [address] [place] [address] [place] [address] Social History Tobacco Use Types Packs/Day Years [...] on filedocumented in this encounter Care Teams Avaya Engineer Relationship Specialty Start Date End Date Amy Mills MD PCP - General Family Medicine 02/19/18 documented as of this encounter
--- OUTSIDE RECORDS SUMMARY | 2025-05-17 10:52 | XMS_ITS | Encounter Summary ---
Author Organization [facility] Address [address] [facility] [address] [place] [address] Phone Care Team Providers Care Management Department Chair Name Role Phone ArmstrongSoto Johana QUEVEDO Unavailable Kingston Ramirez MD Unavailable Darby Hernandez MD Primary Care Provider + Reason for Visit * Reason Onset Date Comments questions 05/14/2025 Encounter Details Date Type Department Care Team (Late st Contact Info) Description 05/14/2025 Telephone [facility] Medical Endocrine [address] [address] Lisa Bruce RN [address] [place] [address] [email or web address] Social History Tobacco Use Types Packs/Day [...] not included. Spoke to Clara HU at [facility] and advised if pt off insulin pump insulin orders = Leslie Hollis MD You If not on pump Lantus 14 units Humalog 3 units TID with meals + HISS (150-200 1 units, 201-250 2 units, 251-300 3 units etc) * Lisa Bruce, RN - 05/14/2025 3:28 PM EST Spoke to [facility] Pt needs to go to [facility] and will be off pump asking for your recommended insulin orders While off pump She was seen 04/10 adjust settings as below 6AM 0.55/45/8 * Lisa Bruce, RN - 05/14/2025 12:46 PM EST Msg from call center pt at [facility] ER Dr has questions for [phone] Called back, Dr grajeda will call back documented in this encounter Plan of Treatment Upcoming Encounters Date Type Department Care Team (Late st Contact Info) Description 11/26/2024 Procedure Pass [facility] Cardiology [address] [place] [address] 06/16/2025 2:00 PM EST Appointment [facility] [address] [place] [address] Tammy Lau MD [address] [place], [place] [address] [address] [email or web address] 07/15/2025 1:00 PM EST Telemedicine [facility] [address] [place] [address] Carrie Lambert MD [address] [place] [address] [email or web address] 10/23/2025 1:15 PM EDT Office Visit [facility] - Endocrinology - [address] [place] [address] Leslie Hollis MD [address] [place] [phone] [email or web address] documented as of this encounter Goals [...] documented as of this encounter Care Teams Management Department Chair Relationship Specialty Start Date End Date Darby Hernandez MD [address] [place] [address] [email or web address] PCP - General Family Medicine 05/27/23 Soto Armstrong OD Referring Physician Optometry 02/18/18 Kingston Ramirez MD [address] [place] [address], [address] [place] [address] Ophthalmology 02/18/18 documented as of this encounter Additional Source Comments The information contained in this document represents components of the legal health record. It is not the complete legal health record.[facility]
--- OUTSIDE RECORDS SUMMARY | 2025-05-17 10:52 | XMS_ITS | Encounter Summary ---
Author Organization [facility] Address [address] [facility] [address] [place] [address] Phone Care Team Providers Care Training Technician Name Role Phone Amy Mills MD Primary Care Provider Soto Armstrong OD Unavailable Kingston Ramirez MD Unavailable Darby Hernandez MD Primary Care Provider + Encounter Details Date Type Department Care Team (Late st Contact Info) Description 08/25/2020 Procedure Pass [facility], [address] [place] [address] Social History Tobacco Use Types Packs/Day [...] high school, GED, job training, learning the [place] language, technical skills, or developing parenting skills)? [...] st Contact Info) Description 11/26/2024 Procedure Pass [facility] [address] [facility] [address] [place] [address] 06/16/2025 2:00 PM EST Appointment [facility] [address] [facility] [address] [place] [address] Tammy Lau MD [address] [place] [address] [email or web address] 07/15/2025 1:00 PM EST Telemedicine [facility] [address] [facility] 11 [place] [address] Carrie Lambert MD [address] [place] [phone] [email or web address] 10/23/2025 1:15 PM EDT Office Visit [facility] - Endocrinology - [place] [address] [place] [address] Leslie Hollis MD [address] [place] [address] [email or web address] documented as of this [...] documented as of this encounter Care Teams Training Technician Relationship Specialty Start Date End Date Amy Mills MD [address] [facility] [email or web address] [place] [address] @[email or web address] PCP - General Family Medicine 02/07/18 3 Darby Hernandez MD [address] [place] [address] [place] [address] [email or web address] PCP - General Family Medicine 05/27/23 Soto Armstrong OD [address] [place] [address] Referring Physician Optometry 02/18/18 Kingston Ramirez MD [address] [place] [address], [address] [place] [address] [email or web address] Ophthalmology 02/18/18 documented as of this encounter Additional Source Comments The information contained in this document represents components of the legal health record. It is not the complete legal health record.[facility]
--- OUTSIDE RECORDS SUMMARY | 2025-05-17 10:52 | XMS_ITS | Clinical Summary ---
Author Organization [facility] Address [address] [place] [address] Care Team Providers Care Newspaper Writer Name Role Phone Amy Mills MD Unavailable [phone] Porfirio Carrillo MD Primary Care Provider [phone] Allergies Active Allergy Reactions Criticality Noted Date [...] but for now, we will use SSI. [facility] diet. We will monitor sugars, adjust regimen [...] - 05/14/2025 9:47 PM EST Hospital Encounter [facility] Emergency Department [address] [place] [address] Shiraz Valentine MD Kim, Claudia, MD Stonely, Wesley, MD Trecartin, Kyle, MD Fairfield, Scott, MD Severe episode of recurrent major depressive disorder, without psychotic features ([facility]) (Primary Dx); Depression, unspecified depression type Discharge Disposition: Transfer to Acute Care Hospital 05/13/2025 Travel 04/24/2025 Results Follow-Up [facility] Emergency Department [address] [place] [address] Marleny Byrne, ALINA XR Ribs Left W PA Chest 3 Vws+ 04/23/2025 6:54 PM EDT - 04/23/2025 11:24 PM EDT Emergency [facility] Emergency Department [address] [place] [address] Tejas Avila MD Schaub, Charles, MD Chest [...] any time in the past 12 [facility], were you homeless or living in a care home (including now)? No 05/13/2025 [facility] Utilities Answer Date Recorded In the past 12 months has th e [employer], gas, oil, or water [employer] threatened to shut off services in your [...] Recently Relevant to Health Maintenance Results * ECG 12 lead, to be obtained, other indication (05/14/2025 5:36 PM EST) Ventricular Heart Rate 74 BPM EKG BUR MUSE MS Interval 195 ms EKG BUR MUSE QRSD Interval 126 ms EKG BUR MUSE QT Interval 416 ms EKG BUR MUSE QTC Interval 462 ms EKG BUR MUSE P [place] 19 degrees EKG BUR MUSE R [place] -22 degrees EKG BUR MUSE T Wave [place] 13 degrees EKG BUR MUSE 05/14/2025 5:34 [...] on 05/16/2025 9:23:43 PM us Rut Palmer NP ECG ORDERABLES Final Result Performing Organization Address City/[facility]/ZIP Co de Phone Number EKG BUR [address] [address] * (ABNORMAL) POCT Glucose (05/14/2025 11:46 AM EST) Only the most recent of3 resultswithin the time period is included. Glucose, POC 156(H) 75 - 140 mg/dL 05/14/2025 11:48 AM [facility] Comment: @Serial Keabqx=[id number] @Hr Business Partner Consultant [id number] Blood 05/14/2025 11:4 6 AM EST 05/14/2025 11:48 AM EST us Rayshawn Melton MD POCT ORDERABLES - DEVICE Final Result Performing Organization Address City/[facility]/[place] Co de Phone Number [facility] [address] [place] [address], * (ABNORMAL) Drug Screen, Urine (05/14/2025 6:00 AM EST) [facility] Amphetamines Screen, Urine Negative Negative 05/14/2025 6:46 AM [facility] Barbiturates Screen, Urine Negative Negative 05/14/2025 6:46 AM [facility] Benzodiazepine Screen, Urine Positive(A) Negative 05/14/2025 6:46 AM [facility] Buprenorphine Screen, Urine Negative Negative 05/14/2025 6:46 AM [facility] Cannabinoids Screen, Urine Negative Negative 05/14/2025 6:46 AM [facility] Cocaine Metabolite Screen, Urine Negative Negative 05/14/2025 6:46 AM [facility] Fentanyl Screen, Urine Negative Negative 05/14/2025 6:46 AM [facility] Methadone Screen, Urine Negative Negative 05/14/2025 6:46 AM [facility] Opiates Screen, Urine Negative Negative 05/14/2025 6:46 AM [facility] Oxycodone Screen, Urine Negative Negative 05/14/2025 6:46 AM [facility] Propoxyphene Screen, Urine Negative Negative 05/14/2025 6:46 AM [facility] Tricyclics Screen Negative Negative 025 6:46 AM [facility] Comment 05/14/2025 6:46 AM [facility] Comment: The cut-off concentration for a [...] URINE ORDERABLES Final Result Performing Organization Address [facility]/[place] Co de Phone Number [address] [address], [place] * (HCG), Urine (05/14/2025 6:00 AM EST) HCG, Urine Random Negative Negative 05/14/2025 6:15 AM [facility] Urine URINE SPECIMEN / Unknown Collection / Unknown 05/14/2025 6:00 AM EST 05/14/2025 6:03 AM EST us Donald Vargas MD URINE ORDERABLES Final Result Performing Organization Address [facility]/[place] Co de Phone Number [facility] [address] [place] [address], [place] * (ABNORMAL) CBC and Differential (05/13/2025 2:26 PM [facility]) [facility] WBC 6.82 3.90 - 10.80 K/uL 05/13/2025 2:35 PM [facility] RBC 4.49 3.93 - 5.29 M/uL 05/13/2025 2:35 PM [facility] Hemoglobin 13.6 12.0 - 15.2 g/dL 05/13/2025 2:35 PM [facility] Hematocrit 42.9 34.1 - 44.9 % 05/13/2025 2:35 PM [facility] MCH 30.3 25.6 - 32.2 pg 05/13/2025 2:35 PM [facility] MCHC 31.7(L) 32.0 - 36.0 g/dL 05/13/2025 2:35 PM [facility] MCV 96 81 - 96 fL 05/13/2025 2:35 PM [facility] RDW 13.4 11.5 - 14.0 % 05/13/2025 2:35 PM [facility] Platelet Count 291 154 - 369 K/uL 05/13/2025 2:35 PM [facility] Neutrophil 64.3 % 05/13/2025 2:35 PM [facility] Lymphocyte 22.7 % 05/13/2025 2:35 PM [facility] Monocyte 8.2 % 05/13/2025 2:35 PM [facility] Eosinophil 3.2 % 05/13/2025 2:35 PM [facility] Basophil 0.6 % 05/13/2025 2:35 PM [facility] Immature Granulocyte ([place], Myelo, Promyelocyte) 1.0 % 05/13/2025 2:35 PM [facility] Absolute Neutrophil Count 4.38 1.68 - 7.99 K/uL 05/13/2025 2:35 PM [facility] Absolute Immature Granulocyte ([place], Myelo, Promyelocyte) 0.07 0.00 - 0.09 K/uL 05/13/2025 2:35 PM [facility] Absolute Lymphocyte Count 1.55 0.66 - 4.75 K/uL 05/13/2025 2:35 PM [facility] Absolute Monocyte Count 0.56 0.16 - 1.40 K/uL 05/13/2025 2:35 PM [facility] Absolute Eosinophil Count 0.22 0.00 - 0.60 K/uL 05/13/2025 2:35 PM [facility] Absolute Basophil Count 0.04 0.00 - 0.32 K/uL 05/13/2025 2:35 PM [facility] Blood PERIPHERAL BLOOD SPECIMEN / Unknown Venipuncture / Unknown 05/13/2025 2:26 PM EST 05/13/2025 2:32 PM EST Donald Vargas MD LAB BLOOD ORDERABLES Final Res ult Performing Organization Address [facility]/[place] Co de Phone Number [facility] [address] [place] [address], [place] * (ABNORMAL) Plasma Toxicology Screen (05/13/2025 2:26 PM EST) Acetaminophen Result,Blood <5(L) 10 - 30 ug/mL 05/13/2025 4:07 PM [facility] Alcohol <10 <10 mg/dL 05/13/2025 4:07 PM [facility] Salicylate Level, Blood <1 <30 mg/dL 05/13/2025 4:07 PM [facility] Blood PERIPHERAL BLOOD SPECIMEN / Unknown Venipuncture / Unknown 05/13/2025 2:26 PM EST 05/13/2025 2:32 PM EST Donald Vargas MD LAB BLOOD ORDERABLES Final Res ult Performing Organization Address [facility]/ZIP Co de Phone Number [facility] [address] [place] [address], [place] * Gold Top (05/13/2025 2:26 PM EST) Gold Top Tube Received 05/13/2025 4:01 PM [facility] Blood PERIPHERAL BLOOD SPECIMEN / Unknown Venipuncture / Unknown 05/13/2025 2:26 PM EST 05/13/2025 2:32 PM EST us Donald Vargas MD LAB BLOOD ORDERABLES Final Res ult [facility] [address] [place] [address], [place] * Blue Top (05/13/2025 2:26 PM EST) Blue Top Tube Received 05/13/2025 4:01 PM [facility] Blood PERIPHERAL BLOOD SPECIMEN / Unknown Venipuncture / Unknown 05/13/2025 2:26 PM EST 05/13/2025 2:32 PM EST us Donald Vargas MD LAB BLOOD ORDERABLES Final Res ult Performing Organization Address [facility]/ZIP Co de Phone Number [facility] [address] [place] [address], [place] * (ABNORMAL) Basic Metabolic Panel (05/13/2025 2:26 PM EST) Sodium 139 135 - 146 mmol/L 05/13/2025 2:55 PM [facility] Potassium 4.6 3.4 - 5.2 mmol/L 05/13/2025 2:55 PM [facility] Chloride 101 98 - 110 mmol/L 05/13/2025 2:55 PM [facility] Total CO2/Bicarbonat e 27 24 - 32 mmol/L 05/13/2025 2:55 PM [facility] Anion Gap 11 2 - 15 mmol/L 05/13/2025 2:55 PM [facility] BUN 12 7 - 24 mg/dL 05/13/2025 2:55 PM [facility] Creatinine, Blood 1.00 0.50 - 1.10 mg/dL 05/13/2025 2:55 PM [facility] Glucose, Blood 119(H) 50 - 100 mg/dL 05/13/2025 2:55 PM [facility] Calcium 9.6 8.5 - 10.5 mg/dL 05/13/2025 2:55 PM EST [facility] Estimated GFR(CKD-EPI) 66 mL/min/BSA 05/13/2025 2:55 PM EST [facility] Blood PERIPHERAL BLOOD SPECIMEN / Unknown Venipuncture / Unknown 05/13/2025 2:26 PM EST 05/13/2025 2:32 PM EST us Donald Vargas MD LAB BLOOD ORDERABLES Final Res ult [facility] [address] [place] [address], [place] * XR Ribs Left W PA [...] Raymond Meyers on 04/24/2025 10:02 AM on [id number] Narrative 04/24/2025 10:02 AM EDT LEFT RIBS [...] Raymond Meyers on 04/24/2025 10:02 AM on [id number] us Tejas Avila MD IMG DIAGNOSTIC IMAGING ORDERABLE S Final Result * (ABNORMAL) Hemoglobin A1C (11/09/2024 11:24 AM EDT) [facility] Hemoglobin A1C 7.4(H) 4.2 - 5.8 % 11/10/2024 7:34 AM EDT [facility] Estimated Average Glucose 166 mg/dL 11/10/2024 7:34 AM T [facility] Blood PERIPHERAL BLOOD SPECIMEN / Unknown Venipuncture / Unknown 11/09/2024 11:24 AM EDT 11/09/2024 11:57 AM EDT us Mike Rodrigez MD LAB BLOOD ORDERABLES Julieth l Result [facility] [address] [place] [address], * (ABNORMAL) Lipid Panel (11/09/2024 11:24 AM EDT) Cholesterol 214(H) <=200 mg/dL 11/09/2024 12:43 PM EDT [facility] Triglycerides 71 <150 mg/dL 11/09/2024 12:43 PM EDT [facility] HDL Cholesterol 68(H) 40 - 60 mg/dL 11/09/2024 12:43 PM EDT [facility] Comment: HDL Cardiovascular Risk <40 mg/dL High Risk >60 mg/dL Low Risk LDL Cholesterol 132(H) <=130 mg/dL 11/09/2024 12:43 PM EDT [facility] Comment: Reference Range for > 20 years of age: Acceptable: <130 mg/dL Borderline: 130-159 mg/dL High: >159 mg/dL National Cholesterol Education Program Guidelines Blood PERIPHERAL BLOOD SPECIMEN / Unknown Venipuncture / Unknown 11/09/2024 11:24 AM EDT 11/09/2024 11:57 AM EDT us Mike Rodrigez MD LAB BLOOD ORDERABLES Julieth espinoza Result [facility] [address] [place] [address], [place] from Last 3 Months or Most Recently Relevant to Health Maintenance Insurance SENIOR Member Subscriber Plan / Payer (Ef fective for All Dates) Name:Lisa Rosas Relation to Subscriber:Self Name:Lisa Rosas Payer ID:[id number] (NAIC) Group ID:Not on file Type:Medicare / [employer] Care Address: CLAIMS [address] [place] [address] [place] [id number] [place] [address] [address] [place] [address] [place] [address] [address] [facility] [address] [place] [address] [facility] SENIOR [facility] [address] [place] [address] Advance Directives Documents on File Type Date Recorded Patient Rn Family Practice Expl [facility] Health Care Proxy 03/21/2024 10:14 AM Heal [facility] Care Proxy * Full Code (Latest Code Status on File) Date Activated Date Inactivated Comments 11/08/2024 10:18 PM 11/23/2024 12:26 AM Question Answer Comments Discussed with/per: Patient * Full Code Date Activated Date Inactivated Comments 09/12/2024 12:40 PM 10/16/2024 4:37 PM Question Answer Comments Discussed with/per: Patient Care Teams Newspaper Writer Relationship Specialty Start Date End Date Porfirio Carrillo MD [address] [place] [address] PCP - General Family Practice 05/13/25 Amy Mills MD [address] [place] [address] 12/08/23
--- OUTSIDE RECORDS SUMMARY | 2025-05-17 10:53 | XMS_ITS | Encounter Summary ---
Author Organization [facility] Address [address] [place] [address] [address] [place] [address] Care Team Providers Care Sweatband Separator Name Role Phone Porfirio Carrillo Md Primary Care Provider [phone] Encounter Details Date Type Department Care Team ([facility] Contact Info) Description 04/15/2025 Email Encounter [facility] Dept Campaign, Provider USED CAMPAIGNS FOR SYSTEM DEFINITIONS NON-PROVIDERS NON-PROVIDERS Schedule your annual Well Visit Social History Tobacco Use Types Packs/Day Years Used Date Smoking Tobacco: Never Assessed Hunger Vital Sign Answer Date Recorded Worried About [...] confident, 10= Completely confident. 5 04/23/2025 Comments Unknown Sex and Gender Information Value Date Recorded Sex Assigned at Female 01/15/2025 1:21 PM EDT Legal Sex Female 1:18 PM EDT Gender Identity Female 01/15/2025 1:21 PM EDT Sexual Orientation A Sexual 04/23/2025 7: 42 AM EDT documented as of this encounter Functional Status * BP Answer Date of Assessment Author 124/88 04/28/2025 10:02 AM EDT [facility] * Temp Answer Date of Assessment Author 97.1 04/28/2025 10:02 AM EDT [facility] * Temp src Answer Date of Assessment Author Temporal Artery 04/28/2025 10:02 AM EDT [facility] * Pulse Answer Date of Assessment Author 67 04/28/2025 10:02 AM EDT [facility] * Resp Answer Date of Assessment Author 16 04/28/2025 10:02 AM EDT [facility] * SpO2 Answer Date of Assessment Author 97 04/28/2025 10:02 AM EDT [facility] documented as of this encounter Plan of Treatment Upcoming Encounters Date Type Department Care Team (Late st Contact Info) Description 04/28/2026 1:00 PM EDT Office Visit [facility] [address] [place] [phone] Porfirio Carrillo MD [address] [place] [address] documented as of this encounter Visit Diagnoses Not on filedocumented in this encounter Care Teams Sweatband Separator Relationship Specialty Start Date End Date Porfirio Carrillo MD [address] [place] [address] PCP - General Internal Medicine 03/31/25 documented as of this encounter
--- OUTSIDE RECORDS SUMMARY | 2025-05-17 10:53 | XMS_ITS | Encounter Summary ---
Author Organization [facility] Address [address] [facility] [address] [place] [address] Phone Care Team Providers Care Mathematical Scientist Name Role Phone Soto Armstrong OD Unavailable [phone] Kingston Ramirez MD Unavailable Darby Hernandez MD Primary Care Provider + Encounter Details Date Type Department Care Team (Late st Contact Info) Description 11/26/2024 Procedure Pass [facility] [address] [place] [address] Social History Tobacco Use Types Packs/Day Years [...] Info) Description 11/26/2024 Procedure Pass [facility] [address] [facility] [address] [place] [address] 06/16/2025 2:00 PM EST Appointment [facility] [address] [facility] [address] [place] [address] Tammy Lau MD [address] [place] [address] [email or web address] 07/15/2025 1:00 PM EST Telemedicine [facility] [address] [place] [address] Carrie Lambert MD [address] [place] [address] [email or web address] 10/23/2025 1:15 PM EDT Office Visit [facility] - Endocrinology - [address] [place] [address] Leslie Hollis MD [address] [facility] [address] [place] [address] [email or web address] documented as of this encounter Goals [...] documented as of this encounter Care Teams Mathematical Scientist Relationship Specialty Start Date End Date Darby Hernandez MD [address] [place] [address] [email or web address] PCP - General Family Medicine 05/27/23 Soto Armstrong OD Referring Physician Optometry 02/18/18 Kingston Ramirez MD [address] [place] [address], [address] [place] [id number] [email or web address] Ophthalmology 02/18/18 documented as of this encounter Additional Source Comments The information contained in this document represents components of the legal health record. It is not the complete legal health record.[facility]
--- OUTSIDE RECORDS SUMMARY | 2025-05-17 10:53 | XMS_ITS | Encounter Summary ---
Author Organization [facility] Address [address] [facility] [address] [place] [address] Phone Care Team Providers Care Technology Sales Representative Name Role Phone Amy Mills MD Primary Care Provider [phone] Soto Armstrong OD Unavailable Kingston Ramirez MD Unavailable Darby Hernandez MD Primary Care Provider + Encounter Details Date Type Department Care Team (Late st Contact Info) Description 03/16/2022 Procedure Pass [facility] [address] [facility] [address] [place] [address] Social History Tobacco Use Types Packs/Day Years [...] high school, GED, job training, learning the Vietnamese language, technical skills, or developing parenting skills)? [...] st Contact Info) Description 11/26/2024 Procedure Pass [facility] [address] [facility] [address] [place] [address] 06/16/2025 2:00 PM EST Appointment [facility] [address] [place] [address] Tammy Lau MD [address] [place] [address] [email or web address] 07/15/2025 1:00 PM EST Telemedicine [facility] [address] [place] [address] Carrie Lambert MD [address] [place] [address] [email or web address] 10/23/2025 1:15 PM EDT Office Visit [facility] - [facility]ocrinology - [place] [address] [facility] [place] [address] Leslie Hollis MD [address] [place] [address] [email or web address] documented as of this encounter Goals Goal [...] documented as of this encounter Care Teams Technology Sales Representative Relationship Specialty Start Date End Date Amy Mills MD [address] [facility] [place] [address] [email or web address] PCP - General Family Medicine 02/07/18 3 Darby Hernandez MD [address] [place] [address] [email or web address] PCP - General Family Medicine 05/27/23 Soto Armstrong OD [address] [place] [address] Referring Physician Optometry 02/18/18 Kingston Ramirez MD [address] [place] [address], [address] [place] [address] [email or web address] Ophthalmology 02/18/18 documented as of this encounter Additional Source Comments The information contained in this document represents components of the legal health record. It is not the complete legal health record.[facility]
--- OUTSIDE RECORDS SUMMARY | 2025-05-17 10:53 | XMS_ITS | Encounter Summary ---
Author Organization [facility] Address [address] [place] [address] [place] [address] Care Team Providers Care Wire Frame Lampshade Maker Name Role Phone Porfirio Carrillo Md Primary Care Provider [phone] Encounter Details Date Type Department Care Team ([facility] Contact Info) Description 05/06/2025 Results Follow-Up [facility] [address] [place] [phone] Porfirio Carrillo MD [address] [place] [address] PAP VIAL TESTING, HPV HIGH RISK [...] Description 04/28/2026 1:00 PM EDT Office Visit [facility] [address] [place] [phone] Porfirio Carrillo MD [address] [place] [address] documented as of this encounter Visit Diagnoses Not on filedocumented in this encounter Care Teams Wire Frame Lampshade Maker Relationship Specialty Start Date End Date Porfirio Carrillo MD [address] [place] [address] PCP - General Internal Medicine 03/31/25 documented as of this encounter
--- OUTSIDE RECORDS SUMMARY | 2025-05-17 10:53 | XMS_ITS | Encounter Summary ---
Author Organization [facility] Address [address] [facility] [address] [place] [address] Phone Care Team Providers Care Stone Mason Name Role Phone Amy Mills MD Primary Care Provider [phone] Soto Armstrong OD Unavailable [phone] Kingston Ramirez MD Unavailable Luba Corbett ARTIFICIAL BREEDING TECHNICIAN Unavailable micha Amy Mills MD Unavailable [phone] Darby Hernandez MD Primary Care Provider + Encounter Details Date Type Department Care Team (Late st Contact Info) Description 09/11/2018 Procedure Pass [facility] Endoscopy [address] [address] Social History Tobacco Use Types Packs/Day Years [...] [facility] Cardiology [address] [place] [address] 06/16/2025 2:00 PM EST Appointment [facility] Cardiology [address] [place] [address] Tammy Lau MD [address] [place] [address] [email or web address] 07/15/2025 1:00 PM EST Telemedicine [facility] [address] [place] [address] Carrie Lambert MD [address] [place] [phone] [email or web address] 10/23/2025 1:15 PM EDT Office Visit [facility] - Endocrinology - [place] [address] [place] [address] Leslie Hollis MD [address] [facility] [address] [place] [address] [email or web address] documented as of this encounter [...] documented as of this encounter Care Teams Stone Mason Relationship Specialty Start Date End Date Amy Mills MD [address] [place] [address] [email or web address] PCP - General Family Medicine 02/07/18 05/26/23 Darby Hernandez MD [address] [place] [address] [email or web address] PCP - General Family Medicine 05/27/23 Soto Armstrong OD [address] [place] [address] Referring Physician Optometry 02/18/18 Kingston Ramirez MD [address] [place] [address], [address] [address] Ophthalmology 02/18/18 Luba Corbett LICSW [address] [place] [address], [address] [address] [email or web address] PHCM [employer] Records Clerk 02/25/18 07/29/19 Amy Mills MD [address] [place] [address] [email or web address] Insurance Assigned Provider 04/13/18 07/17/20 documented as of this encounter Additional Source Comments The information contained in this document represents components of the legal health record. It is not the complete legal health record.[facility]
--- OUTSIDE RECORDS SUMMARY | 2025-05-17 10:53 | XMS_ITS | Encounter Summary ---
Author Organization [facility] Address [address] [facility] [address] [place] [address] Phone Care Team Providers Care Home Health Occupational Therapist Name Role Phone Amy Mills MD Primary Care Provider Soto Armstrong OD Unavailable [phone] Kingston Ramirez MD Unavailable [phone] Amy Mills MD Unavailable [phone] Darby Hernandez MD Primary Care Provider + Encounter Details Date Type Department Care Team (Late st Contact Info) Description 03/01/2020 [facility] [address] [facility] [address] [place] [address] Social History Tobacco Use Types [...] high school, GED, job training, learning the Persian language, technical skills, or developing parenting skills)? [...] st Contact Info) Description 11/26/2024 Procedure Pass [facility] Cardiology [address] [facility] [address] [place] [address] 06/16/2025 2:00 PM EST Appointment [facility] Cardiology [address] [facility] [address] [place] [address] Tammy Lau MD [address] [place] [phone] [email or web address] 07/15/2025 1:00 PM EST Telemedicine [facility] [address] [facility] 11 [place] [address] Carrie Lambert MD [address] [place] [address] [email or web address] 10/23/2025 1:15 PM EDT Office Visit [facility] - Endocrinology - [place] [address] [facility] [place] [address] Leslie Hollis MD [address] [place] [address] [email or web address] documented as of this encounter Goals Goal [...] documented as of this encounter Care Teams Home Health Occupational Therapist Relationship Specialty Start Date End Date Amy Mills MD [facility] [place] [address] [email or web address] PCP - General Family Medicine 02/07/18 05/26/23 Darby Hernandez MD [address] [place] [address] [place] [address] [email or web address] PCP - General Family Medicine 05/27/23 Soto Armstrong OD [address] [place] [address] [place] [address] Referring Physician Optometry 02/18/18 Kingston Ramirez MD [address] [place] [address], [address] [place] [address] [email or web address] Ophthalmology 02/18/18 Amy Mills MD [address] [place] [address] [email or web address] Insurance Assigned Provider 04/13/18 07/17/20 documented as of this encounter Additional Source Comments The information contained in this document represents components of the legal health record. It is not the complete legal health record.[facility]
--- OUTSIDE RECORDS SUMMARY | 2025-05-17 10:53 | XMS_ITS | Encounter Summary ---
Author Organization [facility] Address [address] [facility] [address] [place] [address] Phone Care Team Providers Care Environmental Services Specialist Name Role Phone Soto Armstrong OD Unavailable Kingston Ramirez MD Unavailable Darby Hernandez MD Primary Care Provider + Encounter Details Date Type Department Care Team (Late st Contact Info) Description 10/01/2024 Procedure [facility] [address] [facility] [address] [place] [address] Social History Tobacco Use Types Packs/Day Years [...] Info) Description 11/26/2024 Procedure Pass [facility] [address] [facility] [address] [place] [address] 06/16/2025 2:00 PM EST Appointment [facility] Cardiology [address] [facility] [address] [place] [address] Tammy Lau MD [address] [place] [address] [email or web address] 07/15/2025 1:00 PM EST Telemedicine [facility] [address] [facility] [address] [place] [address] Carrie Lambert MD [address] [place] [address] [email or web address] 10/23/2025 1:15 PM EDT Office Visit [facility] - Endocrinology - [address] [place] [address] Leslie Hollis MD [address] [facility] [address] [place] [address] [email or web address] documented as of this encounter Goals [...] as of this encounter Care Teams Environmental Services Specialist Relationship Specialty Start Date End Date Darby Hernandez MD [address] [place] [address] [email or web address] PCP - General Family Medicine 05/27/23 Soto Armstrong OD Referring Physician Optometry 02/18/18 Kingston Ramirez MD [address] [place] [address], [address] [place] [id number] [email or web address] Ophthalmology 02/18/18 documented as of this encounter Additional Source Comments The information contained in this document represents components of the legal health record. It is not the complete legal health record.[facility]
[2025-05-17 10:54] VITALS: BMI 35.4
--- NOTE | 2025-05-17 11:03 | PHA.MEDREC ---
Pharmacy Consult ? Medication Reconciliation Pharmacy has completed the medication reconciliation.Med rec complete, transfer from psych floor
[2025-05-17 11:07] VITALS: BP 123/63; PULSE 73; RESP 16; TEMP 36.4; O2SAT 94
[2025-05-17] MEDS: diazePAM 10 MG/2 ML CARTRIDGE 5 MG IM (12:31)
[2025-05-17] MEDS: 0.9 % Sodium Chloride Flush 3 ML SYRINGE IVFLUSH (15:22)
[2025-05-17 16:00] VITALS: BP 151/82; PULSE 69; RESP 19; TEMP 36.2; O2SAT 94
[2025-05-17 16:26] LABS: Glucose, Whole Blood 205 mg/dL (60-115)
--- NOTE | 2025-05-17 16:57 | P.HPHOSP_ITS ---
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 Rapid response was called yesterday when pt had an episode of unresponsiveness and rhythmic shaking while in the common area. No post-ictal state. Pt's lactic acid was elevated but normalized after IVF. Rest of workup, including CBC, EKG, POC, and CPK was unremarkable. Today, pt was walking with a nurse when she had another episode. Was lowered to the floor by nurse; no fall or headstrike. No post-ictal state; pt was able to state her name and answer appropriately immediately after incident. Pt was brought to the floor under observation for monitoinr and neurology evaluation. Review of Systems Review of Systems: Negative except for that which is stated in the [facility] Medical History Tremor of right hand (10/02/22) Subclinical hypothyroidism (08/27/17) Smoker (04/23/25) Seizure-like activity (09/03/18) Right ankle sprain (09/07/24) Intractable migraine without aura and without status migrainosus (08/24/19) Influenza A (09/07/24) Hyperglycemia (08/26/17) Hyperglycemia (08/26/17) Transient ischemic attack (TIA) (11/26/24) Malignant neoplasm of left ovary (05/01/24) Hyponatremia (09/03/18) Acute kidney injury superimposed on chronic kidney disease (11/08/24) Acute cystitis without hematuria (08/04/18) Social History Household Members: None Housing: Apartment Do you presently have visiting nurse or other home services: No Patient Tobacco Use Status: Current everyday Tobacco user Tobacco use type: Cigarette Cigarette Packs Per Day: 0.5 Cigarettes Per Day: 10.0 e-Cigarette/Vaping Use: Never Used Second Hand Smoke Exposure: No Currently Displaying Signs/Symptoms of Drug Intoxication Withdrawal: No Have you been hit, kicked, punched, or otherwise hurt by someone within the past year? If so, by whom?: No Do you feel safe in your current relationship?: Yes Is there a partner from a previous relationship who is making you feel unsafe now?: No Are you made to feel afraid or neglected: No Advance Directives: No Advance Directives Information Provided: No Do you have a plan to hurt others: No Plan Recently lost weight without trying: No Eating poorly because of decreased appetite: No Nutrition Risks: No Nutritional Risk Patient : No : No Poor oral hygiene: No service: No Sexual orientation: Straight/Heterosexual Meds Allergies Allergy/AdvReac Type Severity Reaction Status Date / Time mccarthy (cherries) Allergy Severe Anaphylaxis Verified 05/15/25 01:42 coconut Allergy Severe Anaphylaxis Verified 05/15/25 01:44 iodine Allergy Severe Anaphylaxis Verified 05/15/25 01:44 morphine Allergy Severe Anaphylaxis Verified 05/15/25 01:46 oxycodone Allergy Severe Anaphylaxis Verified 05/15/25 01:46 Penicillins Allergy Severe Anaphylaxis Verified 05/15/25 01:46 red dye Allergy Severe Swelling Verified 05/15/25 01:46 bee pollen (bees) Allergy Intermediate Hives Verified 05/15/25 01:47 clindamycin Allergy Intermediate Rash Verified 05/15/25 01:43 shellfish derived (shellfish) Allergy Unknown Verified 05/15/25 00:06 Active Medications: Current Medications Acetaminophen (Acetaminophen 325 Mg Tablet) 650 mg PO Q6H PRN PRN Reason: Pain, Mild 1-3,fever,headache Last Admin: 05/17/25 15:30 Dose: 650 mg Atorvastatin Calcium (Atorvastatin Calcium 40 Mg Tablet) 40 mg PO DAILY [facility] Benztropine Mesylate (Benztropine Mesylate 1 Mg Tablet) 1 mg PO DAILY [facility] Calcium Carbonate (Calcium Carbonate 750 Mg Tab.Chew) 750 mg PO Q4H PRN PRN Reason: Heartburn Clonidine HCl (Clonidine Hcl 0.1 Mg Tablet) 0.1 mg PO TID [facility]; Protocol Last Admin: 05/17/25 15:21 Dose: 0.1 mg Dextrose (Dextrose 50 % 25 Gm/50 Ml Syringe) 25 gm IVPUSH Q15M PRN; Protocol PRN Reason: per Hypoglycemia Standing Ord. Gabapentin (Gabapentin 100 Mg Capsule) 100 mg PO DAILY [facility] Glucose (Glucose Gel 15 Gm Gel..Gram.) 15 gm PO Q15M PRN; Protocol PRN Reason: per Hypoglycemia Standing Ord. Insulin Human Lispro (Insulin Lispro 100 Unit/Ml 3 Ml Vial) 0 unit SUBCUT QIDACHS [facility]; Protocol Last Admin: 05/17/25 16:40 Dose: 4 unit Lamotrigine (Lamotrigine 100 Mg Tablet) 200 mg PO BEDTIME [facility] Lamotrigine (Lamotrigine 100 Mg Tablet) 100 mg PO DAILY [facility] Latanoprost (Latanoprost 0.005 % Ophth Linda 2.5 Ml Drops) 1 drop EYE-BOTH BEDTIME [facility] Lorazepam (Lorazepam 0.5 Mg Tablet) 0.5 mg PO DAILY [facility] Magnesium Hydroxide (Milk Of Magnesia 30 Ml Oral.Susp) 30 ml PO DAILY PRN PRN Reason: Constipation Melatonin (Melatonin 3 Mg Tablet) 6 mg PO BEDTIME PRN PRN Reason: Insomnia Non-Formulary Medication (Sumatriptan) 5 mg NOSTRIL-B DIRECTED PRN PRN Reason: Migraine Headache Ondansetron HCl (Ondansetron Hcl 4 Mg/2 Ml Vial) 4 mg IVPUSH Q8H PRN PRN Reason: Nausea and Vomiting Prazosin HCl (Prazosin Hcl 1 Mg Capsule) 2 mg PO BEDTIME [facility]; Protocol Risperidone (Risperidone 1 Mg Tablet) 1 mg PO BID [facility] Sertraline HCl (Sertraline Hcl 100 Mg Tablet) 100 mg PO BID [facility] Sodium Chloride (0.9 % Sodium Chloride Flush 3 Ml Syringe) 3 ml IVFLUSH QSHIFT [facility] Last Admin: 05/17/25 15:22 Dose: 3 ml Home Medications ?Medication ?Instructions ?Recorded ?Confirmed ?Last Taken ?Type atorvastatin 40 mg tablet 40 mg PO DAILY 05/15/2504/02 Unknown History benztropine 1 mg tablet 1 mg PO DAILY 05/15/2505/17 Unknown History clonidine HCl 0.1 mg tablet 0.1 mg PO TID 05/15/2504/02 Unknown History gabapentin 100 mg capsule 100 mg PO DAILY 05/15/2504/02 Unknown History lamotrigine 100 mg tablet 100 mg PO DAILY 05/15/2504/02 Unknown History lamotrigine 100 mg tablet 200 mg PO BEDTIME 05/15/25 1 07/17/24 Unknown History latanoprost 0.005 % eye drops 1 drp ophthalmic (eye) B EDTIME 05/15/25 05/17/25 Unknown History lorazepam 0.5 mg tablet 0.5 mg PO DAILY 05/15/2504/02 Unknown History melatonin 5 mg tablet 5 mg PO BEDTIME 05/15/2504/02 Unknown History metformin 500 mg tablet 500 mg PO BID 05/15/2505/17 Unknown History prazosin 2 mg capsule 2 mg PO BEDTIME 05/15/2504/02 Unknown History risperidone 1 mg tablet 1 mg PO BID 05/15/25 5 Unknown History sertraline 100 mg tablet 100 mg PO BID 05/15/2505/17 Unknown History sumatriptan 5 mg/actuation nasal 5 mg intranasal DI RECTED PRN 05/15/2504/02 Unknown History spray Migraine Headache Physical Exam Vital Signs and Narrative: Vital Signs: Last Vital Signs Temp 97.1 F 05/17/25 16:00 Pulse 69 05/17/25 16:00 Resp 19 05/17/25 16:00 BP 151/82 H 05/17/25 16:00 Pulse Ox 94 05/17/25 16:00 O2 Del Method Room Air 05/17/25 16:00 BMI result Body Mass Index 35.4 General: AOx3, no acute distress Resp: CTA bilaterally CVS: S1, S2, RRR GI: +BS, NT, no distention Skin: Warm, dry Neuro: Cranial nerves II-XII grossly intact bilaterally. Motor grossly intact bilaterally. 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 Continue metformin Candle Cutter is Dr. Anabel Hollis in [place] Avoid nephrotoxins Glaucoma Continue latanoprost Hyperlipidemia Atorvastatin JONATHAN Home CPAP Full Code Attending:?Dr. Ness DVT Prophylaxis: Lovenox Pt is brought to the hospital floor for monitoring and additional evaluation for breakthrough psuedoseizures. Quality Stroke Does the patient have a stroke diagnosis?: No VTE Prior VTE?: No VTE Risk Level:: Medical - low VTE Device Contraindication: Treatment Not Indicated VTE Drug Contraindication: N/A - Med Ordered
--- NOTE | 2025-05-17 17:45 | PC.NURSE ---
At approx 12:25pm rapid response was called by sitter assigned to room. Upon entering room, pt appeared to be having a seizure. Seizure pads already in place. Sheri ordered valium 5mg I.V. stat., which this nurse administered. Within 1 minute of medication being given, seizure appeared to be over. Vitals taken. WNL. Pt alert and able to answer questions, but drowsy. Will continue to monitor pt. Sitter still in assigned to room and camera in place.
[2025-05-17 20:00] VITALS: BP 138/63; PULSE 77; RESP 19; TEMP 37.3; O2SAT 95
[2025-05-17 20:38] LABS: Glucose, Whole Blood 210 mg/dL (60-115)
[2025-05-17 20:55] VITALS: BP 138/63
[2025-05-17] MEDS: Latanoprost 0.005 % Ophth Sol 2.5 ML DROPS 1 DROP EYE-BOTH (20:56)
[2025-05-18 04:00] VITALS: BP 126/59; PULSE 70; RESP 18; TEMP 36.4; O2SAT 94
[2025-05-18] MEDS: Milk of Magnesia 30 ML ORAL.SUSP PO (04:06)
[2025-05-18 06:36] LABS: Hematocrit 42.2 % (37.0-47.0); Hemoglobin 13.8 g/dl (12.0-16.0); Mean Corpuscular HGB Conc 32.7 g/dl (31.0-35.0); Mean Corpuscular Hemoglobin 30.2 pg (27.0-33.0); Mean Corpuscular Volume 92.3 fL (80.0-98.0); NRBC Abs Auto 0.000 X10*3/uL (0.0-0.012); NRBC Pct Auto 0.0 /100WBC (0.0-0.2); Platelet Count 240 X10*3/uL (160-400); Red Blood Count 4.57 X10*6/uL (4.20-5.50); White Blood Count 6.5 X10*3/uL (4.8-10.8)
[2025-05-18 06:51] LABS: Anion Gap 13 (12-20); Blood Urea Nitrogen 24 mg/dL (9-16); Calcium 9.4 mg/dL (8.4-10.2); Carbon Dioxide 26 mmol/L (22-29); Chloride 102 mmol/L (96-108); Creatinine Clr Calc Pharmacy 52.4; Estimated Glomerular Filt Rate 42; Magnesium 1.9 mg/dL (1.6-2.6); Potassium 4.3 mmol/L (3.3-5.1); Sodium 137 mmol/L (135-145)
[2025-05-18 07:09] VITALS: BP 136/68; PULSE 70; RESP 16; TEMP 36; O2SAT 93
[2025-05-18] MEDS: 0.9 % Sodium Chloride Flush 3 ML SYRINGE IVFLUSH ×2 (07:17→16:11)
--- NOTE | 2025-05-18 07:31 | HO.PM.IMPN ---
Subjective Subjective Date of Service: 05/18/25 Interval History: Patient has been seizure-free Neurology consulted-EEG likely done in [place] recently Does not appear to have any intracranial pathology Patient deemed appropriate to go back to Psychiatry Patient likely will have further pseudoseizures/nonepileptic form seizures intermittently Patient optimized medically-appreciate care team input Review of Systems Review of Systems: Yes all other systems are reviewed and are negative Physical Exam Exam: Exam: General: AOx3, no acute distress Resp: CTA bilaterally CVS: S1, S2, RRR GI: +BS, NT, no distention Skin: Warm, dry Neuro: Cranial nerves II-XII grossly intact bilaterally. Motor grossly intact bilaterally. No focal deficits noted Extremities: No edema Psych: Calm, cooperative Vital Signs: Vital Signs: Last Vital Signs Temp 96.8 F 05/18/25 07:09 Pulse 70 05/18/25 07:09 Resp 16 05/18/25 07:09 BP 136/68 05/18/25 07:09 Pulse Ox 93 05/18/25 07:09 O2 Del Method Room Air 05/18/25 07:09 BMI result Body Mass Index 35.4 Objective Data Active Medications Acetaminophen (Acetaminophen 325 Mg Tablet) 650 mg PO Q6H PRN PRN Reason: Pain, Mild 1-3,fever,headache Last Admin: 05/18/25 04:06 Dose: 650 mg Documented By: MARIA G Atorvastatin Calcium (Atorvastatin Calcium 40 Mg Tablet) 40 mg PO DAILY [facility] Benztropine Mesylate (Benztropine Mesylate 1 Mg Tablet) 1 mg PO DAILY [facility] Calcium Carbonate (Calcium Carbonate 750 Mg Tab.Chew) 750 mg PO Q4H PRN PRN Reason: Heartburn Clonidine HCl (Clonidine Hcl 0.1 Mg Tablet) 0.1 mg PO TID [facility]; Protocol Last Admin: 05/17/25 20:55 Dose: 0.1 mg Documented By: MICAH Dextrose (Dextrose 50 % 25 Gm/50 Ml Syringe) 25 gm IVPUSH Q15M PRN; Protocol PRN Reason: per Hypoglycemia Standing Ord. Gabapentin (Gabapentin 100 Mg Capsule) 100 mg PO DAILY [facility] Glucose (Glucose Gel 15 Gm Gel..Gram.) 15 gm PO Q15M PRN; Protocol PRN Reason: per Hypoglycemia Standing Ord. Insulin Glargine (Insulin Glargine,Hum.Rec.Anlog 100 Unit/Ml 10 Ml Vial) 14 unit SUBCUT DAILY [facility] Insulin Human Lispro (Insulin Lispro 100 Unit/Ml 3 Ml Vial) 0 unit SUBCUT QIDACHS [facility]; Protocol Last Admin: 05/17/25 20:56 Dose: 4 unit Documented By: MICAH Insulin Human Lispro (Insulin Lispro 100 Unit/Ml 3 Ml Vial) 3 unit SUBCUT QIDACHS [facility] Lamotrigine (Lamotrigine 100 Mg Tablet) 200 mg PO BEDTIME [facility] Last Admin: 05/17/25 20:55 Dose: 200 mg Documented By: MICAH Lamotrigine (Lamotrigine 100 Mg Tablet) 100 mg PO DAILY [facility] Latanoprost (Latanoprost 0.005 % Ophth Linda 2.5 Ml Drops) 1 drop EYE-BOTH BEDTIME [facility] Last Admin: 05/17/25 20:56 Dose: 1 drop Documented By: MICAH Lorazepam (Lorazepam 0.5 Mg Tablet) 0.5 mg PO DAILY [facility] Magnesium Hydroxide (Milk Of Magnesia 30 Ml Oral.Susp) 30 ml PO DAILY PRN PRN Reason: Constipation Last Admin: 05/18/25 04:06 Dose: 30 ml Documented By: MARIA G Melatonin (Melatonin 3 Mg Tablet) 6 mg PO BEDTIME PRN PRN Reason: Insomnia Last Admin: 05/17/25 22:49 Dose: 6 mg Documented By: MARIA G Non-Formulary Medication (Sumatriptan) 5 mg NOSTRIL-B DIRECTED PRN PRN Reason: Migraine Headache Ondansetron HCl (Ondansetron Hcl 4 Mg/2 Ml Vial) 4 mg IVPUSH Q8H PRN PRN Reason: Nausea and Vomiting Prazosin HCl (Prazosin Hcl 1 Mg Capsule) 2 mg PO BEDTIME [facility]; Protocol Last Admin: 05/17/25 20:55 Dose: 2 mg Documented By: MICAH Risperidone (Risperidone 1 Mg Tablet) 1 mg PO BID [facility] Last Admin: 05/17/25 20:55 Dose: 1 mg Documented By: MICAH Sertraline HCl (Sertraline Hcl 100 Mg Tablet) 100 mg PO BID [facility] Last Admin: 05/17/25 20:55 Dose: 100 mg Documented By: MICAH Sodium Chloride (0.9 % Sodium Chloride Flush 3 Ml Syringe) 3 ml IVFLUSH QSHIFT [facility] Last Admin: 05/18/25 07:17 Dose: 3 ml Documented By: SARA Labs 05/18/25 06:21 05/18/25 06:21 Labs: Laboratory Results - last 24 hr 05/17/25 05/17/25 05/18/25 16:23 20:27 06:21 MCV 92.3 MCH 30.2 MCHC 32.7 RDW 13.1 Plt Count 240 MPV 9.4 Absolute Nucleated RBC 0.000 Nucleated RBC % (auto) 0.0 Anion Gap 13 Estim Creat Clear Calc 52.4 Estimated GFR 42 POC Glucose 205 H 210 H Random Glucose 245 H Calcium 9.4 Magnesium 1.9 Assessment and Plan (1) Psychiatric pseudoseizure: Status: Acute Assessment and Plan: Pt is a 59-year-old female with a PMH significant for HLD, 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 Non epileptiform seizure disorder recrudescence-in a patient with diagnosis of functional neurological disorder or nonepileptic seizure disorder -likely given current recent psychiatric stresses Pt with seizure-like activity on 05/16 and again on 05/17, She had an episode of generalized rhythmic shaking with no obvious postictal state. Her examination did not reveal any focality.; no post-ictal state noted, neurology consulted. 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 Continue metformin Food Processor is Dr. Anabel Hollis in [place] Avoid nephrotoxins Glaucoma Continue latanoprost Hyperlipidemia Atorvastatin JONATHAN Home CPAP Full Code DVT Prophylaxis: Lovenox Disposition: Patient medically optimized and neurology consulted-can be transferred to psychiatric floor - CARE team consult placed This note is constructed using voice recognition software. While every effort has been made to ensure accuracy, booker errors may have been included. Quality Stroke Does the patient have a stroke diagnosis?: No VTE Prior VTE?: No VTE Risk Level:: Medical - low VTE Device Contraindication: Treatment Not Indicated VTE Drug Contraindication: N/A - Med Ordered
[2025-05-18 07:35] LABS: Glucose, Whole Blood 254 mg/dL (60-115)
[2025-05-18] MEDS: Insulin Glargine,Hum.rec.anlog 100 UNIT/ML 10 ML VIAL 14 UNIT SUBCUT (09:50)
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
[2025-05-18 11:15] LABS: Glucose, Whole Blood 224 mg/dL (60-115)
--- NOTE | 2025-05-18 11:46 | MHC.CM.PN ---
PT IS FROM [facility] WHERE THE PLAN IS TO RETURN WHEN DCD
[2025-05-18 15:17] VITALS: BP 131/76; PULSE 71; RESP 16; TEMP 36; O2SAT 92
--- NOTE | 2025-05-18 15:43 | P.DS_ITS ---
DS: Providers Provider Date of Service: 05/18/25 Date of admission: 05/17/25 10:48 Date of discharge: 05/18/25 Primary care physician: Unknown Physician Consults: 05/17/25 10:14 Consult to Neurology Routine Consulting Provider: [facility] Reason for consultation: Breakthrough pseudoseizures on psych 05/18/25 11:17 Inpt CARE Team Crisis Consult Routine Comment: Reason for consultation: Patient medically evaluated, can go back to Psychiatry DS: Diagnosis Discharge Diagnosis (1) Psychiatric pseudoseizure: Status: Acute DS: Summary Hospital Course Hospital Course: Non epileptiform seizure disorder recrudescence-in a patient with diagnosis of 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 Pt with seizure-like activity on 05/16 and again on 05/17, She had an episode of generalized rhythmic shaking with no obvious postictal state. Her examination did not reveal any focality.; no post-ictal state noted, neurology consulted. Likely secondary to functional neurological disorder with psychogenic non- epileptic seizures EEG and extensive neurological workup done outpatient hence we will obtain that and likely will benefit from ambulatory EEG Continue Lamictal Patient unfortunately can have further non epileptiform seizures- not totally unexpected Patient medically optimized and neurology consulted-is being transferred back to psychiatric floor Bipolar 1 disorder/anxiety/PTSD/depression Treatment per psychiatric team Type 1 diabetes with diabetic nephropathy-3a Previously on an insulin pump Orders for 14 units of Lantus, 3 units of preprandial insulin with a sliding scale. Continue metformin Field Tech is Dr. Anabel Hollis in [place] Avoid nephrotoxins Glaucoma Continue latanoprost Hyperlipidemia Atorvastatin JONATHAN Home CPAP Full Code DVT Prophylaxis: Lovenox Disposition: Patient medically optimized and neurology consulted-is being transferred back to psychiatric floor This note is constructed using voice recognition software. While every effort has been made to ensure accuracy, strapper operator errors may have been included. Time spent discussing smoking cessation with patient: more than 10 minutes Status at Discharge Functional status at discharge: independent ambulation Overall status at discharge: patient is progressing back to baseline Time Attestation Discharge Coordination Time (in mins): 45 Quality: Safe Use of Opioids Does Pt have an Active Cancer Diagnosis on the Problem List?: No Quality: Stroke Does the patient have a stroke diagnosis?: No Physical Exam Vital Signs: Vital Signs: Last Vital Signs Temp 96.8 F 05/18/25 15:17 Pulse 71 05/18/25 15:17 Resp 16 05/18/25 15:17 BP 131/76 05/18/25 15:17 Pulse Ox 92 05/18/25 15:17 O2 Del Method Room Air 05/18/25 15:17 BMI result Body Mass Index 35.4 DS: Data Data Completed and Pending Labs on day of discharge: Laboratory Results - last 24 hr 05/17/25 05/17/25 05/18/25 16:23 20:27 06:21 WBC 6.5 RBC 4.57 Hgb 13.8 Hct 42.2 MCV 92.3 MCH 30.2 MCHC 32.7 RDW 13.1 Plt Count 240 MPV 9.4 Absolute Nucleated RBC 0.000 Nucleated RBC % (auto) 0.0 Sodium 137 Potassium 4.3 Chloride 102 Carbon Dioxide 26 Anion Gap 13 BUN 24 H Creatinine 1.31 Estim Creat Clear Calc 52.4 Estimated GFR 42 POC Glucose 205 H 210 H Random Glucose 245 H Calcium 9.4 Magnesium 1.9 05/18/25 05/18/25 07:13 11:06 WBC RBC Hgb Hct MCV MCH MCHC RDW Plt Count MPV Absolute Nucleated RBC Nucleated RBC % (auto) Sodium Potassium Chloride Carbon Dioxide Anion Gap BUN Creatinine Estim Creat Clear Calc Estimated GFR POC Glucose 254 H 224 H Random Glucose Calcium Magnesium Discharge Plan Discharge Patient Disposition: Xfer Psychiatric Hosp Referrals: Physician,Unknown J [Primary Care Provider, Medical] - 1 Week Discharge Medications: Continued latanoprost 0.005 % drops 1 drp ophthalmic (eye) BEDTIME Rx Instructions: 1 DROP PER EYE AT HS. atorvastatin 40 mg tablet 40 mg PO DAILY Rx Instructions: Take 40 mg by mouth daily metformin 500 mg tablet 500 mg PO BID clonidine HCl 0.1 mg tablet 0.1 mg PO TID sertraline 100 mg tablet 100 mg PO BID lorazepam 0.5 mg tablet 0.5 mg PO DAILY benztropine 1 mg tablet 1 mg PO DAILY gabapentin 100 mg capsule 100 mg PO DAILY risperidone 1 mg tablet 1 mg PO BID lamotrigine 100 mg tablet 100 mg PO DAILY prazosin 2 mg capsule 2 mg PO BEDTIME melatonin 5 mg tablet 5 mg PO BEDTIME sumatriptan 5 mg/actuation spray,non-aerosol 5 mg INTRANASAL DIRECTED PRN (Reason: Migraine Headache) Rx Instructions: 1 spray (5 mg total) into each nostril daily as needed for migraine. lamotrigine 100 mg Tablet 200 mg PO BEDTIME Discharge Orders: Discharge Order (Routine); Ordered 05/18/25 Ordered By: Michaela Chatterjee Diet: Low salt diet Activity on Discharge: As tolerated Stand Alone Forms: Patient Portal Discharge page Print Language: Yoruba Plan of Treatment: Pt is being managed on Insulin Lantus and lispro instead of Insulin pump
[2025-05-18 16:19] LABS: Glucose, Whole Blood 149 mg/dL (60-115)
[2025-05-19 10:01] LABS: Glucose, Whole Blood 173 mg/dL (60-115)
== END 2025-05-18 18:10 | DRG 880 ==
PROVIDERS: Admitting Provider Student in an Organized Health Care Education/Training Program; Visit Provider Student in an Organized Health Care Education/Training Program
DX: F44.5 Conversion disorder with seizures or convulsions (principal); F17.210 Nicotine dependence, cigarettes, uncomplicated; F31.9 Bipolar disorder, unspecified; E78.5 Hyperlipidemia, unspecified; E10.40 Type 1 diabetes mellitus with diabetic neuropathy, unspecified; G47.33 Obstructive sleep apnea (adult) (pediatric); H40.9 Unspecified glaucoma; F41.9 Anxiety disorder, unspecified; E10.22 Type 1 diabetes mellitus with diabetic chronic kidney disease; N18.31 Chronic kidney disease, stage 3a; Z71.6 Tobacco abuse counseling; Z79.84 Long term (current) use of oral hypoglycemic drugs; Z79.899 Other long term (current) drug therapy
CPT/HCPCS: 36415; 80048; 82947; 83735; 85027; J3360; S9485

== ENCOUNTER → 2025-05-17 10:48 | Outpatient (BNV) | payer OTHER, SELFPAY | PROVIDERS: Admitting Provider Student in an Organized Health Care Education/Training Program; Visit Provider Student in an Organized Health Care Education/Training Program | DX: F44.5 Conversion disorder with seizures or convulsions (principal) | CPT/HCPCS: 99239; 99499 ==

== ENCOUNTER → 2025-05-17 10:48 | Outpatient (BNV) | payer OTHER, SELFPAY | PROVIDERS: Admitting Provider Student in an Organized Health Care Education/Training Program; Visit Provider Psychiatry & Neurology Neurology | DX: Z87.898 Personal history of other specified conditions (principal) | CPT/HCPCS: 99222 ==

== ENCOUNTER 2025-05-18 19:25 | Inpatient (IN) | payer OTHER, SELFPAY ==
--- OUTSIDE RECORDS SUMMARY | 2025-04-23 12:20 | XMS_ITS | Encounter Summary ---
Author Organization [facility] Address [address] [place] [address] [place], [place] [id number] Care Team Providers Care Engine Setter Name Role Phone Porfirio Nicolas Md Primary Care Provider [phone] Reason for Referral * Specialty (Priority - w/in a Month) - Closed Specialty Diagnoses / Procedures Referred By Brynn hinton Referred To Contact Internal Medicine Diagnoses Smoker Porfirio Nicolas MD [address] [place] [address] Phone: tel: fax: Referral ID Status Reason Start Date Expiration Date V isits Requested Visits Authorized Closed Service not locally available 04/23/2025 04/23/2026 3 3 Scheduling Instructions This referral has been pre-approved for services outside of [facility] as there is no internal expertise. * Imaging (Non Urgent - w/in 3 months) - Auth Not Needed Specialty Diagnoses / Procedures Referred By Brynn hinton Referred To Contact Diagnoses Encounter for screening mammogram for malignant neoplasm of breast Procedures MAMMOGRAM SCREENING BILAT BRIAN BUNDLE Porfirio Nicolas MD [address] [place] [phone] Phone: tel: fax: Unspecified Location Referral ID Status Reason Start Date Expiration Date Visits Requested Visits Authorized Auth Not Needed Service not locally available 10/21/2026 1 1 Reason for Visit * Reason Comments New Patient Complete Physical Exam Wears eye glasses for near & farSees eye doctor yearly - [facility] [place] Encounter Details Date Type Department Care Team (Latest Contact Info) Description 04/23/2025 1:20 PM EDT Office Visit [facility] [address] [place] [phone] Porfirio Nicolas MD [address] [place] [phone] Annual physical exam (Primary Dx); Colon cancer screening; Encounter for screening mammogram for malignant neoplasm of breast; Need for COVID-19 vaccine; Need for influenza vaccination; Need for shingles vaccine; Smoker; Type 1 diabetes mellitus with hyperglycemia ([facility]); Seizure disorder ([facility]); Class 2 severe obesity due to excess calories with serious comorbidity and body mass index (BMI) of 35.0 to 35.9 in adult; Bipolar disorder, in partial remission, most recent episode depressed ([facility] Cervical cancer screening; Bilateral hearing loss, unspecified hearing loss type Social History Tobacco Use Types Packs/Day Years Used Date Smoking Tobacco: Every Day Cigarettes 0.5 5 Passive Smoke Exposure: Never Smokeless Tobacco: Never Alcohol Use Standard Drinks/Week Comments Yes 1 (1 standard drink = 0.6 oz pur e alcohol) One glass of wine at [facility] Vital Sign Answer Date Recorded Worried About [...] Patient CONSENTS to be recorded by the [employer] system. Subjective Lisa Rosas is a 59 year old patient who presents for a periodic health review. History of Present Illness The patient is a female who presents for a checkup. Physical Examination and Blood Work - Her last physical examination and blood work were nearly a year ago at [facility]. - She has not undergone a Pap smear since her hysterectomy in 2010 due to ovarian cancer. - Both ovaries and the uterus were removed, leaving only the cervix intact. Blood Sugar Levels - She experiences fluctuations in her blood sugar levels, generally stable. - She uses a Dexcom monitor and is under regular care of an pediatric urologist. - She is on an insulin pump [...] - She is scheduled to see an dishwasher busser soon. Glaucoma - She has glaucoma and [...] Alcohol: Drinks 1 glass of wine on [place]. Tobacco: Smokes about half a pack of [...] vaccine Orders: COVID-19 (PFIZER) VACCINE, 12YRS+, 30MCG/0.3ML ([id number]) Need for influenza vaccination Orders: INFLUENZA VACCINE, 36MOS+, SPLIT VIRUS, SINGLE DOSE SYRINGE (AFLURIA) Need for shingles vaccine Smoker Orders: nicotine 14 mg/24 hr Patch 24 hr; Apply 1 patch daily for 6 weeks; then step down to 7mg patch [facility] Type 1 diabetes mellitus with hyperglycemia ([facility]) Seizure disorder ([facility]) Class 2 severe obesity due to excess calories with serious comorbidity and body mass index (BMI) of35.0 to 35.9 in adult Bipolar disorder, in partial remission, most recent episode depressed ([facility]) Cervical cancer screening Orders: PAP VIAL TESTING; [...] should be continued, and follow-up with the pediatric urologist is recommended. 3. Seizure Disorder: There have [...] 2025. The patient is advised to start onef-rif-tnsvfjs baby aspirin daily unless contraindicated due to a history of bleeding ulcers. 5. Hearing Loss: The patient has complete hearing loss in the left ear and partial hearing loss in the right ear. This is managed with hearing aids, and the patient is due to see an dishwasher busser soon. 6. Glaucoma: The patient follows up [...] step down to 7mg patch REFERRAL TO [facility] SMOKING CESSATION PROGRAM * Assessment & Plan Note - Porfirio Nicolas MD - 04/23/2025 1:20 PM EDTAssociated Problem(s): Type 1 diabetes mellitus with hyperglycemia ([facility]) * Assessment & Plan Note - Porfirio Nicolas MD - 04/23/2025 1:20 PM EDTAssociated Problem(s): Seizure disorder ([facility]) * Assessment & Plan Note - Porfirio Nicolas MD - 04/23/2025 1:20 PM EDTAssociated Problem(s): Class 2 severe obesity due to excess calories with serious comorbidity and body mass index (BMI) of 35.0 to 35.9 in adult * Assessment & Plan Note - Porfirio Nicolas MD - 04/23/2025 1:20 PM EDTAssociated Problem(s): Bipolar disorder, in partial remission, most recent episode depressed ([facility]) * Assessment & Plan Note - Porfirio Nicolas MD - 04/23/2025 1:20 PM EDTAssociated Problem(s): Bilateral hearing loss documented in this encounter Plan of Treatment Upcoming Encounters Date Type Department Care Team (Late st Contact Info) Description 04/28/2026 1:00 PM EDT Office Visit [facility] [address] [place] [phone] Porfirio Nicolas MD [address] [place] [phone] Scheduled Orders Name Type Priority Associated Diagnoses Orde r Schedule COLOGUARD LAB Routine Colon cancer screening Expected: 04/23/2025, Expires: 04/23/2026 MAMMOGRAM SCREENING BILAT BRIAN BUNDLE IMAGING Routine Encounter for screening mammogram for malignant neoplasm of breast Ordered: 04/23/2025 Scheduled Referrals Name Type Priority Associated Diagnoses Orde r Schedule REFERRAL TO [facility] SMOKING CESSATION PROGRAM REFERRAL/FUTURE Routine Smoker Ordered: 04/23/2025 documented as of this encounter Results * PAP VIAL TESTING (04/23/2025 5:10 PM EDT) Interpretation NEGATIVE FOR INTRAEPITHELIAL LESION OR MALIGNANCY 04/29/2025 9:48 AM EDT [facility] DEPARTMENT OF PATHOLOGY AND LAB MEDICINE at 0948 EDT Specimen Adequacy Satisfactory for evaluation. Transformation zone component absent. 04/29/2025 9:48 AM EDT [facility] DEPARTMENT OF PATHOLOGY AND LAB MEDICINE HPV High Risk Negative 04/29/2025 9:48 AM EDT [facility] DEPARTMENT OF PATHOLOGY AND LAB MEDICINE Source Cervical 04/29/2025 9:48 AM EDT [facility] DEPARTMENT OF PATHOLOGY AND LAB MEDICINE Macroscopic Description Vial contains 20cc of colorless fluid. 04/29/2025 9:48 AM EDT [facility] DEPARTMENT OF PATHOLOGY AND LAB MEDICINE Additional Information For further information about terminology found in your pathology report, please visit the My Pathology Report website (not compatible with Internet Explorer). If after speaking to your provider you would like more information about your pathology result, you may message the pathology department directly. 04/29/2025 9:48 AM EDT [facility] DEPARTMENT OF PATHOLOGY AND LAB MEDICINE Disclaimer [...] of this sample. 04/29/2025 9:48 AM EDT [facility] DEPARTMENT OF PATHOLOGY AND LAB MEDICINE Specimen Information Gynecologic Cytology Case: [id number] Collected: 04/23/2025 5:10 PM Received: 04/23/2025 9:40 PM Authorizing Provider: PORFIRIO NICOLAS MD Ordering Location: [facility] Result interpreted by: JALYN JACKSON Result signed on: 04/29/2025 9:48 AM 04/29/2025 9:48 AM EDT [facility] DEPARTMENT OF PATHOLOGY AND LAB MEDICINE PAP Vial (Cervical) Non-blood collection / Unknown 04/23/2025 5:10 PM EDT 04/23/2025 5:10 PM EDT us Porfirio Nicolas LAB PATHOLOGY ORDERABLES Final R esult [facility] DEPARTMENT OF PATHOLOGY AND LAB MEDICINE [address] [place] [phone] documented in this encounter Visit Diagnoses Diagnosis [...] disorder Type 1 diabetes mellitus with hyperglycemia ([facility]) Type I (juvenile type) diabetes mellitus without mention of complication, not stated as uncontrolled Seizure disorder ([facility]) Unspecified epilepsy without mention of intractable epilepsy Class 2 severe obesity due to excess calories with serious comorbidity and body mass index (BMI) of 35.0 to 35.9 in adult Bipolar disorder, in partial remission, most recent episode depressed ([facility]) Bipolar I disorder, most recent episode (or [...] Date COVID-19 (PFIZER) VACCINE, 1 2YRS+, 30MCG/0.3ML ([id number]) 1 04/23/2025 INFLUENZA VACCINE, 36MOS+, S PLIT VIRUS, SINGLE DOSE SYRINGE (AFLURIA) 1 04/23/2025 documented in this encounter Care Teams Engine Setter Relationship Specialty Start Date End Date Porfirio Nicolas MD [address] [place] [address] PCP - General Internal Medicine 03/31/25 documented as of this encounter
--- OUTSIDE RECORDS SUMMARY | 2025-05-13 13:40 | XMS_ITS | Encounter Summary ---
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 history as above now presents with suicide ideation with a plan. The patient BIBA from home, on section 12, due to the suicide ideation with a plan. The patient stated that she was at her psychiatric appointment, and she disclosed that she had beenthinking about ending her life for the past 3 days. She said that she feels very sad and hopeless, and she stated that she has been making plans to end her life by taking all her pills and sleeping, or to cause issues with the police so that they can kill her. This casualty underwriter asked about which problem she was thinking of causing. She answered that she was thinking about getting either a gun or a knife in the presence of the police so that they could kill her. She stated that her 's anniversary is approaching. She said she has financial difficulties, feels alone, and misses her children. She noted that they live out of state, she has relatives around, but because of her depression, she is isolated. Denied homicidal ideation and visual and auditory hallucinations. The patient's thoughts were organized, and no signs of psychosis were observed. The patient has a history of inpatient stays. Per the medical record, she has a history of bipolar I disorder and PTSD. She has a psychiatrist and a therapist, and has been adherent to her medicines. The mental status examination, conducted during the evaluation to assess her basic functioning, showed that her appearance was proper, and her speech was clear. Her eye contact was proper, and she exhibited regular motor activity; no unusual psychomotor behavior changes were observed. She showed a depressed mood. Her affect was congruent with his mood; her memory was intact and oriented to 5x (person, place, time, date, and situation). The patient endorsed SI with multiple plans. She denied auditory hallucinations, visual hallucinations, and HI. The insight and judgment were fair. The patient's behavior was calm and cooperative. Recommendations: Based on this assessment, this clinician's opinion is that the patient was in acute psychiatric distress, requiring immediate hospitalization to help her stay safe and stabilized. The patient meets the Section 12 criteria due to suicidal ideation with plans. The patient will remainat the Emergency Department until the subsequent placement. Intervention and Stabilization Services Requested: Disposition Recommendation: Inpatient Level of Care Patient meets criteria for opioid use disorder (OUD): No Behavioral Health Diagnosis: Unspecified Depression Duration: Time Spent (min): 180 Discussed with Chute Tapper: Yes, Chute Tapper Name: Marcelle SISSY Discussed with Medical Team: Yes . Meme WHELAN Signed by: Gosia Gordon [1] (Not in a hospital admission) [2] [3] [4] No family history on file. documented in this encounter ED Notes * Saundra Coreas RN - 05/14/2025 9:42 PM EST Patient given most of her nighttime meds except melatonin and clonidine, Spoke with ALINA Moreno, receiving nurse, @ [facility], advised that patient left ED @ 2135 and received her medications @ 0, also informed of the meds that patient did not receive. Patient's belongings placed on back pending sale to [facility] to go with patient. Patient understood and agreed with plan, left in NAD. * Michael Lan RN - 05/13/2025 1:57 PM EST Biba from home on section 12. Patient states she doesn't want to wake up and has been thinking of ways to . Per section 12 patient has been causing issues so police will kill her * MAYTE Paez - 05/13/2025 1:40 PM EST [facility] ED Provider Note Arrival Date: 05/13/2025 HISTORY OF PRESENT ILLNESS Patient is a 59-year-old female history diabetes, seizures, anxiety, depression, bipolar, migraineswho presents on section 12 for suicidal ideations. At this time denying any active suicidal or homicidal ideations. No visual or auditory hallucinations. She does have an insulin pump on. Denies any substance abuse. No active medical complaints. She is help seeking. PHYSICAL EXAM ED Triage Vitals [05/13/25 1400] BP Heart Rate Resp Temp SpO2 (!) 168/97 75 16 97.8 ??F (36.6 ??C) 96 % Physical Exam Constitutional: General: He is not in acute distress. Appearance: Normal appearance. He is normal weight. He is not ill-appearing, toxic-appearing or diaphoretic. HENT: Head: Normocephalic and atraumatic. Nose: Nose normal. Mouth/Throat: Mouth: Mucous membranes are moist. Eyes: Extraocular Movements: Extraocular movements intact. Conjunctiva/sclera: Conjunctivae normal. Pupils: Pupils are equal, round, and reactive to light. Cardiovascular: Rate and Rhythm: Normal rate. Pulmonary: Effort: Pulmonary effort is normal. Abdominal: Palpations: Abdomen is soft. Musculoskeletal: General: Normal range of motion. Cervical back: Normal range of motion. Skin: General: Skin is warm and dry. Neurological: General: No focal deficit present. Mental Status: He is alert and oriented to person, place, and time. Psychiatric: Mood and Affect: Mood normal. Behavior: Behavior normal. Comments: Calm and cooperative MEDICAL DECISION MAKING & ED COURSE Labs BASIC METABOLIC PANEL - Abnormal Result Value Ref Range Sodium 139 135 - 146 mmol/L Potassium 4.6 3.4 - 5.2 mmol/L Chloride 101 98 - 110 mmol/L Total CO2/Bicarbonate 27 24 - 32 mmol/L Anion Gap 11 2 - 15 mmol/L BUN 12 7 - 24 mg/dL Creatinine, Blood 1.00 0.50 - 1.10 mg/dL Glucose, Blood 119 (*) 50 - 100 mg/dL Calcium 9.6 8.5 - 10.5 mg/dL Estimated GFR(CKD-EPI) 66 mL/min/BSA CBC AND DIFFERENTIAL - Abnormal WBC 6.82 3.90 - 10.80 K/uL RBC 4.49 3.93 - 5.29 M/uL Hemoglobin 13.6 12.0 - 15.2 g/dL Hematocrit 42.9 34.1 - 44.9 % MCH 30.3 25.6 - 32.2 pg MCHC 31.7 (*) 32.0 - 36.0 g/dL MCV 96 81 - 96 fL RDW 13.4 11.5 - 14.0 % Platelet Count 291 154 - 369 K/uL Neutrophil 64.3 % Lymphocyte 22.7 % Monocyte 8.2 % Eosinophil 3.2 % Basophil 0.6 % Immature Granulocyte (Trimble, Myelo, Promyelocyte) 1.0 % Absolute Neutrophil Count 4.38 1.68 - 7.99 K/uL Absolute Immature Granulocyte (Trimble, Myelo, Promyelocyte) 0.07 0.00 - 0.09 K/uL Absolute Lymphocyte Count 1.55 0.66 - 4.75 K/uL Absolute Monocyte Count 0.56 0.16 - 1.40 K/uL Absolute Eosinophil Count 0.22 0.00 - 0.60 K/uL Absolute Basophil Count 0.04 0.00 - 0.32 K/uL DRUG SCREEN, URINE TOXICOLOGY SCREEN, BLOOD (HCG), URINE LIGHT BLUE TOP GOLD TOP CBC AND DIFFERENTIAL Narrative: The following orders were created for panel order CBC and Differential. Procedure Abnormality Status --------- ------ CBC and Differential[[id number]] Abnormal Final result Please view results for these tests on the individual orders. RAINBOW DRAW Narrative: The following orders were created for panel order [place] Draw. Procedure Abnormality Status --------- ------ Blue Top[[id number]] In process Gold Top[[id number]] In process Please view results for these tests on the individual orders. No orders to display <BILHMDM> Emergency Department Course: Clinical Impression None Patient is a 59-year-old female history diabetes, seizures, anxiety, depression, bipolar, migraineswho presents on section 12 for suicidal ideations. At this time denying any active suicidal or homicidal ideations. No visual or auditory hallucinations. Patient presents alert, oriented, hemodynamically stable. Physical examination is reassuring. No active medical complaints. Routine blood work reassuring. Vital signs are stable. Patient does have an insulin pump. She denies wanting to hurt herself with the insulin pump. While in the emergency department we will allow herto keep this on unless psych facility will not take her with this we will change her to a sliding scale. Patient did meet with our behavioral health team please see their note for full details is requiring inpatient level of care. Hold order has been placed. Patient will remain in ED observation status pending safe disposition by her behavioral health team. Will work to reconcile medications. MAYTE Paez 05/13/251909 documented in this encounter Miscellaneous Notes * ED Obs Note - Serg Murphy MD - 05/14/2025 7:27 PM EST ED Observation Discharge Note Brief HPI Lisa Rosas is a 59 y.o. female who presented to the Emergency Department yesterday on a section 12 with suicidal ideation. Please see the initial ED HPI and ED Observation intake note for further details ED Observation Course Patient was monitored in the ED observation unit overnight. There were no significant events. Workup: Cleared by initial treating providers with usual workup labs and toxicology screen unrevealing, glucose 156 and benzodiazepine positive. Physical Examination at Time of Discharge Vital sign: BP 119/76 Pulse 74 Temp 98 ??F (36.7 ??C) Resp 18 Ht 1.651 m (5' 5 ) Wt 94 kg(207 lb 3.7 oz) SpO2 95% BMI 34.49 kg/m?? General: Patient in no acute distress, awake, alert Cardiac: Regular rate and rhythm, no murmurs rubs or gallops Pulm: no respiratory distress, lungs CTAB Abdomen: soft, nontender nondistended Neuro: no focal deficits Date of Discharge: 05/14/2025 Based on my history, physical examination, and initial ED course, the patient's behavioral condition continues to be unstable and requires further observation to help determine final disposition. Plan will be to monitor for significant changes in medical and psychiatric status, observe for and treat agitation, psychosis, or withdrawal symptoms, coordinate care with crisis team, and ensure patientsafety. Patient placed into ED observation. 7:28 PM Patient has been accepted at [facility] excepted by Dr. Nam, will be sent by ambulance. Clinical Impression None Depression with suicidal ideation My final assessment includes Upon reevaluation, the patient???s condition has not improved and willbe escalated to psychiatric hospitalization. Discharge day management more than 30 minutes?: Yes Serg Murphy MD 05/14/251928 * ED Obs Note - MAYTE Paez - 05/14/2025 7:26 PM EST ED Observation Discharge Note Brief HPI Lisa Rosas is a 59 y.o. female who presented to the Emergency Department increased depression, and suicidal ideation. Please see the initial ED HPI and ED Observation intake note for further details ED Observation Course Patient was monitored in the ED observation unit overnight. There were no significant events. Workup: Physical Examination at Time of Discharge Vital sign: BP 119/76 Pulse 74 Temp 98 ??F (36.7 ??C) Resp 18 Ht 1.651 m (5' 5 ) Wt 94 kg(207 lb 3.7 oz) SpO2 95% BMI 34.49 kg/m?? General: Patient in no acute distress, awake, alert Cardiac: Regular rate and rhythm, no murmurs rubs or gallops Pulm: no respiratory distress, lungs CTAB Abdomen: soft, nontender nondistended Neuro: no focal deficits Date of Discharge: 05/14/2025 Follow-up: PCP We discussed specific reasons to return emergently for reevaluation and the patient expresses an understanding and agreement with this plan. The patient was encouraged to follow-up with their primarycare doctor and or specialist who can continue to manage the symptoms. Clinical Impression None Presenting with suicidal ideations and increased depression. Medications were adjusted by endocrinology since she does have an insulin pump but they would not allow that at the facility. Vital signs have been stable here. Patient in good behavioral control. Excepted to [facility] 10 pm Accepting MAYTE Tello 05/14/251926 * ED Obs Note - David Lambert MD - 05/14/2025 6:07 PM EST ED Observation Daily Note EKG - SR, rate 74, RBBB, no acute change from previous November 2024 David Lambert MD 05/14/25 1808 * ED Obs Note - Rut Palmer NP - 05/14/2025 9:07 AM EST ED Observation Daily Note Service Date: 05/14/2025 59-year-old female initially presented to the emergency department with increased depression and suicidal ideation. History of type 1 diabetes with insulin pump. There have been no issues with this patient overnight. They continue in observation status after being medically cleared by initial provid er. General: Alert. No acute distress HEENT: Normal ENT inspection ,no deformities Neck: Supple. Trachea midline, no visible mass Respiratory: No Respiratory Distress. Cardiovascular/Chest: RRR. Extremity: Well-perfused Neurological: No weakness. No numbness. Alert and Oriented x4. Acute tremor Mood: Depressed The patient was admitted into ED observation status to allow for further evaluation until safe disposition arises. The patient will be closely monitored for changes in medical or psychiatric status. Please see initial ED provider note for full details of case. Patient seen and followed by our psychiatric team. Clinical Impression None Discharge day management more than 30 minutes?: No CAMRON Barnett NP 05/14/25 0908 * Psych Progress Note - JASMIN Elder - 05/14/2025 4:51 AM EST Pt is IP bedsearch. Due to insulin pump, [facility] is unable to accept. [facility] does not currently have beds available. Pt is under review at [facility] adult [facility], pending [facility]. * Attestation Note - Shiraz Valentine MD - 05/13/2025 1:40 PM EST [facility] ED Attestation Note I personally made/approved the management plan and take responsibility for the patient management. MD Shiraz Vera MD 05/13/25 2200 documented in this encounter Plan of Treatment Not on file documented as of this encounter Procedures Procedure Name Priority Date/Time Associated Diagnosis Comments ECG 12-LEAD STAT 05/14/2025 5:36 PM EST POCI GLUCOSE Routine 05/14/2025 11:46 AM EST POCI GLUCOSE Routine 05/14/2025 8:36 AM EST DRUG SCREEN, URINE STAT 05/14/2025 6: 00 AM EST , URINE STAT 05/14/2025 6:00 AM EST POCI GLUCOSE Routine 05/13/2025 6:13 PM EST CBC AND DIFFERENTIAL STAT 05/13/2025 2:26 PM EST TOXICOLOGY SCREEN, BLOOD STAT 05/13/2025 2:26 PM EST YELLOW TOP STAT 05/13/2025 2:26 PM EST LIGHT BLUE TOP STAT 05/13/2025 2:26 PM EST RAINBOW DRAW STAT 05/13/2025 2:26 PM EST CBC AND DIFFERENTIAL STAT 05/13/2025 2:26 PM EST BASIC METABOLIC PANEL STAT 05/13/2025 2:26 PM EST documented in this encounter Results * ECG 12 lead, to be obtained, other indication (05/14/2025 5:36 PM EST) Ventricular Heart Rate 74 BPM EKG BUR MUSE VT Interval 195 ms EKG BUR MUSE QRSD Interval 126 ms EKG BUR MUSE QT Interval 416 ms EKG BUR MUSE QTC Interval 462 ms EKG BUR MUSE P Rolla 19 degrees EKG BUR MUSE R Rolla -22 degrees EKG BUR MUSE T Wave Rolla 13 degrees EKG BUR MUSE 05/14/2025 5:34 PM EST 05/16/2025 9:23 PM EST Narrative EKG BUR MUSE - 05/16/2025 9:23 PM EST SINUS RHYTHM BORDERLINE LEFT AXIS DEVIATION [QRS AXIS < -20] RIGHT BUNDLE BRANCH BLOCK [120+ ms QRS DURATION, UPRIGHT V1, 40+ ms S IN I/aVL/V4/V5/V6] ABNORMAL ECG Confirmed by Min Fisher ([id number]) on 05/16/2025 9:23:43 PM Procedure Note Min Fisher MD - 05/16/2025 SINUS RHYTHM BORDERLINE LEFT AXIS DEVIATION [QRS AXIS < -20] RIGHT BUNDLE BRANCH BLOCK [120+ ms QRS DURATION, UPRIGHT V1, 40+ ms S INI/aVL/V4/V5/V6] ABNORMAL ECG Confirmed by Min Fisher ([id number]) on 05/16/2025 9:23:43 PM us Rut Palmer FIRE EXTINGUISHER INSTALLER ECG ORDERABLES Final Result Performing Organization Address City/[facility]/ZIP Co de Phone Number EKG BUR MUSE [address] [place] [phone] * (ABNORMAL) POCT Glucose (05/14/2025 11:46 AM EST) [facility] Signature Glucose, POC 156(H) 75 - 140 mg/dL 05/14/2025 11:48 AM EST [facility] Comment: @Serial Xyubfz=[id number] @Associate Director Qa QE=[id number] Blood 05/14/2025 11:4 6 AM EST 05/14/2025 11:48 AM EST Rayshawn Melton MD POCT ORDERABLES - DEVICE Final Result [facility] [address] [place] [address], * (ABNORMAL) POCT Glucose (05/14/2025 8:36 AM EST) [facility] Glucose, POC 144(H) 75 - 140 mg/dL 05/14/2025 8:38 AM [facility] Comment: @Serial Zbhzyd=[id number] @Associate Director Qa EZ=[id number] Blood 05/14/2025 8:36 AM EST 05/14/2025 8:38 AM EST us Linette Laughlin MD POCT ORDERABLES - DEVICE Final R esult Performing Organization Address City/[facility]/[place] [address], [place] * (HCG), Urine (05/14/2025 6:00 AM EST) [facility] HCG, Urine Random Negative Negative 05/14/2025 6:15 AM [facility] Urine URINE SPECIMEN / Unknown Collection / Unknown 05/14/2025 6:00 AM EST 05/14/2025 6:03 AM EST us Donald Vargas MD URINE ORDERABLES Final Result Performing Organization Address [facility] [place] [address], [place] * (ABNORMAL) Drug Screen, Urine (05/14/2025 6:00 AM EST) [facility] Amphetamines Screen, Urine Negative Negative 05/14/2025 6:46 AM [facility] Barbiturates Screen, Urine Negative Negative 05/14/2025 6:46 AM [facility] Benzodiazepine Screen, Urine Positive(A) Negative 05/14/2025 6:46 AM [facility] Buprenorphine Screen, Urine Negative Negative 05/14/2025 6:46 AM [facility] Cannabinoids Screen, Urine Negative Negative 05/14/2025 6:46 AM [facility] Cocaine Metabolite Screen, Urine Negative Negative 05/14/2025 6:46 AM [facility] Fentanyl Screen, Urine Negative Negative 05/14/2025 6:46 AM [facility] Methadone Screen, Urine Negative Negative 05/14/2025 6:46 AM [facility] Opiates Screen, Urine Negative Negative 05/14/2025 6:46 AM [facility] Oxycodone Screen, Urine Negative Negative 05/14/2025 6:46 AM [facility] Propoxyphene Screen, Urine Negative Negative 05/14/2025 6:46 AM [facility] Tricyclics Screen Negative Negative 025 6:46 AM [facility] Comment 05/14/2025 6:46 AM [facility] Comment: The cut-off concentration for a positive result for each drug is listed below: Drug Cut-off value Amphetamines >1000 ng/mL Barbiturates >200 ng/mL Benzodiazepines >300 ng/mL Buprenorphine >5 ng/mL Cannabinoids >50 ng/mL Cocaine >300 ng/mL Fentanyl >5.0 ng/mL Opiates >300 ng/mL Methadone >300 ng/mL Oxycodone >100 ng/mL This is only a screening; positive results are not confirmed by a second method; The results must be used for medical purposes only. Urine URINE SPECIMEN / Unknown Collection / Unknown 05/14/2025 6:00 AM EST 05/14/2025 6:03 AM EST us Donald Vargas MD URINE ORDERABLES Final Result Performing Organization Address [facility] [place] [address], * (ABNORMAL) POCT Glucose (05/13/2025 6:13 PM EST) Glucose, POC 157(H) 75 - 140 mg/dL 05/13/2025 6:27 PM [facility] Comment: @Serial Auoqfk=[id number] @Associate Director Qa FF=[id number] Blood 05/13/2025 6:13 PM EST 05/13/2025 6:27 PM EST Shiraz Valentine MD POCT ORDERABLES - DEVICE Final R esult Performing Organization Address [facility] [place] [address], [place] * Gold Top (05/13/2025 2:26 PM EST) Gold Top Tube Received 05/13/2025 4:01 PM [facility] Blood PERIPHERAL BLOOD SPECIMEN / Unknown Venipuncture / Unknown 05/13/2025 2:26 PM EST 05/13/2025 2:32 PM EST Donald Vargas MD LAB BLOOD ORDERABLES Final Res ult [facility] [address] [place] [address], [place] * Blue Top (05/13/2025 2:26 PM EST) Blue Top Tube Received 05/13/2025 4:01 PM [facility] Blood PERIPHERAL BLOOD SPECIMEN / Unknown Venipuncture / Unknown 05/13/2025 2:26 PM EST 05/13/2025 2:32 PM EST Donald Vargas MD LAB BLOOD ORDERABLES Final Res ult [address] [address], [place] * (ABNORMAL) CBC and Differential (05/13/2025 2:26 PM EST) WBC 6.82 3.90 - 10.80 K/uL 05/13/2025 2:35 PM [facility] RBC 4.49 3.93 - 5.29 M/uL 05/13/2025 2:35 PM [facility] Hemoglobin 13.6 12.0 - 15.2 g/dL 05/13/2025 2:35 PM [facility] Hematocrit 42.9 34.1 - 44.9 % 05/13/2025 2:35 PM [facility] MCH 30.3 25.6 - 32.2 pg 05/13/2025 2:35 PM [facility] MCHC 31.7(L) 32.0 - 36.0 g/dL 05/13/2025 2:35 PM [facility] MCV 96 81 - 96 fL 05/13/2025 2:35 PM [facility] RDW 13.4 11.5 - 14.0 % 05/13/2025 2:35 PM [facility] Platelet Count 291 154 - 369 K/uL 05/13/2025 2:35 PM [facility] Neutrophil 64.3 % 05/13/2025 2:35 PM [facility] Lymphocyte 22.7 % 05/13/2025 2:35 PM [facility] Monocyte 8.2 % 05/13/2025 2:35 PM [facility] Eosinophil 3.2 % 05/13/2025 2:35 PM [facility] Basophil 0.6 % 05/13/2025 2:35 PM [facility] Immature Granulocyte (Trimble, Myelo, Promyelocyte) 1.0 % 05/13/2025 2:35 PM [facility] Absolute Neutrophil Count 4.38 1.68 - 7.99 K/uL 05/13/2025 2:35 PM [facility] Absolute Immature Granulocyte (Trimble, Myelo, Promyelocyte) 0.07 0.00 - 0.09 K/uL 05/13/2025 2:35 PM [facility] Absolute Lymphocyte Count 1.55 0.66 - 4.75 K/uL 05/13/2025 2:35 PM [facility] Absolute Monocyte Count 0.56 0.16 - 1.40 K/uL 05/13/2025 2:35 PM [facility] Absolute Eosinophil Count 0.22 0.00 - 0.60 K/uL 05/13/2025 2:35 PM [facility] Absolute Basophil Count 0.04 0.00 - 0.32 K/uL 05/13/2025 2:35 PM [facility] Blood PERIPHERAL BLOOD SPECIMEN / Unknown Venipuncture / Unknown 05/13/2025 2:26 PM EST 05/13/2025 2:32 PM EST us Donald Vargas MD LAB BLOOD ORDERABLES Final Res ult Performing Organization Address City/[facility] Co de Phone Number [facility] [address] [place] [id number], [place] * (ABNORMAL) Plasma Toxicology Screen (05/13/2025 2:26 PM EST) Acetaminophen Result,Blood <5(L) 10 - 30 ug/mL 05/13/2025 4:07 PM [facility] Alcohol <10 <10 mg/dL 05/13/2025 4:07 PM [facility] Salicylate Level, Blood <1 <30 mg/dL 05/13/2025 4:07 PM [facility] Blood PERIPHERAL BLOOD SPECIMEN / Unknown Venipuncture / Unknown 05/13/2025 2:26 PM EST 05/13/2025 2:32 PM EST us Donald Vargas MD LAB BLOOD ORDERABLES Final Res ult Performing Organization Address [facility] de Phone Number [facility] [address] [place] [phone], [place] * (ABNORMAL) Basic Metabolic Panel (05/13/2025 2:26 PM EST) Pathologist [facility] Sodium 139 135 - 146 mmol/L 05/13/2025 2:55 PM [facility] Potassium 4.6 3.4 - 5.2 mmol/L 05/13/2025 2:55 PM [facility] Chloride 101 98 - 110 mmol/L 05/13/2025 2:55 PM [facility] Total CO2/Bicarbonat e 27 24 - 32 mmol/L 05/13/2025 2:55 PM [facility] Anion Gap 11 2 - 15 mmol/L 05/13/2025 2:55 PM [facility] BUN 12 7 - 24 mg/dL 05/13/2025 2:55 PM [facility] Creatinine, Blood 1.00 0.50 - 1.10 mg/dL 05/13/2025 2:55 PM [facility] Glucose, Blood 119(H) 50 - 100 mg/dL 05/13/2025 2:55 PM [facility] [facility] Calcium 9.6 8.5 - 10.5 mg/dL 05/13/2025 2:55 PM EST [facility] Estimated GFR(CKD-EPI) 66 mL/min/BSA 05/13/2025 2:55 PM EST [facility] Blood PERIPHERAL BLOOD SPECIMEN / Unknown Venipuncture / Unknown 05/13/2025 2:26 PM EST 05/13/2025 2:32 PM EST us Donald Vargas MD LAB BLOOD ORDERABLES Final Res ult [facility] [address] [place] [address], documented in this encounter Visit Diagnoses Diagnosis Severe episode of recurrent major depressive disorder, without psychotic features (CMS-HCC)- Primary Depression, unspecified depression type documented in this encounter Administered Medications Inactive Administered Medications - up to 3 most recent administrations Medication Order MAR Action Action Date Dose Rate Site atorvaSTATin (LIPITOR) tablet 10 mg 10 mg, Oral, Daily, First dose on Sun05/14/25 at 0900, Until Discontinued Given 05/14/2025 8:51 AM EST 10 mg benztropine (COGENTIN) tablet 0.5 mg 0.5 mg, Oral, Daily, First dose on Sun05/14/25 at 0900, Until Discontinued Given 05/14/2025 8:45 AM EST 0.5 mg benztropine (COGENTIN) tablet 1 mg 1 mg, Oral, At bedtime, First dose on Sun05/13/25 at 2100, Until Discontinued Given 05/14/2025 9:23 PM EST 1 mg Given 05/13/2025 8:03 PM EST 1 mg cloNIDine (CATAPRES) tablet 0.1 mg 0.1 mg, Oral, 3 times daily, First dose on Sun05/13/25 at 1843, Until Discontinued Given 05/14/2025 6:00 PM EST 0.1 mg Given 05/14/2025 8:48 AM EST 0.1 mg Given 05/13/2025 8:04 PM EST 0.1 mg dextrose (GLUTOSE) 40 % oral gel 15 g of carbohydrates 15 g of carbohydrates, Oral, Every 15 min PRN, Starting on Sun05/14/25 at 1627, Until Sun05/14/25 at 2348, low blood sugar, Use if patient does NOT have an altered level of consciousness, is tolerating PO, and blood glucose is 70 mg/dL or less. Repeat until blood glucose is above 70 mg/dL, up to two times. If blood glucose remains 70 mg/dL or less, proceed to IV dextrose. May substitute 4 oz of fruit juice/non-diet soda based on patient's preference. dextrose 50% (D50W) injection 12.5 g 25 mL (12.5 g), Intravenous, As needed, Starting on Sun05/14/25 at 1627, Until Sun05/14/25 at 2348, Use if patient is NPO, has IV access, does NOT have an altered level of consciousness, and blood glucose is 70 mg/dL or less. Admin every 15 min PRN. Repeat until blood glucose is above 70 mg/dL. dextrose 50% (D50W) injection 25 g 50 mL (25 g), Intravenous, As needed, Starting on Sun05/14/25 at 1627, Until Sun05/14/25 at 2348, Use if patient is NPO, has IV access, WITH an altered level of consciousness, and blood glucose is 70 mg/dL or less. Admin every 15 min PRN. Repeat until blood glucose is above 70 mg/dL. gabapentin (NEURONTIN) capsule 100 mg 100 mg, Oral, At bedtime, First dose on Sun05/13/25 at 2100, Until Discontinued Given 05/14/2025 9:25 PM EST 100 mg Given 05/13/2025 8:04 PM EST 100 mg glucagon injection 1 mg 1 mg, Intramuscular, As needed, Starting on Sun05/14/25 at 1627, Until Sun05/14/25 at 2348, Use if patient is NPO, does NOT have IV access, and blood glucose is 70 mg/dL or less. Admin every 15 min PRN. Repeat until blood glucose is above 70 mg/dL, up to two times. Caution: glucagon can cause nausea and vomiting. Roll patient on their side when administering to prevent aspiration. insulin glargine 14 Units 14 Units, Subcutaneous, At bedtime (insulin), First dose on Sun05/14/25 at 2200, Until Discontinued, DO NOT HOLD WITHOUT A PROVIDER ORDER. Contact provider for consideration of dose adjustment if patient made NPO since last administration of long-acting insulin. Given 05/14/2025 9:26 PM EST 14 Units insulin lispro 100 unit/mL pen 0-10 Units 0-10 Units, Subcutaneous, At bedtime (insulin), First dose on Sun05/14/25 at 2200, Until Discontinued insulin lispro 100 unit/mL pen 0-12 Units 0-12 Units, Subcutaneous, 3 times daily (insulin), First dose on Sun05/14/25 at 1700, Until Discontinued insulin lispro 100 unit/mL pen 3 Units 3 Units, Subcutaneous, 3 times daily with meals, First dose on Sun05/14/25 at 1730, Until Discontinued Given 05/14/2025 6:30 PM EST 3 Units lamoTRIgine (LaMICtal) tablet 100 mg 100 mg, Oral, Every morning, First dose on Sun05/14/25 at 0900, Until Discontinued Given 05/14/2025 8:49 AM EST 100 mg lamoTRIgine (LaMICtal) tablet 200 mg 200 mg, Oral, At bedtime, First dose on Sun05/13/25 at 2100, Until Discontinued Given 05/14/2025 9:25 PM EST 200 mg Given 05/13/2025 8:04 PM EST 200 mg latanoprost (XALATAN) 0.005 % ophthalmic solution 1 drop 1 drop, Both Eyes, At bedtime, First dose on Sun05/13/25 at 2100, Until Discontinued Given 05/14/2025 9:[address] op Given 05/13/2025 8:55 PM EST 1 drop LORazepam (ATIVAN) tablet 0.5 mg 0.5 mg, Oral, At bedtime, First dose on Sun05/13/25 at 2100, Until Discontinued Given 05/14/2025 9:21 PM EST 0.5 mg Given 05/13/2025 8:03 PM EST 0.5 mg LORazepam (ATIVAN) tablet 1 mg 1 mg, Oral, At bedtime, First dose on Sun05/13/25 at 2100, Until Discontinued Given 05/14/2025 9:21 PM EST 1 mg Given 05/13/2025 8:03 PM EST 1 mg melatonin tablet 5 mg 4.5 mg (rounded from 5 mg), Oral, At bedtime, First dose on Sun05/13/25 at 2100, Until Discontinued Given 05/13/2025 8:05 PM EST 4.5 mg metFORMIN (GLUCOPHAGE) tablet 500 mg 500 mg, Oral, 2 times daily, First dose on Sun05/13/25 at 2100, Until Discontinued Given 05/14/2025 8:45 AM EST 500 mg Given 05/13/2025 8:05 PM EST 500 mg prazosin (MINIPRESS) capsule 2 mg 2 mg, Oral, At bedtime, First dose on Sun05/13/25 at 2100, Until Discontinued Given 05/14/2025 9:20 PM EST 2 mg Given 05/13/2025 8:03 PM EST 2 mg risperiDONE (RisperDAL) tablet 0.5 mg 0.5 mg, Oral, At bedtime, First dose on Sun05/13/25 at 2100, Until Discontinued Given 05/14/2025 9:22 PM EST 0.5 mg Given 05/13/2025 8:04 PM EST 0.5 mg risperiDONE (RisperDAL) tablet 1 mg 1 mg, Oral, 2 times daily, First dose on Sun05/13/25 at 2100, Until Discontinued Given 05/14/2025 9:23 PM EST 1 mg Given 05/14/2025 8:49 AM EST 1 mg Given 05/13/2025 8:04 PM EST 1 mg sertraline (ZOLOFT) tablet 200 mg 200 mg, Oral, Every morning, First dose on Sun05/14/25 at 0900, Until Discontinued Given 05/14/2025 8:58 AM EST 200 mg sertraline (ZOLOFT) tablet 25 mg 25 mg, Oral, Every morning, First dose on Sun05/14/25 at 0900, Until Discontinued Given 05/14/2025 8:51 AM EST 25 mg topiramate (TOPAMAX) tablet 25 mg 25 mg, Oral, Every morning, First dose on Sun05/14/25 at 0900, Until Discontinued Given 05/14/2025 8:50 AM EST 25 mg topiramate (TOPAMAX) tablet 50 mg 50 mg, Oral, At bedtime, First dose on Sun05/13/25 at 2100, Until Discontinued Given 05/14/2025 9:24 PM EST 50 mg Given 05/13/2025 8:04 PM EST 50 mg documented in this encounter Active and Recently Administered Medications Times are shown in EST. Scheduled Medication Order 05/12/2025 05/13/2025 05/14/2025 atorvaSTATin (LIPITOR) tablet 10 mg 10 mg, Oral, Daily, First dose on Sun05/14/25 at 0900, Until Discontinued 0851 (Given - Provid er: Yandel Martin, ALINA) benztropine (COGENTIN) tablet 0.5 mg 0.5 mg, Oral, Daily, First dose on Sun05/14/25 at 0900, Until Discontinued 08 (Given - Provid er: Yandel Martin, ALINA) benztropine (COGENTIN) tablet 1 mg 1 mg, Oral, At bedtime, First dose on Sun05/13/25 at 2100, Until Discontinued 2002 (Given - Provider: Michael Lan RN) 2122 (Given - Provider: Saundra Coreas, ALINA) cloNIDine (CATAPRES) tablet 0.1 mg 0.1 mg, Oral, 3 times daily, First dose on Sun05/13/25 at 1843, Until Discontinued 2003 (Given - Provider: Michael Lan RN)2007 (Not Given - Provider: Michael Lan RN - Reason: Other - Indicate below - Comment: dose given from 0) 0848 (Given - Provider: Yandel Martin RN)1800 (Given - Provider: Carrie Granados RN - Comment: [facility])2200 (Canceled Entry - Provider: Automatic Discharge Provider - Comment: Automatically canceled at discontinue of medication order) gabapentin (NEURONTIN) capsule 100 mg 100 mg, Oral, At bedtime, First dose on Sun05/13/25 at 2100, Until Discontinued 2003 (Given - Provider: Michael Lan RN) 2124 (Given - Provider: Saundra Coreas, ALINA) insulin glargine 14 Units 14 Units, Subcutaneous, At bedtime (insulin), First dose on Sun05/14/25 at 2200, Until Discontinued, DO NOT HOLD WITHOUT A PROVIDER ORDER. Contact provider for consideration of dose adjustment if patient made NPO since last administration of long-acting insulin. 2125 (Given - Provid er: Saundra Coreas RN) insulin lispro 100 unit/mL pen 0-10 Units 0-10 Units, Subcutaneous, At bedtime (insulin), First dose on Sun05/14/25 at 2200, Until Discontinued 2199 (Canceled Entry - Provider: Automatic Discharge Provider - Comment: Automatically canceled at discontinue of medication order) insulin lispro 100 unit/mL pen 0-12 Units 0-12 Units, Subcutaneous, 3 times daily (insulin), First dose on Sun05/14/25 at 1700, Until Discontinued 1737 (Not Given - Provider: Carrie Granados RN - Reason: Order parameters not met) insulin lispro 100 unit/mL pen 3 Units 3 Units, Subcutaneous, 3 times daily with meals, First dose on Sun05/14/25 at 1730, Until Discontinued 1829 (Given - Provid er: Carrie Granados RN - Comment: scanner not available) lamoTRIgine (LaMICtal) tablet 100 mg 100 mg, Oral, Every morning, First dose on Sun05/14/25 at 0900, Until Discontinued 848 (Given - Provid er: Yandel Martin RN) lamoTRIgine (LaMICtal) tablet 200 mg 200 mg, Oral, At bedtime, First dose on Sun05/13/25 at 2100, Until Discontinued 2003 (Given - Provider: Michael Lan RN) 2124 (Given - Provider: Saundra Coreas RN) latanoprost (XALATAN) 0.005 % ophthalmic solution 1 drop 1 drop, Both Eyes, At bedtime, First dose on Sun05/13/25 at 2100, Until Discontinued 2054 (Given - Provider: Michael Lan RN) 2125 (Given - Provider: Saundra Coreas RN) LORazepam (ATIVAN) tablet 0.5 mg 0.5 mg, Oral, At bedtime, First dose on Sun05/13/25 at 2100, Until Discontinued 2002 (Given - Provider: Michael Lan RN) 2120 (Given - Provider: Saundra Coreas RN) LORazepam (ATIVAN) tablet 1 mg 1 mg, Oral, At bedtime, First dose on Sun05/13/25 at 2100, Until Discontinued 2002 (Given - Provider: Michael Lan RN) 2120 (Given - Provider: Saundra Coreas RN) melatonin tablet 5 mg 4.5 mg (rounded from 5 mg), Oral, At bedtime, First dose on Sun05/13/25 at 2100, Until Discontinued 2004 (Given - Provider: Michael Lan RN) 2099 (Canceled Entry - Provider: Automatic Discharge Provider - Comment: Automatically canceled at discontinue of medication order) metFORMIN (GLUCOPHAGE) tablet 500 mg 500 mg, Oral, 2 times daily, First dose on Sun05/13/25 at 2100, Until Discontinued 2004 (Given - Provider: Michael Lan RN) 844 (Given - Provider: Yandel Martin RN)2139 (Not Given - Provider: Saundra Coreas RN - Reason: Patient Refused - Comment: pt takes with dinner) prazosin (MINIPRESS) capsule 2 mg 2 mg, Oral, At bedtime, First dose on Sun05/13/25 at 2100, Until Discontinued 2002 (Given - Provider: Michael Lan RN) 2119 (Given - Provider: Saundra Coreas RN) risperiDONE (RisperDAL) tablet 0.5 mg 0.5 mg, Oral, At bedtime, First dose on Sun05/13/25 at 2100, Until Discontinued 2003 (Given - Provider: Michael Lan RN) 2121 (Given - Provider: Saundra Coreas RN) risperiDONE (RisperDAL) tablet 1 mg 1 mg, Oral, 2 times daily, First dose on Sun05/13/25 at 2100, Until Discontinued 2003 (Given - Provider: Michael Lan RN) 848 (Given - Provider: Yandel Martin RN)2122 (Given - Provider: Saundra Coreas RN) sertraline (ZOLOFT) tablet 200 mg 200 mg, Oral, Every morning, First dose on Sun05/14/25 at 0900, Until Discontinued 857 (Given - Provid er: Yandel Martin RN) sertraline (ZOLOFT) tablet 25 mg 25 mg, Oral, Every morning, First dose on Sun05/14/25 at 0900, Until Discontinued 0851 (Given - Provid er: Yandel Martin RN) topiramate (TOPAMAX) tablet 25 mg 25 mg, Oral, Every morning, First dose on Sun05/14/25 at 0900, Until Discontinued 0850 (Given - Provid er: Yandel Martin RN) topiramate (TOPAMAX) tablet 50 mg 50 mg, Oral, At bedtime, First dose on Sun05/13/25 at 2100, Until Discontinued 2003 (Given - Provider: Michael Lan, RN) 2123 (Given - Provider: Saundra Coreas, ALINA) PRN Medication Order 05/12/2025 05/13/2025 05/14/2025 acetaminophen (TYLENOL) tablet 1,000 mg 1,000 mg, Oral, Every 6 hours PRN, Starting on Sun05/13/25 at 1840, Until Becca 05/14/25 at 2348, mild (1-3) pain dextrose (GLUTOSE) 40 % oral gel 15 g of carbohydrates(Linked Group 1) 15 g of carbohydrates, Oral, Every 15 min PRN, Starting on Becca 05/14/25 at 1627, Until Bceca 05/14/25 at 2348, low blood sugar, Use if patient does NOT have an altered level of consciousness, is tolerating PO, and blood glucose is 70 mg/dL or less. Repeat until blood glucose is above 70 mg/dL, up to two times. If blood glucose remains 70 mg/dL or less, proceed to IV dextrose. May substitute 4 oz of fruit juice/non-diet soda based on patient's preference. dextrose 50% (D50W) injection 12.5 g(Linked Group 1) 25 mL (12.5 g), Intravenous, As needed, Starting on Becca 05/14/25 at 1627, Until Becca 05/14/25 at 2348, Use if patient is NPO, has IV access, does NOT have an altered level of consciousness, and blood glucose is 70 mg/dL or less. Admin every 15 min PRN. Repeat until blood glucose is above 70 mg/dL. dextrose 50% (D50W) injection 25 g(Linked Group 1) 50 mL (25 g), Intravenous, As needed, Starting on Becca 05/14/25 at 1627, Until Becca 05/14/25 at 2348, Use if patient is NPO, has IV access, WITH an altered level of consciousness, and blood glucose is 70 mg/dL or less. Admin every 15 min PRN. Repeat until blood glucose is above 70 mg/dL. glucagon injection 1 mg(Linked Group 1) 1 mg, Intramuscular, As needed, Starting on Becca 05/14/25 at 1627, Until Becca 05/14/25 at 2348, Use if patient is NPO, does NOT have IV access, and blood glucose is 70 mg/dL or less. Admin every 15 min PRN. Repeat until blood glucose is above 70 mg/dL, up to two times. Caution: glucagon can cause nausea and vomiting. Roll patient on their side when administering to prevent aspiration. Linked Groups Order Group 1: dextrose (GLUTOSE) 40 % oral gel 15 g of carbohydratesJump to med 15 g of carbohydrates, Oral, Every 15 min PRN, Starting on Becca 05/14/25 at 1627, Until Becca 05/14/25 at 2348, low blood sugar, Use if patient does NOT have an altered level of consciousness, is tolerating PO, and blood glucose is 70 mg/dL or less. Repeat until blood glucose is above 70 mg/dL, up to two times. If blood glucose remains 70 mg/dL or less, proceed to IV dextrose. May substitute 4 oz of fruit juice/non- diet soda based on patient's preference. Or dextrose 50% (D50W) injection 12.5 gJump to med 25 mL (12.5 g), Intravenous, As needed, Starting on Becca 05/14/25 at 1627, Until Becca 05/14/25 at 2348, Use if patient is NPO, has IV access, does NOT have an altered level of consciousness, and blood glucose is 70 mg/dL or less. Admin every 15 min PRN. Repeat until blood glucose is above 70 mg/dL. Or dextrose 50% (D50W) injection 25 gJump to med 50 mL (25 g), Intravenous, As needed, Starting on Becca 05/14/25 at 1627, Until Becca 05/14/25 at 2348, Use if patient is NPO, has IV access, WITH an altered level of consciousness, and blood glucose is 70 mg/dL or less. Admin every 15 min PRN. Repeat until blood glucose is above 70 mg/dL. Or glucagon injection 1 mgJump to med 1 mg, Intramuscular, As needed, Starting on Becca 05/14/25 at 1627, Until Becca 05/14/25 at 2348, Use if patient is NPO, does NOT have IV access, and blood glucose is 70 mg/dL or less. Admin every 15 min PRN. Repeat until blood glucose is above 70 mg/dL, up to two times. Caution: glucagon can cause nausea and vomiting. Roll patient on their side when administering to prevent aspiration. documented in this encounter Care Teams Technical Sales Manager Relationship Specialty Start Date End Date Porfirio Carrillo MD [address] [place] [address] PCP - General Family Practice 05/13/25 Amy Mills MD [address] [place] [id number] 12/08/23 documented as of this encounter
--- OUTSIDE RECORDS SUMMARY | 2025-05-18 19:29 | XMS_ITS | Encounter Summary ---
Author Organization [facility] Address [address] [place] [address] Care Team Providers Care Communication Manager Name Role Phone Amy Mills MD Unavailable [phone] Porfirio Carrillo MD Primary Care Provider [phone] Encounter Details Date Type Department Care Team [...] any time in the past 12 m [facility], were you homeless or living in a long-term (including now)? No 05/13/2025 [facility] Utilities Answer Date Recorded In the [...] on filedocumented in this encounter Care Teams Communication Manager Relationship Specialty Start Date End Date Porfirio Carrillo MD [address] [place] [address] PCP - General Family Practice 05/13/25 Amy Mills MD [address] [place] [id number] 12/08/23 documented as of this encounter
--- OUTSIDE RECORDS SUMMARY | 2025-05-18 19:29 | XMS_ITS | Clinical Summary ---
Author Organization [facility] Address [address] [place] [address] Care Team Providers Care Rag Willow Operator Name Role Phone Amy Mills MD Unavailable [phone] Porfirio Carrillo MD Primary Care Provider [phone] Allergies Active Allergy Reactions Criticality Noted Date [...] will need to be monitored after discharge. Arpil continues clonidine and prazosin. She will see [...] but for now, we will use SSI. [facility] diet. We will monitor sugars, adjust [...] 05/14/2025 9:47 PM EST Hospital Encounter [facility] Emergency Department [address] [place] [address] Shiraz Valentine MD Kim, Claudia, MD Stonely, Wesley, MD Trecartin, Kyle, MD Fairfield, Scott, MD Severe episode of recurrent major depressive disorder, without psychotic features ([facility]) (Primary Dx); Depression, unspecified depression type Discharge Disposition: Transfer to Acute Care Hospital 05/13/2025 Travel 04/24/2025 Results Follow-Up [facility] Emergency Department [address] [place] [address] Marleny Byrne, ALINA XR Ribs Left W PA Chest 3 Vws+ 04/23/2025 6:54 PM EDT - 04/23/2025 11:24 PM EDT Emergency [facility] Emergency Department [address] [place] [address] Tejas Avila MD Schaub, Charles, MD Chest [...] any time in the past 12 m [facility], were you homeless or living in a custodial (including now)? No 05/13/2025 [facility] Utilities Answer Date Recorded In the past 12 months has th e [employer], gas, oil, or water [employer] threatened to shut off services in your [...] Heart Rate 74 BPM EKG BUR MUSE ND Interval 195 ms EKG BUR MUSE QRSD Interval 126 ms EKG BUR MUSE QT Interval 416 ms EKG BUR MUSE QTC Interval 462 ms EKG BUR MUSE P [place] 19 degrees EKG BUR MUSE R [place] -22 degrees EKG BUR MUSE T Wave [place] 13 degrees EKG BUR MUSE 05/14/2025 5:34 [...] ECG ORDERABLES Final Result Performing Organization Address City/[facility]/ZIP Co de Phone Number EKG BUR [address] [address] * (ABNORMAL) POCT Glucose (05/14/2025 11:46 AM EST) Only the most recent of3 resultswithin the time period is included. Glucose, POC 156(H) 75 - 140 mg/dL 05/14/2025 11:48 AM [facility] Comment: @Serial Hhrsuh=[id number] @Manager Market Development EW=[id number] Blood 05/14/2025 11:4 6 AM EST 05/14/2025 11:48 AM EST us Rayshawn Melton MD POCT ORDERABLES - DEVICE Final Result Performing Organization Address City/[facility] Co de Phone Number [facility] [address] [place] [address], * (ABNORMAL) Drug Screen, Urine (05/14/2025 6:00 AM EST) [facility] Amphetamines Screen, Urine Negative Negative 05/14/2025 6:46 [...] URINE ORDERABLES Final Result Performing Organization Address [facility] Co de Phone Number [address] [address], [place] * (HCG), Urine (05/14/2025 6:00 AM EST) HCG, Urine Random Negative Negative 05/14/2025 6:15 AM [facility] Urine URINE SPECIMEN / Unknown Collection / Unknown 05/14/2025 6:00 AM EST 05/14/2025 6:03 AM EST us Donald Vargas MD URINE ORDERABLES Final Result Performing Organization Address [facility] Co de Phone Number [facility] [address] [place] [address], [place] * (ABNORMAL) CBC and Differential (05/13/2025 2:26 PM RUST) [facility] WBC 6.82 3.90 - 10.80 K/uL 05/13/2025 [...] [facility] Immature Granulocyte ([place], Myelo, Promyelocyte) 1.0 % 05/13/2025 2:35 PM [facility] Absolute Neutrophil Count 4.38 1.68 - 7.99 K/uL 05/13/2025 2:35 PM [facility] Absolute Immature Granulocyte ([place], Myelo, Promyelocyte) 0.07 0.00 - 0.09 K/uL [...] ORDERABLES Final Res ult Performing Organization Address [facility] Co de Phone Number [facility] [address] [place] [address], [place] * (ABNORMAL) Plasma Toxicology Screen (05/13/2025 [...] ORDERABLES Final Res ult Performing Organization Address [facility]/ZIP Co de Phone Number [facility] [address] [place] [address], [place] * Gold Top (05/13/2025 2:26 PM EST) Gold Top Tube Received 05/13/2025 4:01 PM [facility] Blood PERIPHERAL BLOOD SPECIMEN / Unknown Venipuncture / Unknown 05/13/2025 2:26 PM EST 05/13/2025 2:32 PM EST us Donald Vargas MD LAB BLOOD ORDERABLES Final Res ult [facility] [address] [place] [address], [place] * Blue Top (05/13/2025 2:26 PM EST) Blue Top Tube Received 05/13/2025 4:01 PM [facility] Blood PERIPHERAL BLOOD SPECIMEN / Unknown Venipuncture / Unknown 05/13/2025 2:26 PM EST 05/13/2025 2:32 PM EST us Donald Vargas MD LAB BLOOD ORDERABLES Final Res ult Performing Organization Address [facility]/ZIP Co de Phone Number [facility] [address] [place] [address], [place] * (ABNORMAL) Basic Metabolic Panel (05/13/2025 [...] - 10.5 mg/dL 05/13/2025 2:55 PM EST [facility] Estimated GFR(CKD-EPI) 66 mL/min/BSA 05/13/2025 2:55 PM EST [facility] Blood PERIPHERAL BLOOD SPECIMEN / Unknown Venipuncture / Unknown 05/13/2025 2:26 PM EST 05/13/2025 2:32 PM EST us Donald Vargas MD LAB BLOOD ORDERABLES Final Res ult [facility] [address] [place] [address], [place] * XR Ribs Left W PA [...] Raymond Meyers on 04/24/2025 10:02 AM on [id number] Narrative 04/24/2025 10:02 AM EDT LEFT RIBS [...] Raymond Meyers on 04/24/2025 10:02 AM on [id number] us Tejas Avila MD IMG DIAGNOSTIC IMAGING ORDERABLE S Final Result * (ABNORMAL) Hemoglobin A1C (11/09/2024 11:24 AM EDT) [facility] Hemoglobin A1C 7.4(H) 4.2 - 5.8 % 11/10/2024 7:34 AM EDT [facility] Estimated Average Glucose 166 mg/dL 11/10/2024 7:34 AM T [facility] Blood PERIPHERAL BLOOD SPECIMEN / Unknown Venipuncture / Unknown 11/09/2024 11:24 AM EDT 11/09/2024 11:57 AM EDT us Mike Rodrigez MD LAB BLOOD ORDERABLES Julieth l Result [facility] [address] [place] [address], * (ABNORMAL) Lipid Panel (11/09/2024 11:24 AM EDT) Cholesterol 214(H) <=200 mg/dL 11/09/2024 12:43 PM EDT [facility] Triglycerides 71 <150 mg/dL 11/09/2024 12:43 PM EDT [facility] HDL Cholesterol 68(H) 40 - 60 mg/dL 11/09/2024 12:43 PM EDT [facility] Comment: HDL Cardiovascular Risk <40 mg/dL High Risk >60 mg/dL Low Risk LDL Cholesterol 132(H) <=130 mg/dL 11/09/2024 12:43 PM EDT [facility] Comment: Reference Range for > 20 years of age: Acceptable: <130 mg/dL Borderline: 130-159 mg/dL High: >159 mg/dL National Cholesterol Education Program Guidelines Blood PERIPHERAL BLOOD SPECIMEN / Unknown Venipuncture / Unknown 11/09/2024 11:24 AM EDT 11/09/2024 11:57 AM EDT us Mike Rodrigez MD LAB BLOOD ORDERABLES Julieth espinoza Result [facility] [address] [place] [address], [place] from Last 3 Months or Most Recently Relevant to Health Maintenance [place] [id number] [place] [address] [place] [id number] [place] [address] SENIOR [facility] [address] [place] [address] [facility] [address] [place] [address] Advance Directives Documents on File Type Date Recorded Patient Track Mechanic Expl hosea Health Care Proxy 03/21/2024 10:14 AM [facility] Proxy * Full Code (Latest Code Status on File) Date Activated Date Inactivated Comments 11/08/2024 10:18 PM 11/23/2024 12:26 AM Question Answer Comments Discussed with/per: Patient * Full Code Date Activated Date Inactivated Comments 09/12/2024 12:40 PM 10/16/2024 4:37 PM Question Answer Comments Discussed with/per: Patient Care Teams Rag Willow Operator Relationship Specialty Start Date End Date Porfirio Carrillo MD [address] [place] [address] PCP - General Family Practice 05/13/25 Amy Mills MD [address] [place] [address] 12/08/23
--- OUTSIDE RECORDS SUMMARY | 2025-05-18 19:29 | XMS_ITS | Encounter Summary ---
Author Organization [facility] Address [address] [place] [address] Care Team Providers Care Gambling Monitor Name Role Phone Amy Mills MD Unavailable [phone] Darby Hernandez MD Primary Care Provider + Porfirio Carrillo MD Primary Care Provider [phone] Encounter Details Date Type Department Care Team ([facility] st Contact Info) Description 04/24/2025 Results Follow-Up [facility] Emergency Department [address] [place] [address] Marleny Byrne, ALINA XR Ribs Left W PA Chest 3 Vws+ Social History Tobacco Use Types Packs/Day Years Used Date Smoking Tobacco: Every Day Cigarettes Smokeless Tobacco: Never Alcohol Use Standard Drinks/Week Comments Not Currently 0 (1 standard drink = 0.6 oz pur e alcohol) [facility] Utilities Answer Date Recorded In the past 12 months has e [employer], gas, oil, or water [employer] threatened to shut off services in your [...] any time in the past 12 m [facility], were you homeless or living in a retirement (including now)? No 11/09/2024 Food Insecurity Answer [...] Author No 12/23/2024 9:23 PM EDT Luba Allne * Are you blind or do you [...] on filedocumented in this encounter Care Teams Gambling Monitor Relationship Specialty Start Date End Date Darby Hernandez MD [address] [place] [address] PCP - General Family Practice 09/05/24 05/12/25 Porfirio Carrillo MD [address] [place] [address] PCP - General Family Practice 05/13/25 Amy Mills MD [address] [place] [address] 12/08/23 documented as of this encounter
--- OUTSIDE RECORDS SUMMARY | 2025-05-18 19:29 | XMS_ITS | Clinical Summary ---
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 Hyperglycemia 08/26/2017 Recurrent major depressive disorder Assessment [...] Health Maintenance Due Date Last Done Comments [facility] TOPIC SIGMOIDOSCOPY [address] [facility] Topic HIV Screening 1967 [facility] Topic Hepatitis C Screening [address] [facility] Diabetic Ophthalmology Exam [address] [facility] Topic Tdap Vaccine (1 - Tdap) [address] [facility] TOPIC MAMMOGRAM [address] [facility] TOPIC FOBT/FIT TEST [address] [facility] Topic Cologuard 2012 [facility] Topic Colon Cancer Screening 2012 [facility] Topic Colonoscopy 2012 [facility] Topic Pneumococcal Vaccine (HEDIS/Adult) (1 of 1 - PCV) 2017 [facility] Topic Shingrix (1 of 2) 2017 [facility] Topic A1C Diabetes 04/03/20192018, 08/20/2018, 02/21/2018, Additional history exists [facility] Topic Lipid Profile 08/19/2019 08/19/2018 [facility] Topic Microalbumin Urine 10/02/2019 10/01/2018 [facility] Topic Influenza (Flu) Seasonal (#1) 2025 [facility] AMB RSV (under 20 months) Aged Out No longer eligible based on patient's age to complete this topic [facility] HM Topic HIB Vaccines Aged Out No longer eligible based on patient's age to complete this topic [facility] Topic Pneumococcal/Prevnar Vaccine Aged Out No longer e ligible based on patient's age to complete this topic Procedures Procedure Name Priority Date/Time Associated Diagnosis Comments HEMOGLOBIN A1C Routine 02/21/2018 6:46 AM EDT from Last 3 Months or Most Recently Relevant to Health Maintenance Results * (ABNORMAL) Hemoglobin A1c (02/21/2018 6:46 AM EDT) Hemoglobin A1C 10.5(H) 0.0 - 5.9 % 02/21/2018 9:37 AM EDT [facility] Comment:ADA Diabetic Goal: < 7.0% Mean Plasma Glucose (calculated) 259.7 02/21/2018 9:37 AM EDT [facility] Blood Capillary blood specimen / Unknown Venipuncture / Unknown 02/21/2018 6:46 AM EDT 02/21/2018 6:57 AM EDT us Pat Contreras MD LAB BLOOD ORDERABLES Final Re sult [facility] [address] 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
--- OUTSIDE RECORDS SUMMARY | 2025-05-18 19:30 | XMS_ITS | Encounter Summary ---
Author Organization [facility] Address [address] [place] [address] [place] [address] Care Team Providers Care Fleet Sales Manager Name Role Phone Porfirio Carrillo Md Primary Care Provider [phone] Encounter Details Date Type Department Care Team ([facility] Contact Info) Description 05/06/2025 Results Follow-Up [facility] [address] [place] [phone] Porfirio Carrillo MD [address] [place] [address] PAP VIAL TESTING, HPV HIGH RISK PCR MRNA THINPREP VIAL Social History Tobacco Use Types Packs/Day Years Used Date Smoking Tobacco: Every Day Cigarettes 0.5 5 Passive Smoke Exposure: Never Smokeless Tobacco: Never Alcohol Use Standard Drinks/Week Comments Yes 1 (1 standard drink = 0.6 oz pur e alcohol) One glass of wine at [facility] Vital Sign Answer Date Recorded Worried About [...] Description 04/28/2026 1:00 PM EDT Office Visit [facility] [address] [place] [phone] Porfirio Carrillo MD [address] [place] [address] documented as of this encounter Visit Diagnoses Not on filedocumented in this encounter Care Teams Fleet Sales Manager Relationship Specialty Start Date End Date Porfirio Carrillo MD [address] [place] [address] PCP - General Internal Medicine 03/31/25 documented as of this encounter
--- OUTSIDE RECORDS SUMMARY | 2025-05-18 19:30 | XMS_ITS | Encounter Summary ---
Author Organization [facility] Address [address] [facility] [address] [place] [address] Phone Care Team Providers Care Garbage Truck Dispatcher Name Role Phone Soto Armstrong OD Unavailable Kingston Ramirez MD Unavailable Darby Hernandez MD Primary Care Provider + Encounter Details Date Type Department Care Team (Late st Contact Info) Description 10/01/2024 Procedure Pass [facility]iology [address] [facility] [address] [place] [address] Social History Tobacco Use Types Packs/Day Years [...] 11/26/2024 Procedure Pass [facility] Cardiology [address] [facility] [address] [place] [address] 06/16/2025 2:[address] [facility] Cardiology [address] [facility] [address] [place] [address] Tammy Lau MD [address] [place] [address] [email or web address] 07/15/2025 1:00 PM EST Telemedicine [facility] [address] [facility] [address] [place] [address] Carrie Lambert MD [address] [place] [address] [email or web address] 10/23/2025 1:15 PM EDT Office Visit [facility] - Endocrinology - [address] [place] [address] Leslie Hollis MD [address] [facility] [address] [place] [address] [email or web address] documented as of this encounter Goals [...] documented as of this encounter Care Teams Garbage Truck Dispatcher Relationship Specialty Start Date End Date Darby Hernandez MD [address] [place] [address] [email or web address] PCP - General Family Medicine 05/27/23 Soto Armstrong OD Referring Physician Optometry 02/18/18 Kingston Ramirez MD [address] [place] [address], [address] [place] [phone] [email or web address] Ophthalmology 02/18/18 documented as of this encounter Additional Source Comments The information contained in this document represents components of the legal health record. It is not the complete legal health record.[facility]
--- OUTSIDE RECORDS SUMMARY | 2025-05-18 19:30 | XMS_ITS | Encounter Summary ---
Author Organization [facility] Address [address] [place] [address] Phone Care Team Providers Care Weatherization And Housing Inspector Name Role Phone Amy Mills Primary Care Provider [phone] Encounter Details Date Type Department Care Team ([facility] Contact Info) Description 04/03/2018 Procedure Pass [facility] - MR Imaging [address] [place] [address] Social History Tobacco Use Types [...] on filedocumented in this encounter Care Teams Weatherization And Housing Inspector Relationship Specialty Start Date End Date Amy Mills PCP - General Family Medicine 02/19/18 documented as of this encounter
--- OUTSIDE RECORDS SUMMARY | 2025-05-18 19:30 | XMS_ITS | Encounter Summary ---
Author Organization [facility] Address [address] [place] [address] Phone Care Team Providers Care Pit Worker Power Shovel Name Role Phone Amy Mills Primary Care Provider Encounter Details Date Type Department Care Team ([facility] st Contact Info) Description 12/23/2024 Scanned Document [facility] - Health Information Department [address] [place], [place] [phone] Scan, No Provider Available [address] [address] <No scans attached> Social History Tobacco Use [...] on filedocumented in this encounter Care Teams Pit Worker Power Shovel Relationship Specialty Start Date End Date Amy Mills PCP - General Family Medicine 02/19/18 documented as of this encounter
--- OUTSIDE RECORDS SUMMARY | 2025-05-18 19:30 | XMS_ITS | Encounter Summary ---
Author Organization [facility] Address [address] [place] [address] Phone Care Team Providers Care Merchandising Professor Name Role Phone Amy Mills Gavin Primary Care Provider [phone] Encounter Details Date Type Department Care Team ([facility] st Contact Info) Description 04/15/2024 Orders Only [facility] - Health Information Department [address] [place], [place] [phone] Scan, No Provider Available [address] [place] [address] [address] [place] [phone] Social History Tobacco Use Types Packs/Day Years [...] on filedocumented in this encounter Care Teams Merchandising Professor Relationship Specialty Start Date End Date Amy Mills PCP - General Family Medicine 02/19/18 documented as of this encounter
--- OUTSIDE RECORDS SUMMARY | 2025-05-18 19:30 | XMS_ITS | Encounter Summary ---
Author Organization [facility] Address [address] [facility] [address] [place] [address] Phone Care Team Providers Care Corporate Security Officer Name Role Phone Amy Mills MD Primary Care Provider [phone] Soto Armstrong OD Unavailable [phone] Kingston Ramirez MD Unavailable Luba Corbett [employer] Unavailable micha Amy Mills MD Unavailable [phone] Darby Hernandez MD Primary Care Provider + Encounter Details Date Type Department Care Team (Late st Contact Info) Description 09/11/2018 Procedure Pass [facility] Medical Endoscopy [address] [address] Social History Tobacco Use Types Packs/Day Years [...] st Contact Info) Description 11/26/2024 Procedure Pass [facility] [address] [place] [address] 06/16/2025 2:00 PM EST Appointment [facility] [address] [place] [address] Tammy Lau MD [address] [place] [address] [email or web address] 07/15/2025 1:00 PM EST Telemedicine [facility] [address] [place] [address] Carrie Lambert MD [address] [place] [address] [email or web address] 10/23/2025 1:15 PM EDT Office Visit [facility] - Endocrinology - [place] [address] [facility] [place] [address] Lelsie Hollis MD [address] [facility] [address] [place] [address] [email or web address] documented as of this encounter Goals [...] documented as of this encounter Care Teams Corporate Security Officer Relationship Specialty Start Date End Date Amy Mills MD [address] [place] [address] [email or web address] PCP - General Family Medicine 02/07/18 05/26/23 Darby Hernandez MD [address] [place] [address] [email or web address] PCP - General Family Medicine 05/27/23 oSto Armstrong OD [address] [place] [address] Referring Physician Optometry 02/18/18 Kingston Ramirez MD [address] [place] [address], [address] [address] Ophthalmology 02/18/18 Luba Corbett LICSW [address] [place] [address], [address] [address] [email or web address] PHCM Sales Inspector 02/25/18 07/29/19 Amy Mills MD [address] [place] [address] [email or web address] Insurance Assigned Provider 04/13/18 07/17/20 documented as of this encounter Additional Source Comments The information contained in this document represents components of the legal health record. It is not the complete legal health record.[facility]
--- OUTSIDE RECORDS SUMMARY | 2025-05-18 19:30 | XMS_ITS | Clinical Summary ---
Author Organization [facility] Address [address] [place] [address] [place] [address] Care Team Providers Care Supervisor Decorating Name Role Phone Shara Nicolas Md Primary [...] by mouth Active SUMAtriptan 5 mg/actuation [place], Non-Aerosol Use 1 spray in each nostril [...] for anaphylaxis Active Blood-Glucose Meter,Continuous (DEXCOM G7 TWISTING FRAME CHANGER) Misc 1 Units by Miscellaneous_ route daily [...] injury superimp osed on chronic kidney disease ([facility]) 11/08/2024 04/23/2025 Influenza A 09/07/2024 [...] Department Care Team Description 05/06/2025 Results Follow-Up [facility] [address] [place] [phone] Shara Nicolas MD PAP VIAL TESTING, HPV HIGH RISK PCR MRNA THINPREP VIAL 04/28/2025 10:30 AM EDT Office Visit [place] [address] [address] [place] [phone] Michelle Aj PA Contusion of chest wall, unspecified laterality, initial encounter (Primary Dx); Type 1 diabetes mellitus with hyperglycemia (CMS-HCC); Obesity, class 3 (CMS-HCC); Body mass index (BMI) 35.0-35.9, adult; Mixed hyperlipidemia; Bipolar disorder, in partial remission, most recent episode depressed (CMS-HCC); Seizure disorder (CMS-HCC) 04/24/[address], [facility] [address] [facility], / POST-ED DISCHARGE CALL 04/23/2025 1:20 PM EDT Office Visit [facility] [address] [place] [phone] Shara Nicolas MD Annual physical exam (Primary [...] loss type 04/23/2025 Travel 04/15/2025 Letter (Out) [facility] [address] [place] [address] Shara Nicolas MD 04/15/2025 Email Encounter [facility] Campaign, Provider Schedule your annual Well Visit 04/01/2025 Patient Outreach [facility] [address] [place] [phone] Sarah Albright LPN Onboarding; New Patient 03/10/2025 Letter (Out) [facility] [address] [place] [address] Campaign, Provider from Last 3 [...] TYMPANOSTOMY (W/ V TUBE) ,GENERAL ANES SECT ROOMS DIRECTOR SECT ROOMS DIRECTOR Medical History Medical History Date Comments Seizure ([facility]-H[facility]) Type 1 diabetes mellitus PTSD (post-traumatic stress disorder) Depression Anxiety Ovarian cancer ([facility]) Memory impairment Bipolar 1 disorder ([facility]) Chronic bronchitis ([facility]) Hearing loss Asthma TIA (transient ischemic attack) Tremor of right hand Tobacco use Intractable migraine Suicidal ideation Subclinical hypothyroidism High cholesterol Depression, unspecified depr ession type Allergies Seizure disorder ([facility]) Diabetes mellitus Cancer ([facility]) Hypertension Malignant neoplasm of left o vary ([facility]) 05/01/2024 S/p oopherectomy and hystere ctomy in 2009. Cervix remains Acute kidney injury superimp osed on chronic kidney disease ([facility]) ([facility]) 11/08/2024 Acute cystitis without hematuria 08/04/2018 Seizure-like activity ([facility]) 09/03/2018 Hyponatremia 09/03/2018 Episode of recurrent major d epressive disorder ([facility]) 08/04/2018 Fall at home, initial encounter 11/09/2024 [...] 1:00 PM EDT Office Visit [facility] [address] [place] [phone] Shara Nicolas MD [address] [place] [address] Health Maintenance Due Date Last Done Comments [...] age to complete this topic RSV Vaccine //toddler Aged Out No longer eligible based on [...] LESION OR MALIGNANCY 04/29/2025 9:48 AM EDT [facility] [[email or web address]] DEPARTMENT OF PATHOLOGY AND LAB MEDICINE at 0948 EDT Specimen Adequacy Satisfactory for evaluation. Transformation zone component absent. 04/29/2025 9:48 AM EDT [facility] [[email or web address]] DEPARTMENT OF PATHOLOGY AND LAB MEDICINE HPV High Risk Negative 04/29/2025 9:48 AM EDT [facility] [[email or web address]] DEPARTMENT OF PATHOLOGY AND LAB MEDICINE Source Cervical 04/29/2025 9:48 AM EDT [facility] [[email or web address]] DEPARTMENT OF PATHOLOGY AND LAB MEDICINE Macroscopic Description Vial contains 20cc of colorless fluid. 04/29/2025 9:48 AM EDT [facility] [[email or web address]] DEPARTMENT OF PATHOLOGY AND LAB MEDICINE Additional Information For further information about terminology found in your pathology report, please visit the My Pathology Report website (not compatible with Internet Explorer). If after speaking to your provider you would like more information about your pathology result, you may message the pathology department directly. 04/29/2025 9:48 AM EDT [facility] [[email or web address]] DEPARTMENT OF PATHOLOGY AND LAB MEDICINE Disclaimer [...] of this sample. 04/29/2025 9:48 AM EDT [facility] [[email or web address]] DEPARTMENT OF PATHOLOGY AND LAB MEDICINE Specimen Information Gynecologic Cytology Case: [id number] Collected: 04/23/2025 5:10 PM Received: 04/23/2025 9:40 PM Authorizing Provider: SHARA NICOLAS MD Ordering Location: [facility] Result interpreted by: JALYN JACKSON Result signed on: 04/29/2025 9:48 AM 04/29/2025 9:48 AM EDT [facility] [[email or web address]] DEPARTMENT OF PATHOLOGY AND LAB MEDICINE PAP Vial (Cervical) Non-blood collection / Unknown 04/23/2025 5:10 PM EDT 04/23/2025 5:10 PM EDT us Shara Nicolas LAB PATHOLOGY ORDERABLES Final R esult Performing Organization Address City/[facility]/ZIP Co de Phone Number [facility] [[email or web address]] DEPARTMENT OF PATHOLOGY AND LAB MEDICINE [address] [place] [address] * HPV HIGH RISK PCR MRNA THINPREP VIAL (04/23/2025 5:10 PM EDT) HPV HIGH RISK mRNA Negative Negative 04/29/2025 9:48 AM EDT [facility] [[email or web address]] DEPARTMENT OF PATHOLOGY AND LAB MEDICINE SOURCE Cervical 04/29/2025 9:48 AM EDT [facility] [[email or web address]] DEPARTMENT OF PATHOLOGY AND LAB MEDICINE PAP Vial (Cervical) Non-blood collection / Unknown 04/23/2025 5:10 PM EDT 04/23/2025 9:40 PM EDT us Shara Nicolas MICROBIOLOGY LAB Final Result Performing Organization Address City/[facility]/ZIP Co de Phone Number [facility] OF PATHOLOGY AND LAB MEDICINE [address] [place] [address] from Last 3 Months Insurance [employer] Care Teams Supervisor Decorating Relationship Specialty Start Date End Date Shara Nicolas MD [address] [place] [phone] PCP - General Internal Medicine 03/31/25
--- OUTSIDE RECORDS SUMMARY | 2025-05-18 19:30 | XMS_ITS | Encounter Summary ---
Author Organization [facility] ystem Address [address] [place] [address] Phone Care Team Providers Care Cable Ferryboat Operator Name Role Phone Amy Mills Primary Care Provider [phone] Encounter Details Date Type Department Care Team (Late st Contact Info) Description 11/23/2024 Scanned Document [facility] - Health Information Department [address] [place], [place] [phone] Scan, No Provider Available [address] [place] [address] <No scans attached> Social History Tobacco Use [...] on filedocumented in this encounter Care Teams Cable Ferryboat Operator Relationship Specialty Start Date End Date Amy Mills PCP - General Family Medicine 02/19/18 documented as of this encounter
--- OUTSIDE RECORDS SUMMARY | 2025-05-18 19:30 | XMS_ITS | Encounter Summary ---
Author Organization [facility] ystem Address [address] [place] [address] Phone Care Team Providers Care Conciliator Name Role Phone Amy Mills Primary Care Provider [phone] Reason for Referral * Neurology - Closed Specialty Diagnoses / Procedures Referred By Contac t Referred To Contact Neurology Diagnoses Seizures ([facility]) Procedures Ambulatory EEG Mahendra Fitzpatrick MD Phone: tel: fax: Referral ID Status Reason Start Date Expiration Date Visits Re quested Visits Authorized [id number] Closed 01/04/2018 01/05/2019 1 1 Encounter Details Date Type Department Care Team ([facility] Contact Info) Description 01/04/2018 Ancillary Orders [facility] - Neuro Diagnostics [address] [place] [address] Mahendra Fitzpatrick MD [address] [place] [address] Seizures ([facility]/HCC) Social History Tobacco Use Types Packs/Day [...] convulsions documented in this encounter Care Teams Conciliator Relationship Specialty Start Date End Date Amy Mills PCP - General Family Medicine 02/19/18 documented as of this encounter
--- OUTSIDE RECORDS SUMMARY | 2025-05-18 19:30 | XMS_ITS | Encounter Summary ---
Author Organization [facility] Address [address] [address] Phone Care Team Providers Care Nicker Name Role Phone Nathaniel Soto Johana QUEVEDO Unavailable [phone] Kingston Ramirez MD Unavailable Darby Hernandez MD Primary Care Provider + Encounter Details Date Type Department Care Team (Late st Contact Info) Description 04/24/2025 Telephone [facility] Medical Endocrine [address] [facility] [address] [place] [address] Leslie Hollis MD [address] [place] [address] [email or web address] Social History Tobacco Use Types Packs/Day [...] st Contact Info) Description 11/26/2024 Procedure Pass [facility] Medical Cardiology [address] [place] [address] 06/16/2025 2:00 PM EST Appointment [facility] Medical Cardiology [address] [place] [address] Tammy Lau MD [address] [place] [address] [email or web address] 07/15/2025 1:00 PM EST Telemedicine [facility] [address] [place] [address] Carrie Lambert MD [address] [place] [address] [email or web address] 10/23/2025 1:15 PM EDT Office Visit [facility] - Endocrinology - [address] [place] [address] Leslie Hollis MD [address] [place] [address] [email or web address] documented as of this encounter Goals [...] documented as of this encounter Care Teams Nicker Relationship Specialty Start Date End Date Darby Hernandez MD [address] [place] [address] [email or web address] PCP - General Family Medicine 05/27/23 Soto Armstrong OD Referring Physician Optometry 02/18/18 Kingston Ramirez MD [address] [place] [address], [address] [place] [address] [email or web address] Ophthalmology 02/18/18 documented as of this encounter Additional Source Comments The information contained in this document represents components of the legal health record. It is not the complete legal health record.[facility]
--- OUTSIDE RECORDS SUMMARY | 2025-05-18 19:30 | XMS_ITS | Encounter Summary ---
Author Organization [facility] ystem Address [address] [place] [address] Phone Care Team Providers Care Blacksmith Farm Name Role Phone Amy Mills Primary Care Provider Encounter Details Date Type Department Care Team ([facility] Contact Info) Description 04/03/2018 Procedure Pass [facility] - MR Imaging [address] [place] [address] Social History Tobacco Use Types [...] of Assessment Author 0 04/03/2018 7:38 PM EDLissette Miller i, RN * How many standard drinks [...] 04/03/2018 7:38 PM Lissette Mancia i, RN documented as of this encounter Plan of Treatment Not on file documented as of this encounter Visit Diagnoses Not on filedocumented in this encounter Care Teams Blacksmith Farm Relationship Specialty Start Date End Date Amy Mills PCP - General Family Medicine 02/19/18 documented as of this encounter
--- OUTSIDE RECORDS SUMMARY | 2025-05-18 19:30 | XMS_ITS | Encounter Summary ---
Author Organization [facility] ystem Address [address] [place] [address] Phone Care Team Providers Care Groutman Name Role Phone Amy Mills Primary Care Provider Encounter Details Date Type Department Care Team (Late st Contact Info) Description 11/10/2024 Scanned Document [facility] - Health Information Department [address] [place], [place] [phone] Scan, No Provider Available [address] [facility] [facility] [place] [address] <No scans attached> Social History Tobacco Use [...] on filedocumented in this encounter Care Teams Groutman Relationship Specialty Start Date End Date Amy Mills PCP - General Family Medicine 02/19/18 documented as of this encounter
--- OUTSIDE RECORDS SUMMARY | 2025-05-18 19:30 | XMS_ITS | Encounter Summary ---
Author Organization [facility] Address [address] [place] [address] Phone Care Team Providers Care Flat Grinder Operator Name Role Phone Amy Mills MD Primary Care Provider Soto Armstrong OD Unavailable [phone] Kingston Ramirez MD Unavailable Amy Mills MD Unavailable [phone] Darby Hernandez MD Primary Care Provider + Encounter Details Date Type Department Care Team (Late st Contact Info) Description 03/01/2020 [facility] [address] [facility] [address] [place] [address] Social History Tobacco Use Types [...] high school, GED, job training, learning the [place] language, technical skills, or developing parenting skills)? [...] st Contact Info) Description 11/26/[address] [facility] Cardiology [address] [facility] [address] [place] [address] 06/16/2025 2:[address] [facility] Cardiology [address] [facility] [address] [place] [address] Tammy Lau MD [address] [place] [address] [email or web address] 07/15/2025 1:00 PM EST Telemedicine [facility] [address] [facility] [address] [place] [address] Carrie Lambert MD [address] [place] [address] [email or web address] 10/23/2025 1:15 PM EDT Office Visit [facility] - Endocrinology - [place] [address] [place] [address] Leslie Hollis MD [address] [place] [address] [email or web address] documented as of this encounter [...] documented as of this encounter Care Teams Flat Grinder Operator Relationship Specialty Start Date End Date Amy Mills MD [place] [address] [email or web address] PCP - General Family Medicine 02/07/18 05/26/23 Darby Hernandez MD [address] [place] [address] [place] [address] [email or web address] PCP - General Family Medicine 05/27/23 Soto Armstrong OD [address] [place] [address] [place] [address] Referring Physician Optometry 02/18/18 Kingston Ramirez MD [address] [place] [address], [address] [place] [address] [email or web address] Ophthalmology 02/18/18 Amy Mills MD [address] [place] [address] [email or web address] Insurance Assigned Provider 04/13/18 07/17/20 documented as of this encounter Additional Source Comments The information contained in this document represents components of the legal health record. It is not the complete legal health record.[facility]
--- OUTSIDE RECORDS SUMMARY | 2025-05-18 19:30 | XMS_ITS | Encounter Summary ---
Author Organization [facility] ystem Address [address] [place] [address] Phone Care Team Providers Care Inside Steward/Stewardess Name Role Phone Amy Mills Primary Care Provider [phone] Encounter Details Date Type Department Care Team ([facility] [address] Contact Info) Description 04/03/2018 Procedure Pass [facility] - MR Imaging [address] [place] [address] Social History Tobacco Use Types [...] on filedocumented in this encounter Care Teams Inside Steward/Stewardess Relationship Specialty Start Date End Date Amy Mills PCP - General Family Medicine 02/19/18 documented as of this encounter
--- OUTSIDE RECORDS SUMMARY | 2025-05-18 19:30 | XMS_ITS | Clinical Summary ---
Author Organization [facility] Address [address] [place] [address] Phone Care Team Providers Care Structural Iron Worker Name Role Phone Soto Armstrong Johana QUEVEDO Unavailable [phone] Kingston Ramirez MD Unavailable Darby Hernandez [...] tablet 5 03/23/20 21 Active DEXCOM G6 SUPERVISOR TUNNEL HEADING MiscIndications: Type 1 diabetes mellitus without complication [...] patient is enrolled and engaged in the [facility] Medicaid [facility] Community Partners Program for support with health-related social needs (HRSN) and community-based care coordination. Care Plan received on 09/17/24, uploaded to the Media tab of the Chart. [facility] Contact: Dmitri Villanueva Community Partner Agency[facility] Community Partner Photo Producer: Nata Beckman Community Partner Photo Producer Contact Information: [phone] For additional information or questions regarding the Community Partners Program, please reach out to the [facility] Contact or the [facility] team, Problem Noted Date [...] Type Department Care Team Description 05/14/2025 Telephone [facility] Endocrine [address] [place] [address] Lisa Bruce RN questions 04/24/2025 Telephone [facility] [address] [place] [address] Leslie Hollis MD 04/10/2025 1:30 PM EDT Office Visit [facility] - Endocrinology [address] [place] [address] Leslie Hollis MD Type 1 diabetes mellitus with hyperglycemia (Primary Dx) 03/16/2025 Telephone [facility] [address] [place] [address] Leslie oHllis MD insulin question 02/26/2025 Refill [facility] [address] [place] [address] Azul Chicas MD Medication Refill 02/16/2025 Telephone [facility] - Primary Care - [address] [place] [address] Darby Hernandez MD fax med list, problem [...] st Contact Info) Description 11/26/2024 Procedure Pass [facility] Cardiology [address] [place] [address] 06/16/2025 2:00 PM EST Appointment [facility]iology [address] [place] [address] Tammy Lau MD 15 [place] [address] [email or web address] 07/15/2025 1:00 PM EST Telemedicine [facility] [address] [place] [address] Carrie Lambert MD [address] [place] [address] [email or web address] 10/23/2025 1:15 PM EDT Office Visit [facility] - Endocrinology - [place] [address] [facility] [place] [address] Leslie Hollis MD [address] [place] [address] [address] [place] [address] [email or web address] Health Maintenance Due Date Last Done [...] Coordinate Care Lifestyle No Corbett, Luba Gemma, WIRE BASKET MAKER Note: Assist with coordination of services. Medical [...] - 266 mg/dL [facility] [facility] [address] Comment: MALB/CRE UNABLE TO CALCULATE 0.0 - 30.0 mg/Alb/g Cre [facility] URINE MICROALBUMIN <1.2 0.0 - 2.0 mg/dL [facility] Comment: Urine (Urine) 04/15/2024 3:0 1 PM EDT 04/15/2024 3:14 PM EDT us Leslie Hollis MD LAB URINE ORDERABLES Final Re sult [facility] [facility] [address] [place] [address], [facility] [address] [place], [place] [address]RUST [phone] * (ABNORMAL) Hemoglobin A1c (04/15/2024 3:01 PM EDT) Pathologist [facility] HEMOGLOBIN A1C 7.2(H) 4.2 - 5.6 % [facility] [place] [address] Comment:HbA1c levels 5.7-6.4 % represent pre-diabetes, indicating impaired glucose control and an increased risk of developing diabetes. The diagnostic HbA1c level for diabetes is 6.5% or greater. HbA1c levels <4.2% may indicate a hemoglobinopathy or anemia, and an alternative method is recommended to monitor glucose control. CALC MEAN BLD GLUC 162(H) 60 - 121 mg/dL [facility] [place] [address] Comment: The Calculated Mean Blood Glucose (CMBG) represents the estimated average glucose calculated from the measured hemoglobin A1c (HbA1c). There is no established normal range for the CMBG, however a 5.6% HbA1c (upper limit of normal) represents a CMBG of 114 mg/dL. Blood 04/15/2024 3:0 1 PM EDT 04/15/2024 3:08 PM EDT us Leslie Hollis MD LAB BLOOD BKR ORDERABLES Julieth epsinoza Result [facility] [place] [address], [facility] [address] [place], [place] [address] [phone] * (ABNORMAL) Basic metabolic panel (04/15/2024 3:01 PM EDT) [facility] SODIUM 143 136 - 145 mmol/L [facility] Comment: POTASSIUM 4.3 3.4 - 5.1 mmol/L [facility] [place] [address] Comment: CHLORIDE 105 98 - 107 mmol/L [facility] Comment: CO2 27 22 - 31 mmol/L [facility] Comment: BUN 8 6 - 23 mg/dL [facility] [place] [address] Comment: CREATININE 0.93 0.50 - 1.20 mg/dL [facility] [place] [address] GLUCOSE 113(H) 70 - 100 mg/dL [facility] [place] [address] Comment: CALCIUM 9.4 8.8 - 10.7 mg/dL [facility] [place] [address] Comment: EGFR 72 >59 mL/min/1.7 3m2 [facility] [place] [address] Comment: Estimated glomerular filtration rate calculated using the CKD-EPI refit equation. ANION GAP 11 7 - 17 mmol/L [facility] [place] [address] Comment: Blood 04/15/2024 3:01 PM EDT 04/15/2024 3:08 PM EDT us Leslie Hollis MD LAB BLOOD BKR ORDERABLES Julieth espinoza Result [facility] [place] [address], [facility] [address] [phone] * BI MAMMOGRAM SCREENING WITH TOMOSYNTHESIS WITH [...] Nonreactive Nonreactive U/ml [facility] [address] [facility] Blood 08/25/2020 1:59 PM EST 08/25/2020 2:07 PM EST Amy Mills MD LAB BLOOD BKR ORDERABLES Final Result [facility] [place] [address], [facility] [phone] * DIABETES EYE EXAM FOR RESULT ENTRY ONLY (08/09/2019) EYE EXAM 08/09/2019 Historical Provider HEALTH MAINTENANCE Final Result * COLONOSCOPY FOR RESULT ENTRY ONLY (08/19/2018) Colonoscopy 08/19/2018 Historical Provider HEALTH MAINTENANCE Final Result from Last 3 Months or Most Recently Relevant to Health Maintenance Insurance MEDICARE PART A & B [facility] ONE CARE MEDICARE REPLACEMENT Oct 07 [place] [address] MEDICARE PART A & B [facility] ONE CARE MEDICARE REPLACEMENT MEDICARE PART A & B MEDICARE PART A & B MEDICARE PART A & [place] [address] [place] [address] ONE CARE MEDICARE REPLACEMENT [facility] MEDICARE PART A & B MEDICARE PART A & B [facility] ONE CARE MEDICARE REPLACEMENT MEDICARE PART A & B [facility] CARE MEDICARE REPLACEMENT MEDICARE PART A & B [facility] ONE CARE MEDICARE REPLACEMENT MEDICARE PART A & B Advance Directives For more information, please contact: [phone] (9AM - 5PM [facility], Sunday-Sunday) Documents on File Type Date Recorded Patient Branding Specialist Expl anation Healthcare Proxy 09/16/2018 1:40 PM * Full Code (Latest Code Status on File) Date Activated Date Inactivated Comments 06/05/2023 4:38 PM Question Answer Comments Code Status Confirmed With: Patient Code Status Communicated To: Other (specify belo w) Code Discussion Comments: LIONEL Care Teams Structural Iron Worker Relationship Specialty Start Date End Date Darby Hernandez MD [address] [place] [address] [email or web address] PCP - General Family Medicine 05/27/23 Soto Armstrong OD Referring Physician Optometry 02/18/18 Kingston Ramirez MD [address] [place] [address], [address] [place] [address] [email or web address] Ophthalmology 02/18/18 Additional Source Comments The information contained in this document represents components of the legal health record. It is not the complete legal health record.[facility]
--- OUTSIDE RECORDS SUMMARY | 2025-05-18 19:30 | XMS_ITS | Encounter Summary ---
Author Organization [facility] Address [address] [place] [address] [address] [place] [address] Care Team Providers Care Flotation Tender Name Role Phone Porfirio Carrillo Md Primary Care Provider [phone] Encounter Details Date Type Department Care Team ([facility] Contact Info) Description 04/15/2025 Email Encounter [...] 1:00 PM EDT Office Visit [facility] [address] [place] [phone] Porfirio Carrillo MD [address] [place] [address] documented as of this encounter Visit Diagnoses Not on filedocumented in this encounter Care Teams Flotation Tender Relationship Specialty Start Date End Date Porfirio Carrillo MD [address] [place] [address] PCP - General Internal Medicine 03/31/25 documented as of this encounter
--- OUTSIDE RECORDS SUMMARY | 2025-05-18 19:30 | XMS_ITS | Encounter Summary ---
Author Organization [facility] ystem Address [address] [place] [address] Phone Care Team Providers Care Planer Tailer Name Role Phone Amy Mills Primary Care Provider [phone] Encounter Details Date Type Department Care Team (Late st Contact Info) Description 09/06/2024 Scanned Document [facility] - Health Information Department 143 [place], [place] [phone] Scan, No Provider Available [address] [facility] [place] [address] <No scans attached> Social History Tobacco Use [...] on filedocumented in this encounter Care Teams Planer Tailer Relationship Specialty Start Date End Date Amy Mills PCP - General Family Medicine 02/19/18 documented as of this encounter
--- OUTSIDE RECORDS SUMMARY | 2025-05-18 19:30 | XMS_ITS | Encounter Summary ---
Author Organization [facility] Address [address] [facility] [address] [place] [address] Phone Care Team Providers Care Hearing Stenographer Name Role Phone Amy Mills MD Primary Care Provider [phone] Soto Armstrong OD Unavailable [phone] Kingston Ramirez MD Unavailable Darby Hernandez MD Primary Care Provider + Encounter Details Date Type Department Care Team (Late st Contact Info) Description 08/25/[address] [facility], [address] [place] [address] Social History Tobacco Use Types Packs/Day [...] high school, GED, job training, learning the Kyr[place] language, technical skills, or developing parenting skills)? [...] 11/26/2024 Procedure Pass [facility] [address] [facility] 410 [place] [address] 06/16/2025 2:00 PM EST Appointment [facility] [address] [facility] 410 [place] [address] Tammy Lau MD [address] [place] [address] [email or web address] 07/15/2025 1:00 PM EST Telemedicine [facility] [address] [facility] 11 [place] [address] Carrie Lambert MD [address] [place] [address] [email or web address] 10/23/2025 1:15 PM EDT Office Visit [facility] - Endocrinology - [place] [address] [facility] [address] [place] [address] Leslie Hollis MD [address] [place] [address] [email or web address] documented as of this encounter Goals Goal [...] documented as of this encounter Care Teams Hearing Stenographer Relationship Specialty Start Date End Date Amy Mills MD 15 [facility] [place] [address] [email or web address] PCP - General Family Medicine 02/07/18 3 Darby Hernandez MD [address] [place] [address] [place] [address] [email or web address] PCP - General Family Medicine 05/27/23 Soto Armstrong OD 15 [facility] [place] [address] Referring Physician Optometry 02/18/18 Kingston Ramirez MD [address] [place] [address], [address] [place] [address] [email or web address] Ophthalmology 02/18/18 documented as of this encounter Additional Source Comments The information contained in this document represents components of the legal health record. It is not the complete legal health record.[facility]
--- OUTSIDE RECORDS SUMMARY | 2025-05-18 19:30 | XMS_ITS | Encounter Summary ---
Author Organization [facility]stem Address [address] [place] [address] Phone Care Team Providers Care Franchise Specialist Name Role Phone Amy Mills Primary Care Provider Encounter Details Date Type Department Care Team (Late st Contact Info) Description 10/16/2024 Scanned Document [facility] - Health Information Department 143 [place], [place] [phone] Scan, No Provider Available [address] [facility] [place] [address] <No scans attached> Social History Tobacco Use [...] on filedocumented in this encounter Care Teams Franchise Specialist Relationship Specialty Start Date End Date Amy Mills PCP - General Family Medicine 02/19/18 documented as of this encounter
--- OUTSIDE RECORDS SUMMARY | 2025-05-18 19:30 | XMS_ITS | Encounter Summary ---
Author Organization [facility] Address [address] [facility] [address] [place] [address] Phone Care Team Providers Care Commercial Marketing Specialist Name Role Phone Amy Mills MD Primary Care Provider Soto Armstrong OD Unavailable Kingston Ramirez MD Unavailable [phone] Darby Hernandez MD Primary Care Provider + Encounter Details Date Type Department Care Team (Late st Contact Info) Description 03/16/2022 Procedure [facility] [address] [facility] [address] [place] [address] Social History Tobacco Use Types Packs/Day Years [...] high school, GED, job training, learning the Marshallese language, technical skills, or developing parenting skills)? [...] Contact Info) Description 11/26/[address] [facility]iology [address] [facility] [address] [place] [address] 06/16/2025 2:[address] [facility] Cardiology [address] [place] [address] Tammy Lau MD [address] [place] [address] [email or web address] 07/15/2025 1:00 PM EST Telemedicine [facility] [address] [place] [address] Carrie Lambert MD [address] [place] [address] [email or web address] 10/23/2025 1:15 PM EDT Office Visit [facility] - Endocrinology - [place] [address] [facility] [place] [address] Leslie Hollis MD [address] [place] [address] [email or web address] documented as of this encounter [...] documented as of this encounter Care Teams Commercial Marketing Specialist Relationship Specialty Start Date End Date Amy Mills MD [address] [facility] [place] [address] @[email or web address] PCP - General Family Medicine 02/07/18 3 Darby Hernandez MD 15 [facility] [place] [address] [email or web address] PCP - General Family Medicine 05/27/23 Soto Armstrong OD [address] [facility] [place] [address] Referring Physician Optometry 02/18/18 Kingston Ramirez MD [address] [place] [address], [address] [place] [address] [email or web address] Ophthalmology 02/18/18 documented as of this encounter Additional Source Comments The information contained in this document represents components of the legal health record. It is not the complete legal health record.[facility]
--- OUTSIDE RECORDS SUMMARY | 2025-05-18 19:30 | XMS_ITS | Encounter Summary ---
Author Organization [facility] Address [address] [facility] [address] [place] [address] Phone Care Team Providers Care Automation Operator Name Role Phone Soto Armstrong OD Unavailable Kingston Ramirez MD Unavailable Darby Hernandez MD Primary Care Provider + Encounter Details Date Type Department Care Team (Late st Contact Info) Description 11/26/2024 Procedure Pass [facility] Cardiology [address] [facility] [address] [place] [address] Social History Tobacco Use Types Packs/Day Years [...] st Contact Info) Description 11/26/2024 Procedure Pass [facility]iology [address] [facility] 410 [place] [address] 06/16/2025 2:[address] [facility] Cardiology [address] [facility] 410 [place] [address] Tammy Lau MD [address] [place] [address] [email or web address] 07/15/2025 1:00 PM EST Telemedicine [facility] [address] [facility] [address] [place] [address] Carrie Lambert MD [address] [place] [address] [email or web address] 10/23/2025 1:15 PM EDT [facility] - End[facility]ology - [address] [place] [address] Leslie Hollis MD 541 [facility] 210 [place] [address] [email or web address] documented as of this [...] documented as of this encounter Care Teams Automation Operator Relationship Specialty Start Date End Date Darby Hernandez MD [address] [place] [address] [email or web address] PCP - General Family Medicine 05/27/23 Soto Armstrong OD Referring Physician Optometry 02/18/18 Kingston Ramirez MD [address] [place] [address], [address] [place] [phone] [email or web address] Ophthalmology 02/18/18 documented as of this encounter Additional Source Comments The information contained in this document represents components of the legal health record. It is not the complete legal health record.[facility]
--- OUTSIDE RECORDS SUMMARY | 2025-05-18 19:30 | XMS_ITS | Encounter Summary ---
Author Organization [facility]stem Address [address] [place] [address] Phone Care Team Providers Care Capability Lead Name Role Phone Amy Mills Primary Care Provider [phone] Encounter Details Date Type Department Care Team ([facility] Contact Info) Description 04/16/2024 Orders Only [facility] - Health Information Department 143 [place], [place] [phone] Scan, No Provider Available [address] [place] [address] [place] [place] [address] Social History Tobacco Use Types Packs/Day Years [...] on filedocumented in this encounter Care Teams Capability Lead Relationship Specialty Start Date End Date Amy Mills PCP - General Family Medicine 02/19/18 documented as of this encounter
--- OUTSIDE RECORDS SUMMARY | 2025-05-18 19:30 | XMS_ITS | Encounter Summary ---
Author Organization [facility] ystem Address [address] [place] [address] Phone Care Team Providers Care Bilingual Administrative Assistant Name Role Phone Amy Mills Primary Care Provider Encounter Details Date Type Department Care Team (Late st Contact Info) Description 09/12/2024 Scanned Document [facility] - Health Information Department 143 [place], [place] [phone] Scan, No Provider Available [address] [facility] [place] [address] <No scans attached> Social History Tobacco Use [...] on filedocumented in this encounter Care Teams Bilingual Administrative Assistant Relationship Specialty Start Date End Date Amy Mills PCP - General Family Medicine 02/19/18 documented as of this encounter
--- OUTSIDE RECORDS SUMMARY | 2025-05-18 19:30 | XMS_ITS | Encounter Summary ---
Author Organization [facility]stem Address [address] [place] [address] Phone Care Team Providers Care Sulfate Drier Machine Operator Name Role Phone Amy Mills Primary Care Provider [phone] Encounter Details Date Type Department Care Team (Late st Contact Info) Description 04/14/2024 Scanned Document [facility] - Health Information Department 143 [place], [place] [phone] Scan, No Provider Available [address] [facility] [place] [address] <No scans attached> Social History Tobacco Use [...] on filedocumented in this encounter Care Teams Sulfate Drier Machine Operator Relationship Specialty Start Date End Date Amy Mills PCP - General Family Medicine 02/19/18 documented as of this encounter
--- OUTSIDE RECORDS SUMMARY | 2025-05-18 19:30 | XMS_ITS | Encounter Summary ---
Author Organization [facility] Address [address] [facility] [address] [place] [address] Phone Care Team Providers Care Community Development Aide Name Role Phone Amy Mills MD Primary Care Provider Soto Armstrong OD Unavailable [phone] Kingston Ramirez MD Unavailable Darby Hernandez MD Primary Care Provider + Encounter Details Date Type Department Care Team (Late st Contact Info) Description 03/14/2023 Procedure Pass [facility] Medical Endoscopy [address] Floor [place], [place] [id number] Social History Tobacco Use Types Packs/Day Years [...] st Contact Info) Description 11/26/2024 Procedure Pass [facility] Cardiology [address] [address] 06/16/2025 2:00 PM EST Appointment [facility] Cardiology 541 [facility] 410 [place] [address] Tammy Lau MD [address] [place] [address] [email or web address] 07/15/2025 1:00 PM EST Telemedicine [facility] 851 [facility] 11 [place] [address] Carrie Lambert MD [address] [place] [phone] [email or web address] 10/23/2025 1:15 PM EDT Office Visit [facility] - Endocrinology - Moe [address] [facility] [address] [place] [address] Leslie Hollis MD [address] [place] [phone] [email or web address] documented as of this encounter [...] as of this encounter Care Teams Community Development Aide Relationship Specialty Start Date End Date Amy Mills MD Diane [facility] [place] [address] [email or web address] PCP - General Family Medicine 02/07/18 3 Darby Hernandez MD [address] [place] [address] [place] [address] [email or web address] PCP - General Family Medicine 05/27/23 Soot Armstrong OD 15 [place] [address] Referring Physician Optometry 02/18/18 Kingston Ramirez MD [address] [place] [address], [address] [place] [address] [email or web address] Ophthalmology 02/18/18 documented as of this encounter Additional Source Comments The information contained in this document represents components of the legal health record. It is not the complete legal health record.[facility]
--- OUTSIDE RECORDS SUMMARY | 2025-05-18 19:30 | XMS_ITS | Encounter Summary ---
Author Organization [facility] Address [address] [facility] [address] [place] [address] Phone Care Team Providers Care Costume Draper Name Role Phone ArmstrongSoto Johana QUEVEDO Unavailable [phone] Kingston Ramirez MD Unavailable [phone] Darby Hernandez MD Primary Care Provider + Reason for Visit * Reason Onset Date Comments questions 05/14/2025 Encounter Details Date Type Department Care Team (Late st Contact Info) Description 05/14/2025 Telephone [facility] Medical Endocrine [address] [address] Lisa Burce RN 541 [place] [address] [email or web address] Social History Tobacco Use Types [...] not included. Spoke to Clara HU at [facility] and advised if pt off insulin pump insulin orders = Leslie Hollis MD You If not on pump Lantus 14 units Humalog 3 units TID with meals + HISS (150-200 1 units, 201-250 2 units, 251-300 3 units etc) * Lisa Bruce, RN - 05/14/2025 3:28 PM EST Spoke to [facility] Pt needs to go to [facility] and will be off pump asking for your recommended insulin orders While off pump She was seen 04/10 adjust settings as below 6AM 0.55/45/8 * Lisa Bruce, RN - 05/14/2025 12:46 PM EST Msg from call center pt at [facility] ER Dr has questions for [phone] Called back, Dr grajeda will call back documented in this encounter Plan of Treatment Upcoming Encounters Date Type Department Care Team (Late st Contact Info) Description 11/26/2024 Procedure Pass [facility] Cardiology [address] [place] [address] 06/16/2025 2:00 PM EST Appointment [facility] Cardiology [address] [place] [address] Tammy Lau MD [address] [place], [place] [address] [address] [email or web address] 07/15/2025 1:00 PM EST Telemedicine [facility] [address] [place] [address] Carrie Lambert MD [address] [place] [phone] [email or web address] 10/23/2025 1:15 PM EDT Office Visit [facility] - Endocrinology - [address] [place] [address] Leslie Hollis MD [address] [place] [phone] [email or web address] documented as of this encounter Goals [...] documented as of this encounter Care Teams Costume Draper Relationship Specialty Start Date End Date Darby Hernandez MD [address] [place] [address] [email or web address] PCP - General Family Medicine 05/27/23 Soto Armstrong OD Referring Physician Optometry 02/18/18 Kingston Ramirez MD [address] [place] [address], [address] [place] [address] Ophthalmology 02/18/18 documented as of this encounter Additional Source Comments The information contained in this document represents components of the legal health record. It is not the complete legal health record.[facility]
--- OUTSIDE RECORDS SUMMARY | 2025-05-18 19:30 | XMS_ITS | Encounter Summary ---
Author Organization [facility] Address [address] [place] [address] Phone Care Team Providers Care Oncology Social Worker Name Role Phone Amy Mills Primary Care Provider [phone] Encounter Details Date Type Department Care Team ([facility] st Contact Info) Description 07/27/2023 Procedure Pass [facility] Endoscopy [address] [place] [address] Social History Tobacco Use Types [...] on filedocumented in this encounter Care Teams Oncology Social Worker Relationship Specialty Start Date End Date Amy Mills PCP - General Family Medicine 02/19/18 documented as of this encounter
--- OUTSIDE RECORDS SUMMARY | 2025-05-18 19:30 | XMS_ITS | Encounter Summary ---
Author Organization [facility] Address [address] [facility] [address] Phone Care Team Providers Care Driving Instructor Name Role Phone Amy Mills Primary Care Provider Encounter Details Date Type Department Care Team (Late st Contact Info) Description 11/08/2024 Scanned Document [facility] - [facility] Information Department [address] [place], [place] [phone] Scan, No Provider Available [address] [place] [address] <No scans attached> Social History Tobacco Use [...] on filedocumented in this encounter Care Teams Driving Instructor Relationship Specialty Start Date End Date Amy Mills PCP - General Family Medicine 02/19/18 documented as of this encounter
--- OUTSIDE RECORDS SUMMARY | 2025-05-18 19:30 | XMS_ITS | Encounter Summary ---
Author Organization [facility] Address [address] [place] [address] Phone Care Team Providers Care Surgical Product Sales Consultant Name Role Phone Amy Mills Primary Care Provider [phone] Encounter Details Date Type Department Care Team ([facility] st Contact Info) Description 09/11/2018 Procedure Pass [facility] Endoscopy [address] [place] [address] Social History Tobacco Use Types [...] on filedocumented in this encounter Care Teams Surgical Product Sales Consultant Relationship Specialty Start Date End Date Amy Mills PCP - General Family Medicine 02/19/18 documented as of this encounter
[2025-05-18 20:00] VITALS: BP 125/72; PULSE 71; RESP 17; TEMP 35.6; O2SAT 94
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
[2025-05-18 23:10] VITALS: BP 129/74
[2025-05-18 23:11] VITALS: BP 129/74
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
[2025-05-19 07:41] VITALS: BP 137/67; PULSE 66; RESP 16; TEMP 35.9; O2SAT 94
[2025-05-19 07:53] LABS: Glucose, Whole Blood 207 mg/dL (60-115)
--- NOTE | 2025-05-19 08:14 | P.CONHOSP_ITS ---
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 Patient with reported seizure-like activity on 05/16 and 05/17 without postictal state. Patient has been worked up extensively outpatient, therefore she will likely benefit from ambulatory EEG. On exam she has no new concerns. She has a small scabbed area on Right foot. No evidence of infection. Review of Systems 2 Review of Systems: Denies any shortness of breath, chest pain, headaches, dysuria, abdominal pain or discomfort, nausea, vomiting or diarrhea. Denies fever or chills. [facility] Medical History Tremor of right hand (10/02/22) Subclinical hypothyroidism (08/27/17) Smoker (04/23/25) Seizure-like activity (09/03/18) Right ankle sprain (09/07/24) Intractable migraine without aura and without status migrainosus (08/24/19) Influenza A (09/07/24) Hyperglycemia (08/26/17) Hyperglycemia (08/26/17) Transient ischemic attack (TIA) (11/26/24) Malignant neoplasm of left ovary (05/01/24) Hyponatremia (09/03/18) Acute kidney injury superimposed on chronic kidney disease (11/08/24) Acute cystitis without hematuria (08/04/18) Social History Household Members: None Housing: Apartment Do you presently have visiting nurse or other home services: No Comment: 1:1 sitter Patient Tobacco Use Status: Current everyday Tobacco user Tobacco use type: Cigarette Cigarette Packs Per Day: 0.5 Cigarettes Per Day: 10.0 Smoked in Last 30 Days: Yes e-Cigarette/Vaping Use: Never Used Patient Interested in Nicotine Replacement: Yes Patient Given Instructions on How to Stop Smoking: Yes Date Education Initiated: 05/18/25 Second Hand Smoke Exposure: No Currently Displaying Signs/Symptoms of Drug Intoxication Withdrawal: No Have you been hit, kicked, punched, or otherwise hurt by someone within the past year? If so, by whom?: No Do you feel safe in your current relationship?: No Current Relationship Is there a partner from a previous relationship who is making you feel unsafe now?: No Are you made to feel afraid or neglected: No Advance Directives: No Advance Directives Information Provided: No Do you have thoughts of harming others: None Do you have a plan to hurt others: No Plan Recently lost weight without trying: No Eating poorly because of decreased appetite: No Nutrition Risks: Dental problems Patient : No : No Poor oral hygiene: No service: No Sexual orientation: Straight/Heterosexual Meds Allergies Allergy/AdvReac Type Severity Reaction Status Date / Time mccarthy (cherries) Allergy Severe Anaphylaxis Verified 05/15/25 01:42 coconut Allergy Severe Anaphylaxis Verified 05/15/25 01:44 iodine Allergy Severe Anaphylaxis Verified 05/15/25 01:44 morphine Allergy Severe Anaphylaxis Verified 05/15/25 01:46 oxycodone Allergy Severe Anaphylaxis Verified 05/15/25 01:46 Penicillins Allergy Severe Anaphylaxis Verified 05/15/25 01:46 red dye Allergy Severe Swelling Verified 05/15/25 01:46 bee pollen (bees) Allergy Intermediate Hives Verified 05/15/25 01:47 clindamycin Allergy Intermediate Rash Verified 05/15/25 01:43 shellfish derived (shellfish) Allergy Unknown Verified 05/15/25 00:06 Active Medications: Current Medications Acetaminophen (Acetaminophen 325 Mg Tablet) 650 mg PO Q6H PRN PRN Reason: Headache/Pain, Scale 1-10 Al Hydroxide/Mg Hydroxide (Magnesium Hydrox/Alum Hydrox 30 Ml Oral.Susp) 30 ml PO Q6H PRN PRN Reason: Heartburn/Nausea Atorvastatin Calcium (Atorvastatin Calcium 40 Mg Tablet) 40 mg PO DAILY [facility] Last Admin: 05/19/25 08:03 Dose: 40 mg Benztropine Mesylate (Benztropine Mesylate 1 Mg Tablet) 1 mg PO DAILY [facility] Last Admin: 05/19/25 08:04 Dose: 1 mg Clonidine HCl (Clonidine Hcl 0.1 Mg Tablet) 0.1 mg PO TID [facility]; Protocol Last Admin: 05/19/25 08:02 Dose: 0.1 mg Dextrose (Dextrose 50 % 25 Gm/50 Ml Syringe) 25 gm IVPUSH Q15M PRN; Protocol PRN Reason: per Hypoglycemia Standing Ord. Dextrose (Dextrose 50 % 25 Gm/50 Ml Syringe) 25 gm IVPUSH Q15M PRN; Protocol PRN Reason: per Hypoglycemia Standing Ord. Gabapentin (Gabapentin 100 Mg Capsule) 100 mg PO DAILY [facility] Last Admin: 05/19/25 08:03 Dose: 100 mg Glucose (Glucose Gel 15 Gm Gel..Gram.) 15 gm PO Q15M PRN; Protocol PRN Reason: per Hypoglycemia Standing Ord. Glucose (Glucose Gel 15 Gm Gel..Gram.) 15 gm PO Q15M PRN; Protocol PRN Reason: per Hypoglycemia Standing Ord. Hydroxyzine HCl (Hydroxyzine Hcl 25 Mg Tablet) 25 mg PO Q6H PRN PRN Reason: mild anxiety Insulin Glargine (Insulin Glargine,Hum.Rec.Anlog 100 Unit/Ml 10 Ml Vial) 14 unit SUBCUT BEDTIME [facility] Insulin Human Lispro (Insulin Lispro 100 Unit/Ml 3 Ml Vial) 0 unit SUBCUT QIDACHS [facility]; Protocol Last Admin: 05/19/25 08:12 Dose: 4 unit Lamotrigine (Lamotrigine 100 Mg Tablet) 100 mg PO DAILY [facility] Last Admin: 05/19/25 08:03 Dose: 100 mg Lamotrigine (Lamotrigine 100 Mg Tablet) 200 mg PO BEDTIME [facility] Last Admin: 05/18/25 23:12 Dose: 200 mg Latanoprost (Latanoprost 0.005 % Ophth Linda 2.5 Ml Drops) 1 drop EYE-BOTH BEDTIME [facility] Lorazepam (Lorazepam 0.5 Mg Tablet) 0.5 mg PO DAILY [facility] Last Admin: 05/19/25 08:03 Dose: 0.5 mg Magnesium Hydroxide (Milk Of Magnesia 30 Ml Oral.Susp) 30 ml PO DAILY PRN PRN Reason: Constipation Melatonin (Melatonin 3 Mg Tablet) 6 mg PO BEDTIME [facility] Metformin HCl (Metformin Hcl 500 Mg Tablet) 500 mg PO BID [facility] Last Admin: 05/19/25 08:04 Dose: 500 mg Nicotine (Nicotine 21 Mg Patch.Td24) 21 mg TRANSDERMA DAILY PRN PRN Reason: nicotine craving Nicotine Polacrilex (Nicotine Polacrilex 2 Mg Gum) 2 mg BUCCAL Q2H PRN PRN Reason: Nicotine Cravings Prazosin HCl (Prazosin Hcl 1 Mg Capsule) 2 mg PO BEDTIME [facility]; Protocol Last Admin: 05/18/25 23:10 Dose: 2 mg Risperidone (Risperidone 1 Mg Tablet) 1 mg PO BID [facility] Last Admin: 05/19/25 08:03 Dose: 1 mg Sertraline HCl (Sertraline Hcl 100 Mg Tablet) 100 mg PO BID [facility] Last Admin: 05/19/25 08:02 Dose: 100 mg Trazodone HCl (Trazodone Hcl 50 Mg Tablet) 50 mg PO BEDTIME MRX1 PRN PRN Reason: Insomnia Last Admin: 05/18/25 21:50 Dose: 50 mg Home Medications ?Medication ?Instructions ?Recorded ?Confirmed ?Last Taken ?Type atorvastatin 40 mg tablet 40 mg PO DAILY 05/15/2505/09 Unknown History benztropine 1 mg tablet 1 mg PO DAILY 05/15/2505/18 Unknown History clonidine HCl 0.1 mg tablet 0.1 mg PO TID 05/15/2505/02 Unknown History gabapentin 100 mg capsule 100 mg PO DAILY 05/15/2505/02 Unknown History lamotrigine 100 mg tablet 100 mg PO DAILY 05/15/2505/02 Unknown History lamotrigine 100 mg tablet 200 mg PO BEDTIME 05/15/25 1 07/18/24 Unknown History latanoprost 0.005 % eye drops 1 drp ophthalmic (eye) B EDTIME 05/15/25 05/18/25 Unknown History lorazepam 0.5 mg tablet 0.5 mg PO DAILY 05/15/2505/02 Unknown History melatonin 5 mg tablet 6 mg PO BEDTIME 05/15/2505/02 Unknown History metformin 500 mg tablet 500 mg PO BID 05/15/2505/18 Unknown History prazosin 2 mg capsule 2 mg PO BEDTIME 05/15/2505/02 Unknown History risperidone 1 mg tablet 1 mg PO BID 05/15/25 5 Unknown History sertraline 100 mg tablet 100 mg PO BID 05/15/2505/18 Unknown History sumatriptan 5 mg/actuation nasal 5 mg intranasal DI RECTED PRN 05/15/25 05/18/25 Unknown History spray Migraine Headache Physical Exam 2 Vital Signs and Narrative: Vital Signs: Last Vital Signs Temp 96.6 F L 05/19/25 07:41 Pulse 66 05/19/25 07:41 Resp 16 05/19/25 07:41 BP 137/67 05/19/25 07:41 Pulse Ox 94 05/19/25 07:41 O2 Del Method Room Air 05/19/25 07:41 Alert and oriented X3, calm and cooperative. Answers questions. Neuro: CN II-X11 intact, no deficits, visual acuity intact EYES: PERRLA, EOM intact ENT: Hearing intact, MMM Cardiac: S1 S2 RRR, No ectopy Pulmonary: lungs clear to auscultation, No increased WOB. Abdominal: BS active in all 4 quadrants, no guarding or tenderness MSK: Strength 5/5 upper and lower extremities : Deferred Extremities: No edema in lower extremities Psych: Mood stable, Quiet and cooperative. Skin: Warm and dry, Intact Results Labs 05/19/25 08:12 Labs: Laboratory Results - last 24 hr 05/19/25 07:39 POC Glucose 207 H Assessment and Plan (1) Type 1 diabetes: Status: Acute Plan 59-year-old female with a past medical history listed below presented to the emergency room for reports of increased depression with suicidal ideation. She is now admitted here for further stabilization in the inpatient psychiatric unit. Bipolar 1 disorder/anxiety/PTSD/depression Treatment per psychiatric team Type 1 diabetes with diabetic nephropathy-3a Previously on an insulin pump Continue 14 units of Lantus, 3 units of preprandial insulin with a sliding scale. Continue metformin Fire Supervisor is Dr. 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 likely will benefit from ambulatory EEG and follow up with her outside neurologist Continue Lamictal Patient unfortunately can have further non epileptiform seizures Hyperlipidemia Atorvastatin JONATHAN Home CPAP Thank you for allowing me to participate in the care of this patient. Will follow with you, please notify medical provider with any changes in condition or concerns.
[2025-05-19 08:37] LABS: Alanine Aminotransferase 23 U/L (0-31); Albumin Level 4.1 g/dL (3.5-5.0); Alkaline Phosphatase 161 U/L (39-117); Anion Gap 14 (12-20); Aspartate Amino Transferase 36 U/L (5-31); Blood Urea Nitrogen 25 mg/dL (9-16); Calcium 9.4 mg/dL (8.4-10.2); Carbon Dioxide 26 mmol/L (22-29); Chloride 102 mmol/L (96-108); Cholesterol 234 mg/dL (<200); Estimated Glomerular Filt Rate 44; HDL Cholesterol 42 mg/dL (>40); Potassium 4.4 mmol/L (3.3-5.1); Sodium 138 mmol/L (135-145); Total Protein 6.4 g/dL (6.5-8.0); Triglycerides 203 mg/dL (<150)
--- NOTE | 2025-05-19 09:15 | PC.NURSE ---
Pt declined flu vaccine at this time, says she's already been immunized this season
--- NOTE | 2025-05-19 10:26 | HO.PSYCHPN ---
Subjective Subjective Date of Service: 05/19/25 Reason For Visit: SI/psychosis Subjective Notes: Conditional Voluntary Interim History: Active on unit. attending groups. Patient reports feeling a little anxious today but I feel like the medications are working ; denies SI/HI/VH/AH. Patient stated, the voices went away when I went to the medical floor . She reports sleeping well. Plan for discharge this week if continues to improve; pt aware. continue tx plan. Medication Compliance: Yes Side effects from medications: No Attending Groups: Yes Mental Status Exam Mental Status Exam Narrative: Pt is alert and oriented; behavior is cooperative, friendly and calm; dressed in casual attire; mood is described as anxious ; eye contact appropriate; Speech is normal rate, volume and not pressured; thought process is organized; Thought content is on tx; denies SI/HI/VH/AH. Diagnostics Vital Signs (24Hr): Vital Signs - 24 hr 05/18/25 20:00 05/18/25 23:10 05/18/25 23:11 Temperature 96.0 F L Pulse Rate 71 Respiratory Rate 17 Blood Pressure 125/72 129/74 129/74 Pulse Oximetry 94 Oxygen Delivery Method Room Air 05/19/25 07:41 Temperature 96.6 F L Pulse Rate 66 Respiratory Rate 16 Blood Pressure 137/67 Pulse Oximetry 94 Oxygen Delivery Method Room Air Labs 05/19/25 08:12 Labs: Laboratory Results - last 48 hr 05/19/25 05/19/25 07:39 08:12 Sodium 138 Potassium 4.4 Chloride 102 Carbon Dioxide 26 Anion Gap 14 BUN 25 H Creatinine 1.26 Estim Creat Clear Calc TNP Estimated GFR 44 POC Glucose 207 H Random Glucose 201 H Estimat Average Glucose 146 Hemoglobin A1c % 6.7 H Calcium 9.4 Total Bilirubin 0.4 AST 36 H ALT 23 Alkaline Phosphatase 161 H Total Protein 6.4 L Albumin 4.1 Triglycerides 203 H Cholesterol 234 H LDL Cholesterol, Calc 152 H HDL Cholesterol 42 Medications Medications Current Medications Acetaminophen (Acetaminophen 325 Mg Tablet) 650 mg PO Q6H PRN PRN Reason: Headache/Pain, Scale 1-10 Al Hydroxide/Mg Hydroxide (Magnesium Hydrox/Alum Hydrox 30 Ml Oral.Susp) 30 ml PO Q6H PRN PRN Reason: Heartburn/Nausea Atorvastatin Calcium (Atorvastatin Calcium 40 Mg Tablet) 40 mg PO DAILY [facility] Last Admin: 05/19/25 08:03 Dose: 40 mg Benztropine Mesylate (Benztropine Mesylate 1 Mg Tablet) 1 mg PO DAILY [facility] Last Admin: 05/19/25 08:04 Dose: 1 mg Clonidine HCl (Clonidine Hcl 0.1 Mg Tablet) 0.1 mg PO TID [facility]; Protocol Last Admin: 05/19/25 08:02 Dose: 0.1 mg Dextrose (Dextrose 50 % 25 Gm/50 Ml Syringe) 25 gm IVPUSH Q15M PRN; Protocol PRN Reason: per Hypoglycemia Standing Ord. Dextrose (Dextrose 50 % 25 Gm/50 Ml Syringe) 25 gm IVPUSH Q15M PRN; Protocol PRN Reason: per Hypoglycemia Standing Ord. Gabapentin (Gabapentin 100 Mg Capsule) 100 mg PO DAILY [facility] Last Admin: 05/19/25 08:03 Dose: 100 mg Glucose (Glucose Gel 15 Gm Gel..Gram.) 15 gm PO Q15M PRN; Protocol PRN Reason: per Hypoglycemia Standing Ord. Glucose (Glucose Gel 15 Gm Gel..Gram.) 15 gm PO Q15M PRN; Protocol PRN Reason: per Hypoglycemia Standing Ord. Hydroxyzine HCl (Hydroxyzine Hcl 25 Mg Tablet) 25 mg PO Q6H PRN PRN Reason: mild anxiety Insulin Glargine (Insulin Glargine,Hum.Rec.Anlog 100 Unit/Ml 10 Ml Vial) 14 unit SUBCUT BEDTIME [facility] Insulin Human Lispro (Insulin Lispro 100 Unit/Ml 3 Ml Vial) 0 unit SUBCUT QIDACHS [facility]; Protocol Last Admin: 05/19/25 08:12 Dose: 4 unit Lamotrigine (Lamotrigine 100 Mg Tablet) 100 mg PO DAILY [facility] Last Admin: 05/19/25 08:03 Dose: 100 mg Lamotrigine (Lamotrigine 100 Mg Tablet) 200 mg PO BEDTIME [facility] Last Admin: 05/18/25 23:12 Dose: 200 mg Latanoprost (Latanoprost 0.005 % Ophth Linda 2.5 Ml Drops) 1 drop EYE-BOTH BEDTIME [facility] Lorazepam (Lorazepam 0.5 Mg Tablet) 0.5 mg PO DAILY [facility] Last Admin: 05/19/25 08:03 Dose: 0.5 mg Magnesium Hydroxide (Milk Of Magnesia 30 Ml Oral.Susp) 30 ml PO DAILY PRN PRN Reason: Constipation Melatonin (Melatonin 3 Mg Tablet) 6 mg PO BEDTIME [facility] Metformin HCl (Metformin Hcl 500 Mg Tablet) 500 mg PO BID [facility] Last Admin: 05/19/25 08:04 Dose: 500 mg Nicotine (Nicotine 21 Mg Patch.Td24) 21 mg TRANSDERMA DAILY PRN PRN Reason: nicotine craving Nicotine Polacrilex (Nicotine Polacrilex 2 Mg Gum) 2 mg BUCCAL Q2H PRN PRN Reason: Nicotine Cravings Prazosin HCl (Prazosin Hcl 1 Mg Capsule) 2 mg PO BEDTIME [facility]; Protocol Last Admin: 05/18/25 23:10 Dose: 2 mg Risperidone (Risperidone 1 Mg Tablet) 1 mg PO BID [facility] Last Admin: 05/19/25 08:03 Dose: 1 mg Sertraline HCl (Sertraline Hcl 100 Mg Tablet) 100 mg PO BID [facility] Last Admin: 05/19/25 08:02 Dose: 100 mg Trazodone HCl (Trazodone Hcl 50 Mg Tablet) 50 mg PO BEDTIME MRX1 PRN PRN Reason: Insomnia Last Admin: 05/18/25 21:50 Dose: 50 mg Allergies Allergies Allergy/AdvReac Type Severity Reaction Status Date / Time mccarthy (cherries) Allergy Severe Anaphylaxis Verified 05/15/25 01:42 coconut Allergy Severe Anaphylaxis Verified 05/15/25 01:44 iodine Allergy Severe Anaphylaxis Verified 05/15/25 01:44 morphine Allergy Severe Anaphylaxis Verified 05/15/25 01:46 oxycodone Allergy Severe Anaphylaxis Verified 05/15/25 01:46 Penicillins Allergy Severe Anaphylaxis Verified 05/15/25 01:46 red dye Allergy Severe Swelling Verified 05/15/25 01:46 bee pollen (bees) Allergy Intermediate Hives Verified 05/15/25 01:47 clindamycin Allergy Intermediate Rash Verified 05/15/25 01:43 shellfish derived (shellfish) Allergy Unknown Verified 05/15/25 00:06 Assessment & Plan Assessment & Plan (1) Bipolar disorder with psychotic features: Status: Acute Code(s): F31.9 - Bipolar disorder, unspecified (2) Functional neurological symptom disorder (conversion disorder), with abnormal movement: Status: Acute Code(s): F44.4 - Conversion disorder with motor symptom or deficit (3) HTN (hypertension): Status: Acute Code(s): I10 - Essential (primary) hypertension (4) Anxiety: Status: Acute Code(s): F41.9 - Anxiety disorder, unspecified (5) Posttraumatic stress disorder: Status: Acute Code(s): F43.10 - Post-traumatic stress disorder, unspecified (6) JONATHAN on CPAP: Status: Acute Code(s): G47.33 - Obstructive sleep apnea (adult) (pediatric); Z99.89 - Dependence on other enabling machines and devices Plan Ms. Rosas is a 59 yo F with h/o bipolar I d/o, PTSD, anxiety, type I DM (uses insulin pump at home), functional neuro d/o, h/o falls 2/2 weak knees and migraines who was BIBA to the [facility] ED due to SI with a plan. She was transferred to [facility] for tx of depression and SI on 05/14. On 05/17/25: Patient was transferred to /S floor possible seizure and work-up. Readmit to on 05/18/25. Formulation/clinical reasoning: Will keep bipolar dx with psychotic fx for now but presentation could be more c/w PTSD, ADHD + MDD. Will assess further and try to obtain collateral from her outpatient provider. Pt denies current plan to harm herself on the unit. Her insulin pump was removed and her dolphin researcher provided instructions for her insulin regimen. Plan: Patient on 07-09. On CPAP at night. Admitted to . CV. Work with treatment team to do collateral Continue home psychotropic med regimen for now: Lamotrigine 100 mg qam/200 mg qhs lorazepam 0.5 mg qd melatonin 5 mg qhs prazosin 2 mg qhs risperidone 1 mg bid Gabapentin 100m daily sertraline 100 mg bid (unclear why it's rx'd bid) Lantus 14unit HS and SL scale per Diabetic protocol 05/18: per hospitalist note: Pt with seizure-like activity on 05/16 and again on 05/17, She had an episode of generalized rhythmic shaking with no obvious postictal state. Her examination did not reveal any focality.; no post-ictal state noted, neurology consulted. 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 Resume all medications and continue with care. 05/19: Active on unit. attending groups. Patient reports feeling a little anxious today but I feel like the medications are working ; denies SI/HI/VH/AH. Patient stated, the voices went away when I went to the medical floor . She reports sleeping well. Plan for discharge this week if continues to improve; pt aware. continue tx plan. Patient educated on: diagnosis and medication risk/benefits Reason for continued inpatient stay Substantial Risk for: med/psych decompensation Time Spent With Patient Time: Total time managing care of this patient today _20___ minutes.
[2025-05-19 12:06] LABS: Glucose, Whole Blood 167 mg/dL (60-115)
[2025-05-19 15:13] VITALS: BP 120/77
[2025-05-19 17:00] LABS: Glucose, Whole Blood 156 mg/dL (60-115)
[2025-05-19 20:00] VITALS: BP 131/68; PULSE 62; RESP 16; TEMP 36.2; O2SAT 96
[2025-05-19 20:07] LABS: Glucose, Whole Blood 307 mg/dL (60-115)
[2025-05-19] MEDS: Insulin Glargine,Hum.rec.anlog 100 UNIT/ML 10 ML VIAL 14 UNIT SUBCUT (20:59)
[2025-05-19 21:00] VITALS: BP 131/68
[2025-05-19] MEDS: Latanoprost 0.005 % Ophth Sol 2.5 ML DROPS 1 DROP EYE-BOTH (21:08)
[2025-05-20 07:40] VITALS: BP 110/54; PULSE 60; RESP 16; TEMP 36.1; O2SAT 94
[2025-05-20 07:47] LABS: Glucose, Whole Blood 179 mg/dL (60-115)
[2025-05-20 08:46] VITALS: BP 136/67
[2025-05-20 11:53] LABS: Glucose, Whole Blood 202 mg/dL (60-115)
--- NOTE | 2025-05-20 13:02 | HO.PSYCHPN ---
Subjective Subjective Date of Service: 05/20/25 Reason For Visit: SI/psychosis Subjective Notes: Conditional Voluntary Interim History: Active on unit. social with peers. attending groups. Patient reports feeling a lot better and no longer having feelings of wanting to hurt myself . She reports sleeping well. denies SI/HI/VH/AH. Plan to discharge on Sunday; pt aware. Medication Compliance: Yes Side effects from medications: No Attending Groups: Yes Mental Status Exam Mental Status Exam Narrative: Pt is alert and oriented; behavior is cooperative, friendly and calm; dressed in casual attire; mood is described as better ; eye contact appropriate; Speech is normal rate, volume and not pressured; thought process is organized; Thought content is on tx/discharge; denies SI/HI/VH/AH. Diagnostics Vital Signs (24Hr): Vital Signs - 24 hr 05/19/25 15:13 05/19/25 20:00 05/19/25 21:00 Temperature 97.2 F Pulse Rate 62 Respiratory Rate 16 Blood Pressure 120/77 131/68 131/68 Pulse Oximetry 96 Oxygen Delivery Method Room Air 05/19/25 21:00 05/20/25 07:40 05/20/25 08:46 Temperature 97.0 F Pulse Rate 60 Respiratory Rate 16 Blood Pressure 131/68 110/54 L 136/67 Pulse Oximetry 94 Oxygen Delivery Method Room Air Labs 05/19/25 08:12 Labs: Laboratory Results - last 48 hr 05/19/25 05/19/25 05/19/25 07:39 08:12 12:02 Sodium 138 Potassium 4.4 Chloride 102 Carbon Dioxide 26 Anion Gap 14 BUN 25 H Creatinine 1.26 Estim Creat Clear Calc TNP Estimated GFR 44 POC Glucose 207 H 167 H Random Glucose 201 H Estimat Average Glucose 146 Hemoglobin A1c % 6.7 H Calcium 9.4 Total Bilirubin 0.4 AST 36 H ALT 23 Alkaline Phosphatase 161 H Total Protein 6.4 L Albumin 4.1 Triglycerides 203 H Cholesterol 234 H LDL Cholesterol, Calc 152 H HDL Cholesterol 42 05/19/25 05/19/25 05/20/25 16:56 20:03 07:39 Sodium Potassium Chloride Carbon Dioxide Anion Gap BUN Creatinine Estim Creat Clear Calc Estimated GFR POC Glucose 156 H 307 H 179 H Random Glucose Estimat Average Glucose Hemoglobin A1c % Calcium Total Bilirubin AST ALT Alkaline Phosphatase Total Protein Albumin Triglycerides Cholesterol LDL Cholesterol, Calc HDL Cholesterol 05/20/25 11:49 Sodium Potassium Chloride Carbon Dioxide Anion Gap BUN Creatinine Estim Creat Clear Calc Estimated GFR POC Glucose 202 H Random Glucose Estimat Average Glucose Hemoglobin A1c % Calcium Total Bilirubin AST ALT Alkaline Phosphatase Total Protein Albumin Triglycerides Cholesterol LDL Cholesterol, Calc HDL Cholesterol Medications Medications Current Medications Acetaminophen (Acetaminophen 325 Mg Tablet) 650 mg PO Q6H PRN PRN Reason: Headache/Pain, Scale 1-10 Last Admin: 05/20/25 12:20 Dose: 650 mg Al Hydroxide/Mg Hydroxide (Magnesium Hydrox/Alum Hydrox 30 Ml Oral.Susp) 30 ml PO Q6H PRN PRN Reason: Heartburn/Nausea Atorvastatin Calcium (Atorvastatin Calcium 40 Mg Tablet) 40 mg PO DAILY [facility] Last Admin: 05/20/25 08:46 Dose: 40 mg Benztropine Mesylate (Benztropine Mesylate 1 Mg Tablet) 1 mg PO DAILY [facility] Last Admin: 05/20/25 08:46 Dose: 1 mg Clonidine HCl (Clonidine Hcl 0.1 Mg Tablet) 0.1 mg PO TID [facility]; Protocol Last Admin: 05/20/25 08:46 Dose: 0.1 mg Dextrose (Dextrose 50 % 25 Gm/50 Ml Syringe) 25 gm IVPUSH Q15M PRN; Protocol PRN Reason: per Hypoglycemia Standing Ord. Dextrose (Dextrose 50 % 25 Gm/50 Ml Syringe) 25 gm IVPUSH Q15M PRN; Protocol PRN Reason: per Hypoglycemia Standing Ord. Gabapentin (Gabapentin 100 Mg Capsule) 100 mg PO DAILY [facility] Last Admin: 05/20/25 08:46 Dose: 100 mg Glucose (Glucose Gel 15 Gm Gel..Gram.) 15 gm PO Q15M PRN; Protocol PRN Reason: per Hypoglycemia Standing Ord. Glucose (Glucose Gel 15 Gm Gel..Gram.) 15 gm PO Q15M PRN; Protocol PRN Reason: per Hypoglycemia Standing Ord. Hydroxyzine HCl (Hydroxyzine Hcl 25 Mg Tablet) 25 mg PO Q6H PRN PRN Reason: mild anxiety Insulin Glargine (Insulin Glargine,Hum.Rec.Anlog 100 Unit/Ml 10 Ml Vial) 14 unit SUBCUT BEDTIME [facility] Last Admin: 05/19/25 20:59 Dose: 14 unit Insulin Human Lispro (Insulin Lispro 100 Unit/Ml 3 Ml Vial) 0 unit SUBCUT QIDACHS [facility]; Protocol Last Admin: 05/20/25 12:06 Dose: 4 unit Lamotrigine (Lamotrigine 100 Mg Tablet) 100 mg PO DAILY [facility] Last Admin: 05/20/25 08:46 Dose: 100 mg Lamotrigine (Lamotrigine 100 Mg Tablet) 200 mg PO BEDTIME [facility] Last Admin: 05/19/25 21:00 Dose: 200 mg Latanoprost (Latanoprost 0.005 % Ophth Linda 2.5 Ml Drops) 1 drop EYE-BOTH BEDTIME [facility] Last Admin: 05/19/25 21:08 Dose: 1 drop Lorazepam (Lorazepam 0.5 Mg Tablet) 0.5 mg PO DAILY [facility] Last Admin: 05/20/25 08:46 Dose: 0.5 mg Magnesium Hydroxide (Milk Of Magnesia 30 Ml Oral.Susp) 30 ml PO DAILY PRN PRN Reason: Constipation Melatonin (Melatonin 3 Mg Tablet) 6 mg PO BEDTIME [facility] Last Admin: 05/19/25 21:00 Dose: 6 mg Metformin HCl (Metformin Hcl 500 Mg Tablet) 500 mg PO BID [facility] Last Admin: 05/20/25 08:46 Dose: 500 mg Nicotine (Nicotine 21 Mg Patch.Td24) 21 mg TRANSDERMA DAILY PRN PRN Reason: nicotine craving Nicotine Polacrilex (Nicotine Polacrilex 2 Mg Gum) 2 mg BUCCAL Q2H PRN PRN Reason: Nicotine Cravings Prazosin HCl (Prazosin Hcl 1 Mg Capsule) 2 mg PO BEDTIME [facility]; Protocol Last Admin: 05/19/25 21:00 Dose: 2 mg Risperidone (Risperidone 1 Mg Tablet) 1 mg PO BID [facility] Last Admin: 05/20/25 08:46 Dose: 1 mg Sertraline HCl (Sertraline Hcl 100 Mg Tablet) 100 mg PO BID [facility] Last Admin: 05/20/25 08:46 Dose: 100 mg Trazodone HCl (Trazodone Hcl 50 Mg Tablet) 50 mg PO BEDTIME MRX1 PRN PRN Reason: Insomnia Last Admin: 05/18/25 21:50 Dose: 50 mg Allergies Allergies Allergy/AdvReac Type Severity Reaction Status Date / Time mccarthy (cherries) Allergy Severe Anaphylaxis Verified 05/15/25 01:42 coconut Allergy Severe Anaphylaxis Verified 05/15/25 01:44 iodine Allergy Severe Anaphylaxis Verified 05/15/25 01:44 morphine Allergy Severe Anaphylaxis Verified 05/15/25 01:46 oxycodone Allergy Severe Anaphylaxis Verified 05/15/25 01:46 Penicillins Allergy Severe Anaphylaxis Verified 05/15/25 01:46 red dye Allergy Severe Swelling Verified 05/15/25 01:46 bee pollen (bees) Allergy Intermediate Hives Verified 05/15/25 01:47 clindamycin Allergy Intermediate Rash Verified 05/15/25 01:43 shellfish derived (shellfish) Allergy Unknown Verified 05/15/25 00:06 Assessment & Plan Assessment & Plan (1) Bipolar disorder with psychotic features: Status: Acute Code(s): F31.9 - Bipolar disorder, unspecified (2) Posttraumatic stress disorder: Status: Acute Code(s): F43.10 - Post-traumatic stress disorder, unspecified Plan Ms. Rosas is a 59 yo F with h/o bipolar I d/o, PTSD, anxiety, type I DM (uses insulin pump at home), functional neuro d/o, h/o falls 2/2 weak knees and migraines who was BIBA to the [facility] ED due to SI with a plan. She was transferred to [facility] for tx of depression and SI on 05/14. On 05/17/25: Patient was transferred to M/S floor possible seizure and work-up. Readmit to on 05/18/25. Formulation/clinical reasoning: Will keep bipolar dx with psychotic fx for now but presentation could be more c/w PTSD, ADHD + MDD. Will assess further and try to obtain collateral from her outpatient provider. Pt denies current plan to harm herself on the unit. Her insulin pump was removed and her shop foreman provided instructions for her insulin regimen. Plan: Patient on 07-09. On CPAP at night. Admitted to . CV. Work with treatment team to do collateral Continue home psychotropic med regimen for now: Lamotrigine 100 mg qam/200 mg qhs lorazepam 0.5 mg qd melatonin 5 mg qhs prazosin 2 mg qhs risperidone 1 mg bid Gabapentin 100m daily sertraline 100 mg bid (unclear why it's rx'd bid) Lantus 14unit HS and SL scale per Diabetic protocol 05/18: per hospitalist note: Pt with seizure-like activity on 05/16 and again on 05/17, She had an episode of generalized rhythmic shaking with no obvious postictal state. Her examination did not reveal any focality.; no post-ictal state noted, neurology consulted. 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 Resume all medications and continue with care. 05/19: Active on unit. attending groups. Patient reports feeling a little anxious today but I feel like the medications are working ; denies SI/HI/VH/AH. Patient stated, the voices went away when I went to the medical floor . She reports sleeping well. Plan for discharge this week if continues to improve; pt aware. continue tx plan. 05/20: Active on unit. social with peers. attending groups. Patient reports feeling a lot better and no longer having feelings of wanting to hurt myself . She reports sleeping well. denies SI/HI/VH/AH. Plan to discharge on Sunday; pt aware. Patient educated on: diagnosis and medication risk/benefits Reason for continued inpatient stay Substantial Risk for: med/psych decompensation Time Spent With Patient Time: Total time managing care of this patient today _20___ minutes.
[2025-05-20 16:00] VITALS: BP 126/62
[2025-05-20 16:47] LABS: Glucose, Whole Blood 130 mg/dL (60-115)
[2025-05-20 20:00] VITALS: BP 116/65; PULSE 63; RESP 18; TEMP 36.1; O2SAT 95
[2025-05-20 20:51] LABS: Glucose, Whole Blood 229 mg/dL (60-115)
[2025-05-20] MEDS: Latanoprost 0.005 % Ophth Sol 2.5 ML DROPS 1 DROP EYE-BOTH (20:58)
[2025-05-20] MEDS: Insulin Glargine,Hum.rec.anlog 100 UNIT/ML 10 ML VIAL 14 UNIT SUBCUT (21:01)
[2025-05-20 21:02] VITALS: BP 119/69
[2025-05-21 07:31] LABS: Glucose, Whole Blood 125 mg/dL (60-115)
[2025-05-21 08:36] VITALS: BP 137/62; PULSE 71; RESP 16; TEMP 36.3; O2SAT 96
[2025-05-21 11:54] LABS: Glucose, Whole Blood 252 mg/dL (60-115)
--- NOTE | 2025-05-21 13:25 | HO.PSYCHPN ---
Subjective Subjective Date of Service: 05/21/25 Reason For Visit: SI/psychosis Subjective Notes: Conditional Voluntary Interim History: Social. attending groups. Patient reports feeling good and looking forward to leaving ; denies SI/HI/VH/AH. Patient reports she plans on following up with her outpatient providers. Medication Compliance: Yes Side effects from medications: No Attending Groups: Yes Mental Status Exam Mental Status Exam Narrative: Pt is alert and oriented; behavior is cooperative, friendly and calm; dressed in casual attire; mood is described as good ; eye contact appropriate; Speech is normal rate, volume and not pressured; thought process is organized; Thought content is on discharge; denies SI/HI/VH/AH. Diagnostics Vital Signs (24Hr): Vital Signs - 24 hr 05/20/25 16:00 05/20/25 20:00 05/20/25 21:02 Temperature 97.0 F Pulse Rate 63 Respiratory Rate 18 Blood Pressure 126/62 116/65 119/69 Pulse Oximetry 95 Oxygen Delivery Method Room Air 05/21/25 08:36 Temperature 97.4 F Pulse Rate 71 Respiratory Rate 16 Blood Pressure 137/62 Pulse Oximetry 96 Oxygen Delivery Method Room Air Labs 05/19/25 08:12 Labs: Laboratory Results - last 48 hr 05/19/25 05/19/25 05/20/25 16:56 20:03 07:39 POC Glucose 156 H 307 H 179 H 05/20/25 05/20/25 05/20/25 11:49 16:41 20:47 POC Glucose 202 H 130 H 229 H 05/21/25 05/21/25 07:27 11:50 POC Glucose 125 H 252 H Medications Medications Current Medications Acetaminophen (Acetaminophen 325 Mg Tablet) 650 mg PO Q6H PRN PRN Reason: Headache/Pain, Scale 1-10 Last Admin: 05/21/25 09:54 Dose: 650 mg Al Hydroxide/Mg Hydroxide (Magnesium Hydrox/Alum Hydrox 30 Ml Oral.Susp) 30 ml PO Q6H PRN PRN Reason: Heartburn/Nausea Atorvastatin Calcium (Atorvastatin Calcium 40 Mg Tablet) 40 mg PO DAILY [facility] Last Admin: 05/21/25 08:40 Dose: 40 mg Benztropine Mesylate (Benztropine Mesylate 1 Mg Tablet) 1 mg PO DAILY [facility] Last Admin: 05/21/25 08:40 Dose: 1 mg Clonidine HCl (Clonidine Hcl 0.1 Mg Tablet) 0.1 mg PO TID [facility]; Protocol Last Admin: 05/21/25 08:38 Dose: 0.1 mg Dextrose (Dextrose 50 % 25 Gm/50 Ml Syringe) 25 gm IVPUSH Q15M PRN; Protocol PRN Reason: per Hypoglycemia Standing Ord. Dextrose (Dextrose 50 % 25 Gm/50 Ml Syringe) 25 gm IVPUSH Q15M PRN; Protocol PRN Reason: per Hypoglycemia Standing Ord. Gabapentin (Gabapentin 100 Mg Capsule) 100 mg PO DAILY [facility] Last Admin: 05/21/25 08:38 Dose: 100 mg Glucose (Glucose Gel 15 Gm Gel..Gram.) 15 gm PO Q15M PRN; Protocol PRN Reason: per Hypoglycemia Standing Ord. Glucose (Glucose Gel 15 Gm Gel..Gram.) 15 gm PO Q15M PRN; Protocol PRN Reason: per Hypoglycemia Standing Ord. Hydroxyzine HCl (Hydroxyzine Hcl 25 Mg Tablet) 25 mg PO Q6H PRN PRN Reason: mild anxiety Insulin Glargine (Insulin Glargine,Hum.Rec.Anlog 100 Unit/Ml 10 Ml Vial) 14 unit SUBCUT BEDTIME [facility] Last Admin: 05/20/25 21:01 Dose: 14 unit Insulin Human Lispro (Insulin Lispro 100 Unit/Ml 3 Ml Vial) 0 unit SUBCUT QIDACHS [facility]; Protocol Last Admin: 05/21/25 12:03 Dose: 6 unit Lamotrigine (Lamotrigine 100 Mg Tablet) 100 mg PO DAILY [facility] Last Admin: 05/21/25 08:39 Dose: 100 mg Lamotrigine (Lamotrigine 100 Mg Tablet) 200 mg PO BEDTIME [facility] Last Admin: 05/20/25 21:03 Dose: 200 mg Latanoprost (Latanoprost 0.005 % Ophth Linda 2.5 Ml Drops) 1 drop EYE-BOTH BEDTIME [facility] Last Admin: 05/20/25 20:58 Dose: 1 drop Lorazepam (Lorazepam 0.5 Mg Tablet) 0.5 mg PO DAILY [facility] Last Admin: 05/21/25 08:39 Dose: 0.5 mg Magnesium Hydroxide (Milk Of Magnesia 30 Ml Oral.Susp) 30 ml PO DAILY PRN PRN Reason: Constipation Melatonin (Melatonin 3 Mg Tablet) 6 mg PO BEDTIME [facility] Last Admin: 05/20/25 21:04 Dose: 6 mg Metformin HCl (Metformin Hcl 500 Mg Tablet) 500 mg PO BID [facility] Last Admin: 05/21/25 08:39 Dose: 500 mg Nicotine (Nicotine 21 Mg Patch.Td24) 21 mg TRANSDERMA DAILY PRN PRN Reason: nicotine craving Nicotine Polacrilex (Nicotine Polacrilex 2 Mg Gum) 2 mg BUCCAL Q2H PRN PRN Reason: Nicotine Cravings Prazosin HCl (Prazosin Hcl 1 Mg Capsule) 2 mg PO BEDTIME [facility]; Protocol Last Admin: 05/20/25 21:03 Dose: 2 mg Risperidone (Risperidone 1 Mg Tablet) 1 mg PO BID [facility] Last Admin: 05/21/25 08:39 Dose: 1 mg Sertraline HCl (Sertraline Hcl 100 Mg Tablet) 100 mg PO BID [facility] Last Admin: 05/21/25 08:39 Dose: 100 mg Trazodone HCl (Trazodone Hcl 50 Mg Tablet) 50 mg PO BEDTIME MRX1 PRN PRN Reason: Insomnia Last Admin: 05/18/25 21:50 Dose: 50 mg Allergies Allergies Allergy/AdvReac Type Severity Reaction Status Date / Time mccarthy (cherries) Allergy Severe Anaphylaxis Verified 05/15/25 01:42 coconut Allergy Severe Anaphylaxis Verified 05/15/25 01:44 iodine Allergy Severe Anaphylaxis Verified 05/15/25 01:44 morphine Allergy Severe Anaphylaxis Verified 05/15/25 01:46 oxycodone Allergy Severe Anaphylaxis Verified 05/15/25 01:46 Penicillins Allergy Severe Anaphylaxis Verified 05/15/25 01:46 red dye Allergy Severe Swelling Verified 05/15/25 01:46 bee pollen (bees) Allergy Intermediate Hives Verified 05/15/25 01:47 clindamycin Allergy Intermediate Rash Verified 05/15/25 01:43 shellfish derived (shellfish) Allergy Unknown Verified 05/15/25 00:06 Assessment & Plan Assessment & Plan (1) Bipolar disorder with psychotic features: Status: Acute Code(s): F31.9 - Bipolar disorder, unspecified (2) Posttraumatic stress disorder: Status: Acute Code(s): F43.10 - Post-traumatic stress disorder, unspecified Plan Ms. Rosas is a 59 yo F with h/o bipolar I d/o, PTSD, anxiety, type I DM (uses insulin pump at home), functional neuro d/o, h/o falls 2/2 weak knees and migraines who was BIBA to the [facility] ED due to SI with a plan. She was transferred to [facility] for tx of depression and SI on 05/14. On 05/17/25: Patient was transferred to M/S floor possible seizure and work-up. Readmit to M3 on 05/18/25. Formulation/clinical reasoning: Will keep bipolar dx with psychotic fx for now but presentation could be more c/w PTSD, ADHD + MDD. Will assess further and try to obtain collateral from her outpatient provider. Pt denies current plan to harm herself on the unit. Her insulin pump was removed and her flumer provided instructions for her insulin regimen. Plan: Patient on 07-09. On CPAP at night. Admitted to M3. CV. Work with treatment team to do collateral Continue home psychotropic med regimen for now: Lamotrigine 100 mg qam/200 mg qhs lorazepam 0.5 mg qd melatonin 5 mg qhs prazosin 2 mg qhs risperidone 1 mg bid Gabapentin 100m daily sertraline 100 mg bid (unclear why it's rx'd bid) Lantus 14unit HS and SL scale per Diabetic protocol 05/18: per hospitalist note: Pt with seizure-like activity on 05/16 and again on 05/17, She had an episode of generalized rhythmic shaking with no obvious postictal state. Her examination did not reveal any focality.; no post-ictal state noted, neurology consulted. 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 Resume all medications and continue with care. 05/19: Active on unit. attending groups. Patient reports feeling a little anxious today but I feel like the medications are working ; denies SI/HI/VH/AH. Patient stated, the voices went away when I went to the medical floor . She reports sleeping well. Plan for discharge this week if continues to improve; pt aware. continue tx plan. 05/20: Active on unit. social with peers. attending groups. Patient reports feeling a lot better and no longer having feelings of wanting to hurt myself . She reports sleeping well. denies SI/HI/VH/AH. Plan to discharge on Sunday; pt aware. 05/21: Social. attending groups. Patient reports feeling good and looking forward to leaving ; denies SI/HI/VH/AH. Patient reports she plans on following up with her outpatient providers. Patient educated on: diagnosis and medication risk/benefits Reason for continued inpatient stay Substantial Risk for: stable for discharge Time Spent With Patient Time: Total time managing care of this patient today _20___ minutes.
[2025-05-21 15:43] VITALS: BP 126/70; PULSE 72
[2025-05-21 16:41] LABS: Glucose, Whole Blood 146 mg/dL (60-115)
[2025-05-21 18:40] VITALS: BP 123/58; PULSE 63; RESP 16; TEMP 36.3; O2SAT 97
[2025-05-21 20:33] LABS: Glucose, Whole Blood 281 mg/dL (60-115)
[2025-05-21] MEDS: Latanoprost 0.005 % Ophth Sol 2.5 ML DROPS 1 DROP EYE-BOTH (21:05)
[2025-05-21 21:06] VITALS: BP 146/69
[2025-05-21] MEDS: Insulin Glargine,Hum.rec.anlog 100 UNIT/ML 10 ML VIAL 14 UNIT SUBCUT (21:10)
[2025-05-22 07:50] LABS: Glucose, Whole Blood 128 mg/dL (60-115)
[2025-05-22 07:57] VITALS: BP 148/65; PULSE 70; RESP 12; TEMP 36.4; O2SAT 97
--- NOTE | 2025-05-22 10:00 | PM.PSYDC ---
DS: Providers Provider Date of Service: 05/22/25 Date of admission: 05/18/25 19:25 Date of discharge: 05/22/25 Primary care physician: Unknown Physician Admitting clinician: Sugar rFias Attending physician on admission: Ethan Cancino Attending physician on discharge: Ethan Cancino Discharging clinician: Deedee Allen DS: Diagnosis Discharge Diagnosis (1) Bipolar disorder with psychotic features: Status: Acute (2) Posttraumatic stress disorder: Status: Acute DS: Medications Discharge Medications Home Medications: Home Medications ?Medication ?Instructions ?Recorded ?Confirmed atorvastatin 40 mg tablet 40 mg PO DAILY 05/15/25 05/18/25 benztropine 1 mg tablet 1 mg PO DAILY 05/15/25 05/18/25 clonidine HCl 0.1 mg tablet 0.1 mg PO TID 05/15/25 05/18/25 gabapentin 100 mg capsule 100 mg PO DAILY 05/15/25 05/18/25 lamotrigine 100 mg tablet 100 mg PO DAILY 05/15/25 05/18/25 lamotrigine 100 mg tablet 200 mg PO BEDTIME 05/15/25 05/18/25 latanoprost 0.005 % eye drops 1 drp ophthalmic (eye) BEDTIME 05/15/25 05/18/25 lorazepam 0.5 mg tablet 0.5 mg PO DAILY 05/15/25 05/18/25 melatonin 5 mg tablet 6 mg PO BEDTIME 05/15/25 05/18/25 metformin 500 mg tablet 500 mg PO BID 05/15/25 05/18/25 prazosin 2 mg capsule 2 mg PO BEDTIME 05/15/25 05/18/25 risperidone 1 mg tablet 1 mg PO BID 05/15/25 05/18/25 sertraline 100 mg tablet 100 mg PO BID 05/15/25 05/18/25 Mental Status Exam Mental Status Exam Narrative: Pt is alert and oriented; behavior is cooperative, friendly and calm; dressed in casual attire; mood is described as good ; eye contact appropriate; Speech is normal rate, volume and not pressured; thought process is organized; Thought content is on discharge; denies SI/HI/VH/AH. Data Data Completed and Pending Completed studies during hospitalization [Text1]: 05/21/25 05/21/25 05/22/25 16:37 20:28 07:46 POC Glucose 146 H 281 H 128 H DS: Summary Hospital Course Hospital Course: Per record: Ms. Rosas is a 59 yo F with h/o bipolar I d/o, PTSD, anxiety, type I DM (uses insulin pump at home), functional neuro d/o, h/o falls 2/2 weak knees and migraines who was BIBA to the [facility] ED due to SI with a plan. She was transferred to [facility] for tx of depression and SI on 05/14. On 05/17/25: Patient was tranferred to M/S floor possible seizure and work-up. Patient was seen by neurologist. Per neurologist. 59 years old woman who according to her own description was diagnosed with functional neurological disorder or nonepileptic seizure disorder at [facility] few years ago. She had an episode of generalized rhythmic shaking with no obvious postictal state. Her examination did not reveal any focality. My recommendation is, if she was going to stay in this institution for awhile, to obtain report of EEG, probably ambulatory EEG or inpatient she done in [place] for our records. Otherwise, her diagnosis is tentative. If she has this history, further investigations might not help. Also, she could be transferred to psychiatric floor with an understanding that a seizure-like episode can still happened there was no definitive treatment for nonepileptic seizures. Meet with patient on medical floor in assigned room 363: patient has IV access on right arm. Nurse aware to remove it prior to transfer to . Patient signed CV. denies SI/SIB/HI/AVH. Report her last AVH was when she was on on 05/17 where she saw a preet dress in white and he put stuff in the ceiling and doors. he was telling me to kill myself . Report intrusive thought to get into a fight with someone as she had hx of suicidal by the document control specialist. Report since she got into the hospital, sleep has been improved, and I eat when I am able to eat . Further explains that she has denture and it is hard to chew food sometimes. She agrees to go with Chopped diet. Mood is anxious . She reports that she saw a neurologist this morning. He discussed with her regarding dx that I have had functional neurological disorder when asked what the doctor has been discussed with her since yesterday. Patient is A+O, wearing hospital attire, Unkempt hair, anxious, depressed but pleasant and cooperative. Speech is soft but WNL.Thought process appears to be organized. Thought content is with treatment. Could be delusions/paranoid and psychotic. No delusional or paranoid statement made but report last experience was yesterday with LUCINDA SWANSON. Poor judgment and fair insight. Ms. Rosas is a 59 yo F with h/o bipolar I d/o, PTSD, anxiety, type I DM (uses insulin pump at home), functional neuro d/o, h/o falls 2/2 weak knees and migraines who was BIBA to the [facility] ED due to SI with a plan. She was transferred to [facility] for tx of depression and SI on 05/14. On 05/17/25: Patient was transferred to M/S floor possible seizure and work-up. Readmit to M3 on 05/18/25. Formulation/clinical reasoning: Will keep bipolar dx with psychotic fx for now but presentation could be more c/w PTSD, ADHD + MDD. Will assess further and try to obtain collateral from her outpatient provider. Pt denies current plan to harm herself on the unit. Her insulin pump was removed and her pharmacist's aide provided instructions for her insulin regimen. Plan: Patient on 07-09. On CPAP at night. Admitted to . CV. Work with treatment team to do collateral Continue home psychotropic med regimen for now: Lamotrigine 100 mg qam/200 mg qhs lorazepam 0.5 mg qd melatonin 5 mg qhs prazosin 2 mg qhs risperidone 1 mg bid Gabapentin 100m daily sertraline 100 mg bid (unclear why it's rx'd bid) Lantus 14unit HS and SL scale per Diabetic protocol per hospitalist note: Pt with seizure-like activity on 05/16 and again on 05/17, She had an episode of generalized rhythmic shaking with no obvious postictal state. Her examination did not reveal any focality.; no post-ictal state noted, neurology consulted. 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 Resume all medications and continue with care. Active on unit. attending groups. Patient reports feeling a little anxious today but I feel like the medications are working ; denies SI/HI/VH/AH. Patient stated, the voices went away when I went to the medical floor . She reports sleeping well. Plan for discharge this week if continues to improve; pt aware. continue tx plan. Active on unit. social with peers. attending groups. Patient reports feeling a lot better and no longer having feelings of wanting to hurt myself . She reports sleeping well. denies SI/HI/VH/AH. Plan to discharge on Sunday; pt aware. Social. attending groups. Patient reports feeling good and looking forward to leaving ; denies SI/HI/VH/AH. Patient reports she plans on following up with her outpatient providers. Status at Discharge Cognitive/behavioral status at discharge: Patient has insight and demonstrates good judgment in terms of wanting to pursue treatment. Patient has a safety plan that includes presenting to the closest ER or calling 911 if feeling unsafe. Functional status at discharge: independent ambulation Overall status at discharge: patient is back to baseline Time Spent with Patient Time attestation: Total time managing care of this patient today _20___ minutes. Time spent: Less than 30 minutes Discharge Plan Discharge Anticipated Discharge Date/Time: 05/22/25 11:00 Patient Disposition: Home, Self-Care Discharge Diagnosis: Bipolar d/o, PTSD Referrals: [place] ([facility]) [Other] - 05/25/25 2:00 pm Referral Note: telehealth appointment Porfirio Donahue MD [Other] - 05/28/25 1:00 pm Referral Note: 05-22-25 Your follow up appt has been scheduled with your primary care provider on 05-28-25 @ 1pm Discharge Medications: Continued latanoprost 0.005 % drops 1 drp ophthalmic (eye) BEDTIME Rx Instructions: 1 DROP PER EYE AT HS. atorvastatin 40 mg tablet 40 mg PO DAILY Rx Instructions: Take 40 mg by mouth daily metformin 500 mg tablet 500 mg PO BID clonidine HCl 0.1 mg tablet 0.1 mg PO TID sertraline 100 mg tablet 100 mg PO BID lorazepam 0.5 mg tablet 0.5 mg PO DAILY benztropine 1 mg tablet 1 mg PO DAILY gabapentin 100 mg capsule 100 mg PO DAILY risperidone 1 mg tablet 1 mg PO BID lamotrigine 100 mg tablet 100 mg PO DAILY prazosin 2 mg capsule 2 mg PO BEDTIME melatonin 5 mg tablet 6 mg PO BEDTIME lamotrigine 100 mg Tablet 200 mg PO BEDTIME Discontinued sumatriptan 5 mg/actuation spray,non-aerosol 5 mg INTRANASAL DIRECTED PRN (Reason: Migraine Headache) Rx Instructions: 1 spray (5 mg total) into each nostril daily as needed for migraine. Discharge Orders: Discharge Order (Routine); Ordered 05/22/25 Ordered By: Deedee Allen Diet: Regular diet Activity on Discharge: As tolerated Stand Alone Forms: Patient Portal Discharge page, Community Support Print Language: Omani Care Plan Goals: Maintain mood and safe behaviors Take medications as prescribed Practice coping skills Continue with outpatient providers and reach out to them as needed Health Concerns: Mood stability and behaviors Plan of Treatment: Follow up with your PCP, psychiatric provider and other outpatient providers regarding above concerns Take medications as prescribed Assessment: Patient has insight and demonstrates good judgment in terms of wanting to pursue treatment. Patient has a safety plan that includes presenting to the closest ER or calling 911 if feeling unsafe. Discharge Date/Time: 05/22/25 11:42
== END 2025-05-22 11:42 | disposition home or self-care (01) | DRG 885 ==
PROVIDERS: Admitting Provider Nurse Practitioner Psychiatric/Mental Health; Responsible Provider Registered Nurse; Visit Provider Psychiatry & Neurology Psychiatry
DX: F31.9 Bipolar disorder, unspecified (principal); R45.851 Suicidal ideations; F44.4 Conversion disorder with motor symptom or deficit; H40.9 Unspecified glaucoma; I12.9 Hypertensive chronic kidney disease with stage 1 through stage 4 chronic kidney disease, or unspecified chronic kidney disease; G47.33 Obstructive sleep apnea (adult) (pediatric); N18.31 Chronic kidney disease, stage 3a; E10.22 Type 1 diabetes mellitus with diabetic chronic kidney disease; F43.10 Post-traumatic stress disorder, unspecified; F90.9 Attention-deficit hyperactivity disorder, unspecified type; F17.210 Nicotine dependence, cigarettes, uncomplicated; Z71.6 Tobacco abuse counseling; Z79.84 Long term (current) use of oral hypoglycemic drugs; Z79.899 Other long term (current) drug therapy
CPT/HCPCS: 36415; 80053; 80061; 82947; 83036

== ENCOUNTER → 2025-05-18 19:25 | Outpatient (BNV) | payer OTHER, SELFPAY | PROVIDERS: Admitting Provider Nurse Practitioner Psychiatric/Mental Health; Visit Provider Nurse Practitioner Psychiatric/Mental Health | DX: F31.9 Bipolar disorder, unspecified (principal); F43.10 Post-traumatic stress disorder, unspecified | CPT/HCPCS: 90792; 99231; 99232 ==

== ENCOUNTER → 2025-05-18 19:25 | Outpatient (BNV) | payer OTHER, SELFPAY | PROVIDERS: Admitting Provider Nurse Practitioner Psychiatric/Mental Health; Responsible Provider Registered Nurse; Visit Provider Nurse Practitioner Family | DX: E10.9 Type 1 diabetes mellitus without complications (principal) | CPT/HCPCS: 99221 ==